=== PATIENT | male | born 1965 | race Caucasian/White ===

== ENCOUNTER 2016-07-28 10:05 | Emergency (ER) | payer SELFPAY ==
[~2016-07-28] VITALS: Ht 175.3 cm; Wt 118.0 kg
[~2016-07-28 10:05] MED LIST: ASPI325T PO; CEPH500C3 PO
[2016-07-28 10:08] VITALS: BP 185/89; PULSE 124; RESP 18; TEMP 98.4; O2SAT 95
[2016-07-28] MEDS ORDERED: chlordiazePOXIDE 25 MG CAP PO ONE (10:45)
--- NOTE | 2016-07-28 10:46 | PD ---
HPI Chief Complaint: Edema Time Seen by Provider: 10:23 Travel History International Travel<30 days: No Contact w/Intl Traveler<30days: No Traveled to known affect area: No History of Present Illness HPI This patient complains of swelling in his legs and abdomen. Complains of some shortness of breath. Duration is one month. He reports a gradual worsening. Patient drinks at least 12 beers daily for 2 decades. Denies drug use. He has not had any alcoholic in the last 2-3 days. His girlfriend at bedside reports that he does get shaky when he does not get alcohol for a while. He has not had any chest pain. Symptoms severity is moderate. No alleviating factors. PFSH Past Medical History Arthritis: No Asthma: No Autoimmune Disease: No Blood Disorders: No Anxiety: No Depression: No Heart Rhythm Problems: No Cancer: No Cardiovascular Problems: No High Cholesterol: No Chest Pain: Yes Congestive Heart Failure: No Cerebrovascular Accident: No Diabetes: No GERD: No Genitourinary: No Headaches: No Hepatitis: No Hiatal Hernia: No Hypertension: Yes Kidney Stones: No Musculoskeletal: No Neurologic: No Respiratory: No Migraines: No Myocardial Infarction: No Renal Failure: No Seizures: No Sleep Apnea: No Thyroid Disease: No Ulcer: No Past Surgical History Abdominal Surgery: No Appendectomy: No Cardiac Surgery: No Cholecystectomy: No Ear Surgery: No Endocrine Surgery: No Eye Surgery: No Genitourinary Surgery: No 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) Thoracic Surgery: No Social History Alcohol Use: Yes Tobacco Use: No Substance Use: No Allergies-Medications (Allergen,Severity, Reaction): Coded Allergies: No Known Allergies (Verified , 07/28/16) Reported Meds & Prescriptions Reported Meds & Active Scripts Active Keflex (Cephalexin Monohydrate) 500 Mg Cap 500 Mg PO Q6 Reported Aspirin 325 Mg Tab (Aspirin) 325 Mg Tab 2 Tabs PO DAILY Review of Systems General / Constitutional: No: Fever Eyes: No: Visual changes HENT: No: Headaches Cardiovascular: Positive: Edema, No: Chest Pain or Discomfort Respiratory: Positive: Shortness of Breath Gastrointestinal: No: Abdominal Pain Genitourinary: No: Dysuria Musculoskeletal: Positive: Edema, No: Pain Skin: No Rash Neurologic: No: Weakness Psychiatric: Positive: Substance Abuse, No: Depression Endocrine: No: Polydipsia Hematologic/Lymphatic: No: Easy Bruising Physical Exam Narrative GENERAL: Well-nourished, well-developed patient in no apparent distress. SKIN: Focused skin assessment reveals no rash and nodules. Skin is Warm and dry. HEAD: Atraumatic. Normocephalic. EYES: Pupils equal and round. No scleral icterus. No injection or drainage. ENT: No nasal bleeding or discharge. Mucous membranes pink and moist. NECK: Trachea midline. No JVD. CARDIOVASCULAR: Regular rate and rhythm. No murmur appreciated. Tachycardic at 115 RESPIRATORY: No accessory muscle use. Clear to auscultation. Breath sounds equal bilaterally. GASTROINTESTINAL: Abdomen soft, non-tender, nondistended. Hepatic and splenic margins not palpable. MUSCULOSKELETAL: Has had a left BKA. No clubbing. No cyanosis. Right leg shows mild edema with some hyperpigmentation stasis confirming this is chronic NEUROLOGICAL: Awake and alert. No obvious cranial nerve deficits. Motor grossly within normal limits. Normal speech. PSYCHIATRIC: Appropriate mood and affect; insight and judgment poor. Data Data Last Documented VS Vital Signs Date Time Temp Pulse Resp B/P Pulse Ox O2 Delivery O2 Flow Rate FiO2 07/28/16 10:16 Room Air 07/28/16 10:08 98.4 124 18 185/89 95 Orders Electrocardiogram (07/28/16 ) Iv Access Insert/Monitor (07/28/16 10:36) Complete Blood Count With Diff (07/28/16 10:36) Comprehensive Metabolic Panel (07/28/16 10:36) Chest, Single Ap (07/28/16 ) Primary Care Physician / Telemetry [email or web address].[email or web address] (07/28/16 10:36) Alcohol (Ethanol) (07/28/16 10:36) Chlordiazepoxide (Librium) (07/28/16 10:45) Furosemide (Lasix) (07/28/16 13:00) Potassium Chloride Eff (K-Lyte Cl Eff) (07/28/16 13:00) Labs Laboratory Tests Test 07/28/16 10:30 White Blood Count 6.6 TH/MM3 Red Blood Count 3.60 MIL/MM3 Hemoglobin 13.2 GM/DL Hematocrit 37.1 % Mean Corpuscular Volume 103.1 FL Mean Corpuscular Hemoglobin 36.5 PG Mean Corpuscular Hemoglobin 35.4 % Concent Red Cell Distribution Width 15.4 % Platelet Count 53 TH/MM3 Mean Platelet Volume 8.5 FL Neutrophils (%) (Auto) 76.2 % Lymphocytes (%) (Auto) 15.2 % Monocytes (%) (Auto) 7.3 % Eosinophils (%) (Auto) 0.8 % Basophils (%) (Auto) 0.5 % Neutrophils # (Auto) 5.0 TH/MM3 Lymphocytes # (Auto) 1.0 TH/MM3 Monocytes # (Auto) 0.5 TH/MM3 Eosinophils # (Auto) 0.1 TH/MM3 Basophils # (Auto) 0.0 TH/MM3 CBC Comment AUTO DIFF Differential Comment AUTO DIFF CONFIRMED Platelet Estimate LOW Platelet Morphology Comment NORMAL Sodium Level 136 MEQ/L Potassium Level 3.3 MEQ/L Chloride Level 97 MEQ/L Carbon Dioxide Level 25.8 MEQ/L Anion Gap 13 MEQ/L Blood Urea Nitrogen 4 MG/DL Creatinine 0.71 MG/DL Estimat Glomerular Filtration 118 ML/MIN Rate Random Glucose 78 MG/DL Calcium Level 8.0 MG/DL Total Bilirubin 7.9 MG/DL Aspartate Amino Transf 165 U/L (AST/SGOT) Alanine Aminotransferase 44 U/L (ALT/SGPT) Alkaline Phosphatase 138 U/L Total Protein 7.8 GM/DL Albumin 2.6 GM/DL Ethyl Alcohol Level 75 MG/DL MDM Medical Decision Making Medical Screen Exam Complete: Yes Emergency Medical Condition: Yes Medical Record Reviewed: Yes Differential Diagnosis Liver failure, renal failure, congestive heart failure, alcohol withdrawal Narrative Course I have reviewed the patient's electronic medical record. Patient was here for chest pain evaluation in 2006 IV placed CBC reveals thrombocytopenia 53,000 Metabolic profile is normal LFTs reasonably normal Alcohol level is 75 I reviewed his EKG which shows sinus tachycardia with a rate of 113 Extended cardiac monitoring reveals sinus tachycardia without ectopy I reviewed his chest x-ray which shows atelectasis but nothing else On recheck patient is doing well. Stable for outpatient follow-up. Giving him 1 dose of 80 mg by mouth Lasix now Most importantly he needs to quit his alcohol abuse Discussed the danger of the low platelets His leg swelling likely from his liver disease He is not in CHF Diagnosis Primary Impression: Leg edema, right Additional Impressions: Alcoholism with alcohol dependence Qualified Code: F10.229 - Alcohol dependence with intoxication with complication Thrombocytopenia Additional Instructions: The patient was advised to follow up with their physician and return if they worsen. Stop alcohol consumption Consider [facility] alcohol rehabilitation services Elevate right leg Use low-sodium diet Wear compression stocking on right leg Med/Other Pt SpecificInfo: Other Disposition: 01 DISCHARGE HOME Condition: Stable Ricardo Stephenson MD Jul 28, 2016 10:46
[2016-07-28 11:15] LABS: BASOPHIL % 0.5 % (0.0-2.0); EOSINOPHIL # 0.1 TH/MM3 (0-0.4); EOSINOPHIL % 0.8 % (0.0-4.0); HEMATOCRIT 37.1 % (39.0-51.0); LYMPH % 15.2 % (9.0-44.0); MEAN CELL VOLUME 103.1 FL (80.0-100.0); MEAN CORPUSCULAR HEMOGLOBIN 36.5 PG (27.0-34.0); MEAN CORPUSCULAR HGB CONC 35.4 % (32.0-36.0); MONO % 7.3 % (0.0-8.0); NEUT % 76.2 % (16.0-70.0); PLATELET COUNT 53 TH/MM3 (150-450); RED CELL DISTRIBUTION WIDTH 15.4 % (11.6-17.2); WHITE BLOOD COUNT 6.6 TH/MM3 (4.0-11.0)
[2016-07-28 11:25] LABS: ANION GAP 13 MEQ/L (5-15)
[2016-07-28 11:28] LABS: ALKALINE PHOSPHATASE 138 U/L (45-117); ALT (GPT) 44 U/L (12-78); AST (GOT) 165 U/L (15-37); BICARBONATE 25.8 MEQ/L (21.0-32.0); BLOOD UREA NITROGEN 4 MG/DL (7-18); CHLORIDE 97 MEQ/L (98-107); GLOMERULAR FILTRATION RATE 118 ML/MIN (>89); POTASSIUM 3.3 MEQ/L (3.5-5.1); SODIUM (NA) 136 MEQ/L (136-145); TOTAL BILIRUBIN ADULT 7.9 MG/DL (0.2-1.0)
[2016-07-28 11:49] LABS: HEMO FLAGS AUTO DIFF
[2016-07-28 11:50] LABS: PLATELET ESTIMATE SMEAR LOW (NORMAL); PLATELET MORPHOLOGY NORMAL (NORMAL); SCAN/DIFF AUTO DIFF CONFIRMED
[2016-07-28 12:00] VITALS: BP 169/87; PULSE 110; RESP 18; O2SAT 96
--- NOTE | 2016-07-28 12:07 | RADRPT ---
EXAM DATE/TIME: 07/28/2016 11:12 [facility] COMPARISON: No previous studies available for comparison. INDICATIONS : Shortness of breath and lower extremity swelling. MEDICAL HISTORY : None. SURGICAL HISTORY : None. ENCOUNTER: Initial ACUITY: 3 days PAIN SCORE: 0/10 LOCATION: Bilateral chest FINDINGS: Single AP view of the chest. Mild patchy opacity at the left lung base likely representing atelectasi s. Cardiomediastinal silhouette within normal limits. No evidence of pleural effusion or pneumothorax . CONCLUSION: Mild opacity at the left lung base likely representing atelectasis. No other acute findin gs. Aniket Christensen MD on July 28, 2016 at 12:04 Board Certified Radiologist. This report was verified electronically.
[2016-07-28] MEDS ORDERED: FUROSEMIDE 80 MG TAB PO ONE (13:00)
[2016-07-28] MEDS ORDERED: POTASSIUM CHLORIDE 25 MEQ EFFERVESCENT TAB PO ONE (13:00)
--- NOTE | 2016-07-28 18:34 | EKG ---
Date Performed: 07/28/2016 Time Performed: 10:22:09 PTAGE: 50 years EKG: SINUS TACHYCARDIA ABNORMAL RHYTHM ECG PREVIOUS TRACING : 09/12/2006 10.54 Compared to the previous tracing rate faster DOCTOR: Anna Peters Interpretating Date/Time 07/28/2016 18:32:45
== END 2016-07-28 14:09 | disposition home or self-care (01) ==
LOC: NEPC 10:05
DX: R60.0 Localized edema (principal); F10.20 Alcohol dependence, uncomplicated; D69.6 Thrombocytopenia, unspecified; R06.02 Shortness of breath
CPT/HCPCS: 71010; 80053; 80307; 85025; 93005

== ENCOUNTER 2016-09-09 10:04 | Inpatient (IN) | payer SELFPAY ==
[~2016-09-09] VITALS: Ht 172.7 cm; Wt 135.7 kg
[2016-09-09] VITALS (7 sets, daily range): BP systolic 134–188; BP diastolic 49–91; PULSE 90–116; RESP 20–28; TEMP 95.9–98.6; O2SAT 93–97
[2016-09-09] MEDS ORDERED: SODIUM CHLORIDE 0.9% FLUSH 10 ML FLUSH IV FLUSH PRN ×2 (10:45→13:15)
[2016-09-09] MEDS ORDERED: FUROSEMIDE 40 MG/4 ML VIAL IV PUSH ONE (10:45)
--- NOTE | 2016-09-09 11:11 | RADRPT ---
EXAM DATE/TIME: 09/09/2016 10:37 [facility] COMPARISON: CHEST SINGLE AP, July 28, 2016, 11:12. INDICATIONS : Shortness of breath. MEDICAL HISTORY : None. SURGICAL HISTORY : None. ENCOUNTER: Initial ACUITY: 1 day PAIN SCORE: 0/10 LOCATION: Bilateral chest FINDINGS: A single view of the chest demonstrates the lungs to be symmetrically aerated without evidence of mas s, infiltrate or effusion. The cardiomediastinal contours are unremarkable. Osseous structures are intact. CONCLUSION: 1. No acute cardiopulmonary findings. Ananth Blanchard MD on September 09, 2016 at 11:09 Board Certified Radiologist. This report was verified electronically.
[2016-09-09] MEDS ORDERED: ASPI81CH CHEW (11:17)
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
[2016-09-09 11:34] LABS: BASOPHIL % 0.7 % (0.0-2.0); EOSINOPHIL # 0.1 TH/MM3 (0-0.4); EOSINOPHIL % 1.6 % (0.0-4.0); HEMATOCRIT 34.9 % (39.0-51.0); LYMPH % 18.7 % (9.0-44.0); LYMPHOCYTE # 1.1 TH/MM3 (1.0-4.8); MEAN CELL VOLUME 110.8 FL (80.0-100.0); MEAN CORPUSCULAR HEMOGLOBIN 37.4 PG (27.0-34.0); MEAN CORPUSCULAR HGB CONC 33.8 % (32.0-36.0); MONO % 8.3 % (0.0-8.0); NEUT % 70.7 % (16.0-70.0); PLATELET COUNT 48 TH/MM3 (150-450); RED BLOOD COUNT 3.15 MIL/MM3 (4.50-5.90); RED CELL DISTRIBUTION WIDTH 17.7 % (11.6-17.2); WHITE BLOOD COUNT 5.7 TH/MM3 (4.0-11.0)
[2016-09-09 11:41] LABS: INTERNATIONAL NORMALIZED RATIO 1.4 RATIO; PROTHROMBIN TIME - PATIENT 16.1 SEC (9.8-11.6)
[2016-09-09 11:43] LABS: HEMO FLAGS AUTO DIFF
[2016-09-09 11:55] LABS: ANION GAP 11 MEQ/L (5-15); AST (GOT) 99 U/L (15-37); BICARBONATE 26.2 MEQ/L (21.0-32.0); BLOOD UREA NITROGEN 5 MG/DL (7-18); CHLORIDE 102 MEQ/L (98-107); GLOMERULAR FILTRATION RATE 153 ML/MIN (>89); POTASSIUM 3.4 MEQ/L (3.5-5.1); SODIUM (NA) 139 MEQ/L (136-145)
[2016-09-09 11:56] LABS: ALT (GPT) 30 U/L (12-78)
[2016-09-09 11:58] LABS: ALKALINE PHOSPHATASE 109 U/L (45-117)
[2016-09-09 12:13] LABS: PLATELET ESTIMATE SMEAR LOW (NORMAL); PLATELET MORPHOLOGY NORMAL (NORMAL); SCAN/DIFF AUTO DIFF CONFIRMED
[2016-09-09] MEDS ORDERED: LACTULOSE SYRUP 20 GM/30 ML CUP PO PRN (13:15)
[2016-09-09] MEDS ORDERED: NALOXONE HCL 0.4 MG/ML AMP IV PRN (13:15)
[2016-09-09] MEDS ORDERED: ONDANSETRON HCL 4 MG/2 ML VIAL IVP PRN (13:15)
[2016-09-09] MEDS ORDERED: ACETAMINOPHEN 325 MG TAB PO PRN (13:15)
[2016-09-09] MEDS ORDERED: BISACODYL 10 MG SUPP RECTAL PRN (13:15)
[2016-09-09] MEDS ORDERED: SENNOSIDES 8.6 MG TAB PO PRN (13:15)
[2016-09-09] MEDS ORDERED: MAGNESIUM HYDROXIDE SUSP 30 ML CUP PO PRN (13:15)
[2016-09-09] MEDS: FUROSEMIDE 40 MG/4 ML VIAL IV PUSH SCH ×2 (14:00→21:09)
[2016-09-09 14:04] LABS: BLOOD, URINE NEG (NEG); GLUCOSE,URINE NEG (NEG); HYALINE CAST, URINE 1 /lpf (RARE); KETONE, URINE NEG (NEG); MUCUS URINE FEW /lpf (OCC); NITRITE,URINE NEG (NEG); SQUAMOUS EPITHELIAL CELL URINE <1 /hpf (0-5); URINE COLOR YELLOW (YELLW/STRAW)
[2016-09-09 14:05] LABS: COMMENT (UR) CULT NOT INDICATED; CULTURE IF INDICATED CULT NOT INDICATED
[2016-09-09] MEDS ORDERED: POTASSIUM CHLORIDE 20 MEQ CONTROLLED RELEASE TAB PO ONE ×2 (14:30→16:30)
[2016-09-09] MEDS ORDERED: ALBUMIN HUMAN 25% 25 GM/100 ML BAGP IV ONE (15:00)
--- NOTE | 2016-09-09 15:16 | EKG ---
Date Performed: 09/09/2016 Time Performed: 11:24:11 PTAGE: 50 years EKG: Sinus rhythm NORMAL ECG NO SIGNIFICANT CHANGE FROM PRIOR ELECTROCARDIOGRAM. PREVIOUS TRACING : 07/28/2016 10.22 DOCTOR: Brennon Holt Interpretating Date/Time 09/09/2016 15:15:42
--- NOTE | 2016-09-09 16:06 | RADRPT ---
EXAM DATE/TIME: 09/09/2016 13:19 [facility] COMPARISON: No previous studies available for comparison. INDICATIONS : Ascites. MEDICAL HISTORY : Hypertension. Cirrhosis. Chest pain. SURGICAL HISTORY : Adenoidectomy. Left BKA. ENCOUNTER: Initial ACUITY: 3 weeks PAIN SCORE: 8/10 LOCATION: Left lower quadrant FLUID: Total volume of 1000 cc of clear, yellow fluid was removed. Fluid was sent to lab for ordered studies. Post procedure scanning reveals no hematoma or other complication. TECHNIQUE: 1. Ultrasound guidance for abdominal paracentesis. 2. Paracentesis. The risks, benefits, and alternatives to ultrasound guided paracentesis were explained to the patient in detail including the risk of bleeding and infection. Written and verbal informed consent was obt ained. Under ultrasound guidance 6-[place]ij[place] catheter was placed in the peritoneal space. 1000 cc of f luid could be removed. I could not drain any more. The patient tolerated the procedure well and left the ultrasound suite in stable condition. CONCLUSION: Uncomplicated ultrasound guided paracentesis. CT scan is suggested for further evaluation. The asci nisha may be complex or malignant. Carter Blanchard MD FACR on September 09, 2016 at 16:03 Board Certified Radiologist. This report was verified electronically.
--- NOTE | 2016-09-09 16:22 | RADRPT ---
EXAM DATE/TIME: 09/09/2016 14:36 [facility] COMPARISON: US GUIDED ABD PARACENTESIS, September 09, 2016, 13:19. INDICATIONS : Cirrhosis. MEDICAL HISTORY : Hypertension. Cirrhosis. Chest pain. SURGICAL HISTORY : Adenoidectomy. Left BKA. ENCOUNTER: Initial ACUITY: 3 weeks PAIN SCORE: 8/10 LOCATION: Bilateral upper quadrant MEASUREMENTS: LIVER: 17.7 cm length COMMON DUCT: Non-visualized RIGHT KIDNEY: 11.1 x 5.8 x 5.6 cm SPLEEN: 14.3 cm length FINDINGS: LIVER: There is heterogeneous echotexture of the liver. The liver appears small and cirrhotic. There is asci nisha diffusely throughout the upper abdomen. The main portal vein is patent with a patent pedal flow. COMMON DUCT: The common duct was not visualized. GALLBLADDER: There is some sludge in the dependent portion the gallbladder. The gallbladder wall appears mildly th ickened which would be expected in the setting of ascites. PANCREAS: The pancreas was not visualized RIGHT KIDNEY: No hydronephrosis, stone or mass. SPLEEN: The spleen appears mildly enlarged CONCLUSION: 1. Cirrhotic appearing liver with ascites diffusely throughout the upper abdomen. 2. No findings to indicate biliary obstruction. Ananth Blanchard MD on September 09, 2016 at 16:18 Board Certified Radiologist. This report was verified electronically.
[2016-09-09] MEDS ORDERED: FLUMAZENIL 0.5 MG/5 ML VIAL IV PUSH PRN (16:45)
[2016-09-09] MEDS ORDERED: LORazepam 1 MG TAB PO PRN (16:45)
[2016-09-09] MEDS ORDERED: LORazepam 2 MG/ML VIAL IV PUSH PRN ×2 (16:45)
[2016-09-09] MEDS ORDERED: LORazepam 2 MG TAB PO PRN (16:45)
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
[2016-09-09] MEDS: ALBUMIN HUMAN 25% 25 GM/100 ML BAGP IV SCH (17:46)
[2016-09-09] MEDS: METOPROLOL TARTRATE 25 MG TAB PO SCH ×2 (17:46→21:08)
[2016-09-09 18:57] LABS: PERITONEAL LYMPHS 14 %; PERITONEAL POLYS(SEGS) 32 %; PERITONEAL WBC 313 /MM3 (0-10)
[2016-09-09 18:58] LABS: PERITONEAL HISTIOCYTES 37 %; PERITONEAL MESOTHELIAL 12 %; PERITONEAL MONOS 5 %
[2016-09-09] MEDS: DOCUSATE SODIUM 50 MG/SENNA 8.6 MG TAB PO SCH (21:00)
[2016-09-09] MEDS: SODIUM CHLORIDE 0.9% FLUSH 10 ML FLUSH IV FLUSH SCH (21:04)
[2016-09-09] MEDS: FAMOTIDINE 20 MG TAB PO SCH (21:05)
[2016-09-10] VITALS (9 sets, daily range): BP systolic 110–142; BP diastolic 54–83; PULSE 89–96; RESP 20; TEMP 97.3–98.6; O2SAT 94–97
[2016-09-10] MEDS: ALBUMIN HUMAN 25% 25 GM/100 ML BAGP IV SCH ×2 (02:40→14:04)
[2016-09-10 05:13] LABS: AUTOMATED NEUTROPHIL # 2.2 TH/MM3 (1.8-7.7); BASOPHIL % 0.8 % (0.0-2.0); EOSINOPHIL # 0.2 TH/MM3 (0-0.4); EOSINOPHIL % 3.9 % (0.0-4.0); HEMATOCRIT 29.5 % (39.0-51.0); LYMPH % 29.7 % (9.0-44.0); LYMPHOCYTE # 1.2 TH/MM3 (1.0-4.8); MEAN CELL VOLUME 113.8 FL (80.0-100.0); MEAN CORPUSCULAR HEMOGLOBIN 39.8 PG (27.0-34.0); MONO % 10.8 % (0.0-8.0); NEUT % 54.8 % (16.0-70.0); PLATELET COUNT 43 TH/MM3 (150-450); RED BLOOD COUNT 2.59 MIL/MM3 (4.50-5.90); RED CELL DISTRIBUTION WIDTH 18.1 % (11.6-17.2); WHITE BLOOD COUNT 3.9 TH/MM3 (4.0-11.0)
[2016-09-10] MEDS ORDERED: DIATRIZOATE MEGLUM/DIATRIZOATE SOD 9 ML CUP PO SCH (05:15)
[2016-09-10 05:17] LABS: HEMO FLAGS DIFF FINAL
[2016-09-10] MEDS: FUROSEMIDE 40 MG/4 ML VIAL IV PUSH SCH ×3 (05:21→21:45)
[2016-09-10 05:34] LABS: ANION GAP 10 MEQ/L (5-15); AST (GOT) 68 U/L (15-37); BICARBONATE 30.4 MEQ/L (21.0-32.0); BLOOD UREA NITROGEN 7 MG/DL (7-18); CHLORIDE 101 MEQ/L (98-107); GLOMERULAR FILTRATION RATE 144 ML/MIN (>89); POTASSIUM 3.5 MEQ/L (3.5-5.1); SODIUM (NA) 141 MEQ/L (136-145)
[2016-09-10 05:40] LABS: ALKALINE PHOSPHATASE 79 U/L (45-117); ALT (GPT) 23 U/L (12-78); TOTAL BILIRUBIN ADULT 7.1 MG/DL (0.2-1.0)
[2016-09-10] MEDS: DOCUSATE SODIUM 50 MG/SENNA 8.6 MG TAB PO SCH ×2 (09:00→21:00)
[2016-09-10] MEDS: METOPROLOL TARTRATE 25 MG TAB PO SCH ×2 (09:29→21:45)
[2016-09-10] MEDS: THIAMINE HCL 100 MG TAB PO SCH (09:29)
[2016-09-10] MEDS: FAMOTIDINE 20 MG TAB PO SCH ×2 (09:29→21:45)
[2016-09-10] MEDS: MULTIVITAMINS/MINERALS THERAPEUTIC TAB PO SCH (09:29)
[2016-09-10] MEDS: FOLIC ACID 1 MG TAB PO SCH (09:29)
[2016-09-10] MEDS: SODIUM CHLORIDE 0.9% FLUSH 10 ML FLUSH IV FLUSH SCH ×2 (09:30→21:46)
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
[2016-09-10] MEDS ORDERED: IOHEXOL 350 MG/ML 10 ML VIAL (for RAD DIAG) IV ONE (11:46)
--- NOTE | 2016-09-10 12:21 | RADRPT ---
EXAM DATE/TIME: 09/10/2016 11:34 [place] COMPARISON: No previous studies available for comparison. INDICATIONS : Abdominal pain, history of cirrhosis. IV CONTRAST: 88 cc Omnipaque 350 (iohexol) IV ORAL CONTRAST: Prescribed oral contrast ingested. RADIATION DOSE: 21.99 CTDIvol (mGy) MEDICAL HISTORY : Hypertension. Cirrhosis. SURGICAL HISTORY : None. ENCOUNTER: Initial ACUITY: 1 day PAIN SCALE: 5/10 LOCATION: Bilateral upper quadrant TECHNIQUE: Volumetric scanning of the abdomen and pelvis was performed. Using automated exposure control and ad justment of the mA and/or kV according to patient size, radiation dose was kept as low as reasonably achievable to obtain optimal diagnostic quality images. FINDINGS: The liver is nodular in contour consistent with cirrhosis. No biliary ductal dilatation is noted. T he gallbladder is non-distended. The spleen is enlarged. There is re-canalization of the umbilical vein as well as esophageal and perisplenic varices indicating portal hypertension. The pancreas is n ormal. The adrenal glands are normal bilaterally. The kidneys enhance briskly and demonstrate no ev idence of hydronephrosis or calcified stone. The abdominal aorta is calcified but is not aneurysmall y dilated. The inferior vena cava is normal. There is no paraaortic, retroperitoneal or mesenteric lymphadenopathy. The bowel loops are unremarkable. The urinary bladder is unremarkable. The prosta te gland is unremarkable. No pelvic lymphadenopathy is noted. The visualized lung bases are clear. Degenerative changes are noted throughout the lumbar and lower thoracic spine. Degenerative changes are also noted involving the hip joints. CONCLUSION: 1.. Moderate amount of ascites within the abdomen. 2. Cirrhosis of the liver. 3. Re-canalization of the umbilical vein, esophageal varices and perisplenic varices indicating port al hypertension. 4. Splenomegaly. 5. Degenerative changes involving lumbar spine, lower thoracic spine and bilateral hips. Miki Metz MD on September 10, 2016 at 11:59 Board Certified Radiologist. This report was verified electronically.
[2016-09-10] MEDS: cefTRIAXone INJ 1,000 MG in SODIUM CHLORIDE 0.9% INJ 100 ML IV SCH (12:26)
[2016-09-10] MEDS: SPIRONOLACTONE 25 MG TAB PO SCH (15:54)
[2016-09-11] VITALS: BP 129/69; PULSE 87; RESP 20; TEMP 98.8; O2SAT 94
[2016-09-11] MEDS: ALBUMIN HUMAN 25% 25 GM/100 ML BAGP IV SCH (03:47)
[2016-09-11 04:00] VITALS: BP 119/58; PULSE 92; RESP 20; TEMP 97.8; O2SAT 97
[2016-09-11 04:42] LABS: BODY FLUID LDH 66 U/L (()); BODY FLUID LDH SOURCE PERITONEAL FLUID (())
[2016-09-11] MEDS: FUROSEMIDE 40 MG/4 ML VIAL IV PUSH SCH ×3 (05:28→20:31)
[2016-09-11 08:00] VITALS: BP 151/75; PULSE 92; RESP 18; TEMP 97.4; O2SAT 94
[2016-09-11] MEDS: SPIRONOLACTONE 25 MG TAB PO SCH (08:54)
[2016-09-11] MEDS: FAMOTIDINE 20 MG TAB PO SCH ×2 (08:54→20:31)
[2016-09-11] MEDS: FOLIC ACID 1 MG TAB PO SCH (08:54)
[2016-09-11] MEDS: DOCUSATE SODIUM 50 MG/SENNA 8.6 MG TAB PO SCH ×2 (08:54→20:31)
[2016-09-11] MEDS: MULTIVITAMINS/MINERALS THERAPEUTIC TAB PO SCH (08:54)
[2016-09-11] MEDS: METOPROLOL TARTRATE 25 MG TAB PO SCH ×2 (08:54→20:31)
[2016-09-11] MEDS: THIAMINE HCL 100 MG TAB PO SCH (08:54)
[2016-09-11] MEDS: SODIUM CHLORIDE 0.9% FLUSH 10 ML FLUSH IV FLUSH SCH ×2 (08:55→20:31)
[2016-09-11] MEDS: PILL SPLITTER OTHER PRN (08:55)
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
[2016-09-11 12:00] VITALS: BP 123/87; PULSE 92; RESP 17; TEMP 97.9; O2SAT 93
[2016-09-11] MEDS: cefTRIAXone INJ 1,000 MG in SODIUM CHLORIDE 0.9% INJ 100 ML IV SCH (12:24)
[2016-09-11 16:00] VITALS: BP 135/88; PULSE 94; RESP 17; TEMP 98.5; O2SAT 96
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
[2016-09-11 21:13] VITALS: BP 144/72; PULSE 93; RESP 18; TEMP 98.3; O2SAT 96
[2016-09-12 01:26] VITALS: BP 136/68; PULSE 95; RESP 18; TEMP 97.4; O2SAT 94
[2016-09-12] MEDS: FUROSEMIDE 40 MG/4 ML VIAL IV PUSH SCH ×3 (05:31→20:24)
[2016-09-12 06:37] LABS: TRANSFERRIN IRON PROFILE 92 MG/DL (200-360)
[2016-09-12 06:39] LABS: FERRITIN 270 NG/ML (26-388)
[2016-09-12] MEDS: THIAMINE HCL 100 MG TAB PO SCH (08:13)
[2016-09-12] MEDS: SODIUM CHLORIDE 0.9% FLUSH 10 ML FLUSH IV FLUSH SCH ×2 (08:14→20:25)
[2016-09-12] MEDS: SPIRONOLACTONE 25 MG TAB PO SCH (08:14)
[2016-09-12] MEDS: METOPROLOL TARTRATE 25 MG TAB PO SCH ×2 (08:14→20:24)
[2016-09-12] MEDS: FOLIC ACID 1 MG TAB PO SCH (08:14)
[2016-09-12] MEDS: MULTIVITAMINS/MINERALS THERAPEUTIC TAB PO SCH (08:14)
[2016-09-12] MEDS: FAMOTIDINE 20 MG TAB PO SCH ×2 (08:14→20:24)
[2016-09-12] MEDS: PILL SPLITTER OTHER PRN (08:15)
[2016-09-12] MEDS: DOCUSATE SODIUM 50 MG/SENNA 8.6 MG TAB PO SCH ×2 (08:15→20:24)
[2016-09-12 08:33] VITALS: BP 117/69; PULSE 98; RESP 18; TEMP 98.3; O2SAT 93
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
[2016-09-12 12:00] VITALS: BP 140/74; PULSE 88; RESP 19; TEMP 96.4; O2SAT 96
[2016-09-12] MEDS: cefTRIAXone INJ 1,000 MG in SODIUM CHLORIDE 0.9% INJ 100 ML IV SCH (12:19)
[2016-09-12 12:51] LABS: BICARBONATE 36.6 MEQ/L (21.0-32.0); MAGNESIUM 1.5 MG/DL (1.5-2.5)
[2016-09-12 13:01] LABS: POTASSIUM 2.9 MEQ/L (3.5-5.1)
[2016-09-12] MEDS ORDERED: POTASSIUM CHLORIDE 20 MEQ CONTROLLED RELEASE TAB PO ONE ×2 (13:15→15:00)
[2016-09-12] MEDS: MAGNESIUM SULFATE 1 GM PREMIX 100 ML IV SCH ×2 (13:41→14:37)
[2016-09-12 16:00] VITALS: BP 129/65; PULSE 91; RESP 17; TEMP 96.6; O2SAT 95
--- NOTE | 2016-09-12 16:27 | HHI.GIFU ---
Subjective Remarks Pt laying in bed, says he feels better. No n/v, abd pain, SOB Objective Vitals I&O Vital Signs Date Time Temp Pulse Resp B/P Pulse Ox O2 Delivery O2 Flow Rate FiO2 09/12/16 12:00 96.4 88 19 140/74 96 09/12/16 08:33 98.3 98 18 117/69 93 09/12/16 01:26 97.4 95 18 136/68 94 09/11/16 21:13 98.3 93 18 144/72 96 I/O 09/11/16 09/11/16 09/11/16 09/12/16 09/12/16 09/12/16 07:00 15:00 23:00 07:00 15:00 23:00 Intake Total 220 ml 575 ml 290 ml Output Total 800 ml 650 ml 1000 ml 500 ml Balance -580 ml -75 ml -1000 ml -210 ml Intake Oral 120 ml 475 ml IV Total 100 ml 100 ml 290 ml Output Urine Total 800 ml 650 ml 1000 ml 500 ml # Voids 1 # Bowel Movements 0 1 Laboratory Laboratory Tests Test 09/12/16 09/12/16 05:46 12:13 Iron Level 58 Total Iron Binding Capacity 129 Percent Iron Saturation 45.0 Ferritin 270 Sodium Level 139 Potassium Level 2.9 Chloride Level 97 Carbon Dioxide Level 36.6 Anion Gap 5 Blood Urea Nitrogen 7 Creatinine 0.79 Estimat Glomerular Filtration 105 Rate Random Glucose 135 Calcium Level 8.0 Phosphorus Level 3.5 Magnesium Level 1.5 Date/Time Procedure Status Source Growth 09/09/16 14:57 Gram Stain - Final Complete Fluid Peritoneal Fluid 09/09/16 14:57 Body Fluid Culture - Final Complete Fluid Peritoneal Fluid NO GROWTH IN 72 HRS.--AEROBICALLY OR ... Imaging Last Impressions Abdomen/Pelvis CT 09/10/16 1136 Signed Impressions: Service Date/Time: Saturday, September 10, 2016 11:34 - CONCLUSION: 1.. Moderate amount of ascites within the abdomen. 2. Cirrhosis of the liver. 3. Re-canalization of the umbilical vein, esophageal varices and perisplenic varices indicating portal hypertension. 4. Splenomegaly. 5. Degenerative changes involving lumbar spine, lower thoracic spine and bilateral hips. Miki Metz MD Chest X-Ray 09/09/16 1036 Signed Impressions: Service Date/Time: Friday, September 09, 2016 10:37 - CONCLUSION: 1. No acute cardiopulmonary findings. Ananth Blanchard MD Liver Ultrasound 09/09/16 0000 Signed Impressions: Service Date/Time: Friday, September 09, 2016 14:36 - CONCLUSION: 1. Cirrhotic appearing liver with ascites diffusely throughout the upper abdomen. 2. No findings to indicate biliary obstruction. Ananth Blanchard MD Cyst Biopsy Asp-Paracentesis US 09/09/16 0000 Signed Impressions: Service Date/Time: Friday, September 09, 2016 13:19 - CONCLUSION: Uncomplicated ultrasound guided paracentesis. CT scan is suggested for further evaluation. The ascites may be complex or malignant. Carter Blanchard MD FACR Physical Exam HEENT: EOMI; normocephalic; atraumatic; +icterus. CHEST: CTA CARDIAC: RRR ABDOMEN: soft, protuberant, nontender; bowel sounds are present in all four quadrants. EXTREMITIES: No clubbing, cyanosis, +2 pitting edema left leg. right BKA SKIN: no rash; + jaundice. [employer]: No focal deficits; alert and oriented times three. Assessment and Plan Plan ASSESSMENT - cirrhosis - likely 2/2 ETOH. pt w/ hx drinking 6-7 beers daily. hep neg. DF 25.96. iron 58, TIBC 129, ferritin 70. liver w/u pending CT --> 1.. Moderate amount of ascites within the abdomen. 2. Cirrhosis of the liver. 3. Re-canalization of the umbilical vein, esophageal varices and perisplenic varices indicating portal hypertension. 4. Splenomegaly. - elevated LFTs - 2/2 above, mild elevation - ascites - s/p paracentesis - anasarca - onset 1m ago. PLAN - await rest of liver w/u - continue diuretics - low sodium diet - ETOH cessation - monitor labs - okay to D/C from GI standpoint, f/u w/ GI as outpt This pt seen by myself and Dr Pascal and this note is written on his behalf Claudia Hopson Sep 12, 2016 16:27
[2016-09-12 20:00] VITALS: BP 126/62; PULSE 91; RESP 18; TEMP 97.6; O2SAT 95
[2016-09-12] MEDS ORDERED: SPIR25 PO (23:05)
[2016-09-12] MEDS ORDERED: METO25TA3 PO (23:05)
[2016-09-12] MEDS ORDERED: FURO1TAB60 PO (23:05)
[2016-09-12] MEDS ORDERED: FAMO20TA2 PO (23:05)
--- NOTE | 2016-09-12 23:06 | HHI.DCPOC ---
Discharge Care Plan Diagnosis: (1) Anasarca Your Health Problems Are: Difficulty with ADL Exercise Tolerance Goals to Promote Your Health * To prevent worsening of your condition and complications * To maintain your health at the optimal level Directions to Meet Your Goals Take your medications as prescribed Follow your dietary instruction Follow activity as directed Keep your appointments as scheduled Take your immunizations and boosters as scheduled If your symptoms worsen call your PCP, if no PCP go to Urgent Care Center or Emergency Room Smoking is Dangerous to Your Health. Avoid second hand smoke Call the 24-hour hour crisis hotline for domestic abuse at Slick Metzger MD Sep 12, 2016 23:06
[2016-09-12] MEDS ORDERED: CIPR-9 PO (23:07)
[2016-09-13] VITALS: BP 129/60; PULSE 92; RESP 18; TEMP 98.4; O2SAT 94
[2016-09-13 04:57] LABS: MAGNESIUM 1.7 MG/DL (1.5-2.5)
[2016-09-13 05:00] LABS: POTASSIUM 2.9 MEQ/L (3.5-5.1)
[2016-09-13] MEDS ORDERED: POTASSIUM CHLORIDE 20 MEQ CONTROLLED RELEASE TAB PO ONE ×2 (05:30→14:30)
[2016-09-13] MEDS: POTASSIUM CHLOR 20 MEQ PREMIX 100 ML IV SCH ×2 (05:55→07:12)
[2016-09-13] MEDS: FUROSEMIDE 40 MG/4 ML VIAL IV PUSH SCH ×2 (05:56→12:27)
[2016-09-13 08:00] VITALS: BP 128/68; PULSE 96; RESP 16; TEMP 96.3; O2SAT 94
[2016-09-13] MEDS ORDERED: POTA-163 PO (08:50)
[2016-09-13] MEDS: DOCUSATE SODIUM 50 MG/SENNA 8.6 MG TAB PO SCH (09:00)
[2016-09-13] MEDS: THIAMINE HCL 100 MG TAB PO SCH (09:06)
[2016-09-13] MEDS: METOPROLOL TARTRATE 25 MG TAB PO SCH (09:06)
[2016-09-13] MEDS: MULTIVITAMINS/MINERALS THERAPEUTIC TAB PO SCH (09:06)
[2016-09-13] MEDS: SPIRONOLACTONE 25 MG TAB PO SCH (09:06)
[2016-09-13] MEDS: FAMOTIDINE 20 MG TAB PO SCH (09:06)
[2016-09-13] MEDS: SODIUM CHLORIDE 0.9% FLUSH 10 ML FLUSH IV FLUSH SCH (09:07)
[2016-09-13] MEDS: FOLIC ACID 1 MG TAB PO SCH (09:07)
--- NOTE | 2016-09-13 09:26 | HHI.PR ---
Subjective Remarks Follow-up cirrhosis. Patient doing okay states his abdominal distention and lower extremity swelling better. Hypokalemia of 2.9 completely asymptomatic currently being replaced. Discussed with RN, repeat BMP after replacement and possible discharge Objective Vitals Vital Signs Date Time Temp Pulse Resp B/P Pulse Ox O2 Delivery O2 Flow Rate FiO2 09/13/16 08:00 96.3 96 16 128/68 94 09/13/16 00:00 98.4 92 18 129/60 94 09/12/16 20:00 97.6 91 18 126/62 95 09/12/16 16:00 96.6 91 17 129/65 95 09/12/16 12:00 96.4 88 19 140/74 96 I/O 09/12/16 09/12/16 09/12/16 09/13/16 09/13/16 09/13/16 07:00 15:00 23:00 07:00 15:00 23:00 Intake Total 865 ml 720 ml 240 ml Output Total 1000 ml 1375 ml 450 ml Balance -1000 ml -510 ml 720 ml 240 ml -450 ml Intake Oral 575 ml 720 ml 240 ml IV Total 290 ml 0 ml Output Urine Total 1000 ml 1375 ml 450 ml # Voids 4 2 # Bowel Movements 1 0 0 Result Diagram: 09/10/16 0431 09/13/16 0316 Imaging Last Impressions Abdomen/Pelvis CT 09/10/16 1136 Signed Impressions: Service Date/Time: Saturday, September 10, 2016 11:34 - CONCLUSION: 1.. Moderate amount of ascites within the abdomen. 2. Cirrhosis of the liver. 3. Re-canalization of the umbilical vein, esophageal varices and perisplenic varices indicating portal hypertension. 4. Splenomegaly. 5. Degenerative changes involving lumbar spine, lower thoracic spine and bilateral hips. Miki Metz MD Chest X-Ray 09/09/16 1036 Signed Impressions: Service Date/Time: Friday, September 09, 2016 10:37 - CONCLUSION: 1. No acute cardiopulmonary findings. Ananth Blanchard MD Liver Ultrasound 09/09/16 0000 Signed Impressions: Service Date/Time: Friday, September 09, 2016 14:36 - CONCLUSION: 1. Cirrhotic appearing liver with ascites diffusely throughout the upper abdomen. 2. No findings to indicate biliary obstruction. Ananth Blanchard MD Cyst Biopsy Asp-Paracentesis US 09/09/16 0000 Signed Impressions: Service Date/Time: Friday, September 09, 2016 13:19 - CONCLUSION: Uncomplicated ultrasound guided paracentesis. CT scan is suggested for further evaluation. The ascites may be complex or malignant. Carter Blanchard MD FACR Objective Remarks GENERAL: Well-developed, well-nourished in no distress SKIN: Warm and dry. HEAD: Atraumatic. Normocephalic. EYES: Pupils equal and round. No scleral icterus. No injection or drainage. ENT: No nasal bleeding or discharge. Mucous membranes pink and moist. NECK: Trachea midline. No JVD. CARDIOVASCULAR: Regular rate and rhythm. RESPIRATORY: No accessory muscle use. Clear to auscultation. Breath sounds equal bilaterally. GASTROINTESTINAL: Abdomen soft, non-tender, distended. MUSCULOSKELETAL: Extremities without clubbing, cyanosis but with right lower extremity pitting edema. Left BKA stump clear of infection. No obvious deformities. NEUROLOGICAL: Awake and alert. No obvious cranial nerve deficits. Motor grossly within normal limits. Five out of 5 muscle strength in the arms and legs. Normal speech. PSYCHIATRIC: Appropriate mood and affect; insight and judgment normal. Procedures Paracentesis A/P Problem List: (1) Anasarca ICD Code: R60.1 Status: Acute Assessment and Plan Ascites Hypoalbuminemia Liver failure Cirrhosis - Paracentesis completed, 1L of fluid removed, cytology and fluid reports negative to date except for increased cell count -Albumin replacement ordered -Liver US indicated liver cirrhosis without signs of obstruction. -CT of abdomen confirmed Cirrhosis, no other pathology found, Hepatitis profile negative -Paracentesis found more than 250 cells started on Ceftriaxone Spontaneous Bacterial Peritonitis questioned. Denies abdominal pain. Switch to by mouth Cipro on discharge Cleared for discharge by GI specialist Alcohol dependence -CIWA protocol -Strongly recommended to stop alcohol abuse. Dyspnea, secondary to abdominal distention -Improved. Hypokalemia at 2.9. Aggressive potassium replacement with 40 in Meq by mouth and 40 mEq IV. Repeat BMP and magnesium after placement Diet: Low sodium diet DVT prophylaxis: SCD and MARILYN hose. Pharmacological prophylaxis contraindicated secondary to thrombocytopenia Discharge Planning Possible discharge later today Slick Metzger MD Sep 13, 2016 09:26
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
[2016-09-13] MEDS: cefTRIAXone INJ 1,000 MG in SODIUM CHLORIDE 0.9% INJ 100 ML IV SCH (11:51)
[2016-09-13 12:00] VITALS: BP 133/63; PULSE 89; RESP 17; TEMP 96.6; O2SAT 94
[2016-09-13 14:22] LABS: BICARBONATE 33.1 MEQ/L (21.0-32.0); MAGNESIUM 1.8 MG/DL (1.5-2.5); POTASSIUM 3.3 MEQ/L (3.5-5.1)
[2016-09-17 07:53] LABS: MITOCHONDRIAL ABS LESS THAN 20.0 U (())
== END 2016-09-13 16:24 | disposition home or self-care (01) | DRG 433 ==
LOC: NEPE 10:04 → NEDA 13:08 → N07B 16:14
PROVIDERS: ADMIT Internal Medicine; ATTEND Internal Medicine
PROC: 0W9G3ZX Drainage of Peritoneal Cavity, Percutaneous Approach, Diagnostic (ICD-10-PCS; principal; 2016-09-09)
PROC: 0W9G3ZZ Drainage of Peritoneal Cavity, Percutaneous Approach (ICD-10-PCS; 2016-09-09)
DX: K70.31 Alcoholic cirrhosis of liver with ascites (principal); Z68.42 Body mass index [BMI] 45.0-49.9, adult; D69.6 Thrombocytopenia, unspecified; I10 Essential (primary) hypertension; K70.40 Alcoholic hepatic failure without coma; E87.6 Hypokalemia; R60.1 Generalized edema; E66.9 Obesity, unspecified; E88.09 Other disorders of plasma-protein metabolism, not elsewhere classified; F10.20 Alcohol dependence, uncomplicated; Z89.512 Acquired absence of left leg below knee; Z79.82 Long term (current) use of aspirin
CPT/HCPCS: 49083; 71010; 74177; 76705; 80048; 80053; 80074; 81001; 82103; 82150; 82390; 82550; 82728; 83520; 83540; 83550; 83615; 83690; 83735; 84100; 84132; 84157; 84484; 85025; 85610; 85730; 86038; 86256; 87070; 87205; 89051; 93005; 96374; C1729; E0113; J0696; J1940; J3475; J3480; P9047; Q9967

== ENCOUNTER 2016-10-19 22:38 | Emergency (ER) | payer OTHER ==
[~2016-10-19] VITALS: Ht 175.3 cm; Wt 131.0 kg
[~2016-10-19 22:38] MED LIST changes: -ASPI325T PO; +ASPI81CH CHEW; -CEPH500C3 PO; +CIPR-9 PO; +FAMO20TA2 PO; +FURO1TAB60 PO; +METO25TA3 PO; +POTA-163 PO; +SPIR25 PO
[2016-10-19 22:51] VITALS: BP 135/59; PULSE 98; RESP 20; TEMP 98.2; O2SAT 100
--- NOTE | 2016-10-19 22:58 | PD ---
HPI Chief Complaint: Back/ Neck Pain or Injury Time Seen by Provider: 22:56 Travel History International Travel<30 days: No Contact w/Intl Traveler<30days: No Traveled to known affect area: No History of Present Illness HPI Patient comes in complaining of right low back/ hip pain ongoing for 2 days. Patient's pain is sharp stabbing pain radiates down his right leg. Patient denies any known injury. Patient states that he was working on his car leaning over and felt fine however the next day is 1 he woke with the pain. Patient tried taking aspirin with no improvement of his symptoms. Pain is worse with certain movement. Patient denies any numbness or tingling, or loss or change in bowel or bladder, abdominal pain, IV drug use, or fevers. PFSH Past Medical History Arthritis: No Asthma: No Autoimmune Disease: No Blood Disorders: No Anxiety: No Depression: No Heart Rhythm Problems: No Cancer: No Cardiovascular Problems: No High Cholesterol: No Chest Pain: Yes Congestive Heart Failure: No Cerebrovascular Accident: No Diabetes: No Endocrine: No GERD: No Genitourinary: No Headaches: No Hepatitis: No Hiatal Hernia: No Hypertension: Yes Immune Disorder: No Kidney Stones: No Musculoskeletal: No Neurologic: No Psychiatric: No Reproductive: No Respiratory: No Migraines: No Myocardial Infarction: No Renal Failure: No Seizures: No Sleep Apnea: No Thyroid Disease: No Ulcer: No Past Surgical History Abdominal Surgery: No Appendectomy: No Cardiac Surgery: No Cholecystectomy: No Ear Surgery: No Endocrine Surgery: No Eye Surgery: No Genitourinary Surgery: No 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) Thoracic Surgery: No Social History Alcohol Use: Yes (hx of beers daily ) Tobacco Use: No Substance Use: No Allergies-Medications (Allergen,Severity, Reaction): Coded Allergies: No Known Allergies (Verified , 09/09/16) Reported Meds & Prescriptions Reported Meds & Active Scripts Active Medrol Dosepak (Methylprednisolone) 4 Mg Dspk 4 Mg PO DIRECTED Per Pharmacist direction Flexeril (Cyclobenzaprine HCl) 10 Mg Tab 10 Mg PO Q8HR Famotidine 20 Mg Tab 20 Mg PO BID Reported [OTC diruectic] 1 Tab PO DAILY [OTC potassium ] 1 Tab PO DAILY Aspirin 81 Mg Chew 81 Mg CHEW DAILY Review of Systems Except as stated in HPI: all other systems reviewed are Neg Physical Exam Narrative GENERAL: Well-developed, overly nourished, in no acute distress, and non-ill appearing. SKIN: Focused skin assessment warm and dry. HEAD: Atraumatic. Normocephalic. EYES: Pupils equal and round. EOMI. No scleral icterus. No injection or drainage. ENT: No nasal bleeding or discharge. Mucous membranes pink and moist. NECK: Trachea midline. Supple. No nuclear rigidity. CARDIOVASCULAR: Dorsal pulses 2+ and intact. Capillary refill less than 2 seconds. RESPIRATORY: No accessory muscle use. No respiratory distress. MUSCULOSKELETAL: No obvious deformities. No clubbing. No cyanosis. Trace edema bilateral lower extremities. Full range of motion. Left AKA noted. NEUROLOGICAL: Awake and alert. No obvious cranial nerve deficits. Motor grossly within normal limits. Normal speech. PSYCHIATRIC: Appropriate mood and affect; insight and judgment normal. Data Data Last Documented VS Vital Signs Date Time Temp Pulse Resp B/P Pulse Ox O2 Delivery O2 Flow Rate FiO2 10/20/16 02:19 98 18 124/74 96 10/20/16 00:07 Room Air 10/19/16 22:51 98.2 Orders Dexamethasone Inj (Decadron Inj) (10/19/16 23:00) Acetamin-Hydrocod 325-5 Mg ([place] 5-325 (10/19/16 23:00) Cyclobenzaprine (Flexeril) (10/19/16 23:00) Morphine Inj (Morphine Inj) (10/20/16 00:00) MDM Medical Decision Making Medical Screen Exam Complete: Yes Emergency Medical Condition: Yes Differential Diagnosis Fracture, strain, sciatic, other Narrative Course The patient presented complaining of back pain with radiation down leg. There was no history of recent fall or trauma. There was no evidence to support genitourinary etiology. There is also no evidence to suggest vascular pathology such as AAA dissection. No fevers or other evidence to suspect infectious processes, abscess, osteomyelitis etc. The patients neurological exam is normal with normal motor and sensory. There is no saddle paresthesias reported and no bowel or bladder incontinence or retention. I suspect the pain is mechanical in nature with sciatica. Clinical suspicion, plan of care and management was discussed with the patient. The patient was instructed to follow up with their health care provider. The patient was also instructed to return if the pain worsened, changed, or developed weakness or bowel or bladder trouble. The patient agreed with plan. Patient in no obvious distress upon re-evaluation. Discussed patient with Dr. Jaramillo prior discharge, who is in agreement with plan of care and disposition. Patient was asked if they wanted to speak to my attending, which the patient did not wish to do at this time. Any questions/concerns in reference to patient diagnosis/condition discussed and clarified prior to patient's discharge. Reinforced sheer importance of close follow up with patient's primary physician or primary care clinic. Instructed patient to return to ED immediately, if symptoms return/worsen. Pt showed understanding of above instructions. Further instructions and recommendations were detailed in discharge paperwork. Pt left without difficulty out of ED at discharge. Diagnosis Primary Impression: Sciatica of right side Patient Instructions: General Instructions, Sciatica (ED) Additional Instructions: Follow-up with your primary care physician and/or orthopedics in 2-3 days for evaluation. Take all medication as prescribed. Return to the emergency department if symptoms get worse. Med/Other Pt SpecificInfo: Prescription(s) given Scripts Methylprednisolone Dosepak (Medrol Dosepak)4 Mg Dspk4 Mg PO DIRECTED #1 DSPK Ref 0 Per Pharmacist direction Prov:See Jaramillo MD 10/20/16 Cyclobenzaprine (Flexeril)10 Mg Tab10 Mg PO Q8HR #15 TAB Ref 0 Prov:See Jaramillo MD 10/20/16 Disposition: 01 DISCHARGE HOME Condition: Stable Nicholas Bose Oct 19, 2016 22:58
[2016-10-19] MEDS ORDERED: CYCLOBENZAPRINE HCL 10 MG TAB PO ONE (23:00)
[2016-10-19] MEDS ORDERED: DEXAMETHASONE SOD PHOS 4 MG/ML VIAL IM ONE (23:00)
[2016-10-19] MEDS ORDERED: ACETAMINOPHEN/HYDROcodone 325 MG/5 MG TAB PO ONE (23:00)
[2016-10-19] MEDS ORDERED: [UNRECOGNIZED DRUG - REMARK] PO (23:02)
[2016-10-19] MEDS ORDERED: OTC potassium PO (23:02)
[2016-10-20] MEDS ORDERED: MORPHINE SULFATE 4 MG/ML INJ IM ONE
[2016-10-20] MEDS ORDERED: CYCL1TAB29 PO (00:03)
[2016-10-20] MEDS ORDERED: MEDR4PAK PO (00:03)
[2016-10-20 00:07] VITALS: BP 122/57; PULSE 100; RESP 18; O2SAT 97
[2016-10-20 01:27] VITALS: RESP 16
[2016-10-20 02:19] VITALS: BP 124/74
== END 2016-10-20 02:29 | disposition home or self-care (01) ==
LOC: NEPD 22:38
DX: M54.31 Sciatica, right side (principal)
CPT/HCPCS: 96372; 99284; J1100; J2270

== ENCOUNTER 2016-10-23 09:55 | Inpatient (IN) | payer OTHER ==
[2016-10-23] VITALS (21 sets, daily range): BP systolic 122–156; BP diastolic 56–83; PULSE 95–105; RESP 20–26; TEMP 97.6–98.4; O2SAT 96–100
[~2016-10-23] VITALS: Ht 172.7 cm; Wt 132.0 kg
[~2016-10-23 09:55] MED LIST changes: -CIPR-9 PO; +CYCL1TAB29 PO; -FURO1TAB60 PO; +MEDR4PAK PO; -METO25TA3 PO; +OTC potassium PO; -POTA-163 PO; -SPIR25 PO; +[UNRECOGNIZED DRUG - REMARK] PO
--- NOTE | 2016-10-23 11:00 | PD ---
HPI Chief Complaint: Respiratory Symptoms Time Seen by Provider: 10:44 Travel History International Travel<30 days: No Contact w/Intl Traveler<30days: No Traveled to known affect area: No History of Present Illness HPI SOB ONSET LAST 2 DAYS, WORSENING, NEWLY DIAGNOSED WITH LIVER CIRRHOSIS ABOUT 2- 3MONTHS AGO...TODAY EMS ARRIVED AT PT HOME AND FOUND HIS PULSE OX 70'S, ON NC 80 'S AND NRB IMPROVED PULSE OX TO 95-99. GIVEN LASIX 100MG PRIOR TO ARRIVAL BY EMS [facility] Past Medical History Hx Anticoagulant Therapy: Yes (ASA 81 MG) Arthritis: No Asthma: No Autoimmune Disease: No Blood Disorders: No Anxiety: No Depression: No Heart Rhythm Problems: No Cancer: No Cardiovascular Problems: Yes High Cholesterol: No Chest Pain: Yes Congestive Heart Failure: No Cerebrovascular Accident: No Diabetes: No Diminished Hearing: No Endocrine: No GERD: No Genitourinary: No Headaches: No Hepatitis: No Hiatal Hernia: No Hypertension: Yes Immune Disorder: No Kidney Stones: No Musculoskeletal: No Neurologic: No Psychiatric: No Reproductive: No Respiratory: No Migraines: No Myocardial Infarction: No Renal Failure: No Seizures: No Sleep Apnea: No Thyroid Disease: No Ulcer: No Tetanus Vaccination: > 5 Years Influenza Vaccination: No Past Surgical History Abdominal Surgery: No Appendectomy: No Cardiac Surgery: No Cholecystectomy: No Ear Surgery: No Endocrine Surgery: No Eye Surgery: No Genitourinary Surgery: No 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 HEAD: Atraumatic. Normocephalic. EYES: Pupils equal and round. No scleral icterus. No injection or drainage. ENT: No nasal bleeding or discharge. Mucous membranes pink and moist. NECK: Trachea midline. No JVD. CARDIOVASCULAR: Regular rate and rhythm. RIGHT PITTING EDEMA 3+ RESPIRATORY: No accessory muscle use. CRACKLES BIBASILARLY GASTROINTESTINAL: Abdomen soft, non-tender, DISTENDED ABD WITH POSITIVE FLUID WAVE MUSCULOSKELETAL: Extremities without clubbing, cyanosis, or edema. No obvious deformities. LEFT BKA NEUROLOGICAL: Awake and alert. No obvious cranial nerve deficits. Motor grossly within normal limits. Five out of 5 muscle strength in the arms and legs. Normal speech. PSYCHIATRIC: Appropriate mood and affect; insight and judgment normal. Data Data Last Documented VS Vital Signs Date Time Temp Pulse Resp B/P Pulse Ox O2 Delivery O2 Flow Rate FiO2 10/23/16 11:50 97.8 100 22 142/67 100 BiPAP 60 10/23/16 10:50 12 Orders Complete Blood Count With Diff (10/23/16 10:44) Comprehensive Metabolic Panel (10/23/16 10:44) B-Type Natriuretic Peptide (10/23/16 10:44) Act Partial Throm Time (Ptt) (10/23/16 10:44) Prothrombin Time / Inr (Pt) (10/23/16 10:44) Ckmb (Isoenzyme) Profile (10/23/16 10:44) Troponin I (10/23/16 10:44) Urinalysis - C+S If Indicated (10/23/16 10:44) Iv Access Insert/Monitor (10/23/16 10:44) Electrocardiogram (10/23/16 10:44) Ecg Monitoring (10/23/16 10:44) Oximetry (10/23/16 10:44) Oxygen Administration (10/23/16 10:44) Chest, Single Ap (10/23/16 10:44) Urinary Catheter Insert/Apply (10/23/16 10:44) Sodium Chloride 0.9% Flush (Ns Flush) (10/23/16 10:45) Resp Bipap / Cpap Non Invas Vt (10/23/16 ) Ondansetron Inj (Zofran Inj) (10/23/16 11:45) Nitroglycerin 2% Oint (Nitroglycerin 2% (10/23/16 12:00) CKMB (10/23/16 10:55) CKMB% (10/23/16 10:55) Admit Order (Ed Use Only) (10/23/16 12:41) Labs Laboratory Tests Test 10/23/16 10:55 Prothrombin Time 24.6 SEC Prothromb Time International 2.2 RATIO Ratio Activated Partial 35.9 SEC Thromboplast Time Sodium Level 136 MEQ/L Potassium Level 3.7 MEQ/L Chloride Level 99 MEQ/L Carbon Dioxide Level 24.7 MEQ/L Anion Gap 12 MEQ/L Blood Urea Nitrogen 62 MG/DL Creatinine 2.50 MG/DL Estimat Glomerular Filtration 28 ML/MIN Rate Random Glucose 107 MG/DL Calcium Level 8.1 MG/DL Total Bilirubin 8.8 MG/DL Aspartate Amino Transf 50 U/L (AST/SGOT) Alanine Aminotransferase 20 U/L (ALT/SGPT) Alkaline Phosphatase 83 U/L Total Creatine Kinase 151 U/L Creatine Kinase MB 5.6 NG/ML Troponin I 0.06 NG/ML B-Type Natriuretic Peptide 98 PG/ML Total Protein 7.0 GM/DL Albumin 2.0 GM/DL White Blood Count 8.4 TH/MM3 Red Blood Count 2.32 MIL/MM3 Hemoglobin 9.0 GM/DL Hematocrit 26.3 % Mean Corpuscular Volume 113.0 FL Mean Corpuscular Hemoglobin 38.6 PG Mean Corpuscular Hemoglobin 34.1 % Concent Red Cell Distribution Width 16.4 % Platelet Count 48 TH/MM3 Mean Platelet Volume 8.6 FL Neutrophils (%) (Auto) 87.9 % Lymphocytes (%) (Auto) 5.6 % Monocytes (%) (Auto) 3.8 % Eosinophils (%) (Auto) 2.4 % Basophils (%) (Auto) 0.3 % Neutrophils # (Auto) 7.4 TH/MM3 Lymphocytes # (Auto) 0.5 TH/MM3 Monocytes # (Auto) 0.3 TH/MM3 Eosinophils # (Auto) 0.2 TH/MM3 Basophils # (Auto) 0.0 TH/MM3 CBC Comment AUTO DIFF Differential Total Cells 100 Counted Neutrophils % (Manual) 83 % Band Neutrophils % 12 % Lymphocytes % 2 % Monocytes % 2 % Neutrophils # (Manual) 8.1 TH/MM3 Promyelocytes 1 % Nucleated Red Blood Cells 1 /100 WBC Differential Comment FINAL DIFF MANUAL Toxic Granulation 1+ Platelet Estimate LOW Platelet Morphology Comment NORMAL Spherocytes 1+ MDM Medical Decision Making Medical Screen Exam Complete: Yes Emergency Medical Condition: Yes Medical Record Reviewed: Yes Interpretation(s) MOTION ARTIFACT, NSR AT 102, NO STEMI PATTERN, NONSPEC STT CHANGES, Differential Diagnosis PULM EDEMA V PNA V PLEURAL EFFUSION V HI V SYMPTOMATIC ASCITES Narrative Course DUE TO PRESENTATION OF HYPOXEMIC RESP FAILURE, PATIENT WAS IMMEDIATELY PLACED ON BIPAP, LASIX WAS GIVEN BY EMS, SO FURTHER ASSISTANCE PROVIDED IMMEDIATELY., CARDIAC STRAIN V NONSTEMI MAY BE CAUSE OF ELEV TROP LEVELS Critical Care Narrative CRITICAL CARE NOTE: With evaluation of the patient, labs, EKG, receipt of radiologic studies, administration of medications, reevaluation the patient and discussion of the patient with the admitting physicians, the total critical care time was [60] minutes. Time to perform other separately billable procedures was not included in the critical care time. Diagnosis Primary Impression: NONSTEMI Additional Impression: ACUTE PULMONARY EDEMA S/P BIPAP Admitting Information Admitting Physician Requests: Admit Emory Velez MD Oct 23, 2016 11:00
--- NOTE | 2016-10-23 11:34 | RADRPT ---
EXAM DATE/TIME: 10/23/2016 10:56 [facility] COMPARISON: CHEST SINGLE AP, September 09, 2016, 10:37. INDICATIONS : Short of breath, retaining fluid. MEDICAL HISTORY : Hypertension. Cirrhosis. SURGICAL HISTORY : None. ENCOUNTER: Initial ACUITY: 1 day PAIN SCORE: 0/10 LOCATION: Bilateral chest FINDINGS: Patchy airspace disease is present in both lungs with substantial progression from 09/09/16. Consider ations would include significant congestive failure versus an inflammatory process. There is no pleu ral effusion. There is pneumothorax. CONCLUSION: Significant deterioration in appearance the chest. Infiltrate versus significant failure. Carter Blanchard MD FACR on October 23, 2016 at 11:27 Board Certified Radiologist. This report was verified electronically.
[2016-10-23] MEDS ORDERED: ONDANSETRON HCL 4 MG/2 ML VIAL IV PUSH ONE (11:45)
[2016-10-23] MEDS: SODIUM CHLORIDE 0.9% FLUSH 10 ML FLUSH IVF PRN (11:49)
[2016-10-23 11:52] LABS: AUTOMATED NEUTROPHIL # 7.4 TH/MM3 (1.8-7.7); BASOPHIL % 0.3 % (0.0-2.0); EOSINOPHIL # 0.2 TH/MM3 (0-0.4); EOSINOPHIL % 2.4 % (0.0-4.0); HEMATOCRIT 26.3 % (39.0-51.0); LYMPH % 5.6 % (9.0-44.0); LYMPHOCYTE # 0.5 TH/MM3 (1.0-4.8); MEAN CORPUSCULAR HEMOGLOBIN 38.6 PG (27.0-34.0); MEAN CORPUSCULAR HGB CONC 34.1 % (32.0-36.0); MONO % 3.8 % (0.0-8.0); NEUT % 87.9 % (16.0-70.0); PLATELET COUNT 48 TH/MM3 (150-450); RED BLOOD COUNT 2.32 MIL/MM3 (4.50-5.90); RED CELL DISTRIBUTION WIDTH 16.4 % (11.6-17.2); WHITE BLOOD COUNT 8.4 TH/MM3 (4.0-11.0)
[2016-10-23 12:00] LABS: HEMO FLAGS AUTO DIFF
[2016-10-23] MEDS ORDERED: NITROGLYCERIN 2% OINT 1 GM PACKET TOP ONE (12:00)
[2016-10-23 12:01] LABS: APTT (PATIENT) 35.9 SEC (24.3-30.1); INTERNATIONAL NORMALIZED RATIO 2.2 RATIO; PROTHROMBIN TIME - PATIENT 24.6 SEC (9.8-11.6)
[2016-10-23 12:03] LABS: ALT (GPT) 20 U/L (12-78); ANION GAP 12 MEQ/L (5-15); AST (GOT) 50 U/L (15-37); BICARBONATE 24.7 MEQ/L (21.0-32.0); BLOOD UREA NITROGEN 62 MG/DL (7-18); CHLORIDE 99 MEQ/L (98-107); GLOMERULAR FILTRATION RATE 28 ML/MIN (>89); POTASSIUM 3.7 MEQ/L (3.5-5.1); SODIUM (NA) 136 MEQ/L (136-145)
[2016-10-23 12:06] LABS: ALKALINE PHOSPHATASE 83 U/L (45-117); CREATINE KINASE 151 U/L (39-308); TOTAL BILIRUBIN ADULT 8.8 MG/DL (0.2-1.0)
[2016-10-23 12:19] LABS: CKMB 5.6 NG/ML (0.5-3.6)
[2016-10-23 12:30] LABS: BANDS 12 % (0-6); CORRECTED NUCLEATED RBC 1 /100 WBC (0-0); NEUTROPHIL # MANUAL DIFF 8.1 TH/MM3 (1.8-7.7); POLYS (SEG NEUTROPHILS) 83 % (16-70); PROMYELOCYTES 1 % (0-0); WBC DIFF SAMPLE 100
[2016-10-23 12:33] LABS: PLATELET ESTIMATE SMEAR LOW (NORMAL); PLATELET MORPHOLOGY NORMAL (NORMAL); SCAN/DIFF FINAL DIFF MANUAL; SPHEROCYTES 1+ (NORMAL); TOXIC GRANULATION 1+ (NORMAL)
[2016-10-23] MEDS ORDERED: FUROSEMIDE 20 MG/2 ML VIAL IV PUSH ONE (13:00)
--- NOTE | 2016-10-23 13:04 | HHI.HP ---
[facility] Service [facility] Primary Care Physician No Primary Care Physician Admission Diagnosis ACUTE PULMONARY EDEMA ON BIPAP, NONSTEMI Diagnoses: (1) Pulmonary edema Diagnosis: Principal Chief Complaint: shortenss of breath Travel History International Travel<30 Days: No Contact w/Intl Traveler <30 Da: No Traveled to Known Affected Are: No History of Present Illness patient is a 50 y/o male with history of cirrhosis who presented to ER with worsening sob. he says that he started to have difficult breathing yesterday. this has been getting worse since then. he denies any chest pain, productive cough, fever or chills. he was found to have a pulse-ox of 70's by ambulance and received IV lasix prior to his presentation to ER. at the time of my evaluation he was on Bipap, stating that his sob has improved to some extent. he says that he's noticed that his legs are more swollen. Review of Systems Constitutional: DENIES: Fever, Weight loss, Chills, Night Sweats Eyes: DENIES: Blurred vision, Diplopia, Vision loss, Double Vision Ears, nose, mouth, throat: DENIES: Tinnitus, Vertigo, Throat pain, Epistaxis Respiratory: COMPLAINS OF: Shortness of breath, DENIES: Apneas, Cough, Snoring , Wheezing, Hemoptysis, Sputum production Cardiovascular: COMPLAINS OF: Lower Extremity Edema, DENIES: Chest pain, Palpitations, Syncope, Dyspnea on Exertion, PND, Orthopnea, Claudication Gastrointestinal: DENIES: Abdominal pain, Black stools, Bloody stools, Constipation, Diarrhea, Nausea, Vomiting, Difficulty Swallowing, Anorexia Genitourinary: DENIES: Urinary frequency, Urgency, Hematuria, Dysuria Musculoskeletal: DENIES: Joint pain, Muscle aches, Stiffness, Joint Swelling Integumentary: DENIES: Rash Neurologic: DENIES: Abnormal gait, Headache, Localized weakness, Paresthesias, Seizures, Speech Problems, Tremor, Poor Balance Psychiatric: DENIES: Anxiety, Confusion, Mood changes, Depression, Hallucinations, Agitation, Suicidal Ideation, Homicidal Ideation, Delusions Past Family Social History Past Medical History cirrhosis Past Surgical History left leg prosthesis Reported Medications aspirin Allergies: Coded Allergies: No Known Allergies (Verified , 10/23/16) Active Ordered Medications Current Medications Sodium Chloride (NS Flush) 2 ml UNSCH PRN IVF FLUSH AFTER USING IV ACCESS Last administered on 10/23/16 11:49; Start 10/23/16 at 10:45 Ondansetron HCl (Zofran Inj) 4 mg ONCE ONCE IV PUSH Last administered on 11:49; Start 10/23/16 at 11:45; Stop 10/23/16 at 11:46; Status DC Nitroglycerin (Nitroglycerin 2% Oint) 1 inch ONCE ONCE TOP Last administered on 10/23/16 12:13; Start 10/23/16 at 12:00; Stop 10/23/16 at 12:04; Status DC Family History not significant. Social History doesn't smoke. quit drinking three months ago. Physical Exam Vital Signs Vital Signs Date Time Temp Pulse Resp B/P Pulse Ox O2 Delivery O2 Flow Rate FiO2 10/23/16 11:50 97.8 100 22 142/67 100 BiPAP 60 10/23/16 11:10 100 BiPAP 60 10/23/16 10:50 100 Non-Rebreather 12 100 10/23/16 10:50 26 100 Non-Rebreather 12 100 10/23/16 10:30 102 26 100 Non-Rebreather 12 10/23/16 10:27 97.8 100 26 122/56 100 Physical Exam GENERAL: on Bipap SKIN: No rashes, ecchymoses or lesions. Cool and dry. HEAD: Atraumatic. Normocephalic. No temporal or scalp tenderness. EYES: Pupils equal round and reactive. Extraocular motions intact. No scleral icterus. No injection or drainage. ENT: Nose without bleeding, purulent drainage or septal hematoma. Throat without erythema, tonsillar hypertrophy or exudate. Uvula midline. Airway patent. NECK: Trachea midline. No JVD or lymphadenopathy. Supple, nontender, no meningeal signs. CARDIOVASCULAR: Regular rate and rhythm without murmurs, gallops, or rubs. RESPIRATORY: diminished air entry in bases. GASTROINTESTINAL: Abdomen soft, non-tender, nondistended. No hepato-splenomegaly , or palpable masses. No guarding. MUSCULOSKELETAL: Extremities without clubbing, cyanosis, or edema. No joint tenderness, effusion, or edema noted. No calf tenderness. Negative Homans sign bilaterally. NEUROLOGICAL: Awake and alert. Cranial nerves II through XII intact. Motor and sensory grossly within normal limits. Five out of 5 muscle strength in all muscle groups. Normal speech. Laboratory Laboratory Tests Test 10/23/16 10:55 White Blood Count 8.4 Red Blood Count 2.32 Hemoglobin 9.0 Hematocrit 26.3 Mean Corpuscular Volume 113.0 Mean Corpuscular Hemoglobin 38.6 Mean Corpuscular Hemoglobin 34.1 Concent Red Cell Distribution Width 16.4 Platelet Count 48 Mean Platelet Volume 8.6 Neutrophils (%) (Auto) 87.9 Lymphocytes (%) (Auto) 5.6 Monocytes (%) (Auto) 3.8 Eosinophils (%) (Auto) 2.4 Basophils (%) (Auto) 0.3 Neutrophils # (Auto) 7.4 Lymphocytes # (Auto) 0.5 Monocytes # (Auto) 0.3 Eosinophils # (Auto) 0.2 Basophils # (Auto) 0.0 CBC Comment AUTO DIFF Differential Total Cells 100 Counted Neutrophils % (Manual) 83 Band Neutrophils % 12 Lymphocytes % 2 Monocytes % 2 Neutrophils # (Manual) 8.1 Promyelocytes 1 Nucleated Red Blood Cells 1 Differential Comment FINAL DIFF MANUAL Toxic Granulation 1+ Platelet Estimate LOW Platelet Morphology Comment NORMAL Spherocytes 1+ Prothrombin Time 24.6 Prothromb Time International 2.2 Ratio Activated Partial 35.9 Thromboplast Time Sodium Level 136 Potassium Level 3.7 Chloride Level 99 Carbon Dioxide Level 24.7 Anion Gap 12 Blood Urea Nitrogen 62 Creatinine 2.50 Estimat Glomerular Filtration 28 Rate Random Glucose 107 Calcium Level 8.1 Total Bilirubin 8.8 Aspartate Amino Transf 50 (AST/SGOT) Alanine Aminotransferase 20 (ALT/SGPT) Alkaline Phosphatase 83 Total Creatine Kinase 151 Creatine Kinase MB 5.6 Troponin I 0.06 B-Type Natriuretic Peptide 98 Total Protein 7.0 Albumin 2.0 Result Diagram: 10/23/16 1055 10/23/16 1055 Imaging Last Impressions Chest X-Ray 10/23/16 1044 Signed Impressions: Service Date/Time: Sunday, October 23, 2016 10:56 - CONCLUSION: Significant deterioration in appearance the chest. Infiltrate versus significant failure. Carter Blanchard MD FACR Assessment and Plan Assessment and Plan A/P -pulmonary edema with history of cirrhosis continue IV lasix- monitor I/O- reza cath - will check echo currently on Bipap; will try to switch to oxygen via N/C as he tolerates. start neb treatment. -acute kidney injury- will monitor the renal function closely while on diuretics - consult nephrology -anemia/ thrombocytopenia- chronic- due to alcohol- will monitor -coagulopathy due to cirrhosis- no active bleeding- will monitor. -DVT prophylaxis; SCD's- no chemical anticoagulation due to liver disease Discussed Condition With ER physician and the patient. Physician Certification 2 Midnight Certification Type: Admission for Inpatient Services Order for Inpatient Services The services are ordered in accordance with Medicare regulations or non- Medicare payer requirements, as applicable. In the case of services not specified as inpatient-only, they are appropriately provided as inpatient services in accordance with the 2-midnight benchmark. Estimated LOS (days): 2 days is the estimated time the patient will need to remain in the hospital, assuming treatment plan goals are met and no additional complications. Post-Hospital Plan: Home Problem Qualifiers (1) Pulmonary edema: Qualified Code: J81.0 - Acute pulmonary edema Adam Santana MD Oct 23, 2016 13:03
[2016-10-23] MEDS ORDERED: RESP: ALBUTEROL 1.25 MG/3 ML NEB (PRN) NEB (13:15)
[2016-10-23] MEDS: POTASSIUM CHLORIDE 20 MEQ CONTROLLED RELEASE TAB PO SCH (13:23)
[2016-10-23] MEDS: RESP: ALBUTEROL 2.5 MG/IPRATROPIUM 0.5 MG NEB (SCH) NEB ×2 (15:06→19:25)
[2016-10-23 17:37] LABS: BACTERIA, URINE MOD /hpf; BLOOD, URINE SMALL (NEG); COMMENT (UR) CULTURE INDICATED; CULTURE IF INDICATED CULTURE INDICATED; GLUCOSE,URINE NEG (NEG); KETONE, URINE NEG (NEG); NITRITE,URINE NEG (NEG); SQUAMOUS EPITHELIAL CELL URINE 1 /hpf (0-5); URINE COLOR DARK-YELLOW (YELLW/STRAW)
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
[2016-10-24] VITALS (38 sets, daily range): BP systolic 98–136; BP diastolic 44–71; PULSE 73–109; RESP 14–35; TEMP 97.6–98.4; O2SAT 90–100
[2016-10-24 00:44] LABS: POTASSIUM 3.9 MEQ/L (3.5-5.1)
[2016-10-24] MEDS: RESP: ALBUTEROL 2.5 MG/IPRATROPIUM 0.5 MG NEB (SCH) NEB ×3 (02:17→07:33)
[2016-10-24 06:28] LABS: MEAN CORPUSCULAR HEMOGLOBIN 38.8 PG (27.0-34.0); MEAN CORPUSCULAR HGB CONC 34.6 % (32.0-36.0); PLATELET COUNT 28 TH/MM3 (150-450); RED BLOOD COUNT 1.82 MIL/MM3 (4.50-5.90); RED CELL DISTRIBUTION WIDTH 15.8 % (11.6-17.2)
[2016-10-24 07:26] LABS: HEMO FLAGS AUTO DIFF
[2016-10-24 07:29] LABS: HEMATOCRIT 20.3 % (39.0-51.0)
--- NOTE | 2016-10-24 07:49 | HHI.PR ---
Subjective Remarks f/u; pulmonary edema still on Bipap- tried N/C last night and pulse-ox dropped to 70's. but he says that his sob has improved a little. noted a drop in H/H. d/w the RN . Objective Vitals Vital Signs Date Time Temp Pulse Resp B/P Pulse Ox O2 Delivery O2 Flow Rate FiO2 10/24/16 07:33 100 BiPAP 50 10/24/16 06:20 108 10/24/16 05:04 95 10/24/16 04:56 95 50 10/24/16 04:00 97 10/24/16 03:17 98.0 104 20 116/44 95 10/24/16 03:00 101 10/24/16 02:17 97 50 10/24/16 02:17 97 BiPAP 50 10/24/16 02:05 89 10/24/16 01:00 90 10/24/16 00:00 100 10/23/16 23:22 98.4 100 24 135/66 100 10/23/16 23:00 105 10/23/16 22:00 95 10/23/16 21:00 99 10/23/16 20:00 102 10/23/16 19:30 97.6 102 22 124/65 100 10/23/16 19:00 103 10/23/16 18:33 101 10/23/16 17:56 104 10/23/16 16:58 97 10/23/16 16:39 97.8 102 20 156/83 99 10/23/16 15:25 98 50 10/23/16 15:05 100 10/23/16 14:42 96 15.00 10/23/16 14:23 97.8 102 24 130/67 100 BiPAP 60 10/23/16 13:26 97.9 101 24 136/72 100 BiPAP 12 60 10/23/16 13:20 100 50 10/23/16 11:50 97.8 100 22 142/67 100 BiPAP 60 10/23/16 11:10 100 BiPAP 60 10/23/16 11:05 100 70 10/23/16 10:50 100 Non-Rebreather 12 100 10/23/16 10:50 100 Non-Rebreather 12.00 10/23/16 10:50 26 100 Non-Rebreather 12 100 10/23/16 10:30 102 26 100 Non-Rebreather 12 10/23/16 10:27 97.8 100 26 122/56 100 I/O 10/23/16 10/23/16 10/23/16 10/24/16 10/24/16 10/24/16 06:59 14:59 22:59 06:59 14:59 22:59 Intake Total 100 ml 960 ml Output Total 375 ml 550 ml Balance -275 ml 410 ml Intake Oral 100 ml 960 ml Output Urine Total 375 ml 550 ml Result Diagram: 10/24/16 0540 10/24/16 0001 Imaging Last Impressions Chest X-Ray 10/23/16 1044 Signed Impressions: Service Date/Time: Sunday, October 23, 2016 10:56 - CONCLUSION: Significant deterioration in appearance the chest. Infiltrate versus significant failure. Carter Blanchard MD FACR Objective Remarks GENERAL: on Bipap CARDIOVASCULAR: Regular rate and regular rhythm without murmurs, gallops, or rubs. RESPIRATORY: diminished air entry bilaterally GASTROINTESTINAL: Abdomen soft, non-tender, nondistended. Normal, active bowel sounds MUSCULOSKELETAL: edema of the right leg NEURO: Alert & Oriented x4 to person, place, time, situation. Moves all ext x4 Medications and IVs Current Medications Sodium Chloride (NS Flush) 2 ml UNSCH PRN IVF FLUSH AFTER USING IV ACCESS Last administered on 10/23/16 11:49; Start 10/23/16 at 10:45 Ondansetron HCl (Zofran Inj) 4 mg ONCE ONCE IV PUSH Last administered on 11:49; Start 10/23/16 at 11:45; Stop 10/23/16 at 11:46; Status DC Nitroglycerin (Nitroglycerin 2% Oint) 1 inch ONCE ONCE TOP Last administered on 10/23/16 12:13; Start 10/23/16 at 12:00; Stop 10/23/16 at 12:04; Status DC Furosemide (Lasix Inj) 20 mg ONCE ONCE IV PUSH Last administered on 10/23/16 13:23; Start 10/23/16 at 13:00; Stop 10/23/16 at 13:03; Status DC Furosemide (Lasix Inj) 40 mg DAILY IV PUSH ; Start 10/24/16 at 09:00 Potassium Chloride (KCl) 20 meq DAILY PO Last administered on 10/23/16 13:23; Start 10/23/16 at 13:00 Aspirin (Aspirin Chew) 81 mg DAILY CHEW ; Start 10/24/16 at 09:00; Stop at 09:00; Status DC Albuterol/ Ipratropium (Duoneb Neb) 1 ampule Q4HR NEB NEB Last administered on 10/24/16 07:33; Start 10/23/16 at 16:00; Stop 10/24/16 at 08:00 Albuterol Sulfate (Albuterol Neb) 1.25 mg Q2HR NEB PRN NEB SHORTNESS OF BREATH ; Start 10/23/16 at 13:15 A/P Assessment and Plan A/P -pulmonary edema with history of cirrhosis continue IV lasix- monitor I/O- reza cath - echo pending currently on Bipap; consult pulmonary. recently evaluated by GI for cirrhosis. -acute kidney injury- will monitor the renal function closely while on diuretics - nephrology consult appreciated. --anemia/ thrombocytopenia- chronic but now with a drop in H/H; will transfuse with PRBC and continue to monitor. check B12/folic acid and stool for blood. -coagulopathy due to cirrhosis- no active bleeding- will monitor. -wound on the left stump- consult wound care. -DVT prophylaxis; SCD's- no chemical anticoagulation due to liver disease Adam Santana MD Oct 24, 2016 07:49
[2016-10-24] MEDS ORDERED: FUROSEMIDE 20 MG/2 ML VIAL IV PUSH ONE (08:00)
[2016-10-24] MEDS ORDERED: cefTRIAXone INJ 1,000 MG in SODIUM CHLORIDE 0.9% INJ 100 ML IV SCH (08:00)
[2016-10-24] MEDS: POTASSIUM CHLORIDE 20 MEQ CONTROLLED RELEASE TAB PO SCH (08:15)
[2016-10-24] MEDS: FUROSEMIDE 40 MG/4 ML VIAL IV PUSH SCH (08:15)
[2016-10-24 08:42] LABS: BLOOD GAS BASE EXCESS -1.1 mmol/L (-2-2); BLOOD GAS CARBOXYHEMOGLOBIN 2.7 % (0-4); BLOOD GAS HCO3 23 mmol/L (22-26); BLOOD GAS O2 HGB SATURATION 88 % (90-100); BLOOD GAS OXYGEN CONTENT 12.2 Vol % (12.0-20.0); BLOOD GAS PCO2 41 mmHg (38-42); BLOOD GAS PO2 68 mmHg (61-120); BLOOD GAS TOTAL HGB 9.7 G/DL (12.0-16.0); CRITICAL VALUE YES; FIO2 50 %; OXYGEN DEVICE BiPAP; TEMP CORR TO 98.6; VENT SETTINGS IPAP15/EPAP8
[2016-10-24 08:43] LABS: DRAW SITE RT RADIAL; NUMBER OF ARTERIAL PUNCTURES 1; STAT NO; ULNAR PULSE PRESENT
[2016-10-24] MEDS ORDERED: ASPIRIN 81 MG CHEW TAB CHEW SCH (09:00)
--- NOTE | 2016-10-24 09:49 | RADRPT ---
EXAM DATE/TIME: 10/24/2016 08:49 [facility] COMPARISON: CHEST SINGLE AP, October 23, 2016, 10:56. INDICATIONS : Short of breath. MEDICAL HISTORY : Hypertension. Cirrhosis. SURGICAL HISTORY : Amputate left lower leg. ENCOUNTER: Subsequent ACUITY: 4 - 6 days PAIN SCORE: 0/10 LOCATION: Bilateral chest FINDINGS: A single view of the chest demonstrates extensive bilateral airspace disease. No associated effusions . Heart size remains normal. Osseous structures are intact. CONCLUSION: Persistent, extensive bilateral airspace disease. No associated effusions. Júnior Spaulding MD on October 24, 2016 at 9:45 Board Certified Radiologist. This report was verified electronically.
[2016-10-24 10:12] LABS: BANDS 4 % (0-6); EOSINOPHILS 2 % (0-4); METAMYELOCYTES 1 % (0-1); MYELOCYTES 1 % (0-0); NEUTROPHIL # MANUAL DIFF 6.5 TH/MM3 (1.8-7.7); POLYS (SEG NEUTROPHILS) 87 % (16-70); WBC DIFF SAMPLE 100
[2016-10-24 10:13] LABS: PLATELET ESTIMATE SMEAR LOW (NORMAL); PLATELET MORPHOLOGY NORMAL (NORMAL); SCAN/DIFF FINAL DIFF MANUAL
--- NOTE | 2016-10-24 10:55 | ECHRPT ---
Indication: Heart failure, unspecified CONCLUSIONS Normal left ventricular size. Mild concentric left ventricular hypertrophy. The left ventricular systolic function is hyperdynamic with an estimated ejection fraction in the ra nge of 65- 70%. No mitral valve regurgitation. The aortic valve is not well visualized. No aortic valve regurgitation. No aortic valve stenosis. There is mild tricuspid valve regurgitation. There is estimated tdgglsxo-on-krjlzk pulmonary hyperte nsion present (range 60-70 mmHg). The pulmonary valve is not well visualized. BP: 136 / 72 HR: 101 Rhythm: MEASUREMENTS (Male / Female) Normal Values Technical Quality:Good 2D ECHO LV Diastolic Diameter PLAX 4.9 cm 4.2 - 5.9 / 3.9 - 5.3 cm LV Systolic Diameter PLAX 3.3 cm IVS Diastolic Thickness 1.4 cm 0.6 - 1.0 / 0.6 - 0.9 cm LVPW Diastolic Thickness 1.2 cm 0.6 - 1.0 / 0.6 - 0.9 cm LV Relative Wall Thickness 0.5 RV Internal Dim ED PLAX 2.5 cm LVOT Diameter 2.3 cm M-MODE Aortic Root Diameter MM 3.2 cm LA Systolic Diameter MM 3.9 cm LA Ao Ratio MM 1.2 AV Cusp Separation MM 2.0 cm DOPPLER AV Peak Velocity 207.0 cm/s AV Peak Gradient 17.1 mmHg AV Mean Gradient 9.0 mmHg AV Velocity Time Integral 32.4 cm LVOT Peak Velocity 147.0 cm/s LVOT Peak Gradient 8.6 mmHg LVOT Velocity Time Integral 27.6 cm LVOT Cardiac Index 4602.6 cm/minm AV Area Cont Eq vti 3.5 cm AV Area Cont Eq pk 3.0 cm Mitral E Point Velocity 111.0 cm/s Mitral A Point Velocity 121.0 cm/s Mitral E to A Ratio 0.9 LV E' Lateral Velocity 13.5 cm/s Mitral E to LV E' Lateral Ratio 8.2 LV E' Septal Velocity 9.4 cm/s Mitral E to LV E' Septal Ratio 11.9 TR Peak Velocity 363.0 cm/s TR Peak Gradient 52.7 mmHg FINDINGS LEFT VENTRICLE Normal left ventricular size. Mild concentric left ventricular hypertrophy. The left ventricular systolic function is hyperdynamic with an estimated ejection fraction in the ra nge of 65- 70%. RIGHT VENTRICLE Normal right ventricular size and systolic function. LEFT ATRIUM The left atrial size is normal. RIGHT ATRIUM The right atrial size is normal. ATRIAL SEPTUM Normal atrial septal thickness without atrial level shunting by limited color doppler interrogation. AORTA The aortic root and proximal ascending aorta are normal in size on limited imaging. MITRAL VALVE Structurally normal mitral valve. No mitral valve regurgitation. AORTIC VALVE The aortic valve is not well visualized. No aortic valve regurgitation. No aortic valve stenosis. TRICUSPID VALVE Structurally normal tricuspid valve. There is mild tricuspid valve regurgitation. There is estimated sqvaorji-bz-jnhnrf pulmonary hyperte nsion present (range 60-70 mmHg). PULMONARY VALVE The pulmonary valve is not well visualized. VESSELS The inferior vena cava is normal in size. PERICARDIUM No pericardial effusion. Cedric Brand MD (Electronically Signed) Final Date:24 October 2016 10:55
--- NOTE | 2016-10-24 13:04 | EKG ---
Date Performed: 10/23/2016 Time Performed: 11:09:18 PTAGE: 50 years EKG: SINUS TACHYCARDIA LOW QRS VOLTAGE IN EXTREMITY LEADS ABNORMAL RHYTHM ECG PREVIOUS TRACING : 09/09/2016 11.24 DOCTOR: Ernesto Nicholas Interpretating Date/Time 10/24/2016 12:56:48
[2016-10-24 17:00] LABS: BLOOD GAS BASE EXCESS -1.2 mmol/L (-2-2); BLOOD GAS CARBOXYHEMOGLOBIN 2.9 % (0-4); BLOOD GAS HCO3 24 mmol/L (22-26); BLOOD GAS METHEMOGLOBIN 0.9 % (0-2); BLOOD GAS O2 HGB SATURATION 88 % (90-100); BLOOD GAS OXYGEN CONTENT 11.4 Vol % (12.0-20.0); BLOOD GAS PCO2 45 mmHg (38-42); BLOOD GAS PO2 68 mmHg (61-120); BLOOD GAS TOTAL HGB 9.2 G/DL (12.0-16.0); TEMP CORR TO 98.6
[2016-10-24 17:01] LABS: CRITICAL VALUE YES; DRAW SITE RT RADIAL; FIO2 45 %; NUMBER OF ARTERIAL PUNCTURES 1; OXYGEN DEVICE BiPAP; STAT YES; ULNAR PULSE PRESENT; VENT SETTINGS IPAP15/EPAP8
--- NOTE | 2016-10-24 17:01 | PD.WCN.NOT ---
Wound Consult Description: L anterior stump wound. Communicated with: TASHI Whitlock and call placed to Doctor Esther for orders Recommendation: Please clanes Wound to L anterior stump with normal saline and pat dry apply Xeroform single layer gauze dressing just over wound bed. Please apply skin prep to periwound before applying bordered gauze dressing. Please change dressing every other day or PRN if saturated or dislodged. Additional Information: Patient seen on [facility] for evaluation of wound to L anterior stump. Patient wears a prothesis at home and device is now ill fitting due to patient's weight gain per patient. Wound appears to be caused by friction associated with prothesis. Wound is open to air with scant sanguinous drainage when cleansed with normal saline and gauze pad. Drainage is without odor. Periwound is thickened and slightly callused between 4 and 7 o'clock. Wound measures 0.7cm x 1.1 cm x ~ 0.1cm. No induration, erythema or increased heat is assessed to periwound. Applied Xeroform in single layer just over wound bed and covered with bordered gauze. Destiny Crook [facility] Oct 24, 2016 17:01
[2016-10-24] MEDS ORDERED: MIDAZOLAM HCL 5 MG/ML VIAL (1 ML) ONE ×2 (17:11→17:20)
[2016-10-24] MEDS ORDERED: ROCURONIUM INJ 50 MG/5 ML VIAL ONE (17:11)
--- NOTE | 2016-10-24 17:14 | PD.CONS ---
[facility] Service Critical Care Medicine Consult Requested By [facility] Reason for Consult Respiratory Failure Primary Care Physician No Primary Care Physician History of Present Illness Worsening hypoxemic respiratory failure Past Family Social History Allergies: Coded Allergies: No Known Allergies (Verified , 10/23/16) Past Medical History Past Medical History Hx Anticoagulant Therapy: Yes (ASA 81 MG) Arthritis: No Asthma: No Autoimmune Disease: No Blood Disorders: No Anxiety: No Depression: No Heart Rhythm Problems: No Cancer: No Cardiovascular Problems: Yes High Cholesterol: No Chest Pain: Yes Congestive Heart Failure: No Cerebrovascular Accident: No Diabetes: No Diminished Hearing: No Endocrine: No GERD: No Genitourinary: No Headaches: No Hepatitis: No Hiatal Hernia: No Hypertension: Yes Immune Disorder: No Kidney Stones: No Musculoskeletal: No Neurologic: No Psychiatric: No Reproductive: No Respiratory: No Migraines: No Myocardial Infarction: No Renal Failure: No Seizures: No Sleep Apnea: No Thyroid Disease: No Ulcer: No Tetanus Vaccination: > 5 Years Influenza Vaccination: No Past Surgical History Abdominal Surgery: No Appendectomy: No Cardiac Surgery: No Cholecystectomy: No Ear Surgery: No Endocrine Surgery: No Eye Surgery: No Genitourinary Surgery: No 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) Thoracic Surgery: No Other Surgery: Yes Social History Alcohol Use: No (QUIT 3 MONTHS AGO) Tobacco Use: No Substance Use: No (PT DENIES ) Allergies-Medications Allergies-Medications (Allergen,Severity, Reaction): Coded Allergies: No Known Allergies (Verified , 10/23/16) Reported Meds & Prescriptions Reported Meds & Active Scripts Active Reported Aspirin 81 Mg Chew 81 Mg CHEW DAILY Physical Exam Vital Signs Vital Signs Date Time Temp Pulse Resp B/P Pulse Ox O2 Delivery O2 Flow Rate FiO2 10/24/16 16:05 97 10/24/16 15:29 98.4 97 30 115/54 90 10/24/16 15:20 90 45 10/24/16 15:00 96 10/24/16 14:00 96 10/24/16 13:44 93 40 10/24/16 13:10 100 10/24/16 12:15 97.9 99 32 125/56 91 10/24/16 12:06 99 10/24/16 12:05 97.9 97 35 107/53 95 10/24/16 12:00 97.9 97 35 123/55 95 10/24/16 12:00 98.0 98 30 123/55 93 10/24/16 11:00 106 10/24/16 10:18 100 10/24/16 10:10 94 50 10/24/16 09:00 103 10/24/16 08:00 98.3 109 30 107/56 90 10/24/16 08:00 109 10/24/16 07:33 100 BiPAP 50 10/24/16 07:00 100 10/24/16 06:20 108 10/24/16 05:04 95 10/24/16 04:56 95 50 10/24/16 04:00 97 10/24/16 03:17 98.0 104 20 116/44 95 10/24/16 03:00 101 10/24/16 02:17 97 50 10/24/16 02:17 97 BiPAP 50 10/24/16 02:05 89 10/24/16 01:00 90 10/24/16 00:00 100 10/23/16 23:22 98.4 100 24 135/66 100 10/23/16 23:00 105 10/23/16 22:00 95 10/23/16 21:00 99 10/23/16 20:00 102 10/23/16 19:30 97.6 102 22 124/65 100 10/23/16 19:00 103 10/23/16 18:33 101 10/23/16 17:56 104 Physical Exam Gen: Severe distress, anxious. Head: Normal. Neck: Supple, no obstruction to airway. Lungs: Diffuse crackles and scattered rhonchi, labored, tachypneic at 44/laurie Heart: Tachycardia, NL S1S2. ++ JVD. Abdomen: Tensely distended but soft, no guarding. BS few. No peritoneal irritation or pain. Extremities: Well perfused, generalized edema. Neuro: O X 3, exhausted but alert, move 4 limbs to command. Laboratory Laboratory Tests Test 10/24/16 10/24/16 10/24/16 10/24/16 00:01 05:40 08:25 09:10 Sodium Level 136 Potassium Level 3.9 Chloride Level 102 Carbon Dioxide Level 24.0 Anion Gap 10 Blood Urea Nitrogen 71 Creatinine 2.65 Estimat Glomerular Filtration 26 Rate Random Glucose 156 Calcium Level 7.8 Troponin I 0.03 White Blood Count 7.0 Red Blood Count 1.82 Hemoglobin 7.0 Hematocrit 20.3 Mean Corpuscular Volume 112.0 Mean Corpuscular Hemoglobin 38.8 Mean Corpuscular Hemoglobin 34.6 Concent Red Cell Distribution Width 15.8 Platelet Count 28 Mean Platelet Volume 8.2 Neutrophils (%) (Auto) Lymphocytes (%) (Auto) Monocytes (%) (Auto) Eosinophils (%) (Auto) Basophils (%) (Auto) Neutrophils # (Auto) Lymphocytes # (Auto) Monocytes # (Auto) Eosinophils # (Auto) Basophils # (Auto) CBC Comment AUTO DIFF Differential Total Cells 100 Counted Neutrophils % (Manual) 87 Band Neutrophils % 4 Lymphocytes % 4 Monocytes % 1 Eosinophils % 2 Neutrophils # (Manual) 6.5 Metamyelocytes 1 Myelocytes 1 Differential Comment FINAL DIFF MANUAL Platelet Estimate LOW Platelet Morphology Comment NORMAL Complement C3 35 Complement C4 9 Blood Gas Puncture Site RT RADIAL Blood Gas Patient Temperature 98.6 Blood Gas HCO3 23 Blood Gas Base Excess -1.1 Blood Gas Oxygen Saturation 88 Arterial Blood pH 7.38 Arterial Blood Partial 41 Pressure CO2 Arterial Blood Partial 68 Pressure O2 Arterial Blood Oxygen Content 12.2 Arterial Blood 2.7 Carboxyhemoglobin Arterial Blood Methemoglobin 1.0 Blood Gas Hemoglobin 9.7 Oxygen Delivery Device BiPAP Blood Gas Ventilator Setting IPAP15/EPAP8 Blood Gas Inspired Oxygen 50 Blood Type A POSITIVE Antibody Screen NEGATIVE Crossmatch Leukocyte-Reduced Red Blood Cells Blood Bank Comment Test 10/24/16 10/24/16 10:32 16:26 Blood Type A POSITIVE Blood Gas Puncture Site RT RADIAL Blood Gas Patient Temperature 98.6 Blood Gas HCO3 24 Blood Gas Base Excess -1.2 Blood Gas Oxygen Saturation 88 Arterial Blood pH 7.34 Arterial Blood Partial 45 Pressure CO2 Arterial Blood Partial 68 Pressure O2 Arterial Blood Oxygen Content 11.4 Arterial Blood 2.9 Carboxyhemoglobin Arterial Blood Methemoglobin 0.9 Blood Gas Hemoglobin 9.2 Oxygen Delivery Device BiPAP Blood Gas Ventilator Setting IPAP15/EPAP8 Blood Gas Inspired Oxygen 45 Date/Time Procedure Status Source Growth 10/23/16 14:34 Urine Culture - Preliminary Resulted Urine Random Urine Gram Negative Mike Result Diagram: 10/24/16 0540 10/24/16 0001 Assessment and Plan Assessment and Plan Assessment: 1. Hypoxemic Respiratory Failure. 2. Cirrhosis. 3. Thrombocytopenia. 4. Ascites. 5. UTI, gram negative mike. 6. Pulmonary hypertension. 7. Pneumonia, bilateral, diffuse. Plan: 1. APRV vent mode. 2. Place a-line. 3. Place CVL. 4. Sputum culture. 5. ABX coverage for UTI. 6. Broaden coverage for pneumonia. 7. Hold chemical DVT px. 8. SCDs. 9. Protonix. Overall impression: Critically ill with life-threatening hypoxemia refractory to conventional mechanical ventilation. Liver, kidneys, marrow failing as well. Prognosis guarded. Critical Care 60 mins aside from procedures. Osman Lorenzo MD Oct 24, 2016 17:14
[2016-10-24] MEDS ORDERED: MORPHINE SULFATE 4 MG/ML INJ ONE (17:30)
[2016-10-24] MEDS ORDERED: PROPOFOL 500 MG/50 ML INJ 50 ML ONE ×2 (17:43→18:48)
[2016-10-24] MEDS ORDERED: CLEVIDIPINE INJ 50 ML ONE (18:01)
[2016-10-24] MEDS ORDERED: METOPROLOL TARTRATE 5 MG/5 ML VIAL ONE (18:02)
[2016-10-24] MEDS ORDERED: FUROSEMIDE 100 MG/10 ML VIAL IV PUSH ONE (18:15)
--- NOTE | 2016-10-24 18:34 | RADRPT ---
EXAM DATE/TIME: 10/24/2016 18:03 [facility] COMPARISON: CHEST SINGLE AP, October 24, 2016, 8:49. INDICATIONS : ET tube and line placement. MEDICAL HISTORY : Hypertension. Cirrhosis. SURGICAL HISTORY : ENCOUNTER: Initial ACUITY: 1 day PAIN SCORE: Non-responsive. LOCATION: chest FINDINGS: Endotracheal tube tip satisfactory position. NG enters stomach. Right central line in superior vena c dandy. Bilateral dense airspace consolidation in the lungs has increased since exam from earlier today. No pneumothorax. No significant effusion. CONCLUSION: 1. Intubation with endotracheal tube in satisfactory position. Worsening bilateral airspace disease s krysta earlier examination. Jesse Carreno MD on October 24, 2016 at 18:31 Board Certified Radiologist. This report was verified electronically.
[2016-10-24 19:00] LABS: BLOOD GAS BASE EXCESS -2.5 mmol/L (-2-2); BLOOD GAS HCO3 24 mmol/L (22-26); BLOOD GAS METHEMOGLOBIN 0.9 % (0-2); BLOOD GAS O2 HGB SATURATION 91 % (90-100); BLOOD GAS OXYGEN CONTENT 10.7 Vol % (12.0-20.0); BLOOD GAS PCO2 59 mmHg (38-42); BLOOD GAS PO2 87 mmHg (61-120); BLOOD GAS TOTAL HGB 8.3 G/DL (12.0-16.0); TEMP CORR TO 98.6
[2016-10-24 19:07] LABS: CRITICAL VALUE YES; OXYGEN DEVICE VENTILATOR
[2016-10-24 19:08] LABS: DRAW SITE ART LINE; FIO2 100 %; VENT SETTINGS APRV
[2016-10-24 19:09] LABS: STAT NO
--- NOTE | 2016-10-24 19:09 | HHI.NPPN ---
Subjective History of Present Illness 50-year-old male with a past medical history of hypertension, history of cirrhosis of the liver, history of ascites in the past, hyperlipidemia, ischemic heart disease, cerebrovascular accident who came to the hospital with a complaint of shortness of breath and increased swelling of the legs. I was called to see the patient because of elevated BUN and creatinine. His BUN was 62 and creatinine was 2.5, about a month ago his creatinine was 0.7. Additional Remarks Patient is now intubated and sedated. Objective Data Data 10/23/16 10/24/16 19:00 07:00 Intake Total 100 ml 960 ml Output Total 375 ml 550 ml Balance -275 ml 410 ml Intake Oral 100 ml 960 ml Output Urine Total 375 ml 550 ml Vital Signs Date Time Temp Pulse Resp B/P Pulse Ox O2 Delivery O2 Flow Rate FiO2 10/24/16 17:36 98 100 10/24/16 16:05 97 10/24/16 15:29 98.4 97 30 115/54 90 10/24/16 15:20 90 45 10/24/16 15:00 96 10/24/16 14:00 96 10/24/16 13:44 93 40 10/24/16 13:10 100 10/24/16 12:15 97.9 99 32 125/56 91 10/24/16 12:06 99 10/24/16 12:05 97.9 97 35 107/53 95 10/24/16 12:00 97.9 97 35 123/55 95 10/24/16 12:00 98.0 98 30 123/55 93 10/24/16 11:00 106 10/24/16 10:18 100 10/24/16 10:10 94 50 10/24/16 09:00 103 10/24/16 08:00 98.3 109 30 107/56 90 10/24/16 08:00 109 10/24/16 07:33 100 BiPAP 50 10/24/16 07:00 100 10/24/16 06:20 108 10/24/16 05:04 95 10/24/16 04:56 95 50 10/24/16 04:00 97 10/24/16 03:17 98.0 104 20 116/44 95 10/24/16 03:00 101 10/24/16 02:17 97 50 10/24/16 02:17 97 BiPAP 50 10/24/16 02:05 89 10/24/16 01:00 90 10/24/16 00:00 100 10/23/16 23:22 98.4 100 24 135/66 100 10/23/16 23:00 105 10/23/16 22:00 95 10/23/16 21:00 99 10/23/16 20:00 102 10/23/16 19:30 97.6 102 22 124/65 100 -: 10/24/16 0540 10/24/16 0001 Physical Exam General Appearance Remarks Intubated and sedated. Eyes Eye Exam: Pupils Equal Throat Throat Exam: Oral Mucosa [place] & Moist Pulmonary Resp Exam: Breath Sounds Equal, Rhonchi, Decreased Bases, Diminished Breath Sounds Cardiology CV Exam: Regular, Normal Sinus Rhythm Gastrointestinal/Abdomen GI Exam: Soft, Distended Extremeties Extremities Exam: Moderate Edema, Pitting Edema, Dependent Edema Neurologic Neuro Exam: Sedated Assessment/Plan Assessment Summary: DAREK/Acute Renal Failure, Fluid/Volume Overload Problem List: (1) HTN (hypertension) (2) Alcoholic liver disease (3) Anasarca (4) Pulmonary edema (5) Acute kidney injury Plan Patient has marginal urine out put. Creatinine remain same. Hgb. dropped, develop resp. failure. Got Lasix IV, BP is stable. Start Bumex infusion. Try to keep in negative fluid balance. Follow the urine out put and BMP. Problem Qualifiers (1) Pulmonary edema: Qualified Code: J81.0 - Acute pulmonary edema John Gibbons MD Oct 24, 2016 19:09
[2016-10-24] MEDS ORDERED: BISACODYL 10 MG SUPP RECTAL PRN (19:45)
[2016-10-24] MEDS ORDERED: SENNOSIDES 8.6 MG TAB PO PRN (19:45)
[2016-10-24] MEDS ORDERED: LORazepam 2 MG/ML VIAL IV PRN (19:45)
[2016-10-24] MEDS ORDERED: LACTULOSE SYRUP 20 GM/30 ML CUP PO PRN (19:45)
[2016-10-24] MEDS ORDERED: MISCELLANEOUS NURSING INFORMATION XX SCH (19:45)
[2016-10-24] MEDS ORDERED: MAGNESIUM HYDROXIDE SUSP 30 ML CUP PO PRN (19:45)
[2016-10-24] MEDS ORDERED: CHLORHEXIDINE GLUCONATE 2 % 1 PACK (2 CLOTHS) TOP PRN (19:45)
--- NOTE | 2016-10-24 20:06 | PD.PROCEDR ---
Procedure Note Procedure DX: Hypoxemic Respiratory Failure (J96.01) OP: 1. Orotracheal Intubation (34487) 2. Insertion Arterial Line (65438) 3. Insertion Central Venous Line (32948) Procedure: Time out performed. Emergent intubation required. Bag mask ventilation. Versed 5 mg iv X 2 followed by rocuronium 100 mg iv. Intubated orally with 8.0 tube. Position confirmed with CO2 detection, breath sounds, improved sats. Right chest prepped and draped. Right sunbclavian vein cannulated and wire easily advanced. Catheter passed over wire to 18 cm. Lumens aspirated and flushed. Dressing applied. Kevin test normal right hand. Right wrist supinated, prepped and draped. Right radial artery cannulate and wire advanced. Cannula passed over wire to 3 cm. Good waveform observed. Circulation to hand intact after procedure. CXR shows tubes and lines in good position suitable for use. Osman Lorenzo MD Oct 24, 2016 20:06
[2016-10-24] MEDS: PROPOFOL 1000 MG/100 ML IV SCH ×2 (20:10→22:07)
[2016-10-24] MEDS ORDERED: ROCURONIUM INJ 100 MG/10 ML VIAL IV ONE (20:15)
[2016-10-24] MEDS ORDERED: MORPHINE SULFATE 4 MG/ML INJ IV ONE (20:15)
[2016-10-24] MEDS ORDERED: METOPROLOL TARTRATE 5 MG/5 ML VIAL IV PUSH ONE (20:15)
[2016-10-24] MEDS ORDERED: MIDAZOLAM HCL 5 MG/ML VIAL (1 ML) IV ONE (20:15)
[2016-10-24 20:34] LABS: BLOOD GAS BASE EXCESS -1.9 mmol/L (-2-2); BLOOD GAS CARBOXYHEMOGLOBIN 2.4 % (0-4); BLOOD GAS HCO3 26 mmol/L (22-26); BLOOD GAS METHEMOGLOBIN 0.5 % (0-2); BLOOD GAS O2 HGB SATURATION 87 % (90-100); BLOOD GAS OXYGEN CONTENT 10.7 Vol % (12.0-20.0); BLOOD GAS PCO2 72 mmHg (38-42); BLOOD GAS PO2 71 mmHG (61-120); BLOOD GAS TOTAL HGB 8.7 G/DL (12.0-16.0); CRITICAL VALUE YES; OXYGEN DEVICE VENTILATOR; TEMP CORR TO 98.6
[2016-10-24 20:36] LABS: DRAW SITE ART LINE; FIO2 100 %; STAT NO; VENT SETTINGS APRV/BI
[2016-10-24] MEDS: RESP: ALBUTEROL 2.5 MG/IPRATROPIUM 0.5 MG NEB (PRN) INH (21:25)
[2016-10-24] MEDS: DOCUSATE SODIUM 50 MG/SENNA 8.6 MG TAB PO SCH (22:08)
[2016-10-24] MEDS: CEFEPIME INJ 2,000 MG in SODIUM CHLORIDE 0.9% INJ 100 ML IV SCH (22:08)
[2016-10-24] MEDS: AZITHROMYCIN INJ 500 MG in SODIUM CHLOR 0.9% 250 ML INJ 250 ML IV SCH (22:09)
[2016-10-24] MEDS: metroNIDAZOLE 500 MG INJ 100 ML IV SCH (22:09)
[2016-10-24 23:30] LABS: BLOOD GAS BASE EXCESS -2.4 mmol/L (-2-2); BLOOD GAS CARBOXYHEMOGLOBIN 2.8 % (0-4); BLOOD GAS HCO3 21 mmol/L (22-26); BLOOD GAS METHEMOGLOBIN 1.1 % (0-2); BLOOD GAS O2 HGB SATURATION 97 % (90-100); BLOOD GAS OXYGEN CONTENT 14.4 Vol % (12.0-20.0); BLOOD GAS PCO2 30 mmHg (38-42); BLOOD GAS PO2 221 mmHg (61-120); BLOOD GAS TOTAL HGB 10.3 G/DL (12.0-16.0); CRITICAL VALUE NO; OXYGEN DEVICE VENTILATOR; TEMP CORR TO 98.6
[2016-10-24 23:31] LABS: FIO2 75 %; VENT SETTINGS APRV
[2016-10-24 23:32] LABS: DRAW SITE ART LINE; STAT NO
[2016-10-25] VITALS (17 sets, daily range): BP systolic 93–137; BP diastolic 43–63; PULSE 66–102; RESP 13–17; TEMP 97.8–99.2; O2SAT 95–99
[2016-10-25] MEDS: PROPOFOL 1000 MG/100 ML IV SCH ×8 (01:10→22:03)
[2016-10-25] MEDS: CHLORHEXIDINE GLUCONATE 2 % 1 PACK (2 CLOTHS) TOP SCH (04:00)
[2016-10-25] MEDS: RESP: ALBUTEROL 2.5 MG/IPRATROPIUM 0.5 MG NEB (PRN) INH ×2 (04:06→20:35)
[2016-10-25 04:47] LABS: BLOOD GAS BASE EXCESS -1.6 mmol/L (-2-2); BLOOD GAS CARBOXYHEMOGLOBIN 2.5 % (0-4); BLOOD GAS HCO3 22 mmol/L (22-26); BLOOD GAS METHEMOGLOBIN 1.2 % (0-2); BLOOD GAS O2 HGB SATURATION 97 % (90-100); BLOOD GAS OXYGEN CONTENT 11.2 Vol % (12.0-20.0); BLOOD GAS PCO2 31 mmHg (38-42); BLOOD GAS PO2 187 mmHg (61-120); TEMP CORR TO 98.6
[2016-10-25 04:48] LABS: CRITICAL VALUE NO; OXYGEN DEVICE VENTILATOR
[2016-10-25 04:49] LABS: FIO2 65 %; VENT SETTINGS APRV
[2016-10-25 04:52] LABS: DRAW SITE ART LINE; STAT NO
[2016-10-25 05:04] LABS: INTERNATIONAL NORMALIZED RATIO 1.9 RATIO; PROTHROMBIN TIME - PATIENT 22.1 SEC (9.8-11.6)
[2016-10-25 05:08] LABS: AUTOMATED NEUTROPHIL # 10.9 TH/MM3 (1.8-7.7); BASOPHIL % 0.3 % (0.0-2.0); EOSINOPHIL # 0.2 TH/MM3 (0-0.4); EOSINOPHIL % 1.1 % (0.0-4.0); HEMATOCRIT 23.2 % (39.0-51.0); LYMPH % 8.5 % (9.0-44.0); LYMPHOCYTE # 1.1 TH/MM3 (1.0-4.8); MEAN CORPUSCULAR HEMOGLOBIN 37.4 PG (27.0-34.0); MEAN CORPUSCULAR HGB CONC 34.6 % (32.0-36.0); MONO % 7.4 % (0.0-8.0); NEUT % 82.7 % (16.0-70.0); PLATELET COUNT 37 TH/MM3 (150-450); RED BLOOD COUNT 2.15 MIL/MM3 (4.50-5.90); RED CELL DISTRIBUTION WIDTH 18.8 % (11.6-17.2); WHITE BLOOD COUNT 13.2 TH/MM3 (4.0-11.0)
[2016-10-25 05:11] LABS: HEMO FLAGS AUTO DIFF
[2016-10-25] MEDS: metroNIDAZOLE 500 MG INJ 100 ML IV SCH ×3 (05:55→22:46)
[2016-10-25 06:04] LABS: ALKALINE PHOSPHATASE 66 U/L (45-117); ALT (GPT) 19 U/L (12-78)
[2016-10-25 06:27] LABS: ANION GAP 12 MEQ/L (5-15); AST (GOT) 70 U/L (15-37); BICARBONATE 22.8 MEQ/L (21.0-32.0); CHLORIDE 98 MEQ/L (98-107); GLOMERULAR FILTRATION RATE 25 ML/MIN (>89); MAGNESIUM 2.3 MG/DL (1.5-2.5); POTASSIUM 3.7 MEQ/L (3.5-5.1); SODIUM (NA) 133 MEQ/L (136-145)
[2016-10-25 06:32] LABS: BLOOD UREA NITROGEN 80 MG/DL (7-18)
[2016-10-25 07:15] LABS: BANDS 15 % (0-6); EOSINOPHILS 1 % (0-4); METAMYELOCYTES 4 % (0-1); MYELOCYTES 3 % (0-0); NEUTROPHIL # MANUAL DIFF 12.3 TH/MM3 (1.8-7.7); POLYS (SEG NEUTROPHILS) 71 % (16-70); WBC DIFF SAMPLE 100
[2016-10-25 07:16] LABS: PLATELET ESTIMATE SMEAR LOW (NORMAL); PLATELET MORPHOLOGY NORMAL (NORMAL); SCAN/DIFF FINAL DIFF MANUAL; TEARDROP RBCS 1+ (NORMAL)
[2016-10-25] MEDS: FUROSEMIDE 40 MG/4 ML VIAL IV PUSH SCH (09:00)
[2016-10-25] MEDS ORDERED: AZITHROMYCIN 250 MG TAB PO SCH (09:00)
--- NOTE | 2016-10-25 09:15 | MB ---
cc: ISABELLA SANTANA MD, JOHN DATE OF CONSULTATION: 10/24/2016 REASON FOR CONSULTATION Pulmonary edema and respiratory failure. HISTORY OF PRESENT ILLNESS This is a 50-year-old man who is overweight and has a past history of cirrhosis. He had been experiencing progressive dyspnea over the past two days. He was getting increasingly dyspneic over the past 24 hours and [facility] was called. He was apparently brought in via ambulance and had to be given IV Lasix. Upon his arrival in the emergency room he was hypoxic and placed on a BiPAP mask. He is now admitted to the telemetry floor. The patient is unable to give many details of his history as he is on the BiPAP mask. He does have leg swelling and denied chest pain, denied fevers or chills, but has had a cough with mild wheezing. PAST MEDICAL HISTORY 1. Cirrhosis of the liver. 2. Amputation of the left lower extremity; he wears a prosthesis. 3. No significant history of chronic lung disease that he knows of. ALLERGIES None listed. HABITS The patient does not smoke but drank alcohol regularly. FAMILY HISTORY Essentially noncontributory, unavailable. REVIEW OF SYSTEMS The patient is unable to give many details. He has dyspnea, orthopnea, wheezing and a cough. No chills or fever. He does have some anxiety with depression. He has abdominal discomfort. No urinary symptoms. He has joint pains. PHYSICAL EXAMINATION GENERAL: This is an obese middle-aged white male on BiPAP. VITAL SIGNS: Blood pressure 138/80, pulse 105, respirations 24, temperature 97.5. HEENT: Head is normocephalic. Pupils are reactive. Throat is clear. He has no inflammation. Nasal mucosa injected. NECK: Supple. No lymphadenopathy. No bruits. CHEST: Equal movements with wheezes throughout both lung giang with prolonged expirations and crackles at the lung bases. HEART: The heart sounds are irregular, S1 and S2 with no murmur. No S3. ABDOMEN: Obese, protuberant without masses or organomegaly. No tenderness. Bowel sounds are active. EXTREMITIES: Amputated left leg below the knee. The right leg has 2+ edema with diminished pulses. Reflexes 1+. The patient does move all his extremities well. NEUROLOGIC: There are no gross motor deficits. Cranial nerves are grossly intact. RECTAL: Exam is deferred. SKIN: No lesions. IMAGING Chest x-ray demonstrated basilar infiltrates and evidence of pulmonary edema. IMPRESSION 1. Acute respiratory failure. 2. Pulmonary edema with pleural effusions. 3. Probable basilar pneumonia. 4. Anemia and coagulopathy. 5. History of cirrhosis of the liver with ascites. PLAN The patient had been placed on BiPAP 13/11 with an FIO2 of 50%. The FIO2 will be reduced to maintain sats greater than 92. Nebulized DuoNeb solution added q.i.d. Diuretic therapy including Lasix 40 mg IV daily and per nephrology. The patient will also have a CT scan without contrast. If his condition should deteriorate he may need to be transferred to ICU and intubated for ventilator support. Antibiotic therapy will be added to cover pneumonia and blood gas study has been ordered as well. If his oxygenation improves we will place him on a Venti mask at 50%. Thank you, Dr. Santana, for this consultation. MD FABRICE Reyes/ZANE /11:46 PM /8:47 AM
[2016-10-25] MEDS: PANTOPRAZOLE SODIUM 40 MG VIAL IV SCH (09:22)
[2016-10-25] MEDS: POTASSIUM CHLORIDE 20 MEQ CONTROLLED RELEASE TAB PO SCH (09:23)
[2016-10-25] MEDS: DOCUSATE SODIUM 50 MG/SENNA 8.6 MG TAB PO SCH ×2 (09:23→22:47)
--- NOTE | 2016-10-25 09:57 | HHI.CCPN ---
Subjective Remarks/Hospital Course Oxygen diffusion improved overnight - could not get sats over 85% last evening until converted to APRV mode. Abdominal distention will hamper efforts to eventually extubate; hopefully diuretics will manage ascites. Sputum culture obtained last night - pending. Will review therapy with Dr. Sosa. Objective Vital Signs Date Time Temp Pulse Resp B/P Pulse Ox O2 Delivery O2 Flow Rate FiO2 10/25/16 07:48 99 55 10/25/16 07:15 Mechanical Ventilator 10/25/16 07:15 98.2 66 16 105/53 124/45 10/24/16 17:00 15.00 Intake and Output 10/24/16 10/24/16 10/25/16 08:00 16:00 00:00 Intake Total 960 ml Output Total 550 ml 400 ml 400 ml Balance 410 ml -400 ml -400 ml Result Diagram: 10/25/16 0430 10/25/16 0430 Other Results Microbiology Date/Time Procedure Status Source Growth 10/23/16 14:34 Urine Culture - Final Complete Urine Random Urine Klebsiella Pneumoniae Laboratory Tests Test 10/24/16 10/24/16 10/24/16 10/24/16 16:26 18:33 20:14 23:08 Blood Gas Puncture Site RT RADIAL ART LINE ART LINE ART LINE Blood Gas Patient Temperature 98.6 98.6 98.6 98.6 Blood Gas HCO3 24 mmol/L 24 mmol/L 26 mmol/L 21 mmol/L (22-26) (22-26) (22-26) (22-26) Blood Gas Base Excess -1.2 mmol/L -2.5 mmol/L -1.9 mmol/L -2.4 mmol/L (-2-2) (-2-2) (-2-2) (-2-2) Blood Gas Oxygen Saturation 88 % (90-100) 91 % (90-100) 87 % (90-100) 97 % (90- 100) Arterial Blood pH 7.34 7.23 7.17 7.46 (7.380-7.420) (7.380-7.420) (7.380-7.420) (7.380-7.420) Arterial Blood Partial 45 mmHg (38-42) 59 mmHg (38-42) 72 mmHg (38-42) 30 mmHg ( 38-42) Pressure CO2 Arterial Blood Partial 68 mmHg 87 mmHg 71 mmHG 221 mmHg Pressure O2 (61-120) (61-120) (61-120) (61-120) Arterial Blood Oxygen Content 11.4 Vol % 10.7 Vol % 10.7 Vol % 14.4 Vol % (12.0-20.0) (12.0-20.0) (12.0-20.0) (12.0-20.0) Arterial Blood 2.9 % (0-4) 3.0 % (0-4) 2.4 % (0-4) 2.8 % (0-4) Carboxyhemoglobin Arterial Blood Methemoglobin 0.9 % (0-2) 0.9 % (0-2) 0.5 % (0-2) 1.1 % (0-2) Blood Gas Hemoglobin 9.2 G/DL 8.3 G/DL 8.7 G/DL 10.3 G/DL (12.0-16.0) (12.0-16.0) (12.0-16.0) (12.0-16.0) Oxygen Delivery Device BiPAP VENTILATOR VENTILATOR VENTILATOR Blood Gas Ventilator Setting IPAP15/EPAP8 APRV APRV/BI APRV Blood Gas Inspired Oxygen 45 % 100 % 100 % 75 % Test 10/25/16 04:33 Blood Gas Puncture Site ART LINE Blood Gas Patient Temperature 98.6 Blood Gas HCO3 22 mmol/L (22-26) Blood Gas Base Excess -1.6 mmol/L (-2-2) Blood Gas Oxygen Saturation 97 % (90-100) Arterial Blood pH 7.46 (7.380-7.420) Arterial Blood Partial 31 mmHg (38-42) Pressure CO2 Arterial Blood Partial 187 mmHg Pressure O2 (61-120) Arterial Blood Oxygen Content 11.2 Vol % (12.0-20.0) Arterial Blood 2.5 % (0-4) Carboxyhemoglobin Arterial Blood Methemoglobin 1.2 % (0-2) Blood Gas Hemoglobin 8.0 G/DL (12.0-16.0) Oxygen Delivery Device VENTILATOR Blood Gas Ventilator Setting APRV Blood Gas Inspired Oxygen 65 % Objective Remarks Gen: Sedated Head: Normal. Neck: Supple, orally intubated Lungs: Diffuse crackles and scattered rhonchi. Heart: Tachycardia, NL S1S2. ++ JVD. Abdomen: Tensely distended but soft, no guarding. BS few. No peritoneal irritation or pain. Extremities: Well perfused, generalized edema. Neuro: SERG, sedated. A/P Assessment and Plan Assessment: 1. Hypoxemic Respiratory Failure. 2. Cirrhosis. 3. Thrombocytopenia. 4. Ascites. 5. UTI, gram negative lisha. 6. Pulmonary hypertension. 7. Pneumonia, bilateral, diffuse. Plan: 1. APRV vent mode. 2. Place a-line. 3. Place CVL. 4. Sputum culture. 5. ABX coverage for UTI. 6. Broaden coverage for pneumonia. 7. Hold chemical DVT px. 8. SCDs. 9. Protonix. Overall impression: Critically ill with life-threatening hypoxemia refractory to conventional mechanical ventilation. Liver, kidneys, marrow failing as well. Prognosis guarded. Critical Care 42 mins Osman Lorenzo MD Oct 25, 2016 09:57
[2016-10-25] MEDS: CEFEPIME INJ 2,000 MG in SODIUM CHLORIDE 0.9% INJ 100 ML IV SCH ×2 (10:01→21:35)
[2016-10-25 11:00] LABS: BLOOD GAS BASE EXCESS -0.8 mmol/L (-2-2); BLOOD GAS CARBOXYHEMOGLOBIN 2.2 % (0-4); BLOOD GAS HCO3 22 mmol/L (22-26); BLOOD GAS METHEMOGLOBIN 1.1 % (0-2); BLOOD GAS O2 HGB SATURATION 97 % (90-100); BLOOD GAS OXYGEN CONTENT 16.9 Vol % (12.0-20.0); BLOOD GAS PCO2 30 mmHg (38-42); BLOOD GAS PO2 214 mmHg (61-120); BLOOD GAS TOTAL HGB 12.1 G/DL (12.0-16.0); TEMP CORR TO 98.6
[2016-10-25 11:01] LABS: CRITICAL VALUE NO; OXYGEN DEVICE VENTILATOR
[2016-10-25 11:03] LABS: DRAW SITE ART LINE; FIO2 55 %; STAT NO; VENT SETTINGS APRV
--- NOTE | 2016-10-25 11:06 | RADRPT ---
EXAM DATE/TIME: 10/25/2016 09:59 [facility] COMPARISON: CHEST SINGLE AP, October 24, 2016, 18:03. INDICATIONS : Evaluate for pneumonia. MEDICAL HISTORY : Hypertension. Cirrhosis. SURGICAL HISTORY : None. ENCOUNTER: Subsequent ACUITY: 2 days PAIN SCORE: Non-responsive. LOCATION: Bilateral chest FINDINGS: Support apparatus in good position. Improvement with less interstitial and alveolar opacity. Cardia c size is appropriate. CONCLUSION: Significant interval improvement. Support apparatus remains in good position. Carter Blanchard MD FACR on October 25, 2016 at 11:03 Board Certified Radiologist. This report was verified electronically.
[2016-10-25] MEDS: NOREPINEPHRINE 4 MG/D5W 250 ML IV SCH ×2 (11:49→21:35)
[2016-10-25 17:00] LABS: BLOOD GAS BASE EXCESS -0.8 mmol/L (-2-2); BLOOD GAS CARBOXYHEMOGLOBIN 2.1 % (0-4); BLOOD GAS HCO3 23 mmol/L (22-26); BLOOD GAS METHEMOGLOBIN 1.2 % (0-2); BLOOD GAS O2 HGB SATURATION 95 % (90-100); BLOOD GAS OXYGEN CONTENT 18.6 Vol % (12.0-20.0); BLOOD GAS PCO2 36 mmHg (38-42); BLOOD GAS PO2 106 mmHg (61-120); BLOOD GAS TOTAL HGB 13.8 G/DL (12.0-16.0); TEMP CORR TO 98.6
[2016-10-25 17:03] LABS: CRITICAL VALUE NO; OXYGEN DEVICE VENTILATOR
[2016-10-25 17:04] LABS: DRAW SITE ART LINE; FIO2 45 %; STAT NO; VENT SETTINGS APRV
[2016-10-25 21:04] LABS: MEAN CORPUSCULAR HGB CONC 36.5 % (32.0-36.0)
--- NOTE | 2016-10-25 21:46 | HHI.NPPN ---
Subjective History of Present Illness 50-year-old male with a past medical history of hypertension, history of cirrhosis of the liver, history of ascites in the past, hyperlipidemia, ischemic heart disease, cerebrovascular accident who came to the hospital with a complaint of shortness of breath and increased swelling of the legs. I was called to see the patient because of elevated BUN and creatinine. His BUN was 62 and creatinine was 2.5, about a month ago his creatinine was 0.7. Additional Remarks Patient remain intubated and sedated, on low dose pressors. Objective Data Data 10/24/16 10/25/16 19:00 07:00 Intake Total 1406 ml Output Total 800 ml 621 ml Balance -800 ml 785 ml IV Total 1346 ml Tube Irrigant 60 ml Output Urine Total 800 ml 321 ml Gastric Drainage Total 300 ml # Bowel Movements 0 0 Vital Signs Date Time Temp Pulse Resp B/P Pulse Ox O2 Delivery O2 Flow Rate FiO2 10/25/16 20:36 98 45 10/25/16 16:35 99 45 10/25/16 15:30 45 10/25/16 15:30 99.0 79 13 117/57 97 117/47 10/25/16 15:30 95 Mechanical Ventilator 45 10/25/16 15:00 83 10/25/16 13:12 97 45 10/25/16 12:30 97 Mechanical Ventilator 45 10/25/16 12:30 45 10/25/16 11:30 55 10/25/16 11:30 99 Mechanical Ventilator 55 10/25/16 11:30 98.3 80 17 102/50 99 96/43 10/25/16 11:00 80 10/25/16 09:40 99 55 10/25/16 07:48 99 55 10/25/16 07:15 99 Mechanical Ventilator 55 10/25/16 07:15 55 10/25/16 07:15 98.2 66 16 105/53 99 124/45 10/25/16 07:00 70 10/25/16 04:06 99 65 10/25/16 04:00 65 10/25/16 04:00 99 Mechanical Ventilator 10/25/16 03:00 97.8 67 17 93/47 99 117/50 10/25/16 03:00 73 10/25/16 00:39 95 70 10/25/16 00:00 100 Mechanical Ventilator 65 10/25/16 00:00 65 10/24/16 23:00 74 10/24/16 23:00 97.8 73 14 98/55 99 111/53 10/24/16 22:10 100 70 -: 10/25/16 0430 10/25/16 0430 Microbiology 10/25/16 Gram Stain - Final, Resulted 10/25/16 Sputum Culture, Resulted Pending Physical Exam General Appearance Remarks Intubated and sedated. Eyes Eye Exam: Pupils Equal Throat Throat Exam: Oral Mucosa [place] & Moist Pulmonary Resp Exam: Breath Sounds Equal, Rhonchi, Decreased Bases, Diminished Breath Sounds Cardiology CV Exam: Regular, Normal Sinus Rhythm Gastrointestinal/Abdomen GI Exam: Soft, Distended Extremeties Extremities Exam: Moderate Edema, Pitting Edema, Dependent Edema Neurologic Neuro Exam: Sedated Assessment/Plan Assessment Summary: DAREK/Acute Renal Failure, Fluid/Volume Overload Problem List: (1) HTN (hypertension) (2) Alcoholic liver disease (3) Anasarca (4) Pulmonary edema (5) Acute kidney injury Plan Patient has some improvement in the urine out put, with Bumex infusion. Creatinine remain same. BP dropped, on low dose pressors. Continue Bumex. Weaning as tolerated. CXR is better. Problem Qualifiers (1) Pulmonary edema: Qualified Code: J81.0 - Acute pulmonary edema John Gibbons MD Oct 25, 2016 21:46
[2016-10-25] MEDS: AZITHROMYCIN INJ 500 MG in SODIUM CHLOR 0.9% 250 ML INJ 250 ML IV SCH (22:43)
[2016-10-25 23:44] LABS: BLOOD GAS BASE EXCESS -1.1 mmol/L (-2-2); BLOOD GAS CARBOXYHEMOGLOBIN 2.5 % (0-4); BLOOD GAS HCO3 23 mmol/L (22-26); BLOOD GAS METHEMOGLOBIN 1.7 % (0-2); BLOOD GAS O2 HGB SATURATION 94 % (90-100); BLOOD GAS OXYGEN CONTENT 10.2 Vol % (12.0-20.0); BLOOD GAS PCO2 35 mmHg (38-42); BLOOD GAS PO2 91 mmHg (61-120); BLOOD GAS TOTAL HGB 7.6 G/DL (12.0-16.0); CRITICAL VALUE NO; OXYGEN DEVICE VENTILATOR; TEMP CORR TO 98.6
[2016-10-25 23:45] LABS: DRAW SITE ART LINE; FIO2 40 %; STAT NO; VENT SETTINGS APRV
[2016-10-26] VITALS (13 sets, daily range): BP systolic 108–139; BP diastolic 43–73; PULSE 70–98; RESP 13–20; TEMP 97.7–98.3; O2SAT 93–98
[2016-10-26] MEDS: PROPOFOL 1000 MG/100 ML IV SCH ×10 (00:19→21:53)
[2016-10-26] MEDS: MORPHINE SULFATE 8 MG/ML INJ IV PUSH PRN (03:49)
[2016-10-26] MEDS: CHLORHEXIDINE GLUCONATE 2 % 1 PACK (2 CLOTHS) TOP SCH (04:00)
[2016-10-26] MEDS: RESP: ALBUTEROL 2.5 MG/IPRATROPIUM 0.5 MG NEB (PRN) INH (04:28)
[2016-10-26 04:31] LABS: AUTOMATED NEUTROPHIL # 13.6 TH/MM3 (1.8-7.7); BASOPHIL % 0.2 % (0.0-2.0); EOSINOPHIL # 0.5 TH/MM3 (0-0.4); EOSINOPHIL % 2.7 % (0.0-4.0); HEMATOCRIT 22.8 % (39.0-51.0); LYMPH % 11.9 % (9.0-44.0); LYMPHOCYTE # 2.1 TH/MM3 (1.0-4.8); MEAN CELL VOLUME 105.8 FL (80.0-100.0); MEAN CORPUSCULAR HEMOGLOBIN 38.6 PG (27.0-34.0); MONO % 7.5 % (0.0-8.0); NEUT % 77.7 % (16.0-70.0); PLATELET COUNT 38 TH/MM3 (150-450); RED BLOOD COUNT 2.16 MIL/MM3 (4.50-5.90); RED CELL DISTRIBUTION WIDTH 18.2 % (11.6-17.2); WHITE BLOOD COUNT 17.5 TH/MM3 (4.0-11.0)
[2016-10-26 04:52] LABS: HEMO FLAGS AUTO DIFF
[2016-10-26 05:11] LABS: BICARBONATE 24.5 MEQ/L (21.0-32.0)
[2016-10-26 05:20] LABS: POTASSIUM 3.6 MEQ/L (3.5-5.1)
--- NOTE | 2016-10-26 05:28 | RADRPT ---
EXAM DATE/TIME: 10/26/2016 03:25 [facility] COMPARISON: CHEST SINGLE AP, October 25, 2016, 9:59. INDICATIONS : Evaluate Pulmonary edema and hypoxemia. MEDICAL HISTORY : Hypertension. Cirrhosis SURGICAL HISTORY : ENCOUNTER: Subsequent ACUITY: 3 days PAIN SCORE: Non-responsive. LOCATION: Bilateral chest FINDINGS: A single view of the chest demonstrates the endotracheal tube, nasogastric tube are both in good posi tion. Right subclavian central line in good position. Bilateral perihilar vascular congestion persist s. The cardiomediastinal contours are unremarkable. Osseous structures are intact. CONCLUSION: Perihilar vascular congestion. Tubes and catheters in good position See Christie MD on October 26, 2016 at 5:25 Board Certified Radiologist. This report was verified electronically.
[2016-10-26 05:29] LABS: BLOOD GAS HCO3 23 mmol/L (22-26); BLOOD GAS PCO2 40 mmHg (38-42); BLOOD GAS PO2 80 mmHg (61-120)
[2016-10-26 05:30] LABS: BLOOD GAS BASE EXCESS -1.7 mmol/L (-2-2); BLOOD GAS CARBOXYHEMOGLOBIN 2.5 % (0-4); BLOOD GAS METHEMOGLOBIN 1.6 % (0-2); BLOOD GAS O2 HGB SATURATION 91 % (90-100); BLOOD GAS OXYGEN CONTENT 10.3 Vol % (12.0-20.0); BLOOD GAS TOTAL HGB 7.9 G/DL (12.0-16.0); CRITICAL VALUE NO; OXYGEN DEVICE VENTILATOR; TEMP CORR TO 98.6; VENT SETTINGS APRV
[2016-10-26 05:31] LABS: DRAW SITE ART LINE; FIO2 40 %; STAT NO
[2016-10-26 05:39] LABS: CALCIUM-PROTEIN CORRECTED 7.5 MG/DL (8.5-10.1)
[2016-10-26] MEDS: metroNIDAZOLE 500 MG INJ 100 ML IV SCH ×3 (06:18→23:49)
[2016-10-26 08:37] LABS: BANDS 6 % (0-6); CORRECTED NUCLEATED RBC 2 /100 WBC (0-0); EOSINOPHILS 1 % (0-4); METAMYELOCYTES 2 % (0-1); MYELOCYTES 6 % (0-0); NEUTROPHIL # MANUAL DIFF 13.7 TH/MM3 (1.8-7.7); PLATELET ESTIMATE SMEAR LOW (NORMAL); PLATELET MORPHOLOGY NORMAL (NORMAL); POLYS (SEG NEUTROPHILS) 64 % (16-70); SCAN/DIFF FINAL DIFF MANUAL; TOXIC GRANULATION 1+ (NORMAL); WBC DIFF SAMPLE 100
[2016-10-26 08:38] LABS: POLYCHROMASIA 2.2 % (0.0-1.9)
[2016-10-26 08:39] LABS: TEARDROP RBCS 1+ (NORMAL)
[2016-10-26] MEDS: POTASSIUM CHLORIDE 20 MEQ CONTROLLED RELEASE TAB PO SCH (09:00)
[2016-10-26] MEDS: DOCUSATE SODIUM 50 MG/SENNA 8.6 MG TAB PO SCH ×2 (09:27→21:08)
[2016-10-26] MEDS: FUROSEMIDE 40 MG/4 ML VIAL IV PUSH SCH (09:28)
[2016-10-26] MEDS: CEFEPIME INJ 2,000 MG in SODIUM CHLORIDE 0.9% INJ 100 ML IV SCH ×2 (09:28→21:22)
[2016-10-26] MEDS: PANTOPRAZOLE SODIUM 40 MG VIAL IV SCH (09:29)
[2016-10-26 10:48] LABS: BLOOD GAS BASE EXCESS -1.8 mmol/L (-2-2); BLOOD GAS CARBOXYHEMOGLOBIN 2.6 % (0-4); BLOOD GAS HCO3 22 mmol/L (22-26); BLOOD GAS METHEMOGLOBIN 1.5 % (0-2); BLOOD GAS O2 HGB SATURATION 95 % (90-100); BLOOD GAS PCO2 35 mmHg (38-42); BLOOD GAS PO2 113 mmHg (61-120); BLOOD GAS TOTAL HGB 9.6 G/DL (12.0-16.0); CRITICAL VALUE NO; OXYGEN DEVICE VENTILATOR; TEMP CORR TO 98.6
[2016-10-26 10:49] LABS: FIO2 40 %; VENT SETTINGS APRV
[2016-10-26 10:50] LABS: DRAW SITE ART LINE; STAT NO
[2016-10-26] MEDS: POTASSIUM CHLORIDE 25 MEQ EFFERVESCENT TAB PO SCH (11:18)
[2016-10-26] MEDS: BUMETANIDE INJ 100 ML IV SCH (12:56)
[2016-10-26] MEDS: BENEPROTEIN POWDER 1 PACK G-TUBE SCH ×2 (13:00→18:00)
[2016-10-26] MEDS: NOREPINEPHRINE 4 MG/D5W 250 ML IV SCH (13:42)
--- NOTE | 2016-10-26 14:04 | HHI.NPPN ---
Subjective History of Present Illness 50-year-old male with a past medical history of hypertension, history of cirrhosis of the liver, history of ascites in the past, hyperlipidemia, ischemic heart disease, cerebrovascular accident who came to the hospital with a complaint of shortness of breath and increased swelling of the legs. I was called to see the patient because of elevated BUN and creatinine. His BUN was 62 and creatinine was 2.5, about a month ago his creatinine was 0.7. Additional Remarks Patient remain intubated and sedated, on low dose pressors. Objective Data Data 10/25/16 10/26/16 19:00 07:00 Intake Total 1210 ml 1330 ml Output Total 780 ml 1150 ml Balance 430 ml 180 ml Intake Oral 0 ml IV Total 1090 ml 1270 ml Tube Irrigant 120 ml 60 ml Output Urine Total 580 ml 1100 ml Gastric Drainage Total 200 ml 50 ml # Bowel Movements 0 Vital Signs Date Time Temp Pulse Resp B/P Pulse Ox O2 Delivery O2 Flow Rate FiO2 10/26/16 13:05 97 40 10/26/16 11:00 80 10/26/16 11:00 45 10/26/16 11:00 94 Mechanical Ventilator 45 10/26/16 11:00 98.1 88 16 116/56 93 113/45 10/26/16 09:28 98 40 10/26/16 07:40 93 40 10/26/16 07:00 93 Mechanical Ventilator 45 10/26/16 07:00 45 10/26/16 07:00 98.2 88 16 116/56 93 108/43 10/26/16 07:00 80 10/26/16 04:29 97 40 10/26/16 04:00 18 10/26/16 03:00 98.3 98 20 131/62 95 139/57 10/26/16 03:00 40 10/26/16 03:00 95 Mechanical Ventilator 40 10/26/16 03:00 98 10/26/16 02:50 97 40 10/25/16 23:00 40 10/25/16 23:00 98.7 102 13 121/63 95 137/52 10/25/16 23:00 102 10/25/16 23:00 95 Mechanical Ventilator 40 10/25/16 22:41 97 40 10/25/16 20:36 98 45 10/25/16 19:00 45 10/25/16 19:00 95 Mechanical Ventilator 45 10/25/16 19:00 81 10/25/16 19:00 99.2 81 14 115/53 95 129/51 10/25/16 16:35 99 45 10/25/16 15:30 45 10/25/16 15:30 99.0 79 13 117/57 97 117/47 10/25/16 15:30 95 Mechanical Ventilator 45 10/25/16 15:00 83 -: 10/26/16 0335 10/26/16 0335 Physical Exam Eyes Eye Exam: Pupils Equal Throat Throat Exam: Oral Mucosa [place] & Moist Pulmonary Resp Exam: Breath Sounds Equal, Rhonchi, Decreased Bases, Diminished Breath Sounds Cardiology CV Exam: Regular, Normal Sinus Rhythm Gastrointestinal/Abdomen GI Exam: Soft, Distended Extremeties Extremities Exam: Moderate Edema, Pitting Edema, Dependent Edema Neurologic Neuro Exam: Sedated Assessment/Plan Assessment Summary: DAREK/Acute Renal Failure, Fluid/Volume Overload Problem List: (1) HTN (hypertension) (2) Alcoholic liver disease (3) Anasarca (4) Pulmonary edema (5) Acute kidney injury Plan hx of cirrhosis /HRS Patient has LOW urine out put, with Bumex infusion.1MG/HR getting Lasix as well stop this add Albumin 25 gm IV Q 12 add Midodrine/Octreotide T bilirubin 10 Creatinine HIGHER BP STABLE Weaning as tolerated. Problem Qualifiers (1) Pulmonary edema: Qualified Code: J81.0 - Acute pulmonary edema Terry Early MD Oct 26, 2016 14:04 Terry Early MD Oct 26, 2016 14:04
--- NOTE | 2016-10-26 15:10 | HHI.CCPN ---
Subjective Remarks/Hospital Course Oxygen diffusion improved overnight - could not get sats over 85% last evening until converted to APRV mode. Abdominal distention will hamper efforts to eventually extubate; hopefully diuretics will manage ascites. Sputum culture obtained last night - pending. Will review therapy with Dr. Sosa. 10/26: Oxygen diffusion improving but CXR remains wet - ? underlying pneumonia. Objective Vital Signs Date Time Temp Pulse Resp B/P Pulse Ox O2 Delivery O2 Flow Rate FiO2 10/26/16 13:05 97 40 10/26/16 11:00 80 10/26/16 11:00 Mechanical Ventilator 10/26/16 11:00 98.1 16 116/56 113/45 10/24/16 17:00 15.00 Intake and Output 10/25/16 10/25/16 10/26/16 08:00 16:00 00:00 Intake Total 1406 ml 1210 ml Output Total 621 ml 780 ml Balance 785 ml 430 ml Result Diagram: 10/26/16 0335 10/26/16 0335 Other Results Laboratory Tests Test 10/25/16 10/25/16 10/26/16 10/26/16 16:42 23:28 05:13 10:33 Blood Gas Puncture Site ART LINE ART LINE ART LINE ART LINE Blood Gas Patient Temperature 98.6 98.6 98.6 98.6 Blood Gas HCO3 23 mmol/L 23 mmol/L 23 mmol/L 22 mmol/L (22-26) (22-26) (22-26) (22-26) Blood Gas Base Excess -0.8 mmol/L -1.1 mmol/L -1.7 mmol/L -1.8 mmol/L (-2-2) (-2-2) (-2-2) (-2-2) Blood Gas Oxygen Saturation 95 % (90-100) 94 % (90-100) 91 % (90-100) 95 % (90- 100) Arterial Blood pH 7.42 7.43 7.37 7.42 (7.380-7.420) (7.380-7.420) (7.380-7.420) (7.380-7.420) Arterial Blood Partial 36 mmHg (38-42) 35 mmHg (38-42) 40 mmHg (38-42) 35 mmHg ( 38-42) Pressure CO2 Arterial Blood Partial 106 mmHg 91 mmHg 80 mmHg 113 mmHg Pressure O2 (61-120) (61-120) (61-120) (61-120) Arterial Blood Oxygen Content 18.6 Vol % 10.2 Vol % 10.3 Vol % 13.0 Vol % (12.0-20.0) (12.0-20.0) (12.0-20.0) (12.0-20.0) Arterial Blood 2.1 % (0-4) 2.5 % (0-4) 2.5 % (0-4) 2.6 % (0-4) Carboxyhemoglobin Arterial Blood Methemoglobin 1.2 % (0-2) 1.7 % (0-2) 1.6 % (0-2) 1.5 % (0-2) Blood Gas Hemoglobin 13.8 G/DL 7.6 G/DL 7.9 G/DL 9.6 G/DL (12.0-16.0) (12.0-16.0) (12.0-16.0) (12.0-16.0) Oxygen Delivery Device VENTILATOR VENTILATOR VENTILATOR VENTILATOR Blood Gas Ventilator Setting APRV APRV APRV APRV Blood Gas Inspired Oxygen 45 % 40 % 40 % 40 % Objective Remarks Gen: Sedated Head: Normal. Neck: Supple, orally intubated Lungs: Generally clear. Heart: Tachycardia, NL S1S2. + JVD. Abdomen: Tensely distended but soft, no guarding. BS few. No peritoneal irritation or pain. Extremities: Well perfused, generalized edema. Neuro: SERG, sedated. A/P Assessment and Plan Assessment: 1. Hypoxemic Respiratory Failure. 2. Cirrhosis. 3. Thrombocytopenia. 4. Ascites. 5. UTI, gram negative lisha. 6. Pulmonary hypertension. 7. Pneumonia, bilateral, diffuse. Plan: 1. APRV vent mode. 2. Keep a-line. 3. CVL for CVP. 4. Sputum culture. 5. ABX coverage for UTI. 6. Broaden coverage for pneumonia. 7. Hold chemical DVT px. 8. SCDs. 9. Protonix. 10. Start TFs. Overall impression: Critically ill with life-threatening hypoxemia refractory to conventional mechanical ventilation. Liver, kidneys, marrow failing as well. Prognosis remains guarded. Critical Care 38 mins Osman Lorenzo MD Oct 26, 2016 15:10
[2016-10-26] MEDS: ALBUMIN HUMAN 25% 25 GM/100 ML BAGP IV SCH (15:16)
[2016-10-26] MEDS: MIDODRINE 5 MG TAB PO SCH (16:23)
[2016-10-26] MEDS: OCTREOTIDE INJ 100 MCG/ML VIAL IV PUSH SCH ×2 (16:25→21:22)
[2016-10-26 17:09] LABS: BLOOD GAS BASE EXCESS -1.7 mmol/L (-2-2); BLOOD GAS CARBOXYHEMOGLOBIN 2.4 % (0-4); BLOOD GAS HCO3 22 mmol/L (22-26); BLOOD GAS METHEMOGLOBIN 1.5 % (0-2); BLOOD GAS O2 HGB SATURATION 95 % (90-100); BLOOD GAS OXYGEN CONTENT 13.8 Vol % (12.0-20.0); BLOOD GAS PCO2 36 mmHg (38-42); BLOOD GAS PO2 120 mmHg (61-120); BLOOD GAS TOTAL HGB 10.1 G/DL (12.0-16.0); CRITICAL VALUE NO; OXYGEN DEVICE VENTILATOR; TEMP CORR TO 98.6
[2016-10-26 17:11] LABS: DRAW SITE ART LINE; FIO2 40 %; STAT NO; VENT SETTINGS APRV/TIME HIGH
[2016-10-26 21:04] LABS: MEAN CORPUSCULAR HGB CONC 37.3 % (32.0-36.0)
[2016-10-26] MEDS: AZITHROMYCIN INJ 500 MG in SODIUM CHLOR 0.9% 250 ML INJ 250 ML IV SCH (21:07)
[2016-10-26 23:44] LABS: BLOOD GAS BASE EXCESS -2.5 mmol/L (-2-2); BLOOD GAS CARBOXYHEMOGLOBIN 2.6 % (0-4); BLOOD GAS HCO3 22 mmol/L (22-26); BLOOD GAS O2 HGB SATURATION 94 % (90-100); BLOOD GAS OXYGEN CONTENT 8.8 Vol % (12.0-20.0); BLOOD GAS PCO2 37 mmHg (38-42); BLOOD GAS PO2 112 mmHg (61-120); BLOOD GAS TOTAL HGB 6.5 G/DL (12.0-16.0); TEMP CORR TO 98.6
[2016-10-26 23:45] LABS: CRITICAL VALUE YES; OXYGEN DEVICE VENTILATOR
[2016-10-26 23:46] LABS: FIO2 40 %; VENT SETTINGS APRV/TIME HIGH
[2016-10-26 23:47] LABS: DRAW SITE ART LINE; STAT NO
[2016-10-27] VITALS (15 sets, daily range): BP systolic 108–150; BP diastolic 51–67; PULSE 69–95; RESP 16–22; TEMP 97.5–97.8; O2SAT 89–100
[2016-10-27] MEDS: PROPOFOL 1000 MG/100 ML IV SCH ×9 (00:10→23:49)
[2016-10-27] MEDS: ALBUMIN HUMAN 25% 25 GM/100 ML BAGP IV SCH ×2 (02:25→13:09)
[2016-10-27] MEDS: CHLORHEXIDINE GLUCONATE 2 % 1 PACK (2 CLOTHS) TOP SCH (03:51)
--- NOTE | 2016-10-27 04:56 | RADRPT ---
EXAM DATE/TIME: 10/27/2016 03:53 [facility] COMPARISON: CHEST SINGLE AP, October 26, 2016, 3:25. INDICATIONS : Pulmonary edema and hypoxemia MEDICAL HISTORY : Hypertension. Cirrhosis SURGICAL HISTORY : CABG. ENCOUNTER: Subsequent ACUITY: 4 - 6 days PAIN SCORE: Non-responsive. LOCATION: Bilateral chest FINDINGS: A single view of the chest demonstrates the endotracheal tube and nasogastric are both in good positi on. There is a right subclavian central line in good position. Mild perihilar vascular congestion wit h minimal air space disease right lung base. The cardiomediastinal contours are unremarkable. [place] structures are intact. CONCLUSION: Stable appearance of the chest. Mild perihilar vascular congestion with some consolidation in the rig ht lung base. See Christie MD on October 27, 2016 at 4:53 Board Certified Radiologist. This report was verified electronically.
[2016-10-27] MEDS: OCTREOTIDE INJ 100 MCG/ML VIAL IV PUSH SCH ×2 (05:01→12:55)
[2016-10-27 05:19] LABS: AUTOMATED NEUTROPHIL # 8.7 TH/MM3 (1.8-7.7); BASOPHIL # 0.1 TH/MM3 (0-0.2); BASOPHIL % 0.8 % (0.0-2.0); EOSINOPHIL # 0.4 TH/MM3 (0-0.4); EOSINOPHIL % 3.3 % (0.0-4.0); HEMATOCRIT 24.2 % (39.0-51.0); LYMPH % 12.3 % (9.0-44.0); LYMPHOCYTE # 1.4 TH/MM3 (1.0-4.8); MEAN CELL VOLUME 100.3 FL (80.0-100.0); MEAN CORPUSCULAR HEMOGLOBIN 37.4 PG (27.0-34.0); NEUT % 77.6 % (16.0-70.0); PLATELET COUNT 29 TH/MM3 (150-450); RED BLOOD COUNT 2.41 MIL/MM3 (4.50-5.90); RED CELL DISTRIBUTION WIDTH 21.2 % (11.6-17.2); WHITE BLOOD COUNT 11.2 TH/MM3 (4.0-11.0)
[2016-10-27 05:26] LABS: HEMO FLAGS AUTO DIFF
[2016-10-27 05:47] LABS: ANION GAP 10 MEQ/L (5-15)
[2016-10-27 05:55] LABS: BANDS 11 % (0-6); METAMYELOCYTES 1 % (0-1); MYELOCYTES 2 % (0-0); NEUTROPHIL # MANUAL DIFF 9.2 TH/MM3 (1.8-7.7); POLYS (SEG NEUTROPHILS) 68 % (16-70); WBC DIFF SAMPLE 100
[2016-10-27 05:56] LABS: OVALOCYTES 1+ (NORMAL); PLATELET ESTIMATE SMEAR LOW (NORMAL); PLATELET MORPHOLOGY NORMAL (NORMAL); SCAN/DIFF FINAL DIFF MANUAL; TEARDROP RBCS 1+ (NORMAL)
[2016-10-27 06:02] LABS: ALKALINE PHOSPHATASE 60 U/L (45-117); ALT (GPT) LESS THAN 60 U/L (12-78); AST (GOT) 144 U/L (15-37); BICARBONATE 23.6 MEQ/L (21.0-32.0); BLOOD UREA NITROGEN 94 MG/DL (7-18); CHLORIDE 101 MEQ/L (98-107); CREATINE KINASE 1202 U/L (39-308); GLOMERULAR FILTRATION RATE 22 ML/MIN (>89); SODIUM (NA) 135 MEQ/L (136-145)
[2016-10-27 06:03] LABS: CALCIUM-PROTEIN CORRECTED 7.4 MG/DL (8.5-10.1); POTASSIUM 3.6 MEQ/L (3.5-5.1); TOTAL BILIRUBIN ADULT 8.2 MG/DL (0.2-1.0)
[2016-10-27] MEDS: metroNIDAZOLE 500 MG INJ 100 ML IV SCH ×3 (06:05→22:56)
[2016-10-27] MEDS: MIDODRINE 5 MG TAB PO SCH ×3 (06:07→16:26)
[2016-10-27 06:28] LABS: CKMB 6.4 NG/ML (0.5-3.6)
[2016-10-27] MEDS: PANTOPRAZOLE SODIUM 40 MG VIAL IV SCH (08:16)
[2016-10-27] MEDS: POTASSIUM CHLORIDE 25 MEQ EFFERVESCENT TAB PO SCH (08:17)
[2016-10-27] MEDS: BENEPROTEIN POWDER 1 PACK G-TUBE SCH ×2 (08:17→11:58)
[2016-10-27] MEDS: DOCUSATE SODIUM 50 MG/SENNA 8.6 MG TAB PO SCH ×2 (08:17→20:15)
[2016-10-27] MEDS: CEFEPIME INJ 2,000 MG in SODIUM CHLORIDE 0.9% INJ 100 ML IV SCH ×2 (09:26→21:12)
--- NOTE | 2016-10-27 12:13 | HHI.CCPN ---
Subjective Remarks/Hospital Course Oxygen diffusion improved overnight - could not get sats over 85% last evening until converted to APRV mode. Abdominal distention will hamper efforts to eventually extubate; hopefully diuretics will manage ascites. Sputum culture obtained last night - pending. Will review therapy with Dr. Sosa. 10/26: Oxygen diffusion improving but CXR remains wet - ? underlying pneumonia. 10/27: CXR today looks like fluid overload with persistent pulmonary venous congestion. I'm not sure we are getting enough fluid off of him. Converted back to conventional ventilation today and maintaining sats > 95%. Platelets decreasing, check HIPA - no heparin/lovenox for 4 days. Hold supplemental whey protein pending ammonia level (no encephalopathy prior to extubation). Objective Vital Signs Date Time Temp Pulse Resp B/P Pulse Ox O2 Delivery O2 Flow Rate FiO2 10/27/16 11:10 97.7 77 16 125/64 97 150/58 10/27/16 11:08 35 10/27/16 11:08 Mechanical Ventilator 10/24/16 17:00 15.00 Intake and Output 10/26/16 10/26/16 10/26/16 07:59 15:59 23:59 Intake Total 1330 ml 1150 ml Output Total 1150 ml 1030 ml Balance 180 ml 120 ml Result Diagram: 10/27/16 0500 10/27/16 0500 Other Results Microbiology Date/Time Procedure Status Source Growth 10/25/16 00:37 Gram Stain - Final Complete Sputum Endotracheal 10/25/16 00:37 Sputum Culture - Final Complete Sputum Endotracheal RARE GROWTH NORMAL RESPIRATORY ELICIA Laboratory Tests Test 10/26/16 10/26/16 17:00 22:55 Blood Gas Puncture Site ART LINE ART LINE Blood Gas Patient Temperature 98.6 98.6 Blood Gas HCO3 22 mmol/L 22 mmol/L (22-26) (22-26) Blood Gas Base Excess -1.7 mmol/L -2.5 mmol/L (-2-2) (-2-2) Blood Gas Oxygen Saturation 95 % (90-100) 94 % (90-100) Arterial Blood pH 7.41 7.38 (7.380-7.420) (7.380-7.420) Arterial Blood Partial 36 mmHg (38-42) 37 mmHg (38-42) Pressure CO2 Arterial Blood Partial 120 mmHg 112 mmHg Pressure O2 (61-120) (61-120) Arterial Blood Oxygen Content 13.8 Vol % 8.8 Vol % (12.0-20.0) (12.0-20.0) Arterial Blood 2.4 % (0-4) 2.6 % (0-4) Carboxyhemoglobin Arterial Blood Methemoglobin 1.5 % (0-2) 2.0 % (0-2) Blood Gas Hemoglobin 10.1 G/DL 6.5 G/DL (12.0-16.0) (12.0-16.0) Oxygen Delivery Device VENTILATOR VENTILATOR Blood Gas Ventilator Setting APRV/TIME HIGH APRV/TIME HIGH Blood Gas Inspired Oxygen 40 % 40 % Objective Remarks Gen: Sedated Head: Normal. Neck: Supple, orally intubated Lungs: Generally clear. Crackles throughout, no wheezes. Heart: NL S1S2, regular rate. + JVD. Abdomen: Tensely distended but soft, no guarding. BS few. No peritoneal irritation or pain. Extremities: Well perfused, generalized edema. Neuro: SERG, sedated. Moves 3 limbs and stump when light. A/P Assessment and Plan Assessment: 1. Hypoxemic Respiratory Failure. 2. Cirrhosis. 3. Thrombocytopenia. 4. Ascites. 5. UTI, gram negative lisha. 6. Pulmonary hypertension. 7. Pneumonia, bilateral, diffuse. Plan: 1. PRVC vent mode. 2. Keep a-line. 3. CVL for CVP. 4. Sputum culture -> benign.. 5. ABX coverage for UTI. 6. Broaden coverage for pneumonia, de-escalate if sputum NG. 7. Hold chemical DVT px. (Low platelets) 8. SCDs X 1 leg. 9. Protonix. 10. Nepro TFs. Overall impression: Critically ill with life-threatening hypoxemia initially refractory to conventional mechanical ventilation. Liver, kidneys, marrow failing as well. Ascites and fluid overload persists. Recent diagnosis of cirrhosis after many years of alcohol abuse. Neurologically intact prior to intubation. We may need to tap abdomen to get off ventilator. Prognosis remains guarded. Critical Care 39 mins Osman Lorenzo MD Oct 27, 2016 12:13
[2016-10-27] MEDS: BUMETANIDE INJ 100 ML IV SCH (12:14)
--- NOTE | 2016-10-27 13:46 | HHI.NPPN ---
Subjective History of Present Illness 50-year-old male with a past medical history of hypertension, history of cirrhosis of the liver, history of ascites in the past, hyperlipidemia, ischemic heart disease, cerebrovascular accident who came to the hospital with a complaint of shortness of breath and increased swelling of the legs. I was called to see the patient because of elevated BUN and creatinine. His BUN was 62 and creatinine was 2.5, about a month ago his creatinine was 0.7. Additional Remarks Patient remain intubated and sedated, on low dose pressors. Objective Data Data 10/26/16 10/27/16 18:59 06:59 Intake Total 1150 ml 1834 ml Output Total 1030 ml 1325 ml Balance 120 ml 509 ml Intake Oral 0 ml IV Total 1000 ml 1174 ml Albumin 100 ml 100 ml Packed Cells 500 ml Tube Irrigant 50 ml 60 ml Output Urine Total 930 ml 1125 ml Gastric Drainage Total 100 ml 200 ml # Bowel Movements 0 0 Vital Signs Date Time Temp Pulse Resp B/P Pulse Ox O2 Delivery O2 Flow Rate FiO2 10/27/16 12:08 93 35 10/27/16 11:10 97.7 77 16 125/64 97 150/58 10/27/16 11:08 35 10/27/16 11:08 97 Mechanical Ventilator 35 10/27/16 07:30 100 35 10/27/16 07:25 97.5 83 22 119/63 97 147/58 10/27/16 07:24 35 10/27/16 07:23 97 Mechanical Ventilator 35 10/27/16 03:33 95 35 10/27/16 03:00 97.6 69 18 108/53 95 135/51 10/27/16 03:00 94 Mechanical Ventilator 35 10/27/16 03:00 69 10/27/16 03:00 35 10/27/16 02:30 97.6 71 18 109/57 93 134/51 10/27/16 01:28 94 35 10/27/16 00:50 97.6 79 18 124/57 94 146/58 10/26/16 23:00 96 Mechanical Ventilator 40 10/26/16 23:00 40 10/26/16 23:00 97.9 72 14 111/54 96 138/51 10/26/16 23:00 72 10/26/16 20:50 97 40 10/26/16 19:00 97.8 72 13 117/57 95 122/73 10/26/16 19:00 95 Mechanical Ventilator 40 10/26/16 19:00 40 10/26/16 19:00 72 10/26/16 16:20 97 40 10/26/16 15:00 97.7 70 13 112/56 98 122/46 10/26/16 15:00 98 Mechanical Ventilator 45 10/26/16 15:00 70 10/26/16 15:00 45 -: 10/27/16 0500 10/27/16 0500 Physical Exam Eyes Eye Exam: Pupils Equal Throat Throat Exam: Oral Mucosa [place] & Moist Pulmonary Resp Exam: Breath Sounds Equal, Rhonchi, Decreased Bases, Diminished Breath Sounds Cardiology CV Exam: Regular, Normal Sinus Rhythm Gastrointestinal/Abdomen GI Exam: Soft, Distended Extremeties Extremities Exam: Moderate Edema, Pitting Edema, Dependent Edema Neurologic Neuro Exam: Sedated Assessment/Plan Assessment Summary: DAREK/Acute Renal Failure, Fluid/Volume Overload Problem List: (1) HTN (hypertension) (2) Alcoholic liver disease (3) Anasarca (4) Pulmonary edema (5) Acute kidney injury Plan hx of cirrhosis /HRS Patient responded to treatment and UOP improved with Bumex infusion.1MG/HR on Albumin 25 gm IV Q 12 on Midodrine/Octreotide T bilirubin 8.2 Creatinine Weaning as tolerated. Dr. Gibbons top follow Problem Qualifiers (1) Pulmonary edema: Qualified Code: J81.0 - Acute pulmonary edema Terry Early MD Oct 27, 2016 13:46
[2016-10-27 14:44] LABS: BLOOD GAS CARBOXYHEMOGLOBIN 2.6 % (0-4); BLOOD GAS HCO3 22 mmol/L (22-26); BLOOD GAS METHEMOGLOBIN 1.6 % (0-2); BLOOD GAS O2 HGB SATURATION 89 % (90-100); BLOOD GAS OXYGEN CONTENT 13.5 Vol % (12.0-20.0); BLOOD GAS PCO2 39 mmHg (38-42); BLOOD GAS PO2 69 mmHg (61-120); BLOOD GAS TOTAL HGB 10.8 G/DL (12.0-16.0); TEMP CORR TO 98.6
[2016-10-27 14:49] LABS: CRITICAL VALUE YES; OXYGEN DEVICE VENTILATOR
[2016-10-27 14:50] LABS: FIO2 35 %; VENT SETTINGS PRVCAC
[2016-10-27 14:51] LABS: DRAW SITE ART LINE; STAT NO
--- NOTE | 2016-10-27 14:58 | HHI.PR ---
Subjective Remarks Sedated and on the vent at FIo2 35 %. Off PRVC but on PEEP +15. Output was better. Objective Vital Signs Date Time Temp Pulse Resp B/P Pulse Ox O2 Delivery O2 Flow Rate FiO2 10/27/16 12:08 93 35 10/27/16 11:10 97.7 77 16 125/64 97 150/58 10/27/16 11:08 35 10/27/16 11:08 97 Mechanical Ventilator 35 10/27/16 07:30 100 35 10/27/16 07:25 97.5 83 22 119/63 97 147/58 10/27/16 07:24 35 10/27/16 07:23 97 Mechanical Ventilator 35 10/27/16 03:33 95 35 10/27/16 03:00 97.6 69 18 108/53 95 135/51 10/27/16 03:00 94 Mechanical Ventilator 35 10/27/16 03:00 69 10/27/16 03:00 35 10/27/16 02:30 97.6 71 18 109/57 93 134/51 10/27/16 01:28 94 35 10/27/16 00:50 97.6 79 18 124/57 94 146/58 10/26/16 23:00 96 Mechanical Ventilator 40 10/26/16 23:00 40 10/26/16 23:00 97.9 72 14 111/54 96 138/51 10/26/16 23:00 72 10/26/16 20:50 97 40 10/26/16 19:00 97.8 72 13 117/57 95 122/73 10/26/16 19:00 95 Mechanical Ventilator 40 10/26/16 19:00 40 10/26/16 19:00 72 10/26/16 16:20 97 40 10/26/16 15:00 97.7 70 13 112/56 98 122/46 10/26/16 15:00 98 Mechanical Ventilator 45 10/26/16 15:00 70 10/26/16 15:00 45 I/O 10/26/16 10/26/16 10/26/16 10/27/16 10/27/16 10/27/16 06:59 14:59 22:59 06:59 14:59 22:59 Intake Total 1330 ml 1150 ml 1834 ml Output Total 1150 ml 1030 ml 1325 ml Balance 180 ml 120 ml 509 ml Intake Oral 0 ml 0 ml IV Total 1270 ml 1000 ml 1174 ml Albumin 100 ml 100 ml Packed Cells 500 ml Tube Irrigant 60 ml 50 ml 60 ml Output Urine Total 1100 ml 930 ml 1125 ml Gastric Drainage Total 50 ml 100 ml 200 ml # Bowel Movements 0 0 0 Result Diagram: 10/27/16 0500 10/27/16 0500 Objective Remarks HEENT: Head is normocephalic. Pupils are reactive. Icterus +. Nasal mucosa clear. NECK: Supple. No lymphadenopathy. No bruits. CHEST: Equal movements with wheezes throughout both lung giang with prolonged expirations and crackles at the lung bases. HEART: The heart sounds are irregular, S1 and S2 with no murmur. No S3. ABDOMEN: Obese, protuberant without masses or organomegaly. No tenderness. Bowel sounds are active. EXTREMITIES: Amputated left leg below the knee. The right leg has 2+ edema with diminished pulses. Reflexes 1+. The patient does move all his extremities well. NEUROLOGIC: sedated. RECTAL: Exam is deferred. SKIN: No lesions. Assessment and Plan Assessment and Plan IMPRESSION 1. Acute respiratory failure. 2. Pulmonary edema with pleural effusions. 3. Probable basilar pneumonia. 4. Anemia and coagulopathy. 5. History of cirrhosis of the liver with ascites. Plan ; 1. Wean FIo2 to keep sat >92. 2. Reduce PEEP to12 cm 3. Continue diuresis per renal. 4. Continue antibiotics 5. Nebs q6h ,PRN duoneb 6. CXR,Labs in am 7. Wean Sedation in am. Kat Muhammad MD Oct 27, 2016 14:58
[2016-10-27] MEDS: RESP: ALBUTEROL 2.5 MG/IPRATROPIUM 0.5 MG NEB (PRN) INH (19:22)
[2016-10-27] MEDS: AZITHROMYCIN INJ 500 MG in SODIUM CHLOR 0.9% 250 ML INJ 250 ML IV SCH (20:15)
[2016-10-27 21:04] LABS: MEAN CORPUSCULAR HGB CONC 36.7 % (32.0-36.0)
[2016-10-28] VITALS (14 sets, daily range): BP systolic 97–158; BP diastolic 41–79; PULSE 72–91; RESP 16–18; TEMP 97.6–98.6; O2SAT 90–100
[2016-10-28] MEDS: ALBUMIN HUMAN 25% 25 GM/100 ML BAGP IV SCH ×2 (02:24→14:54)
[2016-10-28] MEDS: PROPOFOL 1000 MG/100 ML IV SCH ×7 (02:24→23:01)
[2016-10-28] MEDS: CHLORHEXIDINE GLUCONATE 2 % 1 PACK (2 CLOTHS) TOP SCH (04:00)
[2016-10-28 04:11] LABS: BLOOD GAS BASE EXCESS -1.3 mmol/L (-2-2); BLOOD GAS CARBOXYHEMOGLOBIN 2.8 % (0-4); BLOOD GAS HCO3 24 mmol/L (22-26); BLOOD GAS METHEMOGLOBIN 1.8 % (0-2); BLOOD GAS O2 HGB SATURATION 90 % (90-100); BLOOD GAS PCO2 45 mmHg (38-42); BLOOD GAS PO2 74 mmHg (61-120); BLOOD GAS TOTAL HGB 8.6 G/DL (12.0-16.0); CRITICAL VALUE NO; OXYGEN DEVICE VENTILATOR; TEMP CORR TO 98.6
[2016-10-28 04:12] LABS: DRAW SITE ART LINE; FIO2 45 %; STAT NO; VENT SETTINGS PRVC/AC
[2016-10-28 04:26] LABS: MEAN CELL VOLUME 100.8 FL (80.0-100.0); PLATELET COUNT 22 TH/MM3 (150-450); RED BLOOD COUNT 2.38 MIL/MM3 (4.50-5.90); RED CELL DISTRIBUTION WIDTH 20.9 % (11.6-17.2)
[2016-10-28 04:31] LABS: REVIEW FLAG FINAL
[2016-10-28 04:43] LABS: BICARBONATE 25.2 MEQ/L (21.0-32.0); POTASSIUM 3.5 MEQ/L (3.5-5.1); TOTAL BILIRUBIN ADULT 7.9 MG/DL (0.2-1.0)
[2016-10-28 04:44] LABS: CALCIUM-PROTEIN CORRECTED 7.3 MG/DL (8.5-10.1)
[2016-10-28 05:04] LABS: CKMB 4.1 NG/ML (0.5-3.6)
--- NOTE | 2016-10-28 05:32 | RADRPT ---
EXAM DATE/TIME: 10/28/2016 04:52 [facility] COMPARISON: CHEST SINGLE AP, October 27, 2016, 3:53. INDICATIONS : Post CABG MEDICAL HISTORY : Hypertension. Cirrhosis SURGICAL HISTORY : CABG. ENCOUNTER: Subsequent ACUITY: 1 week PAIN SCORE: Non-responsive. LOCATION: Bilateral chest FINDINGS: A single AP semierect view of the chest was obtained and again demonstrates the endotracheal tube in place with the tip approximately 4 cm above the danielito. The nasogastric tube remains in place. The he art size is mildly enlarged. The right subclavian central venous catheter remains in place. Hazy opac ity is present in both lungs which is not significant changed. There is no distinct effusion. CONCLUSION: 1. No significant change in the hazy opacity in both lungs. 2. Mild cardiomegaly remains. Reginald Ng MD on October 28, 2016 at 5:29 Board Certified Radiologist. This report was verified electronically.
[2016-10-28] MEDS ORDERED: CALCIUM GLUCONATE INJ 2 GM in SODIUM CHLORIDE 0.9% INJ 100 ML IV ONE (06:00)
[2016-10-28] MEDS: MIDODRINE 5 MG TAB PO SCH ×3 (06:09→16:39)
[2016-10-28] MEDS: metroNIDAZOLE 500 MG INJ 100 ML IV SCH ×3 (06:09→23:01)
[2016-10-28] MEDS: BUMETANIDE INJ 100 ML IV SCH (08:56)
[2016-10-28] MEDS: LACTULOSE SYRUP 20 GM/30 ML CUP PO SCH (09:00)
[2016-10-28] MEDS: DOCUSATE SODIUM 50 MG/SENNA 8.6 MG TAB PO SCH ×2 (09:00→20:25)
[2016-10-28] MEDS: PANTOPRAZOLE SODIUM 40 MG VIAL IV SCH (09:34)
[2016-10-28] MEDS: POTASSIUM CHLORIDE 25 MEQ EFFERVESCENT TAB PO SCH (09:34)
[2016-10-28] MEDS: CEFEPIME INJ 2,000 MG in SODIUM CHLORIDE 0.9% INJ 100 ML IV SCH ×2 (09:34→21:21)
[2016-10-28 10:29] LABS: APTT (PATIENT) 47.4 SEC (24.3-30.1); INTERNATIONAL NORMALIZED RATIO 2.2 RATIO; PROTHROMBIN TIME - PATIENT 24.9 SEC (9.8-11.6)
[2016-10-28] MEDS: prednisoLONE ALCOHOL/DYE FREE 15 MG/5 ML ORAL SYR PO SCH (11:17)
[2016-10-28] MEDS ORDERED: SODIUM CHLOR 0.9% 250 ML INJ 250 ML IV ONE ×3 (12:30→15:30)
--- NOTE | 2016-10-28 12:40 | HHI.CCPN ---
Subjective Remarks/Hospital Course Oxygen diffusion improved overnight - could not get sats over 85% last evening until converted to APRV mode. Abdominal distention will hamper efforts to eventually extubate; hopefully diuretics will manage ascites. Sputum culture obtained last night - pending. Will review therapy with Dr. Sosa. 10/26: Oxygen diffusion improving but CXR remains wet - ? underlying pneumonia. 10/27: CXR today looks like fluid overload with persistent pulmonary venous congestion. I'm not sure we are getting enough fluid off of him. Converted back to conventional ventilation today and maintaining sats > 95%. Platelets decreasing, check HIPA - no heparin/lovenox for 4 days. Hold supplemental whey protein pending ammonia level (no encephalopathy prior to extubation). 10/28: Remains sedated, orally intubated on mechanical ventilation. Coffee- ground NG aspirate noted by RN. Remains on [facility] mechanical ventilation Objective Vital Signs Date Time Temp Pulse Resp B/P Pulse Ox O2 Delivery O2 Flow Rate FiO2 10/28/16 11:20 100 50 10/28/16 11:00 Mechanical Ventilator 10/28/16 11:00 75 10/28/16 11:00 98.4 16 118/56 124/49 10/24/16 17:00 15.00 Intake and Output 10/27/16 10/27/16 10/28/16 08:00 16:00 00:00 Intake Total 1834 ml 2191 ml Output Total 1325 ml 1445 ml Balance 509 ml 746 ml Result Diagram: 10/28/16 0405 10/28/16 0405 Other Results Laboratory Tests Test 10/27/16 10/28/16 14:30 04:00 Blood Gas Puncture Site ART LINE ART LINE Blood Gas Patient Temperature 98.6 98.6 Blood Gas HCO3 22 mmol/L 24 mmol/L (22-26) (22-26) Blood Gas Base Excess -2.0 mmol/L -1.3 mmol/L (-2-2) (-2-2) Blood Gas Oxygen Saturation 89 % (90-100) 90 % (90-100) Arterial Blood pH 7.38 7.34 (7.380-7.420) (7.380-7.420) Arterial Blood Partial 39 mmHg (38-42) 45 mmHg (38-42) Pressure CO2 Arterial Blood Partial 69 mmHg 74 mmHg Pressure O2 (61-120) (61-120) Arterial Blood Oxygen Content 13.5 Vol % 11.0 Vol % (12.0-20.0) (12.0-20.0) Arterial Blood 2.6 % (0-4) 2.8 % (0-4) Carboxyhemoglobin Arterial Blood Methemoglobin 1.6 % (0-2) 1.8 % (0-2) Blood Gas Hemoglobin 10.8 G/DL 8.6 G/DL (12.0-16.0) (12.0-16.0) Oxygen Delivery Device VENTILATOR VENTILATOR Blood Gas Ventilator Setting PRVCAC PRVC/AC Blood Gas Inspired Oxygen 35 % 45 % Imaging Last Impressions Chest X-Ray 10/28/16 0400 Signed Impressions: Service Date/Time: Friday, October 28, 2016 04:52 - CONCLUSION: 1. No significant change in the hazy opacity in both lungs. 2. Mild cardiomegaly remains. Reginald Ng MD Objective Remarks Gen: Sedated Head: Pallor present. Icterus noted. Neck: Supple, orally intubated Lungs: Generally clear. Crackles throughout, no wheezes. Heart: NL S1S2, regular rate. + JVD. Abdomen: Tensely distended but soft, no guarding. BS few. No peritoneal irritation or pain. Extremities: Well perfused, generalized edema. Neuro: SERG, sedated. Moves 3 limbs and stump when light. Urinary Catheter: Yes Assessment to: Continue A/P Assessment and Plan Assessment: 1. Hypoxemic Respiratory Failure. 2. Cirrhosis. 3. Thrombocytopenia. 4. Ascites. 5. UTI, gram negative lisha. 6. Pulmonary hypertension. 7. Pneumonia, bilateral, diffuse. 8. Coagulopathy secondary to liver disease 9. Upper GI bleed Plan: 1. PRVC vent mode. 2. Keep a-line. 3. CVL for CVP. 4. Sputum culture -> benign.. 5. ABX coverage for UTI. 6. Broaden coverage for pneumonia, de-escalate if sputum NG. 7. Hold chemical DVT px. (Low platelets) 8. SCDs X 1 leg. 9. Protonix. 10. Hold Nepro TFs in view of upper GI bleed. GI consult requested for further evaluation and possible EGD. Starting Protonix and octreotide drips. Follow CBC and coags 11. Transfuse 1 unit pheresed platelets, cryoprecipitate, 2 units FFP as well as give vitamin K 10 mg IV piggyback now attempted correction of coagulopathy and thrombocytopenia. Overall impression: Critically ill with life-threatening hypoxemia initially refractory to conventional mechanical ventilation. Liver, kidneys, marrow failing as well. Ascites and fluid overload persists. Recent diagnosis of cirrhosis after many years of alcohol abuse. Neurologically intact prior to intubation. We may need to tap abdomen to get off ventilator. Now with upper GI bleeding. Prognosis appears poor. Palliative care consulted to assist with deciding goals of therapy. Critical Care 40 mins Efraín Perez MD Oct 28, 2016 12:39
[2016-10-28] MEDS ORDERED: OCTREOTIDE INJ 50 MCG/ML AMP IV ONE (13:00)
[2016-10-28] MEDS ORDERED: CALCIUM GLUCONATE INJ 2 GM in DEXTROSE 5% IN WATER 100ML INJ 100 ML IV ONE ×2 (13:00)
[2016-10-28] MEDS ORDERED: PHYTONADIONE INJ 10 MG in SODIUM CHLORIDE 0.9% INJ 50 ML IV ONE (13:00)
--- NOTE | 2016-10-28 13:03 | HHI.PR ---
Subjective Remarks Sedated and on the vent at FIo2 50 %. ON PC /AC rate 16 but on PEEP +12. Has a GI bleed now. Objective Vital Signs Date Time Temp Pulse Resp B/P Pulse Ox O2 Delivery O2 Flow Rate FiO2 10/28/16 11:20 100 50 10/28/16 11:00 100 Mechanical Ventilator 50 10/28/16 11:00 75 10/28/16 11:00 98.4 77 16 118/56 100 124/49 10/28/16 11:00 50 10/28/16 07:27 90 50 10/28/16 07:00 82 10/28/16 07:00 50 10/28/16 07:00 91 Mechanical Ventilator 50 10/28/16 07:00 98.5 83 18 118/60 91 129/46 10/28/16 04:03 94 45 10/28/16 03:00 45 10/28/16 03:00 92 Mechanical Ventilator 45 10/28/16 03:00 98.4 73 16 139/72 92 158/59 10/28/16 00:49 95 45 10/27/16 23:30 94 40 10/27/16 23:00 97.8 95 16 127/60 95 139/51 10/27/16 23:00 95 Mechanical Ventilator 45 10/27/16 23:00 45 10/27/16 20:30 94 40 10/27/16 19:00 97.6 89 18 139/67 89 136/56 10/27/16 19:00 40 10/27/16 19:00 89 Mechanical Ventilator 40 10/27/16 16:30 92 40 10/27/16 15:05 97.5 88 18 108/56 91 143/59 10/27/16 15:04 40 10/27/16 15:03 91 Mechanical Ventilator 35 I/O 10/27/16 10/27/16 10/27/16 10/28/16 10/28/16 10/28/16 07:00 15:00 23:00 07:00 15:00 23:00 Intake Total 1834 ml 2191 ml 1593 ml Output Total 1325 ml 1445 ml 1700 ml Balance 509 ml 746 ml -107 ml Intake Oral 0 ml 0 ml IV Total 1174 ml 1620 ml 1091 ml Tube Feeding 391 ml 402 ml Albumin 100 ml 100 ml 100 ml Packed Cells 500 ml Tube Irrigant 60 ml 80 ml Output Urine Total 1125 ml 1315 ml 1700 ml Stool Total 0 ml 0 ml Gastric Drainage Total 200 ml 130 ml # Bowel Movements 0 Result Diagram: 10/28/1640410/28/16404 Objective Remarks HEENT: Head is normocephalic. Pupils are reactive. Icterus +. Nasal mucosa clear. NECK: Supple. No lymphadenopathy. No bruits. CHEST: Equal movements with wheezes over both lung giang and crackles at the lung bases. HEART: The heart sounds are irregular, S1 and S2 with no murmur. No S3. ABDOMEN: Obese, protuberant without masses or organomegaly. No tenderness. Bowel sounds are active. EXTREMITIES: Amputated left leg below the knee. The right leg has 2+ edema with diminished pulses. Reflexes 1+. The patient does move all his extremities well. NEUROLOGIC: sedated. RECTAL: Exam is deferred. SKIN: No lesions. Assessment and Plan Assessment and Plan IMPRESSION 1. Acute respiratory failure. 2. Pulmonary edema with pleural effusions. 3. Probable basilar pneumonia. 4. Anemia and coagulopathy. 5. History of cirrhosis of the liver with ascites. Plan ; 1. Wean FIo2 to keep sat >92. 2. PEEP to12 cm 3. Continue diuresis per renal. 4. GI Evaluation. 5. Nebs q6h ,PRN duoneb 6. CXR,Labs in am 7. Continue Sedation Kat Muhammad MD Oct 28, 2016 13:03
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
[2016-10-28] MEDS ORDERED: PANTOPRAZOLE INJ 80 MG in SODIUM CHLORIDE 0.9% INJ 35 ML IV ONE (13:30)
[2016-10-28] MEDS: OCTREOTIDE INJ 500 MCG in SODIUM CHLORID 0.9% 500 ML INJ 499.5 ML IV SCH (13:52)
[2016-10-28] MEDS: PANTOPRAZOLE INJ 80 MG in SODIUM CHLORIDE 0.9% INJ 100 ML IV SCH ×2 (13:54→21:16)
[2016-10-28 14:47] LABS: HEPARIN AB OD 0.134 O.D. (0.000-0.300); HEPARIN INDUCED PLATELET AB NEGATIVE (NEGATIVE)
--- NOTE | 2016-10-28 15:15 | PD.CONS ---
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 60 Thank you for the opportunity to participate in the care of Mr. Feng. Attestation To help prompt me to consider important information that might be impacting today's encounter and assessment, information from prior notes written by myself or my colleagues may have been "brought forward" into today's note. My signature on this note, however, is an attestation that I personally performed the exam, history, and/or decision-making noted today, and, unless otherwise indicated, the interactions with patient, family, and staff as well as the review of records all occurred today. I also attest that the listed assessment and stated plan reflect my best clinical judgment today based on the combination of historical information, prior notes, and today's exam/ interactions. When time spent is documented, it refers only to time spent today by the signer, or if indicated, combined time spent today by collaborating physician/nurse practitioner. Suly Sorenson Oct 28, 2016 15:15
[2016-10-28] MEDS ORDERED: METOPROLOL TARTRATE 5 MG/5 ML VIAL ONE (16:23)
--- NOTE | 2016-10-28 18:13 | HHI.NPPN ---
Subjective History of Present Illness 50-year-old male with a past medical history of hypertension, history of cirrhosis of the liver, history of ascites in the past, hyperlipidemia, ischemic heart disease, cerebrovascular accident who came to the hospital with a complaint of shortness of breath and increased swelling of the legs. I was called to see the patient because of elevated BUN and creatinine. His BUN was 62 and creatinine was 2.5, about a month ago his creatinine was 0.7. Additional Remarks Patient remain intubated and sedated, clinically same. Objective Data Data 10/27/16 10/28/16 18:59 06:59 Intake Total 2191 ml 1593 ml Output Total 1445 ml 1700 ml Balance 746 ml -107 ml Intake Oral 0 ml IV Total 1620 ml 1091 ml Tube Feeding 391 ml 402 ml Albumin 100 ml 100 ml Tube Irrigant 80 ml Output Urine Total 1315 ml 1700 ml Stool Total 0 ml 0 ml Gastric Drainage Total 130 ml Vital Signs Date Time Temp Pulse Resp B/P Pulse Ox O2 Delivery O2 Flow Rate FiO2 10/28/16 15:39 92 50 10/28/16 15:00 93 Mechanical Ventilator 50 10/28/16 15:00 91 10/28/16 15:00 98.6 72 16 97/47 93 104/41 10/28/16 15:00 50 10/28/16 11:20 100 50 10/28/16 11:00 100 Mechanical Ventilator 50 10/28/16 11:00 75 10/28/16 11:00 98.4 77 16 118/56 100 124/49 10/28/16 11:00 50 10/28/16 07:27 90 50 10/28/16 07:00 82 10/28/16 07:00 50 10/28/16 07:00 91 Mechanical Ventilator 50 10/28/16 07:00 98.5 83 18 118/60 91 129/46 10/28/16 04:03 94 45 10/28/16 03:00 45 10/28/16 03:00 92 Mechanical Ventilator 45 10/28/16 03:00 98.4 73 16 139/72 92 158/59 10/28/16 00:49 95 45 10/27/16 23:30 94 40 10/27/16 23:00 97.8 95 16 127/60 95 139/51 10/27/16 23:00 95 Mechanical Ventilator 45 10/27/16 23:00 45 10/27/16 20:30 94 40 10/27/16 19:00 97.6 89 18 139/67 89 136/56 10/27/16 19:00 40 10/27/16 19:00 89 Mechanical Ventilator 40 -: 10/28/16 0405 10/28/16 0405 Microbiology 10/28/16 Stool Occult Blood (LUISA), Received Pending Physical Exam General Appearance Remarks Intubated and sedated. Eyes Eye Exam: Pupils Equal Throat Throat Exam: Oral Mucosa [place] & Moist Pulmonary Resp Exam: Breath Sounds Equal, Rhonchi, Decreased Bases, Diminished Breath Sounds Cardiology CV Exam: Regular, Normal Sinus Rhythm Gastrointestinal/Abdomen GI Exam: Soft, Distended Extremeties Extremities Exam: Moderate Edema, Pitting Edema, Dependent Edema Neurologic Neuro Exam: Sedated Assessment/Plan Assessment Summary: DAREK/Acute Renal Failure, Fluid/Volume Overload Problem List: (1) HTN (hypertension) (2) Alcoholic liver disease (3) Anasarca (4) Pulmonary edema (5) Acute kidney injury Plan hx of cirrhosis /HRS Patient responded to treatment and UOP improved with Bumex infusion.1MG/HR on Albumin 25 gm IV Q 12 on Midodrine/Octreotide On Bumex, Creatinine is slightly better. K is low, on replacement. GI following, for EGD. Continue Bumex, follow the urine out put and BMP. Problem Qualifiers (1) Pulmonary edema: Qualified Code: J81.0 - Acute pulmonary edema John Gibbons MD Oct 28, 2016 18:13
[2016-10-28] MEDS: AZITHROMYCIN INJ 500 MG in SODIUM CHLOR 0.9% 250 ML INJ 250 ML IV SCH (20:24)
[2016-10-28] MEDS ORDERED: PROPOFOL 200 MG/20 ML AMP IV ONE (20:55)
--- NOTE | 2016-10-28 21:05 | GIPROC ---
[facility] [address] [facility]. [facility], [address] EGD PROCEDURE REPORT EXAM DATE: 10/28/2016 PATIENT NAME: Gene Feng MR #: [id number] BIRTHDATE: 1965 ATTENDING: Darshana Royal MD ORDER #: [id number] MULTIFOCAL BUTTON GENERATOR: Nupur Merrill and Lisa Rizo STATUS: inpatient INDICATIONS: The patient is a 50 yr old male here for an EGD due to gi bleeding PROCEDURE PERFORMED: EGD, diagnostic MEDICATIONS: None and Per Anesthesia. TOPICAL ANESTHETIC: none CONSENT: The patient understands the risks and benefits of the procedure and understands that these risks include, but are not limited to: sedation, allergic reaction, infection, perforation and/or bleeding. Alternative means of evaluation and treatment include, among others: physical exam, x-rays, and/or surgical intervention. The patient elects to proceed with this endoscopic procedure. medical equipment was checked for proper function. Hand hygiene and appropriate measures for infection prevention was taken. After the risks, benefits and alternatives of the procedure were thoroughly explained, Informed consent was verified, confirmed and timeout was successfully executed by the treatment team. The patient was anesthetized with topical anesthesia and the Pentax EG-[id number] endoscope was introduced through the mouth and advanced to the second portion of the duodenum. Retroflexed views revealed a hiatal hernia The gastroscope was then slowly withdrawn and removed. Gi bleeding. Portal gastropathy duodenitis retained food. ADVERSE EVENTS: There were no complications. IMPRESSIONS: 1. Gi bleeding 2. Retroflexed views revealed a hiatal hernia RECOMMENDATIONS: 1. Anti-reflux regimen 2. Correct coagulopathy npo except medications monitor hb/ht closely PATIENT CONDITION: stable DISPOSITION: Inpatient REPEAT EXAM: Return as needed for EGD Darshana Royal MD eSigned: Darshana Royal MD 10/28/2016 9:05 PM cc:
--- NOTE | 2016-10-28 21:07 | HHI.PR ---
Subjective Remarks Sedated and on the vent at FIo2 45 %. ON PC /AC rate 16 but on PEEP +12. Has a GI bleed now. Objective Vital Signs Date Time Temp Pulse Resp B/P Pulse Ox O2 Delivery O2 Flow Rate FiO2 10/28/16 15:39 92 50 10/28/16 15:00 93 Mechanical Ventilator 50 10/28/16 15:00 91 10/28/16 15:00 98.6 72 16 97/47 93 104/41 10/28/16 15:00 50 10/28/16 11:20 100 50 10/28/16 11:00 100 Mechanical Ventilator 50 10/28/16 11:00 75 10/28/16 11:00 98.4 77 16 118/56 100 124/49 10/28/16 11:00 50 10/28/16 07:27 90 50 10/28/16 07:00 82 10/28/16 07:00 50 10/28/16 07:00 91 Mechanical Ventilator 50 10/28/16 07:00 98.5 83 18 118/60 91 129/46 10/28/16 04:03 94 45 10/28/16 03:00 45 10/28/16 03:00 92 Mechanical Ventilator 45 10/28/16 03:00 98.4 73 16 139/72 92 158/59 10/28/16 00:49 95 45 10/27/16 23:30 94 40 10/27/16 23:00 97.8 95 16 127/60 95 139/51 10/27/16 23:00 95 Mechanical Ventilator 45 10/27/16 23:00 45 I/O 10/27/16 10/27/16 10/27/16 10/28/16 10/28/16 10/28/16 07:00 15:00 23:00 07:00 15:00 23:00 Intake Total 1834 ml 2191 ml 1593 ml 3710 ml Output Total 1325 ml 1445 ml 1700 ml 1500 ml Balance 509 ml 746 ml -107 ml 2210 ml Intake Oral 0 ml 0 ml 0 ml IV Total 1174 ml 1620 ml 1091 ml 2765 ml Tube Feeding 391 ml 402 ml 225 ml Albumin 100 ml 100 ml 100 ml 100 ml Packed Cells 500 ml 500 ml Tube Irrigant 60 ml 80 ml 120 ml Output Urine Total 1125 ml 1315 ml 1700 ml 1250 ml Stool Total 0 ml 0 ml Gastric Drainage Total 200 ml 130 ml 250 ml # Bowel Movements 0 3 Result Diagram: 10/28/1640410/28/16404 Objective Remarks HEENT: Head is normocephalic. Pupils are reactive. Icterus +. Nasal mucosa clear. NECK: Supple. No lymphadenopathy. No bruits. CHEST: Equal movements with wheezes over both lung giang and crackles at the lung bases. HEART: The heart sounds are irregular, S1 and S2 with no murmur. No S3. ABDOMEN: Obese, protuberant without masses or organomegaly. No tenderness. Bowel sounds are active. EXTREMITIES: Amputated left leg below the knee. The right leg has 2+ edema with diminished pulses. Reflexes 1+. The patient is sedated. NEUROLOGIC: sedated. RECTAL: Exam is deferred. SKIN: No lesions. Assessment and Plan Assessment and Plan IMPRESSION 1. Acute respiratory failure. 2. Pulmonary edema with pleural effusions. 3. Probable basilar pneumonia. 4. Anemia and coagulopathy. 5. History of cirrhosis of the liver with ascites. Plan ; 1. Wean FIo2 to keep sat >92. 2. PEEP to 10 cm 3. Continue diuresis per renal. 4. GI Evaluation. 5. Nebs q6h ,PRN duoneb 6. Transfuse Red Cells and Platelets 7. Continue Sedation Kat Muhammad MD Oct 28, 2016 21:07
[2016-10-28 22:56] LABS: HEMATOCRIT 27.3 % (39.0-51.0); MEAN CELL VOLUME 98.6 FL (80.0-100.0); MEAN CORPUSCULAR HEMOGLOBIN 35.3 PG (27.0-34.0); MEAN CORPUSCULAR HGB CONC 35.8 % (32.0-36.0); PLATELET COUNT 38 TH/MM3 (150-450); RED BLOOD COUNT 2.77 MIL/MM3 (4.50-5.90); RED CELL DISTRIBUTION WIDTH 22.2 % (11.6-17.2); WHITE BLOOD COUNT 15.6 TH/MM3 (4.0-11.0)
[2016-10-28 23:06] LABS: APTT (PATIENT) 36.2 SEC (24.3-30.1); INTERNATIONAL NORMALIZED RATIO 1.6 RATIO; PROTHROMBIN TIME - PATIENT 17.5 SEC (9.8-11.6)
[2016-10-28 23:18] LABS: REVIEW FLAG FINAL
[2016-10-28] MEDS: RESP: ALBUTEROL 2.5 MG/IPRATROPIUM 0.5 MG NEB (PRN) INH (23:20)
[2016-10-29] VITALS (16 sets, daily range): BP systolic 105–152; BP diastolic 49–69; PULSE 76–91; RESP 16–18; TEMP 97.5–98.1; O2SAT 90–96
[2016-10-29] MEDS: ALBUMIN HUMAN 25% 25 GM/100 ML BAGP IV SCH ×2 (02:10→14:33)
[2016-10-29] MEDS: PROPOFOL 1000 MG/100 ML IV SCH ×6 (03:55→20:54)
[2016-10-29] MEDS: CHLORHEXIDINE GLUCONATE 2 % 1 PACK (2 CLOTHS) TOP SCH (03:55)
[2016-10-29] MEDS: RESP: ALBUTEROL 2.5 MG/IPRATROPIUM 0.5 MG NEB (PRN) INH ×3 (04:34→20:40)
[2016-10-29 04:59] LABS: INTERNATIONAL NORMALIZED RATIO 1.7 RATIO
[2016-10-29 05:00] LABS: AUTOMATED NEUTROPHIL # 12.7 TH/MM3 (1.8-7.7); BASOPHIL % 0.2 % (0.0-2.0); EOSINOPHIL # 0.2 TH/MM3 (0-0.4); EOSINOPHIL % 1.4 % (0.0-4.0); HEMATOCRIT 26.1 % (39.0-51.0); LYMPH % 5.1 % (9.0-44.0); LYMPHOCYTE # 0.7 TH/MM3 (1.0-4.8); MEAN CELL VOLUME 98.8 FL (80.0-100.0); MEAN CORPUSCULAR HEMOGLOBIN 34.8 PG (27.0-34.0); MEAN CORPUSCULAR HGB CONC 35.2 % (32.0-36.0); MONO % 3.5 % (0.0-8.0); NEUT % 89.8 % (16.0-70.0); PLATELET COUNT 35 TH/MM3 (150-450); RED BLOOD COUNT 2.64 MIL/MM3 (4.50-5.90); WHITE BLOOD COUNT 14.1 TH/MM3 (4.0-11.0)
[2016-10-29 05:01] LABS: ALKALINE PHOSPHATASE 60 U/L (45-117); TOTAL BILIRUBIN ADULT 8.5 MG/DL (0.2-1.0)
[2016-10-29 05:36] LABS: ALT (GPT) 32 U/L (12-78); ANION GAP 11 MEQ/L (5-15); AST (GOT) 91 U/L (15-37); BICARBONATE 26.6 MEQ/L (21.0-32.0); BLOOD UREA NITROGEN 103 MG/DL (7-18); CHLORIDE 104 MEQ/L (98-107); GLOMERULAR FILTRATION RATE 27 ML/MIN (>89); POTASSIUM 3.6 MEQ/L (3.5-5.1); SODIUM (NA) 142 MEQ/L (136-145)
[2016-10-29 05:48] LABS: HEMO FLAGS AUTO DIFF
[2016-10-29] MEDS: MIDODRINE 5 MG TAB PO SCH ×3 (06:00→17:00)
[2016-10-29] MEDS: metroNIDAZOLE 500 MG INJ 100 ML IV SCH ×3 (06:00→23:00)
[2016-10-29 06:47] LABS: BANDS 10 % (0-6); EOSINOPHILS 4 % (0-4); METAMYELOCYTES 1 % (0-1); MYELOCYTES 2 % (0-0); NEUTROPHIL # MANUAL DIFF 12.7 TH/MM3 (1.8-7.7); POLYS (SEG NEUTROPHILS) 77 % (16-70); WBC DIFF SAMPLE 100
[2016-10-29 06:48] LABS: OVALOCYTES 1+ (NORMAL); PLATELET ESTIMATE SMEAR LOW (NORMAL); PLATELET MORPHOLOGY NORMAL (NORMAL); SCAN/DIFF FINAL DIFF MANUAL; TEARDROP RBCS 1+ (NORMAL)
[2016-10-29] MEDS: PANTOPRAZOLE INJ 80 MG in SODIUM CHLORIDE 0.9% INJ 100 ML IV SCH ×2 (07:54→17:19)
[2016-10-29] MEDS: BUMETANIDE INJ 100 ML IV SCH (08:57)
[2016-10-29] MEDS: DOCUSATE SODIUM 50 MG/SENNA 8.6 MG TAB PO SCH ×2 (09:00→20:06)
--- NOTE | 2016-10-29 09:06 | HHI.CCPN ---
Subjective Remarks/Hospital Course Oxygen diffusion improved overnight - could not get sats over 85% last evening until converted to APRV mode. Abdominal distention will hamper efforts to eventually extubate; hopefully diuretics will manage ascites. Sputum culture obtained last night - pending. Will review therapy with Dr. Sosa. 10/26: Oxygen diffusion improving but CXR remains wet - ? underlying pneumonia. 10/27: CXR today looks like fluid overload with persistent pulmonary venous congestion. I'm not sure we are getting enough fluid off of him. Converted back to conventional ventilation today and maintaining sats > 95%. Platelets decreasing, check HIPA - no heparin/lovenox for 4 days. Hold supplemental whey protein pending ammonia level (no encephalopathy prior to extubation). 10/28: Remains sedated, orally intubated on mechanical ventilation. Coffee- ground NG aspirate noted by RN. Remains on [facility] mechanical ventilation. 10/29: Remains sedated, orally intubated on mechanical ventilation. Underwent EGD on 10/28 by GI, awaiting official report however was informed by FUR FEEDER that she was told patient had gastritis on EGD and no active bleeding. Received 2 units PRBCs, 2 units FFP, 1 unit cryoprecipitate and 1 unit pheresed platelets on 10/28. Remains on Bumex drip to mobilize fluid. Objective Vital Signs Date Time Temp Pulse Resp B/P Pulse Ox O2 Delivery O2 Flow Rate FiO2 10/29/16 08:44 90 50 10/29/16 07:00 84 10/29/16 03:00 97.5 16 125/66 132/56 10/29/16 03:00 Mechanical Ventilator Intake and Output 10/28/16 10/28/16 10/29/16 08:00 16:00 00:00 Intake Total 1593 ml 3710 ml Output Total 1700 ml 1500 ml Balance -107 ml 2210 ml Result Diagram: 10/29/16 0415 10/29/16 0415 Other Results Microbiology Date/Time Procedure Status Source Growth 10/28/16 15:30 Stool Occult Blood (LUISA) - Final Complete Stool Stool HEMOCCULT POSITIVE Imaging Last Impressions Chest X-Ray 10/28/16 0400 Signed Impressions: Service Date/Time: Friday, October 28, 2016 04:52 - CONCLUSION: 1. No significant change in the hazy opacity in both lungs. 2. Mild cardiomegaly remains. Reginald Ng MD Objective Remarks Gen: Sedated Head: Pallor present. Icterus noted. Neck: Supple, orally intubated Lungs: On mechanical ventilation, air entry decreased bilaterally at bases, scattered rhonchi, bibasilar crackles, no wheezes. Heart: NL S1S2, regular rate. + JVD. Abdomen: distended , firm, no guarding. BS present. No tenderness noted. Extremities: Well perfused, generalized edema. Neuro: SERG, sedated. Moves 3 limbs and stump when light. Urinary Catheter: Yes Assessment to: Continue A/P Assessment and Plan Assessment: 1. Hypoxemic Respiratory Failure. 2. Cirrhosis. 3. Thrombocytopenia. 4. Ascites. 5. UTI, gram negative lisha. 6. Pulmonary hypertension. 7. Pneumonia, bilateral, diffuse. 8. Coagulopathy secondary to liver disease 9. Upper GI bleed 10. Fluid overload Plan: 1. PRVC vent mode. 2. Keep a-line. 3. CVL for CVP. 4. Sputum culture -> benign.. 5. ABX coverage for UTI. 6. Broaden coverage for pneumonia, de-escalate if sputum NG. 7. Hold chemical DVT px. (Low platelets and GI bleed) 8. SCDs X 1 leg. 9. Protonix. 10. Hold Nepro TFs in view of upper GI bleed. GI following for liver cirrhosis , upper GI bleed. Continue Protonix and octreotide drips. Follow CBC and coags 11. Transfused 1 unit pheresed platelets, cryoprecipitate, 2 units FFP as well as give vitamin K 10 mg IV, 2 units PRBCs on 10/28. Follow CBC and coags, transfuse to keep hemoglobin above 7 g percent. Overall impression: Critically ill with life-threatening hypoxemia initially refractory to conventional mechanical ventilation. Liver, kidneys, marrow failing as well. Ascites and fluid overload persists. Recent diagnosis of cirrhosis after many years of alcohol abuse. Neurologically intact prior to intubation. We may need to tap abdomen to get off ventilator. Now with upper GI bleeding. Prognosis appears poor. Palliative care consulted to assist with deciding goals of therapy. Critical Care 40 mins Efraín Perez MD Oct 29, 2016 09:06
[2016-10-29] MEDS: OCTREOTIDE INJ 500 MCG in SODIUM CHLORID 0.9% 500 ML INJ 499.5 ML IV SCH (09:46)
[2016-10-29] MEDS: POTASSIUM CHLORIDE 25 MEQ EFFERVESCENT TAB PO SCH (09:52)
[2016-10-29] MEDS: LACTULOSE SYRUP 20 GM/30 ML CUP PO SCH (09:52)
[2016-10-29] MEDS: prednisoLONE ALCOHOL/DYE FREE 15 MG/5 ML ORAL SYR PO SCH (09:53)
[2016-10-29] MEDS: CEFEPIME INJ 2,000 MG in SODIUM CHLORIDE 0.9% INJ 100 ML IV SCH ×2 (09:53→21:04)
[2016-10-29 12:30] LABS: HEMATOCRIT 26.7 % (39.0-51.0)
[2016-10-29 12:32] LABS: REVIEW FLAG FINAL
--- NOTE | 2016-10-29 15:09 | HHI.GIFU ---
Subjective Remarks Pt intubated, on vent. Per RN 3 x BM yesterday, none today. Dark bloody drainage from NGT 200cc today so far and 250cc last night. (Claudia Hopson) Objective Vitals I&O Vital Signs Date Time Temp Pulse Resp B/P Pulse Ox O2 Delivery O2 Flow Rate FiO2 10/29/16 13:54 94 50 10/29/16 11:49 50 10/29/16 11:49 97.7 85 17 105/58 91 128/62 10/29/16 11:43 92 Mechanical Ventilator 50 10/29/16 11:00 76 10/29/16 08:44 90 50 10/29/16 08:00 97.7 79 16 126/69 92 123/49 10/29/16 07:15 50 10/29/16 07:15 94 Mechanical Ventilator 50 10/29/16 07:00 84 10/29/16 04:34 93 50 10/29/16 03:00 97.5 81 16 125/66 96 132/56 10/29/16 03:00 81 10/29/16 03:00 60 10/29/16 03:00 96 Mechanical Ventilator 60 10/29/16 02:00 96 Mechanical Ventilator 60 10/29/16 01:59 94 60 10/28/16 23:20 95 70 10/28/16 23:00 76 10/28/16 23:00 93 Mechanical Ventilator 50 10/28/16 23:00 97.6 76 16 127/70 93 138/57 10/28/16 23:00 50 10/28/16 22:05 94 80 10/28/16 21:15 97 50 10/28/16 19:00 97.9 74 16 128/64 93 144/79 10/28/16 19:00 93 Mechanical Ventilator 50 10/28/16 19:00 50 10/28/16 19:00 78 10/28/16 15:39 92 50 10/28/16 15:00 93 Mechanical Ventilator 50 10/28/16 15:00 91 10/28/16 15:00 98.6 72 16 97/47 93 104/41 10/28/16 15:00 50 I/O 10/28/16 10/28/16 10/28/16 10/29/16 10/29/16 10/29/16 07:00 15:00 23:00 07:00 15:00 23:00 Intake Total 1593 ml 3710 ml 1547 ml 220 ml Output Total 1700 ml 1500 ml 1675 ml Balance -107 ml 2210 ml -128 ml 220 ml Intake Oral 0 ml 0 ml 0 ml IV Total 1091 ml 2765 ml 1447 ml 100 ml Tube Feeding 402 ml 225 ml 0 ml Albumin 100 ml 100 ml 100 ml Packed Cells 500 ml Tube Irrigant 120 ml 0 ml Other 120 ml Output Urine Total 1700 ml 1250 ml 1615 ml Stool Total 0 ml Gastric Drainage Total 250 ml 60 ml # Bowel Movements 3 0 Laboratory Laboratory Tests Test 10/28/16 10/28/16 10/29/16 10/29/16 15:22 22:20 04:15 12:00 Crossmatch Leukocyte-Reduced Red Blood Cells Blood Bank Comment White Blood Count 15.6 14.1 Red Blood Count 2.77 2.64 Hemoglobin 9.8 9.2 9.4 Hematocrit 27.3 26.1 26.7 Mean Corpuscular Volume 98.6 98.8 Mean Corpuscular Hemoglobin 35.3 34.8 Mean Corpuscular Hemoglobin 35.8 35.2 Concent Red Cell Distribution Width 22.2 22.0 Platelet Count 38 35 Mean Platelet Volume 9.1 8.6 Prothrombin Time 17.5 19.0 Prothromb Time International 1.6 1.7 Ratio Activated Partial 36.2 39.0 Thromboplast Time Fibrinogen 214 211 Neutrophils (%) (Auto) 89.8 Lymphocytes (%) (Auto) 5.1 Monocytes (%) (Auto) 3.5 Eosinophils (%) (Auto) 1.4 Basophils (%) (Auto) 0.2 Neutrophils # (Auto) 12.7 Lymphocytes # (Auto) 0.7 Monocytes # (Auto) 0.5 Eosinophils # (Auto) 0.2 Basophils # (Auto) 0.0 CBC Comment AUTO DIFF Differential Total Cells 100 Counted Neutrophils % (Manual) 77 Band Neutrophils % 10 Lymphocytes % 4 Monocytes % 2 Eosinophils % 4 Neutrophils # (Manual) 12.7 Metamyelocytes 1 Myelocytes 2 Differential Comment FINAL DIFF MANUAL Platelet Estimate LOW Platelet Morphology Comment NORMAL Tear Drop Cells 1+ Ovalocytes 1+ Sodium Level 142 Potassium Level 3.6 Chloride Level 104 Carbon Dioxide Level 26.6 Anion Gap 11 Blood Urea Nitrogen 103 Creatinine 2.59 Estimat Glomerular Filtration 27 Rate Random Glucose 136 Calcium Level 8.0 Total Bilirubin 8.5 Aspartate Amino Transf 91 (AST/SGOT) Alanine Aminotransferase 32 (ALT/SGPT) Alkaline Phosphatase 60 Ammonia 112 Total Protein 7.0 Albumin 2.5 Date/Time Procedure Status Source Growth 10/28/16 15:30 Stool Occult Blood (LUISA) - Final Complete Stool Stool HEMOCCULT POSITIVE 10/25/16 00:37 Gram Stain - Final Complete Sputum Endotracheal 10/25/16 00:37 Sputum Culture - Final Complete Sputum Endotracheal RARE GROWTH NORMAL RESPIRATORY ELICIA Imaging Last Impressions Chest X-Ray 10/28/16 0400 Signed Impressions: Service Date/Time: Friday, October 28, 2016 04:52 - CONCLUSION: 1. No significant change in the hazy opacity in both lungs. 2. Mild cardiomegaly remains. Reginald Ng MD Physical Exam HEENT: normocephalic; atraumatic; + icterus. intubated CHEST: CTA CARDIAC: RRR ABDOMEN: firm, distended, nontender; bowel sounds are present in all four quadrants. EXTREMITIES: No clubbing, cyanosis, + generalized edema SKIN: jaundiced TURBOGENERATOR OPERATOR: sedated on vent (Claudia Hopson) Assessment and Plan Plan ASSESSMENT: - Upper GI Bleeding, red blood from OGT. initially red blood now Dark bloody drainage from NGT 200cc today so far and 250cc last night. s/p 1 units FFP, 1 unit Platelets, 1 unit cryoprecipitate ordered, 3x PRBC, vit k s/p EGD 10-28-16--> GIB, portal gastropathy, duodenitis, hiatal hernia . - Anemia secondary to acute blood loss. S/P 3 units PRBC. HH stable - Severe thrombocytopenia/coagulopathy, worsening. - Liver cirrhosis. According to EMR, quit drinking several months ago. elevated LFTs, jaundice. coagulopathy - Hepatic encephalopathy. Ammonia 112. Lactulose started, will add rifaximin - Acute kidney injury with electrolyte abnormalities. Creatinine 2.59 - Acute respiratory failure secondary to probable basilar pneumonia, pulmonary edema, pulmonary hypertension. OETT to vent per CCM/Pulm. Bumex, Cefepime, Flagyl, Azithromycin, nebs. PLAN: - consider paracentesis - continue lactulose - add rifaximin - OGT to LIWS - cont Octreotide gtt - cont Protonix gtt - Transfuse as necessary - Monitor labs - Supportive care - Further recommendations to follow based on results of above - Pt seen and examined by Dr. Royal and myself and this note is written on her behalf (Claudia Hopson) Claudia Hopson Oct 29, 2016 15:09 Darshana Royal MD Oct 29, 2016 17:32
--- NOTE | 2016-10-29 16:27 | HHI.HCPN ---
Reason for visit a. To assist with evaluation and management of symptoms including: Encephalopathy, dyspnea, pain b. To assist medical decision maker(s) with: better understanding of current medical conditions; weighing benefits/burdens of medical treatment options; making medical treatment decisions. Subjective/Interval History Pt remains critically ill in ICU. S/p EGD yesterday, no active bleeding identified. + moderate amt output OGT ~ 200. S/p mult transfusions yesterday = 2 U RBC, 2 FFP, 1 Plt, 1 Cryo. On Bumex drip. Still fluid positive, +2L. BUN / creatinine cont to increase 103/2.59. H&H stable 9.4/26.7. Platelets trending down, 35. Nursing reports still oozing blood from various sites. Diprivan has been weaned to 20 mcgs/kg/min, pt minimally responsive. Hemodynamically stable. D/w primary RN. Pt examined in room, RN at bedside, no visitors present. RN informs pt mother, father traveling by car from , expected to arrive in 1.5 days. Pt minimally responsive to my exam. Slight withdrawal to pain stimuli. No eye opening. Abdomen distended, firm. +significant edema. Spoke w mother on phone. Review of todays assessment, conditions, prognosis, tx in place. Review pt remains in critical condition, high risk for further complications/setbacks. All questions answered. No change to treatment goals at this time, open to ongoing conversations as course evolves,and once they are in town. They expect to arrive late afternoon/evening Friday10/30/16. Family/friend interactions Call to pt mother, father, on drive [place] to [place] from . Updated on current critical condition, recent diagnostics, current tx in place. All questions answered. No change to treatment goals at this time, open to ongoing conversations as course evolves,and once they are in town. Advance Directives Health Care Surrogate: Completed, but not made available Objective Vital Signs Date Time Temp Pulse Resp B/P Pulse Ox O2 Delivery O2 Flow Rate FiO2 10/29/16 15:59 87 10/29/16 15:49 98.0 88 18 115/65 92 143/66 10/29/16 15:49 92 Mechanical Ventilator 50 10/29/16 15:49 50 10/29/16 13:54 94 50 10/29/16 11:49 50 10/29/16 11:49 97.7 85 17 105/58 91 128/62 10/29/16 11:43 92 Mechanical Ventilator 50 10/29/16 11:00 76 10/29/16 08:44 90 50 10/29/16 08:00 97.7 79 16 126/69 92 123/49 10/29/16 07:15 50 10/29/16 07:15 94 Mechanical Ventilator 50 10/29/16 07:00 84 10/29/16 04:34 93 50 10/29/16 03:00 97.5 81 16 125/66 96 132/56 10/29/16 03:00 81 10/29/16 03:00 60 10/29/16 03:00 96 Mechanical Ventilator 60 10/29/16 02:00 96 Mechanical Ventilator 60 10/29/16 01:59 94 60 10/28/16 23:20 95 70 10/28/16 23:00 76 10/28/16 23:00 93 Mechanical Ventilator 50 10/28/16 23:00 97.6 76 16 127/70 93 138/57 10/28/16 23:00 50 10/28/16 22:05 94 80 10/28/16 21:15 97 50 10/28/16 19:00 97.9 74 16 128/64 93 144/79 10/28/16 19:00 93 Mechanical Ventilator 50 10/28/16 19:00 50 10/28/16 19:00 78 Intake & Output 10/29/16 10/29/16 07:00 19:00 Intake Total 1547 ml 220 ml Output Total 1675 ml Balance -128 ml 220 ml Intake Oral 0 ml IV Total 1447 ml 100 ml Tube Feeding 0 ml Albumin 100 ml Tube Irrigant 0 ml Other 120 ml Output Urine Total 1615 ml Gastric Drainage Total 60 ml # Bowel Movements 0 Physical Exam CONSTITUTIONAL/GENERAL: This is a obese, chronically ill-appearing patient. TUBES/LINES/DRAINS: Central line, arterial line, ET tube, OG tube, Yap catheter SKIN: Slightly jaundiced. No wounds seen anteriorly. Skin temperature appropriate. Not diaphoretic. CARDIOVASCULAR: Regular rate and rhythm without murmurs.significant generalized pitting edema. Pedal pulses faint. RESPIRATORY/CHEST: Symmetric, unlabored respirations via mechanical vent. Respiratory rate + over vent rate. Coarse air movement throughout. Breath sounds equal bilaterally. GASTROINTESTINAL: Abdomen distended, firm. OG tube to suction, maroon drainage output. No bowel sounds to my exam. limited palp due to distention. GENITOURINARY: Without palpable bladder distension. Yap catheter in place dark tea urine NEUROLOGICAL: Sedated on mechanical vent. no eye opening. Very slight withdrawal to pain stimuli PSYCHIATRIC: No obvious anxiety/depression-limited assessment due to clinical condition. Diagnostic Tests Laboratory Laboratory Tests Test 10/26/16 10/26/16 10/27/16 10/27/16 17:00 22:55 00:15 05:00 Blood Gas Puncture Site ART LINE ART LINE Blood Gas Patient Temperature 98.6 98.6 Blood Gas HCO3 22 mmol/L 22 mmol/L (22-26) (22-26) Blood Gas Base Excess -1.7 mmol/L -2.5 mmol/L (-2-2) (-2-2) Blood Gas Oxygen Saturation 95 % (90-100) 94 % (90-100) Arterial Blood pH 7.41 7.38 (7.380-7.420) (7.380-7.420) Arterial Blood Partial 36 mmHg (38-42) 37 mmHg (38-42) Pressure CO2 Arterial Blood Partial 120 mmHg 112 mmHg Pressure O2 (61-120) (61-120) Arterial Blood Oxygen Content 13.8 Vol % 8.8 Vol % (12.0-20.0) (12.0-20.0) Arterial Blood 2.4 % (0-4) 2.6 % (0-4) Carboxyhemoglobin Arterial Blood Methemoglobin 1.5 % (0-2) 2.0 % (0-2) Blood Gas Hemoglobin 10.1 G/DL 6.5 G/DL (12.0-16.0) (12.0-16.0) Oxygen Delivery Device VENTILATOR VENTILATOR Blood Gas Ventilator Setting APRV/TIME HIGH APRV/TIME HIGH Blood Gas Inspired Oxygen 40 % 40 % Blood Type A POSITIVE Crossmatch Leukocyte-Reduced Red Blood Cells Blood Bank Comment White Blood Count 11.2 TH/MM3 (4.0-11.0) Red Blood Count 2.41 MIL/MM3 (4.50-5.90) Hemoglobin 9.0 GM/DL (13.0-17.0) Hematocrit 24.2 % (39.0-51.0) Mean Corpuscular Volume 100.3 FL (80.0-100.0) Mean Corpuscular Hemoglobin 37.4 PG (27.0-34.0) Mean Corpuscular Hemoglobin 37.3 % Concent (32.0-36.0) Red Cell Distribution Width 21.2 % (11.6-17.2) Platelet Count 29 TH/MM3 (150-450) Mean Platelet Volume 9.3 FL (7.0-11.0) Neutrophils (%) (Auto) 77.6 % (16.0-70.0) Lymphocytes (%) (Auto) 12.3 % (9.0-44.0) Monocytes (%) (Auto) 6.0 % (0.0-8.0) Eosinophils (%) (Auto) 3.3 % (0.0-4.0) Basophils (%) (Auto) 0.8 % (0.0-2.0) Neutrophils # (Auto) 8.7 TH/MM3 (1.8-7.7) Lymphocytes # (Auto) 1.4 TH/MM3 (1.0-4.8) Monocytes # (Auto) 0.7 TH/MM3 (0-0.9) Eosinophils # (Auto) 0.4 TH/MM3 (0-0.4) Basophils # (Auto) 0.1 TH/MM3 (0-0.2) CBC Comment AUTO DIFF Differential Total Cells 100 Counted Neutrophils % (Manual) 68 % (16-70) Band Neutrophils % 11 % (0-6) Lymphocytes % 11 % (9-44) Monocytes % 7 % (0-8) Neutrophils # (Manual) 9.2 TH/MM3 (1.8-7.7) Metamyelocytes 1 % (0-1) Myelocytes 2 % (0-0) Differential Comment FINAL DIFF MANUAL Platelet Estimate LOW (NORMAL) Platelet Morphology Comment NORMAL (NORMAL) Tear Drop Cells 1+ (NORMAL) Ovalocytes 1+ (NORMAL) Sodium Level 135 MEQ/L (136-145) Potassium Level 3.6 MEQ/L (3.5-5.1) Chloride Level 101 MEQ/L (98-107) Carbon Dioxide Level 23.6 MEQ/L (21.0-32.0) Anion Gap 10 MEQ/L (5-15) Blood Urea Nitrogen 94 MG/DL (7-18) Creatinine 3.00 MG/DL (0.60-1.30) Estimat Glomerular Filtration 22 ML/MIN (>89) Rate Random Glucose 146 MG/DL (74-106) Calcium Level 7.3 MG/DL (8.5-10.1) Protein Corrected Calcium 7.4 MG/DL (8.5-10.1) Total Bilirubin 8.2 MG/DL (0.2-1.0) Aspartate Amino Transf 144 U/L (15-37) (AST/SGOT) Alanine Aminotransferase LESS THAN 60 (ALT/SGPT) U/L (12-78) Alkaline Phosphatase 60 U/L (45-117) Total Creatine Kinase 1202 U/L (39-308) Creatine Kinase MB 6.4 NG/ML (0.5-3.6) Creatine Kinase MB % 0.5 % (0.0-4.0) Total Protein 7.0 GM/DL (6.4-8.2) Albumin 2.3 GM/DL (3.4-5.0) Test 10/27/16 10/27/16 10/28/16 10/28/16 12:51 14:30 04:00 04:05 Heparin-Induced Platelet Ab NEGATIVE (Roz) (NEGATIVE) HIPA Patient Optical Density 0.134 O.D. (0.000-0.300) Blood Gas Puncture Site ART LINE ART LINE Blood Gas Patient Temperature 98.6 98.6 Blood Gas HCO3 22 mmol/L 24 mmol/L (22-26) (22-26) Blood Gas Base Excess -2.0 mmol/L -1.3 mmol/L (-2-2) (-2-2) Blood Gas Oxygen Saturation 89 % (90-100) 90 % (90-100) Arterial Blood pH 7.38 7.34 (7.380-7.420) (7.380-7.420) Arterial Blood Partial 39 mmHg (38-42) 45 mmHg (38-42) Pressure CO2 Arterial Blood Partial 69 mmHg 74 mmHg Pressure O2 (61-120) (61-120) Arterial Blood Oxygen Content 13.5 Vol % 11.0 Vol % (12.0-20.0) (12.0-20.0) Arterial Blood 2.6 % (0-4) 2.8 % (0-4) Carboxyhemoglobin Arterial Blood Methemoglobin 1.6 % (0-2) 1.8 % (0-2) Blood Gas Hemoglobin 10.8 G/DL 8.6 G/DL (12.0-16.0) (12.0-16.0) Oxygen Delivery Device VENTILATOR VENTILATOR Blood Gas Ventilator Setting PRVCAC PRVC/AC Blood Gas Inspired Oxygen 35 % 45 % White Blood Count 12.0 TH/MM3 (4.0-11.0) Red Blood Count 2.38 MIL/MM3 (4.50-5.90) Hemoglobin 8.8 GM/DL (13.0-17.0) Hematocrit 24.0 % (39.0-51.0) Mean Corpuscular Volume 100.8 FL (80.0-100.0) Mean Corpuscular Hemoglobin 37.0 PG (27.0-34.0) Mean Corpuscular Hemoglobin 36.7 % Concent (32.0-36.0) Red Cell Distribution Width 20.9 % (11.6-17.2) Platelet Count 22 TH/MM3 (150-450) Mean Platelet Volume 9.4 FL (7.0-11.0) Sodium Level 139 MEQ/L (136-145) Potassium Level 3.5 MEQ/L (3.5-5.1) Chloride Level 103 MEQ/L (98-107) Carbon Dioxide Level 25.2 MEQ/L (21.0-32.0) Anion Gap 11 MEQ/L (5-15) Blood Urea Nitrogen 95 MG/DL (7-18) Creatinine 2.73 MG/DL (0.60-1.30) Estimat Glomerular Filtration 25 ML/MIN (>89) Rate Random Glucose 145 MG/DL (74-106) Lactic Acid Level 1.6 mmol/L (0.4-2.0) Calcium Level 7.3 MG/DL (8.5-10.1) Protein Corrected Calcium 7.3 MG/DL (8.5-10.1) Total Bilirubin 7.9 MG/DL (0.2-1.0) Aspartate Amino Transf 113 U/L (15-37) (AST/SGOT) Alanine Aminotransferase 30 U/L (12-78) (ALT/SGPT) Alkaline Phosphatase 62 U/L (45-117) Ammonia 101 MCMOL/L (11-32) Total Creatine Kinase 790 U/L (39-308) Creatine Kinase MB 4.1 NG/ML (0.5-3.6) Creatine Kinase MB % 0.5 % (0.0-4.0) Total Protein 7.2 GM/DL (6.4-8.2) Albumin 2.5 GM/DL (3.4-5.0) Test 10/28/16 10/28/16 10/28/16 10/28/16 09:20 12:29 13:26 15:22 Prothrombin Time 24.9 SEC (9.8-11.6) Prothromb Time International 2.2 RATIO Ratio Activated Partial 47.4 SEC Thromboplast Time (24.3-30.1) Fibrinogen 124 mg/dL (227-377) Blood Bank Comment Blood Type A POSITIVE Antibody Screen NEGATIVE Crossmatch Leukocyte-Reduced Red Blood Cells Test 10/28/16 10/29/16 10/29/16 22:20 04:15 12:00 White Blood Count 15.6 TH/MM3 14.1 TH/MM3 (4.0-11.0) (4.0-11.0) Red Blood Count 2.77 MIL/MM3 2.64 MIL/MM3 (4.50-5.90) (4.50-5.90) Hemoglobin 9.8 GM/DL 9.2 GM/DL 9.4 GM/DL (13.0-17.0) (13.0-17.0) (13.0-17.0) Hematocrit 27.3 % 26.1 % 26.7 % (39.0-51.0) (39.0-51.0) (39.0-51.0) Mean Corpuscular Volume 98.6 FL 98.8 FL (80.0-100.0) (80.0-100.0) Mean Corpuscular Hemoglobin 35.3 PG 34.8 PG (27.0-34.0) (27.0-34.0) Mean Corpuscular Hemoglobin 35.8 % 35.2 % Concent (32.0-36.0) (32.0-36.0) Red Cell Distribution Width 22.2 % 22.0 % (11.6-17.2) (11.6-17.2) Platelet Count 38 TH/MM3 35 TH/MM3 (150-450) (150-450) Mean Platelet Volume 9.1 FL 8.6 FL (7.0-11.0) (7.0-11.0) Prothrombin Time 17.5 SEC 19.0 SEC (9.8-11.6) (9.8-11.6) Prothromb Time International 1.6 RATIO 1.7 RATIO Ratio Activated Partial 36.2 SEC 39.0 SEC Thromboplast Time (24.3-30.1) (24.3-30.1) Fibrinogen 214 mg/dL 211 mg/dL (227-377) (227-377) Neutrophils (%) (Auto) 89.8 % (16.0-70.0) Lymphocytes (%) (Auto) 5.1 % (9.0-44.0) Monocytes (%) (Auto) 3.5 % (0.0-8.0) Eosinophils (%) (Auto) 1.4 % (0.0-4.0) Basophils (%) (Auto) 0.2 % (0.0-2.0) Neutrophils # (Auto) 12.7 TH/MM3 (1.8-7.7) Lymphocytes # (Auto) 0.7 TH/MM3 (1.0-4.8) Monocytes # (Auto) 0.5 TH/MM3 (0-0.9) Eosinophils # (Auto) 0.2 TH/MM3 (0-0.4) Basophils # (Auto) 0.0 TH/MM3 (0-0.2) CBC Comment AUTO DIFF Differential Total Cells 100 Counted Neutrophils % (Manual) 77 % (16-70) Band Neutrophils % 10 % (0-6) Lymphocytes % 4 % (9-44) Monocytes % 2 % (0-8) Eosinophils % 4 % (0-4) Neutrophils # (Manual) 12.7 TH/MM3 (1.8-7.7) Metamyelocytes 1 % (0-1) Myelocytes 2 % (0-0) Differential Comment FINAL DIFF MANUAL Platelet Estimate LOW (NORMAL) Platelet Morphology Comment NORMAL (NORMAL) Tear Drop Cells 1+ (NORMAL) Ovalocytes 1+ (NORMAL) Sodium Level 142 MEQ/L (136-145) Potassium Level 3.6 MEQ/L (3.5-5.1) Chloride Level 104 MEQ/L (98-107) Carbon Dioxide Level 26.6 MEQ/L (21.0-32.0) Anion Gap 11 MEQ/L (5-15) Blood Urea Nitrogen 103 MG/DL (7-18) Creatinine 2.59 MG/DL (0.60-1.30) Estimat Glomerular Filtration 27 ML/MIN (>89) Rate Random Glucose 136 MG/DL (74-106) Calcium Level 8.0 MG/DL (8.5-10.1) Total Bilirubin 8.5 MG/DL (0.2-1.0) Aspartate Amino Transf 91 U/L (15-37) (AST/SGOT) Alanine Aminotransferase 32 U/L (12-78) (ALT/SGPT) Alkaline Phosphatase 60 U/L (45-117) Ammonia 112 MCMOL/L (11-32) Total Protein 7.0 GM/DL (6.4-8.2) Albumin 2.5 GM/DL (3.4-5.0) Result Diagram: 10/29/16 1200 10/29/16 0415 Microbiology Microbiology Date/Time Procedure Status Source Growth 10/28/16 15:30 Stool Occult Blood (LUISA) - Final Complete Stool Stool HEMOCCULT POSITIVE Imaging Last Impressions Chest X-Ray 10/28/16 0400 Signed Impressions: Service Date/Time: Friday, October 28, 2016 04:52 - CONCLUSION: 1. No significant change in the hazy opacity in both lungs. 2. Mild cardiomegaly remains. Reginald Ng MD Procedures 10/24orotracheal intubation, arterial line, central venous line (right subclavian) Assessment and Plan Disease Oriented Problem List: (1) Thrombocytopenia (2) Pulmonary edema (3) Anasarca (4) Acute kidney injury (5) S/P BKA (below knee amputation) unilateral (6) GI bleed (7) Pneumonia (8) UTI (urinary tract infection) (9) Cirrhosis (10) Coagulopathy (11) Acute hypoxemic respiratory failure Symptom Scale: (1) Dyspnea (2) Encephalopathy (3) Pain Pertinent Non-Medical Issues Psychosocial: Spiritual: Legal: Ethical issues impacting care: Important Contacts mother, Sindhu Feng at , ([facility]) Father Albert Melchor [phone] ([facility]) Prognosis This pt was admitted for SOB. +Findings of pulmonary edema, acute kidney injury , cirrhosis, apparently recently newly diagnosed with liver cirrhosis. Now with multiorgan failurerespiratory, hepatic, renal, new GI bleeding. Plan for EGD. Coagulopathy. High risk for further complications/setbacks. . Code Status: Full Code Plan * Legal decision maker:Patient due to condition is not able to participate in decision-making. Apparently he did report previously completing healthcare surrogate documentation here, no document is present in the chart. In absence of this document, Per [place] statutes legal decision maker would be mother and father who are in [place]. Mother is not aware of healthcare surrogate document, nor is ex-. * Goals: Goals right now aggressive, mother and father are en route [place] from [place]. No change to treatment goals at this time, open to ongoing conversations as course evolves,and once they are in town. they expect to arrive late afternoon/evening on 10/30/1610/28- initial consultation: Spoke with mother regarding current conditions, prognosis. She appears to have a reasonable understanding, She has spoken other providers prior to me. Review of current treatments in place, pending diagnostics. She understands patient critically ill, high risk for further complications/setbacks, hemorrhagic events. Goals currently aggressive. She and patient father are considering coming down from [place] however she has some medical procedures for herself planned this week. She will continue to follow clinical course, is open to ongoing discussions. * CODE STATUS: FULL CODE, though would not prolonged resuscitation or repeat attempts * SYMPTOMS: --Encephalopathyhepatic, renal failure. Lactic acid 103. Started on lactulose. rifaximin added. Also on Diprivan for sedation/vent asynchrony. --Dyspnea-intubated urgently for hypoxemic respiratory failure. Had been requiring BiPAP prior to that.+ Fluid overload, pneumonia. Ongoing diuresis though +DAREK. Currently breathing comfortably on mechanical vent, Diprivan for sedation. 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 Currently with no signs or symptoms of pain. Cautious use of opiates due to renal, hepatic failure. Monitor for signs and symptoms of pain.has prn oxycodone 5mg , morphine 6mg--last doses 09/25. Sedated on mech vent, on diprivan. * Palliative care will continue to follow during hospital course as condition evolves, to assist patient/decision-maker with understanding of medical conditions, weighing benefits/burdens of treatment options, for clarification of goals of treatment. Additionally will assist with any symptoms of palliative concern . Attestation To help prompt me to consider important information that might be impacting today's encounter and assessment, information from prior notes written by myself or my colleagues may have been "brought forward" into today's note. My signature on this note, however, is an attestation that I personally performed the exam, history, and/or decision-making noted today, and, unless otherwise indicated, the interactions with patient, family, and staff as well as the review of records all occurred today. I also attest that the listed assessment and stated plan reflect my best clinical judgment today based on the combination of historical information, prior notes, and today's exam/ interactions. When time spent is documented, it refers only to time spent today by the signer, or if indicated, combined time spent today by collaborating physician/nurse practitioner. YasSuly man LORA Oct 29, 2016 16:27 a reasonable understanding, She has spoken other providers prior to me. Review of current treatments in place, pending diagnostics. She understands patient critically ill, high risk for further complications/setbacks, hemorrhagic events. Goals currently aggressive. She and patient father are considering coming down from [place] however she has some medical procedures for herself planned this week. She will continue to follow clinical course, is open to ongoing discussions. * CODE STATUS: FULL CODE, though would not prolonged resuscitation or repeat attempts * SYMPTOMS: --Encephalopathyhepatic, renal failure. Lactic acid 103. Started on lactulose. Also on Diprivan for sedation/vent asynchrony. --Dyspnea-intubated urgently for hypoxemic respiratory failure. Had been requiring BiPAP prior to that.+ Fluid overload, pneumonia. Ongoing diuresis though +DAREK. Currently breathing comfortably on mechanical vent, Diprivan for sedation. 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 Currently with no signs or symptoms of pain. Cautious use of opiates due to renal, hepatic failure. Monitor for signs and symptoms of pain.has prn oxycodone 5mg , morphine 6mg--last doses 09/25. Sedated on mech vent, on diprivan. * Palliative care will continue to follow during hospital course as condition evolves, to assist patient/decision-maker with understanding of medical conditions, weighing benefits/burdens of treatment options, for clarification of goals of treatment. Additionally will assist with any symptoms of palliative concern . Attestation To help prompt me to consider important information that might be impacting today's encounter and assessment, information from prior notes written by myself or my colleagues may have been "brought forward" into today's note. My signature on this note, however, is an attestation that I personally performed the exam, history, and/or decision-making noted today, and, unless otherwise indicated, the interactions with patient, family, and staff as well as the review of records all occurred today. I also attest that the listed assessment and stated plan reflect my best clinical judgment today based on the combination of historical information, prior notes, and today's exam/ interactions. When time spent is documented, it refers only to time spent today by the signer, or if indicated, combined time spent today by collaborating physician/nurse practitioner. Suly Sorenson Oct 29, 2016 16:27
--- NOTE | 2016-10-29 18:21 | HHI.NPPN ---
Subjective History of Present Illness 50-year-old male with a past medical history of hypertension, history of cirrhosis of the liver, history of ascites in the past, hyperlipidemia, ischemic heart disease, cerebrovascular accident who came to the hospital with a complaint of shortness of breath and increased swelling of the legs. I was called to see the patient because of elevated BUN and creatinine. His BUN was 62 and creatinine was 2.5, about a month ago his creatinine was 0.7. Additional Remarks Patient remain intubated and sedated, on Bumex, off pressors. Objective Data Data 10/28/16 10/29/16 19:00 07:00 Intake Total 3710 ml 1547 ml Output Total 1500 ml 1675 ml Balance 2210 ml -128 ml Intake Oral 0 ml 0 ml IV Total 2765 ml 1447 ml Tube Feeding 225 ml 0 ml Albumin 100 ml 100 ml Packed Cells 500 ml Tube Irrigant 120 ml 0 ml Output Urine Total 1250 ml 1615 ml Gastric Drainage Total 250 ml 60 ml # Bowel Movements 3 0 Vital Signs Date Time Temp Pulse Resp B/P Pulse Ox O2 Delivery O2 Flow Rate FiO2 10/29/16 16:34 95 50 10/29/16 15:59 87 10/29/16 15:49 98.0 88 18 115/65 92 143/66 10/29/16 15:49 92 Mechanical Ventilator 50 10/29/16 15:49 50 10/29/16 13:54 94 50 10/29/16 11:49 50 10/29/16 11:49 97.7 85 17 105/58 91 128/62 10/29/16 11:43 92 Mechanical Ventilator 50 10/29/16 11:00 76 10/29/16 08:44 90 50 10/29/16 08:00 97.7 79 16 126/69 92 123/49 10/29/16 07:15 50 10/29/16 07:15 94 Mechanical Ventilator 50 10/29/16 07:00 84 10/29/16 04:34 93 50 10/29/16 03:00 97.5 81 16 125/66 96 132/56 10/29/16 03:00 81 10/29/16 03:00 60 10/29/16 03:00 96 Mechanical Ventilator 60 10/29/16 02:00 96 Mechanical Ventilator 60 10/29/16 01:59 94 60 10/28/16 23:20 95 70 10/28/16 23:00 76 10/28/16 23:00 93 Mechanical Ventilator 50 10/28/16 23:00 97.6 76 16 127/70 93 138/57 10/28/16 23:00 50 10/28/16 22:05 94 80 10/28/16 21:15 97 50 10/28/16 19:00 97.9 74 16 128/64 93 144/79 10/28/16 19:00 93 Mechanical Ventilator 50 10/28/16 19:00 50 10/28/16 19:00 78 -: 10/29/16 1200 10/29/16 0415 Physical Exam General Appearance Remarks Intubated and sedated. Eyes Eye Exam: Pupils Equal Throat Throat Exam: Oral Mucosa [place] & Moist Pulmonary Resp Exam: Breath Sounds Equal, Rhonchi, Decreased Bases, Diminished Breath Sounds Cardiology CV Exam: Regular, Normal Sinus Rhythm Gastrointestinal/Abdomen GI Exam: Soft, Distended Extremeties Extremities Exam: Moderate Edema, Pitting Edema, Dependent Edema Neurologic Neuro Exam: Sedated Assessment/Plan Assessment Summary: DAREK/Acute Renal Failure, Fluid/Volume Overload Problem List: (1) HTN (hypertension) (2) Alcoholic liver disease (3) Anasarca (4) Pulmonary edema (5) Acute kidney injury Plan hx of cirrhosis /HRS Patient responded to treatment and UOP improved with Bumex infusion.1MG/HR on Albumin 25 gm IV Q 12 on Midodrine/Octreotide On Bumex, Creatinine is slightly better. K is better. GI following, for EGD. Continue Bumex, follow the urine out put and BMP. Creatinine is slightly better. Problem Qualifiers (1) Pulmonary edema: Qualified Code: J81.0 - Acute pulmonary edema John Gibbons MD Oct 29, 2016 18:21
[2016-10-29 19:51] LABS: MYELOPEROXIDASE LESS THAN 1.0 AI (<1.0); PROTEINASE-3 LESS THAN 1.0 AI (<1.0)
[2016-10-29] MEDS: RIFAXIMIN 550 MG TAB PO SCH (20:06)
[2016-10-29] MEDS: AZITHROMYCIN INJ 500 MG in SODIUM CHLOR 0.9% 250 ML INJ 250 ML IV SCH (20:06)
--- NOTE | 2016-10-29 20:18 | HHI.PR ---
Subjective Remarks Sedated and on the vent at FIo2 45 %. Critical .ON PC /AC rate 16 but on PEEP +14. Has a GI bleed.Was transfused. Objective Vital Signs Date Time Temp Pulse Resp B/P Pulse Ox O2 Delivery O2 Flow Rate FiO2 10/29/16 19:00 91 10/29/16 19:00 50 10/29/16 19:00 94 Mechanical Ventilator 50 10/29/16 19:00 98.1 91 16 122/59 94 152/65 10/29/16 16:34 95 50 10/29/16 15:59 87 10/29/16 15:49 98.0 88 18 115/65 92 143/66 10/29/16 15:49 92 Mechanical Ventilator 50 10/29/16 15:49 50 10/29/16 13:54 94 50 10/29/16 11:49 50 10/29/16 11:49 97.7 85 17 105/58 91 128/62 10/29/16 11:43 92 Mechanical Ventilator 50 10/29/16 11:00 76 10/29/16 08:44 90 50 10/29/16 08:00 97.7 79 16 126/69 92 123/49 10/29/16 07:15 50 10/29/16 07:15 94 Mechanical Ventilator 50 10/29/16 07:00 84 10/29/16 04:34 93 50 10/29/16 03:00 97.5 81 16 125/66 96 132/56 10/29/16 03:00 81 10/29/16 03:00 60 10/29/16 03:00 96 Mechanical Ventilator 60 10/29/16 02:00 96 Mechanical Ventilator 60 10/29/16 01:59 94 60 10/28/16 23:20 95 70 10/28/16 23:00 76 10/28/16 23:00 93 Mechanical Ventilator 50 10/28/16 23:00 97.6 76 16 127/70 93 138/57 10/28/16 23:00 50 10/28/16 22:05 94 80 10/28/16 21:15 97 50 I/O 10/28/16 10/28/16 10/28/16 10/29/16 10/29/16 10/29/16 07:00 15:00 23:00 07:00 15:00 23:00 Intake Total 1593 ml 3710 ml 1547 ml 220 ml 1184 ml Output Total 1700 ml 1500 ml 1675 ml 1585 ml Balance -107 ml 2210 ml -128 ml 220 ml -401 ml Intake Oral 0 ml 0 ml 0 ml IV Total 1091 ml 2765 ml 1447 ml 100 ml 1184 ml Tube Feeding 402 ml 225 ml 0 ml Albumin 100 ml 100 ml 100 ml Packed Cells 500 ml Tube Irrigant 120 ml 0 ml Other 120 ml Output Urine Total 1700 ml 1250 ml 1615 ml 1285 ml Stool Total 0 ml Gastric Drainage Total 250 ml 60 ml 300 ml # Bowel Movements 3 0 Result Diagram: 10/29/16 1200 10/29/16 0415 Objective Remarks HEENT: Head is normocephalic. Pupils are reactive. Icterus +. NECK: Supple. No lymphadenopathy. No bruits. CHEST: Equal movements with wheezes over both lung giang and crackles at the lung bases. HEART: The heart sounds are irregular, S1 and S2 with no murmur. No S3. ABDOMEN: Obese, protuberant without masses or organomegaly. No tenderness. Bowel sounds are active. EXTREMITIES: Amputated left leg below the knee. The right leg has 1 + edema with diminished pulses. The patient is sedated. NEUROLOGIC: sedated. RECTAL: Exam is deferred. SKIN: No lesions. Assessment and Plan Assessment and Plan IMPRESSION 1. Acute respiratory failure. 2. Pulmonary edema with pleural effusions. 3. Probable basilar pneumonia. 4. Anemia and coagulopathy. 5. History of cirrhosis of the liver with ascites. Plan ; 1. Wean FIo2 to keep sat >92. 2. PEEP to 14 cm 3. Continue diuresis per renal. 4. GI Evaluation. 5. Nebs q6h ,PRN duoneb 6. Will need Trach when stable. 7. Keep Sedated Kat Muhammad MD Oct 29, 2016 20:18
[2016-10-30] VITALS (15 sets, daily range): BP systolic 111–147; BP diastolic 47–69; PULSE 85–100; RESP 16–22; TEMP 97.7–98.2; O2SAT 92–97
[2016-10-30] MEDS: PROPOFOL 1000 MG/100 ML IV SCH ×2 (02:05→08:30)
[2016-10-30] MEDS: ALBUMIN HUMAN 25% 25 GM/100 ML BAGP IV SCH ×2 (02:06→15:24)
[2016-10-30] MEDS: BUMETANIDE INJ 100 ML IV SCH (03:21)
[2016-10-30] MEDS: PANTOPRAZOLE INJ 80 MG in SODIUM CHLORIDE 0.9% INJ 100 ML IV SCH ×4 (03:21→23:48)
[2016-10-30] MEDS: CHLORHEXIDINE GLUCONATE 2 % 1 PACK (2 CLOTHS) TOP SCH (03:23)
[2016-10-30] MEDS: RESP: ALBUTEROL 2.5 MG/IPRATROPIUM 0.5 MG NEB (PRN) INH ×4 (03:40→20:57)
[2016-10-30] MEDS: OCTREOTIDE INJ 500 MCG in SODIUM CHLORID 0.9% 500 ML INJ 499.5 ML IV SCH ×2 (04:45→06:30)
[2016-10-30 05:33] LABS: AUTOMATED NEUTROPHIL # 13.1 TH/MM3 (1.8-7.7); BASOPHIL # 0.1 TH/MM3 (0-0.2); BASOPHIL % 0.4 % (0.0-2.0); EOSINOPHIL # 0.2 TH/MM3 (0-0.4); EOSINOPHIL % 1.3 % (0.0-4.0); HEMATOCRIT 25.9 % (39.0-51.0); LYMPHOCYTE # 0.7 TH/MM3 (1.0-4.8); MEAN CELL VOLUME 99.3 FL (80.0-100.0); MEAN CORPUSCULAR HEMOGLOBIN 34.5 PG (27.0-34.0); MEAN CORPUSCULAR HGB CONC 34.7 % (32.0-36.0); MONO % 4.1 % (0.0-8.0); NEUT % 89.2 % (16.0-70.0); PLATELET COUNT 36 TH/MM3 (150-450); RED BLOOD COUNT 2.61 MIL/MM3 (4.50-5.90); RED CELL DISTRIBUTION WIDTH 22.4 % (11.6-17.2); WHITE BLOOD COUNT 14.7 TH/MM3 (4.0-11.0)
[2016-10-30 05:39] LABS: HEMO FLAGS AUTO DIFF
[2016-10-30 05:52] LABS: ALT (GPT) 29 U/L (12-78)
[2016-10-30 05:53] LABS: ANION GAP 10 MEQ/L (5-15); AST (GOT) 68 U/L (15-37); BLOOD UREA NITROGEN 100 MG/DL (7-18); CHLORIDE 105 MEQ/L (98-107); GLOMERULAR FILTRATION RATE 29 ML/MIN (>89); POTASSIUM 3.5 MEQ/L (3.5-5.1); SODIUM (NA) 142 MEQ/L (136-145)
[2016-10-30 05:54] LABS: ALKALINE PHOSPHATASE 55 U/L (45-117); TOTAL BILIRUBIN ADULT 8.9 MG/DL (0.2-1.0)
[2016-10-30] MEDS: MIDODRINE 5 MG TAB PO SCH ×3 (06:41→17:00)
[2016-10-30] MEDS: metroNIDAZOLE 500 MG INJ 100 ML IV SCH ×3 (06:41→23:45)
[2016-10-30] MEDS: LACTULOSE SYRUP 20 GM/30 ML CUP PO SCH (09:12)
[2016-10-30] MEDS: DOCUSATE SODIUM 50 MG/SENNA 8.6 MG TAB PO SCH ×2 (09:12→21:32)
[2016-10-30] MEDS: POTASSIUM CHLORIDE 25 MEQ EFFERVESCENT TAB PO SCH (09:12)
[2016-10-30] MEDS: prednisoLONE ALCOHOL/DYE FREE 15 MG/5 ML ORAL SYR PO SCH (09:13)
[2016-10-30] MEDS: RIFAXIMIN 550 MG TAB PO SCH ×2 (09:15→21:32)
[2016-10-30] MEDS: CEFEPIME INJ 2,000 MG in SODIUM CHLORIDE 0.9% INJ 100 ML IV SCH ×2 (09:15→21:36)
[2016-10-30 09:31] LABS: BANDS 5 % (0-6); EOSINOPHILS 3 % (0-4); METAMYELOCYTES 3 % (0-1); NEUTROPHIL # MANUAL DIFF 12.6 TH/MM3 (1.8-7.7); POLYS (SEG NEUTROPHILS) 78 % (16-70); WBC DIFF SAMPLE 100
[2016-10-30 09:36] LABS: PLATELET ESTIMATE SMEAR LOW (NORMAL); PLATELET MORPHOLOGY NORMAL (NORMAL); SCAN/DIFF FINAL DIFF MANUAL; TOXIC GRANULATION 1+ (NORMAL)
--- NOTE | 2016-10-30 15:47 | HHI.GIFU ---
Subjective Remarks Pt lying in bed, friend at bedside. Per RN C (Claudia Hopson) Objective Vitals I&O Vital Signs Date Time Temp Pulse Resp B/P Pulse Ox O2 Delivery O2 Flow Rate FiO2 10/30/16 13:59 92 55 10/30/16 11:00 93 Mechanical Ventilator 55 10/30/16 11:00 100 10/30/16 11:00 55 10/30/16 11:00 97.9 100 16 125/66 93 147/69 10/30/16 09:24 97 50 10/30/16 08:05 97 50 10/30/16 07:00 97 Mechanical Ventilator 50 10/30/16 07:00 97.7 85 16 115/58 97 113/47 10/30/16 07:00 50 10/30/16 07:00 92 10/30/16 03:41 94 50 10/30/16 03:00 96 10/30/16 03:00 98.2 96 16 111/62 94 147/62 10/30/16 03:00 94 Mechanical Ventilator 50 10/30/16 03:00 50 10/30/16 02:05 95 50 10/29/16 23:22 94 50 10/29/16 23:00 87 10/29/16 23:00 50 10/29/16 23:00 96 Mechanical Ventilator 50 10/29/16 23:00 97.8 87 16 110/53 96 139/57 10/29/16 20:43 95 50 10/29/16 19:00 91 10/29/16 19:00 50 10/29/16 19:00 94 Mechanical Ventilator 50 10/29/16 19:00 98.1 91 16 122/59 94 152/65 10/29/16 16:34 95 50 10/29/16 15:59 87 10/29/16 15:49 98.0 88 18 115/65 92 143/66 10/29/16 15:49 92 Mechanical Ventilator 50 10/29/16 15:49 50 I/O 10/29/16 10/29/16 10/29/16 10/30/16 10/30/16 10/30/16 07:00 15:00 23:00 07:00 15:00 23:00 Intake Total 1547 ml 220 ml 1184 ml 1894 ml Output Total 1675 ml 1585 ml 1965 ml Balance -128 ml 220 ml -401 ml -71 ml Intake Oral 0 ml IV Total 1447 ml 100 ml 1184 ml 1794 ml Tube Feeding 0 ml Albumin 100 ml 100 ml Tube Irrigant 0 ml Other 120 ml Output Urine Total 1615 ml 1285 ml 1865 ml Gastric Drainage Total 60 ml 300 ml 100 ml # Bowel Movements 0 0 Laboratory Laboratory Tests Test 10/30/16 04:55 White Blood Count 14.7 Red Blood Count 2.61 Hemoglobin 9.0 Hematocrit 25.9 Mean Corpuscular Volume 99.3 Mean Corpuscular Hemoglobin 34.5 Mean Corpuscular Hemoglobin 34.7 Concent Red Cell Distribution Width 22.4 Platelet Count 36 Mean Platelet Volume 8.6 Neutrophils (%) (Auto) 89.2 Lymphocytes (%) (Auto) 5.0 Monocytes (%) (Auto) 4.1 Eosinophils (%) (Auto) 1.3 Basophils (%) (Auto) 0.4 Neutrophils # (Auto) 13.1 Lymphocytes # (Auto) 0.7 Monocytes # (Auto) 0.6 Eosinophils # (Auto) 0.2 Basophils # (Auto) 0.1 CBC Comment AUTO DIFF Differential Total Cells 100 Counted Neutrophils % (Manual) 78 Band Neutrophils % 5 Lymphocytes % 7 Monocytes % 4 Eosinophils % 3 Neutrophils # (Manual) 12.6 Metamyelocytes 3 Differential Comment FINAL DIFF MANUAL Toxic Granulation 1+ Platelet Estimate LOW Platelet Morphology Comment NORMAL Sodium Level 142 Potassium Level 3.5 Chloride Level 105 Carbon Dioxide Level 27.0 Anion Gap 10 Blood Urea Nitrogen 100 Creatinine 2.41 Estimat Glomerular Filtration 29 Rate Random Glucose 139 Calcium Level 8.2 Total Bilirubin 8.9 Aspartate Amino Transf 68 (AST/SGOT) Alanine Aminotransferase 29 (ALT/SGPT) Alkaline Phosphatase 55 Total Protein 6.9 Albumin 2.6 Date/Time Procedure Status Source Growth 10/28/16 15:30 Stool Occult Blood (LUISA) - Final Complete Stool Stool HEMOCCULT POSITIVE Imaging Last Impressions Chest X-Ray 10/28/16 0400 Signed Impressions: Service Date/Time: Friday, October 28, 2016 04:52 - CONCLUSION: 1. No significant change in the hazy opacity in both lungs. 2. Mild cardiomegaly remains. Reginald Ng MD Physical Exam HEENT: normocephalic; atraumatic; + icterus. intubated CHEST: CTA CARDIAC: RRR ABDOMEN: firm, distended, nontender; bowel sounds are present in all four quadrants. 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 initially red blood now Dark bloody drainage from NGT decreasing, only 50cc today s/p 1 units FFP, 1 unit Platelets, 1 unit cryoprecipitate ordered, 3x PRBC, vit k HH stable s/p EGD 10-28-16--> GIB, portal gastropathy, duodenitis, hiatal hernia . - Anemia secondary to acute blood loss. S/P 3 units PRBC. HH stable - Severe thrombocytopenia/coagulopathy, worsening. - Liver cirrhosis. According to EMR, quit drinking several months ago. elevated LFTs, jaundice. coagulopathy - Hepatic encephalopathy. Ammonia 112. Lactulose, rifaximin - Acute kidney injury with electrolyte abnormalities. Creatinine 2.41 - Acute respiratory failure secondary to probable basilar pneumonia, pulmonary edema, pulmonary hypertension. OETT to vent per CCM/Pulm. Bumex, Cefepime, Flagyl, Azithromycin, nebs. PLAN: - consider paracentesis - continue lactulose - continue rifaximin - OGT to LIWS - cont Octreotide gtt - cont Protonix gtt - Transfuse as necessary - Monitor labs - Supportive care - Further recommendations to follow based on results of above - Pt seen and examined by Dr. Royal and myself and this note is written on her behalf (Claudia Hopson) Physician Comments seen, examined agree with above off sedation not arousable ngt still increased output-possible ileus we will give him a trial of Reglan abdominal x ray abdominal us if ascites paracentesis (Darshana Royal MD) Claudia Hopson Oct 30, 2016 15:47 Darshana Royal MD Oct 30, 2016 17:27
--- NOTE | 2016-10-30 16:59 | HHI.HCPN ---
Reason for visit a. To assist with evaluation and management of symptoms including: Encephalopathy, dyspnea, pain b. To assist medical decision maker(s) with: better understanding of current medical conditions; weighing benefits/burdens of medical treatment options; making medical treatment decisions. Subjective/Interval History Pt remains critically ill in ICU. Hemodynamically stable. No new bleeding per nursing. H&H stable 9.0/25.9. Platelets remain low 36. No transfusions today. No coag profile today. BUN 100/creatinine 2.41. Urine output remains adequate a Bumex drip. Total bilirubin 8.9. Ammonia 112 yesterday. Diprivan has been off for several hours today per nursing. She reports remains nonresponsive with no sedation. Patient mother amelie from [place] expected to arrive later this afternoon/evening. D/w primary RN Nataly. Pt examined in room,2 close friends at bedside. He has nonresponsive to my exam. Significant edema. Significant jaundice.+ Few respirations over vent rate. As I was leaving unit mother, father, ex- Iveth arrived. Spoke with them at bedside, again review conditions, treatments in place, recent diagnostics, current clinical assessment. Mother appears to have a good understanding she is familiar with condition based on updates she has been getting over the past several days. Mother and father understands patient is so high risk for potential complications and . All questions answered. She remains cautiously hopeful, continue current treatments, she is open to ongoing discussions regarding treatment options/goals as clinical course evolves. Palliative care contact information provided. Advance Directives Health Care Surrogate: Completed, but not made available Objective Vital Signs Date Time Temp Pulse Resp B/P Pulse Ox O2 Delivery O2 Flow Rate FiO2 10/30/16 13:59 92 55 10/30/16 11:00 93 Mechanical Ventilator 55 10/30/16 11:00 100 10/30/16 11:00 55 10/30/16 11:00 97.9 100 16 125/66 93 147/69 10/30/16 09:24 97 50 10/30/16 08:05 97 50 10/30/16 07:00 97 Mechanical Ventilator 50 10/30/16 07:00 97.7 85 16 115/58 97 113/47 10/30/16 07:00 50 10/30/16 07:00 92 10/30/16 03:41 94 50 10/30/16 03:00 96 10/30/16 03:00 98.2 96 16 111/62 94 147/62 10/30/16 03:00 94 Mechanical Ventilator 50 10/30/16 03:00 50 10/30/16 02:05 95 50 10/29/16 23:22 94 50 10/29/16 23:00 87 10/29/16 23:00 50 10/29/16 23:00 96 Mechanical Ventilator 50 10/29/16 23:00 97.8 87 16 110/53 96 139/57 10/29/16 20:43 95 50 10/29/16 19:00 91 10/29/16 19:00 50 10/29/16 19:00 94 Mechanical Ventilator 50 10/29/16 19:00 98.1 91 16 122/59 94 152/65 Intake & Output 10/30/16 10/30/16 07:00 19:00 Intake Total 1894 ml Output Total 1965 ml Balance -71 ml IV Total 1794 ml Albumin 100 ml Output Urine Total 1865 ml Gastric Drainage Total 100 ml # Bowel Movements 0 Physical Exam CONSTITUTIONAL/GENERAL: This is a obese, chronically ill-appearing patient. TUBES/LINES/DRAINS: Central line, arterial line, ET tube, OG tube, Yap catheter SKIN: jaundiced. No wounds seen anteriorly. Skin temperature appropriate. Not diaphoretic. CARDIOVASCULAR: Regular rate and rhythm without murmurs.significant generalized pitting edema. Pedal pulses faint. RESPIRATORY/CHEST: Symmetric, unlabored respirations via mechanical vent. Respiratory rate + over vent rate. Coarse air movement throughout. Breath sounds equal bilaterally. GASTROINTESTINAL: Abdomen distended, firm. OG tube to suction, maroon drainage output. No bowel sounds to my exam. limited palp due to distention/firmness GENITOURINARY: Without palpable bladder distension. Yap catheter in place dark tea urine NEUROLOGICAL: No sedation, Diprivan off for several hours. no eye opening. Pupils 4 mm, reactive to light. No response to pain stimuli. PSYCHIATRIC: No obvious anxiety/depression-limited assessment due to clinical condition. Diagnostic Tests Laboratory Laboratory Tests Test 10/28/16 10/28/16 10/28/16 10/28/16 04:00 04:05 09:20 12:29 Blood Gas Puncture Site ART LINE Blood Gas Patient Temperature 98.6 Blood Gas HCO3 24 mmol/L (22-26) Blood Gas Base Excess -1.3 mmol/L (-2-2) Blood Gas Oxygen Saturation 90 % (90-100) Arterial Blood pH 7.34 (7.380-7.420) Arterial Blood Partial 45 mmHg (38-42) Pressure CO2 Arterial Blood Partial 74 mmHg Pressure O2 (61-120) Arterial Blood Oxygen Content 11.0 Vol % (12.0-20.0) Arterial Blood 2.8 % (0-4) Carboxyhemoglobin Arterial Blood Methemoglobin 1.8 % (0-2) Blood Gas Hemoglobin 8.6 G/DL (12.0-16.0) Oxygen Delivery Device VENTILATOR Blood Gas Ventilator Setting PRVC/AC Blood Gas Inspired Oxygen 45 % White Blood Count 12.0 TH/MM3 (4.0-11.0) Red Blood Count 2.38 MIL/MM3 (4.50-5.90) Hemoglobin 8.8 GM/DL (13.0-17.0) Hematocrit 24.0 % (39.0-51.0) Mean Corpuscular Volume 100.8 FL (80.0-100.0) Mean Corpuscular Hemoglobin 37.0 PG (27.0-34.0) Mean Corpuscular Hemoglobin 36.7 % Concent (32.0-36.0) Red Cell Distribution Width 20.9 % (11.6-17.2) Platelet Count 22 TH/MM3 (150-450) Mean Platelet Volume 9.4 FL (7.0-11.0) Sodium Level 139 MEQ/L (136-145) Potassium Level 3.5 MEQ/L (3.5-5.1) Chloride Level 103 MEQ/L (98-107) Carbon Dioxide Level 25.2 MEQ/L (21.0-32.0) Anion Gap 11 MEQ/L (5-15) Blood Urea Nitrogen 95 MG/DL (7-18) Creatinine 2.73 MG/DL (0.60-1.30) Estimat Glomerular Filtration 25 ML/MIN (>89) Rate Random Glucose 145 MG/DL (74-106) Lactic Acid Level 1.6 mmol/L (0.4-2.0) Calcium Level 7.3 MG/DL (8.5-10.1) Protein Corrected Calcium 7.3 MG/DL (8.5-10.1) Total Bilirubin 7.9 MG/DL (0.2-1.0) Aspartate Amino Transf 113 U/L (15-37) (AST/SGOT) Alanine Aminotransferase 30 U/L (12-78) (ALT/SGPT) Alkaline Phosphatase 62 U/L (45-117) Ammonia 101 MCMOL/L (11-32) Total Creatine Kinase 790 U/L (39-308) Creatine Kinase MB 4.1 NG/ML (0.5-3.6) Creatine Kinase MB % 0.5 % (0.0-4.0) Total Protein 7.2 GM/DL (6.4-8.2) Albumin 2.5 GM/DL (3.4-5.0) Prothrombin Time 24.9 SEC (9.8-11.6) Prothromb Time International 2.2 RATIO Ratio Activated Partial 47.4 SEC Thromboplast Time (24.3-30.1) Fibrinogen 124 mg/dL (227-377) Blood Bank Comment Test 10/28/16 10/28/16 10/28/16 10/29/16 13:26 15:22 22:20 04:15 Blood Type A POSITIVE Antibody Screen NEGATIVE Crossmatch Leukocyte-Reduced Red Blood Cells Blood Bank Comment White Blood Count 15.6 TH/MM3 14.1 TH/MM3 (4.0-11.0) (4.0-11.0) Red Blood Count 2.77 MIL/MM3 2.64 MIL/MM3 (4.50-5.90) (4.50-5.90) Hemoglobin 9.8 GM/DL 9.2 GM/DL (13.0-17.0) (13.0-17.0) Hematocrit 27.3 % 26.1 % (39.0-51.0) (39.0-51.0) Mean Corpuscular Volume 98.6 FL 98.8 FL (80.0-100.0) (80.0-100.0) Mean Corpuscular Hemoglobin 35.3 PG 34.8 PG (27.0-34.0) (27.0-34.0) Mean Corpuscular Hemoglobin 35.8 % 35.2 % Concent (32.0-36.0) (32.0-36.0) Red Cell Distribution Width 22.2 % 22.0 % (11.6-17.2) (11.6-17.2) Platelet Count 38 TH/MM3 35 TH/MM3 (150-450) (150-450) Mean Platelet Volume 9.1 FL 8.6 FL (7.0-11.0) (7.0-11.0) Prothrombin Time 17.5 SEC 19.0 SEC (9.8-11.6) (9.8-11.6) Prothromb Time International 1.6 RATIO 1.7 RATIO Ratio Activated Partial 36.2 SEC 39.0 SEC Thromboplast Time (24.3-30.1) (24.3-30.1) Fibrinogen 214 mg/dL 211 mg/dL (227-377) (227-377) Neutrophils (%) (Auto) 89.8 % (16.0-70.0) Lymphocytes (%) (Auto) 5.1 % (9.0-44.0) Monocytes (%) (Auto) 3.5 % (0.0-8.0) Eosinophils (%) (Auto) 1.4 % (0.0-4.0) Basophils (%) (Auto) 0.2 % (0.0-2.0) Neutrophils # (Auto) 12.7 TH/MM3 (1.8-7.7) Lymphocytes # (Auto) 0.7 TH/MM3 (1.0-4.8) Monocytes # (Auto) 0.5 TH/MM3 (0-0.9) Eosinophils # (Auto) 0.2 TH/MM3 (0-0.4) Basophils # (Auto) 0.0 TH/MM3 (0-0.2) CBC Comment AUTO DIFF Differential Total Cells 100 Counted Neutrophils % (Manual) 77 % (16-70) Band Neutrophils % 10 % (0-6) Lymphocytes % 4 % (9-44) Monocytes % 2 % (0-8) Eosinophils % 4 % (0-4) Neutrophils # (Manual) 12.7 TH/MM3 (1.8-7.7) Metamyelocytes 1 % (0-1) Myelocytes 2 % (0-0) Differential Comment FINAL DIFF MANUAL Platelet Estimate LOW (NORMAL) Platelet Morphology Comment NORMAL (NORMAL) Tear Drop Cells 1+ (NORMAL) Ovalocytes 1+ (NORMAL) Sodium Level 142 MEQ/L (136-145) Potassium Level 3.6 MEQ/L (3.5-5.1) Chloride Level 104 MEQ/L (98-107) Carbon Dioxide Level 26.6 MEQ/L (21.0-32.0) Anion Gap 11 MEQ/L (5-15) Blood Urea Nitrogen 103 MG/DL (7-18) Creatinine 2.59 MG/DL (0.60-1.30) Estimat Glomerular Filtration 27 ML/MIN (>89) Rate Random Glucose 136 MG/DL (74-106) Calcium Level 8.0 MG/DL (8.5-10.1) Total Bilirubin 8.5 MG/DL (0.2-1.0) Aspartate Amino Transf 91 U/L (15-37) (AST/SGOT) Alanine Aminotransferase 32 U/L (12-78) (ALT/SGPT) Alkaline Phosphatase 60 U/L (45-117) Ammonia 112 MCMOL/L (11-32) Total Protein 7.0 GM/DL (6.4-8.2) Albumin 2.5 GM/DL (3.4-5.0) Test 10/29/16 10/30/16 12:00 04:55 Hemoglobin 9.4 GM/DL 9.0 GM/DL (13.0-17.0) (13.0-17.0) Hematocrit 26.7 % 25.9 % (39.0-51.0) (39.0-51.0) White Blood Count 14.7 TH/MM3 (4.0-11.0) Red Blood Count 2.61 MIL/MM3 (4.50-5.90) Mean Corpuscular Volume 99.3 FL (80.0-100.0) Mean Corpuscular Hemoglobin 34.5 PG (27.0-34.0) Mean Corpuscular Hemoglobin 34.7 % Concent (32.0-36.0) Red Cell Distribution Width 22.4 % (11.6-17.2) Platelet Count 36 TH/MM3 (150-450) Mean Platelet Volume 8.6 FL (7.0-11.0) Neutrophils (%) (Auto) 89.2 % (16.0-70.0) Lymphocytes (%) (Auto) 5.0 % (9.0-44.0) Monocytes (%) (Auto) 4.1 % (0.0-8.0) Eosinophils (%) (Auto) 1.3 % (0.0-4.0) Basophils (%) (Auto) 0.4 % (0.0-2.0) Neutrophils # (Auto) 13.1 TH/MM3 (1.8-7.7) Lymphocytes # (Auto) 0.7 TH/MM3 (1.0-4.8) Monocytes # (Auto) 0.6 TH/MM3 (0-0.9) Eosinophils # (Auto) 0.2 TH/MM3 (0-0.4) Basophils # (Auto) 0.1 TH/MM3 (0-0.2) CBC Comment AUTO DIFF Differential Total Cells 100 Counted Neutrophils % (Manual) 78 % (16-70) Band Neutrophils % 5 % (0-6) Lymphocytes % 7 % (9-44) Monocytes % 4 % (0-8) Eosinophils % 3 % (0-4) Neutrophils # (Manual) 12.6 TH/MM3 (1.8-7.7) Metamyelocytes 3 % (0-1) Differential Comment FINAL DIFF MANUAL Toxic Granulation 1+ (NORMAL) Platelet Estimate LOW (NORMAL) Platelet Morphology Comment NORMAL (NORMAL) Sodium Level 142 MEQ/L (136-145) Potassium Level 3.5 MEQ/L (3.5-5.1) Chloride Level 105 MEQ/L (98-107) Carbon Dioxide Level 27.0 MEQ/L (21.0-32.0) Anion Gap 10 MEQ/L (5-15) Blood Urea Nitrogen 100 MG/DL (7-18) Creatinine 2.41 MG/DL (0.60-1.30) Estimat Glomerular Filtration 29 ML/MIN (>89) Rate Random Glucose 139 MG/DL (74-106) Calcium Level 8.2 MG/DL (8.5-10.1) Total Bilirubin 8.9 MG/DL (0.2-1.0) Aspartate Amino Transf 68 U/L (15-37) (AST/SGOT) Alanine Aminotransferase 29 U/L (12-78) (ALT/SGPT) Alkaline Phosphatase 55 U/L (45-117) Total Protein 6.9 GM/DL (6.4-8.2) Albumin 2.6 GM/DL (3.4-5.0) Result Diagram: 10/30/16 0455 10/30/16 0455 Microbiology Microbiology Date/Time Procedure Status Source Growth 10/28/16 15:30 Stool Occult Blood (LUISA) - Final Complete Stool Stool HEMOCCULT POSITIVE Imaging Last Impressions Chest X-Ray 10/28/16 0400 Signed Impressions: Service Date/Time: Friday, October 28, 2016 04:52 - CONCLUSION: 1. No significant change in the hazy opacity in both lungs. 2. Mild cardiomegaly remains. 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 Lives with a roommate locally per mother. , though remains in communication with his ex-. No children. Originally from [place] though has lived in [place] for many years. Of note patient friend of 30 years shared that patient lost a brother about 20 years ago, and that the mother is still very sensitive regarding this [employer] as a child, however not known if he had any particular affiliation or preferences recently. Legal Patient due to condition is not able to participate in decision-making. Apparently he did report previously completing healthcare surrogate documentation here, no document is present in the chart. In absence of this document, Per [place] statutes legal decision maker would be mother and father who are in [place]. Mother is not aware of healthcare surrogate document, nor is ex-. Important Contacts mother, Sindhu Feng at , ([facility]) Father Albert Melchor [phone] ([facility]) Prognosis This pt was admitted for SOB. +Findings of pulmonary edema, acute kidney injury , cirrhosis, apparently recently newly diagnosed with liver cirrhosis. Now with multiorgan failurerespiratory, hepatic, renal, new GI bleeding. Plan for EGD. Coagulopathy. High risk for further complications/setbacks. . Code Status: Full Code Plan * Legal decision maker:Patient due to condition is not able to participate in decision-making. Apparently he did report previously completing healthcare surrogate documentation here, no document is present in the chart. In absence of this document, Per [place] statutes legal decision maker would be mother and father who are in [place]. Mother is not aware of healthcare surrogate document, nor is ex-. * Goals: Updated parents 10/30/16 Goals right now aggressive, mother and father have arrived from [place]. They remain cautiously hopeful wish to continue current treatments; however are open to ongoing discussions as clinical course evolves. 10/28- initial consultation: Spoke with mother regarding current conditions, prognosis. She appears to have a reasonable understanding, She has spoken other providers prior to me. Review of current treatments in place, pending diagnostics. She understands patient critically ill, high risk for further complications/setbacks, hemorrhagic events. Goals currently aggressive. She and patient father are considering coming down from [place] however she has some medical procedures for herself planned this week. She will continue to follow clinical course, is open to ongoing discussions. * CODE STATUS: FULL CODE, though would not prolonged resuscitation or repeat attempts * SYMPTOMS: --Encephalopathyhepatic, renal failure. Lactic acid 103. Started on lactulose. rifaximin added. Also on Diprivan for sedation/vent asynchrony-- this has been discontinued today patient is nonresponsive --Dyspnea-intubated urgently for hypoxemic respiratory failure. Had been requiring BiPAP prior to that.+ Fluid overload, pneumonia. Ongoing diuresis though +DAREK. 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 Currently with no signs or symptoms of pain. Cautious use of opiates due to renal, hepatic failure. Monitor for signs and symptoms of pain.has prn oxycodone 5mg , morphine 6mg--last doses 09/25. Previously sedated on Diprivan, no sedatives today. * Palliative care will continue to follow during hospital course as condition evolves, to assist patient/decision-maker with understanding of medical conditions, weighing benefits/burdens of treatment options, for clarification of goals of treatment. Additionally will assist with any symptoms of palliative concern . Time Spent Total Floor Time (mins): 30 Suly Sorenson Oct 30, 2016 16:59
--- NOTE | 2016-10-30 17:21 | HHI.PR ---
Subjective Remarks Sedated and on the vent at FIo2 50 %. Critical .ON PRVC /AC rate 16 but on PEEP +8. Critical and poor output. Objective Vital Signs Date Time Temp Pulse Resp B/P Pulse Ox O2 Delivery O2 Flow Rate FiO2 10/30/16 16:45 97 55 10/30/16 15:00 100 10/30/16 15:00 55 10/30/16 15:00 97.8 100 18 137/68 93 146/69 10/30/16 15:00 93 Mechanical Ventilator 55 10/30/16 13:59 92 55 10/30/16 11:00 93 Mechanical Ventilator 55 10/30/16 11:00 100 10/30/16 11:00 55 10/30/16 11:00 97.9 100 16 125/66 93 147/69 10/30/16 09:24 97 50 10/30/16 08:05 97 50 10/30/16 07:00 97 Mechanical Ventilator 50 10/30/16 07:00 97.7 85 16 115/58 97 113/47 10/30/16 07:00 50 10/30/16 07:00 92 10/30/16 03:41 94 50 10/30/16 03:00 96 10/30/16 03:00 98.2 96 16 111/62 94 147/62 10/30/16 03:00 94 Mechanical Ventilator 50 10/30/16 03:00 50 10/30/16 02:05 95 50 10/29/16 23:22 94 50 10/29/16 23:00 87 10/29/16 23:00 50 10/29/16 23:00 96 Mechanical Ventilator 50 10/29/16 23:00 97.8 87 16 110/53 96 139/57 10/29/16 20:43 95 50 10/29/16 19:00 91 10/29/16 19:00 50 10/29/16 19:00 94 Mechanical Ventilator 50 10/29/16 19:00 98.1 91 16 122/59 94 152/65 I/O 10/29/16 10/29/16 10/29/16 10/30/16 10/30/16 10/30/16 07:00 15:00 23:00 07:00 15:00 23:00 Intake Total 1547 ml 220 ml 1184 ml 1894 ml Output Total 1675 ml 1585 ml 1965 ml Balance -128 ml 220 ml -401 ml -71 ml Intake Oral 0 ml IV Total 1447 ml 100 ml 1184 ml 1794 ml Tube Feeding 0 ml Albumin 100 ml 100 ml Tube Irrigant 0 ml Other 120 ml Output Urine Total 1615 ml 1285 ml 1865 ml Gastric Drainage Total 60 ml 300 ml 100 ml # Bowel Movements 0 0 Result Diagram: 10/30/16 0455 10/30/16 0455 Objective Remarks HEENT: Head is normocephalic. Pupils are reactive. Icterus +. NECK: Supple. No lymphadenopathy. No bruits. CHEST: Equal movements with wheezes over both lung giang . HEART: The heart sounds are irregular, S1 and S2 with no murmur. No S3. ABDOMEN: Obese, protuberant without masses or organomegaly. No tenderness. Bowel sounds are active. EXTREMITIES: Amputated left leg below the knee. The right leg has 2 + edema with diminished pulses. The patient is sedated. NEUROLOGIC: sedated. RECTAL: Exam is deferred. SKIN: No lesions. Assessment and Plan Assessment and Plan IMPRESSION 1. Acute respiratory failure. 2. Pulmonary edema with pleural effusions. 3. Probable basilar pneumonia. 4. Anemia and coagulopathy. 5. History of cirrhosis of the liver with ascites. Plan ; 1. Wean FIo2 to keep sat >92. 2. PEEP to 10 cm 3. Continue diuresis per renal. 4. CBC,CXR ,BMP in am 5. Nebs q6h ,PRN duoneb 6. Will need Trach when stable. 7. Keep Sedated Kat Muhammad MD Oct 30, 2016 17:21
--- NOTE | 2016-10-30 17:50 | HHI.CCPN ---
Subjective Remarks/Hospital Course Oxygen diffusion improved overnight - could not get sats over 85% last evening until converted to APRV mode. Abdominal distention will hamper efforts to eventually extubate; hopefully diuretics will manage ascites. Sputum culture obtained last night - pending. Will review therapy with Dr. Sosa. 10/26: Oxygen diffusion improving but CXR remains wet - ? underlying pneumonia. 10/27: CXR today looks like fluid overload with persistent pulmonary venous congestion. I'm not sure we are getting enough fluid off of him. Converted back to conventional ventilation today and maintaining sats > 95%. Platelets decreasing, check HIPA - no heparin/lovenox for 4 days. Hold supplemental whey protein pending ammonia level (no encephalopathy prior to extubation). 10/28: Remains sedated, orally intubated on mechanical ventilation. Coffee- ground NG aspirate noted by RN. [facility] 10/29: Remains sedated, orally intubated on mechanical ventilation. Underwent EGD on 10/28 by GI, awaiting official report however was informed by MECHANICAL FACILITIES TECHNICIAN that she was told patient had gastritis on EGD and no active bleeding. Received 2 units PRBCs, 2 units FFP, 1 unit cryoprecipitate and 1 unit pheresed platelets on 10/28. Remains on Bumex drip to mobilize fluid. 10/30: Remains encephalopathic, unresponsive off sedation, orally intubated on mechanical ventilation. Objective Vital Signs Date Time Temp Pulse Resp B/P Pulse Ox O2 Delivery O2 Flow Rate FiO2 10/30/16 16:45 97 55 10/30/16 15:00 100 10/30/16 15:00 97.8 18 137/68 146/69 10/30/16 15:00 Mechanical Ventilator Intake and Output 10/29/16 10/29/16 10/30/16 08:00 16:00 00:00 Intake Total 1547 ml 220 ml 1184 ml Output Total 1675 ml 1585 ml Balance -128 ml 220 ml -401 ml Result Diagram: 10/30/16 0455 10/30/16 0455 Other Results Microbiology Date/Time Procedure Status Source Growth 10/28/16 15:30 Stool Occult Blood (LUISA) - Final Complete Stool Stool HEMOCCULT POSITIVE Imaging Last Impressions Chest X-Ray 10/28/16 0400 Signed Impressions: Service Date/Time: Friday, October 28, 2016 04:52 - CONCLUSION: 1. No significant change in the hazy opacity in both lungs. 2. Mild cardiomegaly remains. Reginald Ng MD Objective Remarks Gen: Sedated Head: Pallor present. Icterus noted. Neck: Supple, orally intubated Lungs: On mechanical ventilation, air entry decreased bilaterally at bases, scattered rhonchi, bibasilar crackles, no wheezes. Heart: NL S1S2, regular rate. + JVD. Abdomen: distended , firm, no guarding. BS present. No tenderness noted. Extremities: Well perfused, generalized edema. Neuro: Remains unresponsive/encephalopathic since turning off sedation this morning, orally intubated on mechanical ventilation A/P Assessment and Plan Assessment: 1. Hypoxemic Respiratory Failure. 2. Cirrhosis. 3. Thrombocytopenia. 4. Ascites. 5. UTI, gram negative lisha. 6. Pulmonary hypertension. 7. Pneumonia, bilateral, diffuse. 8. Coagulopathy secondary to liver disease 9. Upper GI bleed 10. Fluid overload Plan: 1. PRVC vent mode. 2. Keep a-line. 3. CVL for CVP. 4. Sputum culture -> benign.. 5. ABX coverage for UTI. 6. Broaden coverage for pneumonia, de-escalate if sputum NG. 7. Hold chemical DVT px. (Low platelets and GI bleed) 8. SCDs X 1 leg. 9. Protonix. 10. Hold Nepro TFs in view of upper GI bleed. GI following for liver cirrhosis , upper GI bleed. Continue Protonix and octreotide drips. Follow CBC and coags. s/p EGD 10-28-16--> GIB, portal gastropathy, duodenitis, hiatal hernia 11. Transfused 1 unit pheresed platelets, cryoprecipitate, 2 units FFP as well as give vitamin K 10 mg IV, 2 units PRBCs on 10/28. Follow CBC and coags, transfuse to keep hemoglobin above 7 g percent. Overall impression: Critically ill with life-threatening hypoxemia initially refractory to conventional mechanical ventilation. Liver, kidneys, marrow failing as well. Ascites and fluid overload persists. Recent diagnosis of cirrhosis after many years of alcohol abuse. Neurologically intact prior to intubation. We may need to tap abdomen to get off ventilator. Now with upper GI bleeding. Prognosis appears poor. Palliative care consulted to assist with deciding goals of therapy. Critical Care 40 mins Efraín Perez MD Oct 30, 2016 17:50
--- NOTE | 2016-10-30 18:37 | HHI.NPPN ---
Subjective History of Present Illness 50-year-old male with a past medical history of hypertension, history of cirrhosis of the liver, history of ascites in the past, hyperlipidemia, ischemic heart disease, cerebrovascular accident who came to the hospital with a complaint of shortness of breath and increased swelling of the legs. I was called to see the patient because of elevated BUN and creatinine. His BUN was 62 and creatinine was 2.5, about a month ago his creatinine was 0.7. Additional Remarks Patient remain intubated and sedated, clinically same. Objective Data Data 10/29/16 10/30/16 19:00 07:00 Intake Total 1404 ml 1894 ml Output Total 1585 ml 1965 ml Balance -181 ml -71 ml IV Total 1284 ml 1794 ml Albumin 100 ml Other 120 ml Output Urine Total 1285 ml 1865 ml Gastric Drainage Total 300 ml 100 ml # Bowel Movements 0 Vital Signs Date Time Temp Pulse Resp B/P Pulse Ox O2 Delivery O2 Flow Rate FiO2 10/30/16 16:45 97 55 10/30/16 15:00 100 10/30/16 15:00 55 10/30/16 15:00 97.8 100 18 137/68 93 146/69 10/30/16 15:00 93 Mechanical Ventilator 55 10/30/16 13:59 92 55 10/30/16 11:00 93 Mechanical Ventilator 55 10/30/16 11:00 100 10/30/16 11:00 55 10/30/16 11:00 97.9 100 16 125/66 93 147/69 10/30/16 09:24 97 50 10/30/16 08:05 97 50 10/30/16 07:00 97 Mechanical Ventilator 50 10/30/16 07:00 97.7 85 16 115/58 97 113/47 10/30/16 07:00 50 10/30/16 07:00 92 10/30/16 03:41 94 50 10/30/16 03:00 96 10/30/16 03:00 98.2 96 16 111/62 94 147/62 10/30/16 03:00 94 Mechanical Ventilator 50 10/30/16 03:00 50 10/30/16 02:05 95 50 10/29/16 23:22 94 50 10/29/16 23:00 87 10/29/16 23:00 50 10/29/16 23:00 96 Mechanical Ventilator 50 10/29/16 23:00 97.8 87 16 110/53 96 139/57 10/29/16 20:43 95 50 10/29/16 19:00 91 10/29/16 19:00 50 10/29/16 19:00 94 Mechanical Ventilator 50 10/29/16 19:00 98.1 91 16 122/59 94 152/65 -: 10/30/16 0455 10/30/16 0455 Physical Exam General Appearance Remarks Intubated and sedated. Eyes Eye Exam: Pupils Equal Throat Throat Exam: Oral Mucosa [place] & Moist Pulmonary Resp Exam: Breath Sounds Equal, Rhonchi, Decreased Bases, Diminished Breath Sounds Cardiology CV Exam: Regular, Normal Sinus Rhythm Gastrointestinal/Abdomen GI Exam: Soft, Distended Extremeties Extremities Exam: Moderate Edema, Pitting Edema, Dependent Edema Neurologic Neuro Exam: Sedated Assessment/Plan Assessment Summary: DAREK/Acute Renal Failure, Fluid/Volume Overload Problem List: (1) HTN (hypertension) (2) Alcoholic liver disease (3) Anasarca (4) Pulmonary edema (5) Acute kidney injury Plan hx of cirrhosis /HRS Patient responded to treatment and UOP improved with Bumex infusion.1MG/HR on Albumin 25 gm IV Q 12 on Midodrine/Octreotide On Bumex, Creatinine is slightly better. K is better. GI following, for EGD. Continue Bumex, follow the urine out put and BMP. Creatinine is slowly improving. Have increase Bilirubin. Problem Qualifiers (1) Pulmonary edema: Qualified Code: J81.0 - Acute pulmonary edema John Gibbons MD Oct 30, 2016 18:37
--- NOTE | 2016-10-30 19:13 | RADRPT ---
EXAM DATE/TIME: 10/30/2016 17:30 [facility] COMPARISON: No previous studies available for comparison. INDICATIONS : Abdominal distension MEDICAL HISTORY : Cirrhosis. SURGICAL HISTORY : None. ENCOUNTER: Initial ACUITY: 1 day PAIN SCORE: Non-responsive. LOCATION: Bilateral abdomen FINDINGS: Limited quality examination due to scatter from body habitus. There is some gas in the stomach and t ransverse colon. No other distended loops seen. Osseous structures are grossly intact, but the pelv ic structures are limited in visualization CONCLUSION: No gross abnormality seen. See Woodruff MD on October 30, 2016 at 19:10 Board Certified Radiologist. This report was verified electronically.
[2016-10-30] MEDS: METOCLOPRAMIDE HCL 10 MG/2 ML VIAL IV PUSH SCH (21:32)
[2016-10-30] MEDS: AZITHROMYCIN INJ 500 MG in SODIUM CHLOR 0.9% 250 ML INJ 250 ML IV SCH (21:36)
--- NOTE | 2016-10-30 23:22 | RADRPT ---
EXAM DATE/TIME: 10/30/2016 22:22 [facility] COMPARISON: No previous studies available for comparison. INDICATIONS : Cirrhosis. MEDICAL HISTORY : Hypertension. Cirrhosis. Adenoids. Anticoagulant therapy. Dyspnea. Depression. SURGICAL HISTORY : Left BKA surgery. ENCOUNTER: Initial ACUITY: 1 day PAIN SCORE: Nonresponsive. LOCATION: Bilateral upper quadrant MEASUREMENTS: LIVER: 17.5 cm length COMMON DUCT: 3 mm RIGHT KIDNEY: 9.9 x 6.3 x 5.8 cm LEFT KIDNEY: 10.6 x 4.9 x 5.1 cm SPLEEN: 18.1 cm length AORTA: 1.8cm maximal FINDINGS: LIVER: The liver is mildly enlarged panlobular in outer contour. There is a small to moderate amount of surr ounding ascitic fluid. The echotexture the liver is coarse with no distinct focal mass or ductal dila tation. There is abnormal hepatofugal blood flow in the portal vein. COMMON DUCT: No intraluminal mass or stone visualized. GALLBLADDER: Contains no stones, demonstrates no wall thickening or pericholecystic fluid. PANCREAS: Could not be visualized or evaluated due to overlying bowel gas. RIGHT KIDNEY: No hydronephrosis, stone or mass. LEFT KIDNEY: No hydronephrosis, stone or mass. SPLEEN: Mild to moderate splenomegaly but no focal lesion. There is adjacent ascites. AORTA: Non aneurysmal. IVC: Within normal limits. CONCLUSION: 1. Cirrhotic prominent liver with abnormal hepatopedal fugal blood flow in the portal vein. 2. Mild to moderate splenomegaly. 3. A moderate ascitic fluid. Reginald Ng MD on October 30, 2016 at 23:18 Board Certified Radiologist. This report was verified electronically.
[2016-10-31] VITALS (19 sets, daily range): BP systolic 117–169; BP diastolic 53–77; PULSE 91–111; RESP 16–18; TEMP 97.6–99.6; O2SAT 94–100
[2016-10-31] MEDS: RESP: ALBUTEROL 2.5 MG/IPRATROPIUM 0.5 MG NEB (PRN) INH (00:07)
[2016-10-31] MEDS ORDERED: DOPamine INJ PREMIX 500 ML ONE (00:25)
[2016-10-31] MEDS: BUMETANIDE INJ 100 ML IV SCH (02:35)
[2016-10-31] MEDS: OCTREOTIDE INJ 500 MCG in SODIUM CHLORID 0.9% 500 ML INJ 499.5 ML IV SCH ×2 (02:35→21:28)
[2016-10-31] MEDS: ALBUMIN HUMAN 25% 25 GM/100 ML BAGP IV SCH ×2 (02:37→19:02)
[2016-10-31] MEDS: CHLORHEXIDINE GLUCONATE 2 % 1 PACK (2 CLOTHS) TOP SCH (04:00)
[2016-10-31 04:52] LABS: AUTOMATED NEUTROPHIL # 12.7 TH/MM3 (1.8-7.7); BASOPHIL # 0.1 TH/MM3 (0-0.2); BASOPHIL % 0.4 % (0.0-2.0); EOSINOPHIL # 0.1 TH/MM3 (0-0.4); EOSINOPHIL % 0.5 % (0.0-4.0); HEMATOCRIT 26.6 % (39.0-51.0); LYMPH % 6.5 % (9.0-44.0); MEAN CELL VOLUME 99.6 FL (80.0-100.0); MEAN CORPUSCULAR HEMOGLOBIN 35.2 PG (27.0-34.0); MEAN CORPUSCULAR HGB CONC 35.4 % (32.0-36.0); NEUT % 86.6 % (16.0-70.0); PLATELET COUNT 45 TH/MM3 (150-450); RED BLOOD COUNT 2.67 MIL/MM3 (4.50-5.90); RED CELL DISTRIBUTION WIDTH 22.1 % (11.6-17.2); WHITE BLOOD COUNT 14.7 TH/MM3 (4.0-11.0)
[2016-10-31 04:53] LABS: HEMO FLAGS AUTO DIFF
--- NOTE | 2016-10-31 04:54 | RADRPT ---
EXAM DATE/TIME: 10/31/2016 04:04 [facility] COMPARISON: CHEST SINGLE AP, October 28, 2016, 4:52. INDICATIONS : Short of breath. MEDICAL HISTORY : Hypertension. Cirrhosis. Adenoids. Anticoagulant therapy. Dyspnea. Depression. SURGICAL HISTORY : None. ENCOUNTER: Initial ACUITY: 1 week PAIN SCORE: Non-responsive. LOCATION: Bilateral chest FINDINGS: A single AP semierect view of the chest was obtained and again demonstrates an endotracheal tube in p lace with the tip approximately 5 cm above the danielito. A nasogastric tube is seen coursing through th e esophagus and into the stomach. The right subclavian central venous line remains in place. Mild to moderate cardiomegaly is again noted. There is mild hazy opacity in both lungs with no focal consolid ation. CONCLUSION: No significant change. Reginald Ng MD on October 31, 2016 at 4:52 Board Certified Radiologist. This report was verified electronically.
[2016-10-31 05:14] LABS: ALKALINE PHOSPHATASE 58 U/L (45-117); ALT (GPT) 30 U/L (12-78); TOTAL BILIRUBIN ADULT 10.5 MG/DL (0.2-1.0)
[2016-10-31 05:21] LABS: ANION GAP 8 MEQ/L (5-15); AST (GOT) 58 U/L (15-37); BICARBONATE 29.8 MEQ/L (21.0-32.0); CHLORIDE 110 MEQ/L (98-107); GLOMERULAR FILTRATION RATE 30 ML/MIN (>89); POTASSIUM 3.3 MEQ/L (3.5-5.1); SODIUM (NA) 148 MEQ/L (136-145)
[2016-10-31 05:22] LABS: BLOOD UREA NITROGEN 105 MG/DL (7-18)
[2016-10-31] MEDS: METOCLOPRAMIDE HCL 10 MG/2 ML VIAL IV PUSH SCH ×3 (06:00→21:28)
[2016-10-31] MEDS: metroNIDAZOLE 500 MG INJ 100 ML IV SCH ×3 (06:05→23:30)
[2016-10-31] MEDS: MIDODRINE 5 MG TAB PO SCH ×3 (07:00→19:02)
[2016-10-31 07:42] LABS: PLATELET ESTIMATE SMEAR LOW (NORMAL); PLATELET MORPHOLOGY NORMAL (NORMAL); SCAN/DIFF AUTO DIFF CONFIRMED
[2016-10-31] MEDS: LACTULOSE SYRUP 20 GM/30 ML CUP PO SCH ×2 (08:49→21:27)
[2016-10-31] MEDS: RIFAXIMIN 550 MG TAB PO SCH ×2 (08:49→21:27)
[2016-10-31] MEDS: POTASSIUM CHLORIDE 25 MEQ EFFERVESCENT TAB PO SCH (08:49)
[2016-10-31] MEDS: prednisoLONE ALCOHOL/DYE FREE 15 MG/5 ML ORAL SYR PO SCH (08:49)
[2016-10-31] MEDS: DOCUSATE SODIUM 50 MG/SENNA 8.6 MG TAB PO SCH ×2 (08:49→21:27)
[2016-10-31] MEDS: CEFEPIME INJ 2,000 MG in SODIUM CHLORIDE 0.9% INJ 100 ML IV SCH ×2 (08:50→21:28)
[2016-10-31] MEDS: PANTOPRAZOLE INJ 80 MG in SODIUM CHLORIDE 0.9% INJ 100 ML IV SCH ×2 (09:09→21:28)
--- NOTE | 2016-10-31 10:16 | HHI.CCPN ---
Subjective Remarks/Hospital Course Oxygen diffusion improved overnight - could not get sats over 85% last evening until converted to APRV mode. Abdominal distention will hamper efforts to eventually extubate; hopefully diuretics will manage ascites. Sputum culture obtained last night - pending. Will review therapy with Dr. Sosa. 10/26: Oxygen diffusion improving but CXR remains wet - ? underlying pneumonia. 10/27: CXR today looks like fluid overload with persistent pulmonary venous congestion. I'm not sure we are getting enough fluid off of him. Converted back to conventional ventilation today and maintaining sats > 95%. Platelets decreasing, check HIPA - no heparin/lovenox for 4 days. Hold supplemental whey protein pending ammonia level (no encephalopathy prior to extubation). 10/28: Remains sedated, orally intubated on mechanical ventilation. Coffee- ground NG aspirate noted by RN. [facility] 10/29: Remains sedated, orally intubated on mechanical ventilation. Underwent EGD on 10/28 by GI, awaiting official report however was informed by DAIRY BAR MANAGER that she was told patient had gastritis on EGD and no active bleeding. Received 2 units PRBCs, 2 units FFP, 1 unit cryoprecipitate and 1 unit pheresed platelets on 10/28. Remains on Bumex drip to mobilize fluid. 10/30: Remains encephalopathic, unresponsive off sedation, orally intubated on mechanical ventilation. 10/31: Abdominal ultrasound noted moderate ascites, tentative plan for paracentesis however platelet count 45, scheduled transfusion of 1 unit of platelets this a.m. Patient continues to be encephalopathic, ammonia level CXII on 10/29, lactulose increased consider rifaximin. NG tube output decreased overnight with institution of Reglan. Urine output noted to be increased with slight decrease in creatinine in the last 24 hours, as the patient continues on Bumex 1 mg/hour. Objective Vital Signs Date Time Temp Pulse Resp B/P Pulse Ox O2 Delivery O2 Flow Rate FiO2 10/31/16 08:50 94 55 10/31/16 07:00 Mechanical Ventilator 10/31/16 07:00 92 10/31/16 07:00 98.2 16 124/64 142/71 Intake and Output 10/30/16 10/30/16 10/31/16 08:00 16:00 00:00 Intake Total 1894 ml 1061 ml Output Total 1965 ml 2075 ml Balance -71 ml -1014 ml Result Diagram: 10/31/16 0435 10/31/16 0435 Other Results Microbiology Date/Time Procedure Status Source Growth 10/28/16 15:30 Stool Occult Blood (LUISA) - Final Complete Stool Stool HEMOCCULT POSITIVE Imaging Last Impressions Chest X-Ray 10/31/16 0600 Signed Impressions: Service Date/Time: October 04:04 - CONCLUSION: No significant change. Reginald Ng MD Abdomen X-Ray 10/30/16 0000 Signed Impressions: Service Date/Time: Sunday, October 30, 2016 17:30 - CONCLUSION: No gross abnormality seen. See Woodruff MD Abdomen Ultrasound 10/30/16 0000 Signed Impressions: Service Date/Time: Sunday, October 30, 2016 22:22 - CONCLUSION: 1. Cirrhotic prominent liver with abnormal hepatopedal fugal blood flow in the portal vein. 2. Mild to moderate splenomegaly. 3. A moderate ascitic fluid. Reginald Ng MD Last Impressions Chest X-Ray 10/28/16 0400 Signed Impressions: Service Date/Time: Friday, October 28, 2016 04:52 - CONCLUSION: 1. No significant change in the hazy opacity in both lungs. 2. Mild cardiomegaly remains. Reginald Ng MD Objective Remarks Gen: Critically ill-appearing male generalized anasarca, intubated, sedation off 24 hours Head: Pallor present. Icterus noted. Neck: Supple, orally intubated Lungs: On mechanical ventilation, air entry decreased bilaterally at bases, scattered rhonchi, bibasilar crackles, no wheezes. Heart: NL S1S2, regular rate. + JVD. Abdomen: distended , firm, no guarding. BS present. No tenderness noted. Extremities: Well perfused, generalized anasarca Neuro: GCS 3T. Remains unresponsive/encephalopathic since turning off sedation this morning, orally intubated on mechanical ventilation Urinary Catheter: Yes Yap insert reason: ICU Pt Getting Diuretics A/P Assessment and Plan Assessment: 1. Hypoxemic Respiratory Failure. 2. Cirrhosis. 3. Thrombocytopenia. 4. Moderate Ascites 5. UTI, Klebsiella 6. Pulmonary hypertension. 7. Pneumonia, bilateral, diffuse. 8. Coagulopathy secondary to liver disease 9. Upper GI bleed 10. Fluid overload 11. Cardiomegaly Plan: Plan by systems: Neurologic: -GCS 3T, sedation off since 10/30 -Monitor ammonia level -Increase lactulose to twice a day Respiratory: -Ventilator bundle -Maintain O2 sat greater than 92%, PRBC -Pneumonia follow-up sputum cultures -Bronchodilators, scheduled and when necessary -Pulmonology following-Dr. Roque Cardiovascular: -Maintain arterial line -Maintain central venous line -Maintain MAP greater than 65 mmHg, Midrin currently on hold Renal: -Nephrology following-Dr. Gibbons, currently Bumex 1 mg/an hour and albumin twice a day -Urine output last 24 hours increased 4100cc, creatinine slightly lower 2.41-> 2.35 today -- Strict I/Os FEN/GI: -Tube feeds currently on hold -Creatinine improving -Protonix and octreotide infusions per GI - Hold Nepro TFs in view of upper GI bleed. GI following for liver cirrhosis, upper GI bleed. Continue Protonix and octreotide drips. Follow CBC and coags. s/p EGD 10-28-16--> GIB, portal gastropathy, duodenitis, hiatal hernia Heme/ID: -Thrombocytopenia in the setting of moderate splenomegaly will transfuse 1 unit of platelets -Sputum culture- NGTD Broaden coverage for pneumonia, de-escalate if sputum NG. 11. Transfused 1 unit pheresed platelets, cryoprecipitate, 2 units FFP as well as give vitamin K 10 mg IV, 2 units PRBCs on 10/28. Follow CBC and coags, transfuse to keep hemoglobin above 7gm/dl Endocrine: Glucose monitoring per ICU protocol -- SSI Prophylaxis: GI Prophylaxis Protonix infusion MSK: -Reddened area left below-knee amputation in stump area from prosthetic, obtain wound care consult DVT Prophylaxis -- SCDs No pharmacological prophylaxis in the setting of GI bleed Lines: Art line, central line, peripheral IVs Dispo: my billing statement This patient remains critically ill with one or more organ systems which are or may become a threat to life. I have spent in excess of 31 minutes discontinuously in the care and management of this patient. This time is exclusive of procedures, and includes, but is not limited to, evaluation of the patient, review of the medical record, discussions with family, consultants, nursing staff, or respiratory therapy, and documentation in the medical record. Overall impression: Critically ill with life-threatening hypoxemia initially refractory to conventional mechanical ventilation. Liver, kidneys, marrow failing as well. Ascites and fluid overload persists. Recent diagnosis of cirrhosis after many years of alcohol abuse. Neurologically intact prior to intubation. We may need to tap abdomen to get off ventilator. Now with upper GI bleeding. Prognosis appears poor. Palliative care consulted to assist with deciding goals of therapy. Physician Katelyn Hess MD Oct 31, 2016 10:16
--- NOTE | 2016-10-31 12:43 | HHI.HCPN ---
Reason for visit a. To assist with evaluation and management of symptoms including: Encephalopathy, dyspnea, pain b. To assist medical decision maker(s) with: better understanding of current medical conditions; weighing benefits/burdens of medical treatment options; making medical treatment decisions. Subjective/Interval History Pt remains critically ill in ICU. Total bilirubin now up to 10.5. Ammonia 112 on 10/29/16. Diprivan has been off and patient remains nearly unresponsive. Both parents are present, see below . Family/friend interactions Discussion at the bedside with both parents. They have a clear understanding that the patient has end-stage liver disease, and that he is going to . I have requested that we change his status so that he is not resuscitated if his heart stops, and they know they are facing the "big decision" as they determine "how long to prolong this process." We discussed the process of withdrawal of life support and how the focus would remain on comfort at that time until natural occurs. . Advance Directives Health Care Surrogate: Completed, but not made available Advance Directive Specifics Significant change in goals: Parents request DNR. They are considering withdrawal of life support . Objective Vital Signs Date Time Temp Pulse Resp B/P Pulse Ox O2 Delivery O2 Flow Rate FiO2 10/31/16 08:50 94 55 10/31/16 07:00 55 10/31/16 07:00 97 Mechanical Ventilator 55 10/31/16 07:00 92 10/31/16 07:00 98.2 107 16 124/64 97 142/71 10/31/16 04:40 95 55 10/31/16 04:00 98.6 98 18 117/57 97 141/62 10/31/16 03:49 97 Mechanical Ventilator 55 10/31/16 03:49 55 10/31/16 03:30 98 10/31/16 01:10 97 55 10/31/16 00:00 97.6 92 18 128/65 97 144/62 10/30/16 23:40 94 10/30/16 23:26 55 10/30/16 23:26 97 Mechanical Ventilator 55 10/30/16 22:35 96 55 10/30/16 20:35 96 55 10/30/16 20:00 97.9 92 22 120/62 96 146/62 10/30/16 20:00 55 10/30/16 20:00 96 Mechanical Ventilator 55 10/30/16 18:55 91 10/30/16 16:45 97 55 10/30/16 15:00 100 10/30/16 15:00 55 10/30/16 15:00 97.8 100 18 137/68 93 146/69 10/30/16 15:00 93 Mechanical Ventilator 55 10/30/16 13:59 92 55 Intake & Output 10/31/16 10/31/16 06:59 18:59 Intake Total 1338 ml Output Total 2025 ml Balance -687 ml Intake Oral 0 ml IV Total 1198 ml Other 140 ml Output Urine Total 1900 ml Gastric Drainage Total 125 ml # Bowel Movements 0 Physical Exam CONSTITUTIONAL/GENERAL: This is an ill-appearing patient. TUBES/LINES/DRAINS: Central line, arterial line, ET tube, OG tube, Yap catheter SKIN: jaundiced. No wounds seen anteriorly. Skin temperature appropriate. Not diaphoretic. CARDIOVASCULAR: Regular rate and rhythm without murmurs.significant generalized pitting edema. Pedal pulses faint. RESPIRATORY/CHEST: Symmetric, unlabored respirations via mechanical vent. Respiratory rate + over vent rate. Coarse air movement throughout. Breath sounds equal bilaterally. GASTROINTESTINAL: Abdomen distended, firm, large amount of ascites. OG tube to suction, maroon drainage output. No bowel sounds to my exam. limited palp due to distention/firmness GENITOURINARY: Without palpable bladder distension. Yap catheter in place dark tea urine NEUROLOGICAL: No sedation, Diprivan off for days. no eye opening. No response to pain stimuli. PSYCHIATRIC: Unable to evaluate due to clinical condition . Diagnostic Tests Laboratory Laboratory Tests Test 10/28/16 10/28/16 10/28/16 10/29/16 13:26 15:22 22:20 04:15 Blood Type A POSITIVE Antibody Screen NEGATIVE Crossmatch Leukocyte-Reduced Red Blood Cells Blood Bank Comment White Blood Count 15.6 TH/MM3 14.1 TH/MM3 (4.0-11.0) (4.0-11.0) Red Blood Count 2.77 MIL/MM3 2.64 MIL/MM3 (4.50-5.90) (4.50-5.90) Hemoglobin 9.8 GM/DL 9.2 GM/DL (13.0-17.0) (13.0-17.0) Hematocrit 27.3 % 26.1 % (39.0-51.0) (39.0-51.0) Mean Corpuscular Volume 98.6 FL 98.8 FL (80.0-100.0) (80.0-100.0) Mean Corpuscular Hemoglobin 35.3 PG 34.8 PG (27.0-34.0) (27.0-34.0) Mean Corpuscular Hemoglobin 35.8 % 35.2 % Concent (32.0-36.0) (32.0-36.0) Red Cell Distribution Width 22.2 % 22.0 % (11.6-17.2) (11.6-17.2) Platelet Count 38 TH/MM3 35 TH/MM3 (150-450) (150-450) Mean Platelet Volume 9.1 FL 8.6 FL (7.0-11.0) (7.0-11.0) Prothrombin Time 17.5 SEC 19.0 SEC (9.8-11.6) (9.8-11.6) Prothromb Time International 1.6 RATIO 1.7 RATIO Ratio Activated Partial 36.2 SEC 39.0 SEC Thromboplast Time (24.3-30.1) (24.3-30.1) Fibrinogen 214 mg/dL 211 mg/dL (227-377) (227-377) Neutrophils (%) (Auto) 89.8 % (16.0-70.0) Lymphocytes (%) (Auto) 5.1 % (9.0-44.0) Monocytes (%) (Auto) 3.5 % (0.0-8.0) Eosinophils (%) (Auto) 1.4 % (0.0-4.0) Basophils (%) (Auto) 0.2 % (0.0-2.0) Neutrophils # (Auto) 12.7 TH/MM3 (1.8-7.7) Lymphocytes # (Auto) 0.7 TH/MM3 (1.0-4.8) Monocytes # (Auto) 0.5 TH/MM3 (0-0.9) Eosinophils # (Auto) 0.2 TH/MM3 (0-0.4) Basophils # (Auto) 0.0 TH/MM3 (0-0.2) CBC Comment AUTO DIFF Differential Total Cells 100 Counted Neutrophils % (Manual) 77 % (16-70) Band Neutrophils % 10 % (0-6) Lymphocytes % 4 % (9-44) Monocytes % 2 % (0-8) Eosinophils % 4 % (0-4) Neutrophils # (Manual) 12.7 TH/MM3 (1.8-7.7) Metamyelocytes 1 % (0-1) Myelocytes 2 % (0-0) Differential Comment FINAL DIFF MANUAL Platelet Estimate LOW (NORMAL) Platelet Morphology Comment NORMAL (NORMAL) Tear Drop Cells 1+ (NORMAL) Ovalocytes 1+ (NORMAL) Sodium Level 142 MEQ/L (136-145) Potassium Level 3.6 MEQ/L (3.5-5.1) Chloride Level 104 MEQ/L (98-107) Carbon Dioxide Level 26.6 MEQ/L (21.0-32.0) Anion Gap 11 MEQ/L (5-15) Blood Urea Nitrogen 103 MG/DL (7-18) Creatinine 2.59 MG/DL (0.60-1.30) Estimat Glomerular Filtration 27 ML/MIN (>89) Rate Random Glucose 136 MG/DL (74-106) Calcium Level 8.0 MG/DL (8.5-10.1) Total Bilirubin 8.5 MG/DL (0.2-1.0) Aspartate Amino Transf 91 U/L (15-37) (AST/SGOT) Alanine Aminotransferase 32 U/L (12-78) (ALT/SGPT) Alkaline Phosphatase 60 U/L (45-117) Ammonia 112 MCMOL/L (11-32) Total Protein 7.0 GM/DL (6.4-8.2) Albumin 2.5 GM/DL (3.4-5.0) Test 10/29/16 10/30/16 10/31/16 10/31/16 12:00 04:55 04:35 09:43 Hemoglobin 9.4 GM/DL 9.0 GM/DL 9.4 GM/DL (13.0-17.0) (13.0-17.0) (13.0-17.0) Hematocrit 26.7 % 25.9 % 26.6 % (39.0-51.0) (39.0-51.0) (39.0-51.0) White Blood Count 14.7 TH/MM3 14.7 TH/MM3 (4.0-11.0) (4.0-11.0) Red Blood Count 2.61 MIL/MM3 2.67 MIL/MM3 (4.50-5.90) (4.50-5.90) Mean Corpuscular Volume 99.3 FL 99.6 FL (80.0-100.0) (80.0-100.0) Mean Corpuscular Hemoglobin 34.5 PG 35.2 PG (27.0-34.0) (27.0-34.0) Mean Corpuscular Hemoglobin 34.7 % 35.4 % Concent (32.0-36.0) (32.0-36.0) Red Cell Distribution Width 22.4 % 22.1 % (11.6-17.2) (11.6-17.2) Platelet Count 36 TH/MM3 45 TH/MM3 (150-450) (150-450) Mean Platelet Volume 8.6 FL 8.6 FL (7.0-11.0) (7.0-11.0) Neutrophils (%) (Auto) 89.2 % 86.6 % (16.0-70.0) (16.0-70.0) Lymphocytes (%) (Auto) 5.0 % 6.5 % (9.0-44.0) (9.0-44.0) Monocytes (%) (Auto) 4.1 % (0.0-8.0) 6.0 % (0.0-8.0) Eosinophils (%) (Auto) 1.3 % (0.0-4.0) 0.5 % (0.0-4.0) Basophils (%) (Auto) 0.4 % (0.0-2.0) 0.4 % (0.0-2.0) Neutrophils # (Auto) 13.1 TH/MM3 12.7 TH/MM3 (1.8-7.7) (1.8-7.7) Lymphocytes # (Auto) 0.7 TH/MM3 1.0 TH/MM3 (1.0-4.8) (1.0-4.8) Monocytes # (Auto) 0.6 TH/MM3 0.9 TH/MM3 (0-0.9) (0-0.9) Eosinophils # (Auto) 0.2 TH/MM3 0.1 TH/MM3 (0-0.4) (0-0.4) Basophils # (Auto) 0.1 TH/MM3 0.1 TH/MM3 (0-0.2) (0-0.2) CBC Comment AUTO DIFF AUTO DIFF Differential Total Cells 100 Counted Neutrophils % (Manual) 78 % (16-70) Band Neutrophils % 5 % (0-6) Lymphocytes % 7 % (9-44) Monocytes % 4 % (0-8) Eosinophils % 3 % (0-4) Neutrophils # (Manual) 12.6 TH/MM3 (1.8-7.7) Metamyelocytes 3 % (0-1) Differential Comment FINAL DIFF AUTO DIFF MANUAL CONFIRMED Toxic Granulation 1+ (NORMAL) Platelet Estimate LOW (NORMAL) LOW (NORMAL) Platelet Morphology Comment NORMAL NORMAL (NORMAL) (NORMAL) Sodium Level 142 MEQ/L 148 MEQ/L (136-145) (136-145) Potassium Level 3.5 MEQ/L 3.3 MEQ/L (3.5-5.1) (3.5-5.1) Chloride Level 105 MEQ/L 110 MEQ/L (98-107) (98-107) Carbon Dioxide Level 27.0 MEQ/L 29.8 MEQ/L (21.0-32.0) (21.0-32.0) Anion Gap 10 MEQ/L (5-15) 8 MEQ/L (5-15) Blood Urea Nitrogen 100 MG/DL 105 MG/DL (7-18) (7-18) Creatinine 2.41 MG/DL 2.35 MG/DL (0.60-1.30) (0.60-1.30) Estimat Glomerular Filtration 29 ML/MIN (>89) 30 ML/MIN (>89) Rate Random Glucose 139 MG/DL 160 MG/DL (74-106) (74-106) Calcium Level 8.2 MG/DL 8.0 MG/DL (8.5-10.1) (8.5-10.1) Total Bilirubin 8.9 MG/DL 10.5 MG/DL (0.2-1.0) (0.2-1.0) Aspartate Amino Transf 68 U/L (15-37) 58 U/L (15-37) (AST/SGOT) Alanine Aminotransferase 29 U/L (12-78) 30 U/L (12-78) (ALT/SGPT) Alkaline Phosphatase 55 U/L (45-117) 58 U/L (45-117) Total Protein 6.9 GM/DL 7.3 GM/DL (6.4-8.2) (6.4-8.2) Albumin 2.6 GM/DL 2.7 GM/DL (3.4-5.0) (3.4-5.0) Blood Bank Comment Result Diagram: 10/31/16 0435 10/31/16 0435 Microbiology Microbiology Date/Time Procedure Status Source Growth 10/28/16 15:30 Stool Occult Blood (LUISA) - Final Complete Stool Stool HEMOCCULT POSITIVE Imaging Last Impressions Chest X-Ray 10/31/16 0600 Signed Impressions: Service Date/Time: October 04:04 - CONCLUSION: No significant change. Reginald Ng MD Abdomen X-Ray 10/30/16 0000 Signed Impressions: Service Date/Time: Sunday, October 30, 2016 17:30 - CONCLUSION: No gross abnormality seen. See Woodruff MD Abdomen Ultrasound 10/30/16 0000 Signed Impressions: Service Date/Time: Sunday, October 30, 2016 22:22 - CONCLUSION: 1. Cirrhotic prominent liver with abnormal hepatopedal fugal blood flow in the portal vein. 2. Mild to moderate splenomegaly. 3. A moderate ascitic fluid. Reginald Ng MD Procedures 10/24orotracheal intubation, arterial line, central venous line (right subclavian) Assessment and Plan Disease Oriented Problem List: (1) Cirrhosis Comment: End-stage liver disease . 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 Lives with a roommate locally per mother. , though remains in communication with his ex-. No children. Originally from [place] though has lived in [place] for many years. Of note patient friend of 30 years shared that patient lost a brother about 20 years ago, and that the mother is still very sensitive regarding this Spiritual Raised Christian as a child, however not known if he had any particular affiliation or preferences recently. Legal Patient due to condition is not able to participate in decision-making. Apparently he did report previously completing healthcare surrogate documentation here, no document is present in the chart. In absence of this document, Per [place] statutes legal decision maker would be mother and father who are in [place]. Mother is not aware of healthcare surrogate document, nor is ex-. Important Contacts mother, Sinduh Feng at , ([facility]) Father Albert Melchor [phone] ([facility]) Prognosis This pt was admitted for SOB. +Findings of pulmonary edema, acute kidney injury , cirrhosis, apparently recently newly diagnosed with liver cirrhosis. Now with multiorgan failurerespiratory, hepatic, renal, new GI bleeding. Plan for EGD. Coagulopathy. High risk for further complications/setbacks. . Code Status: Alternative Code Plan * ALTERNATE CODE, per request of parents 10/31/16 * DECISION-MAKING: Patient due to condition is not able to participate in decision-making. Mother and father are the proxy decision makers. * GOALS: Updated parents 10/31/16, and Dr. Royal also participated in the discussion in the room. Mother and father requests no resuscitation now, and they are thinking and discussing now how long they would "want to prolong this" dying process. They are aware of the process of withdrawal of life support. * SYMPTOMS: --Encephalopathyhepatic, renal failure. On lactulose. rifaximin --Dyspnea-intubated urgently for hypoxemic respiratory failure. 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 Currently with no signs or symptoms of pain. Cautious use of opiates due to renal, hepatic failure. Monitor for signs and symptoms of pain. * Palliative care will continue to follow during hospital course as condition evolves, to assist patient/decision-maker with understanding of medical conditions, weighing benefits/burdens of treatment options, for clarification of goals of treatment. Additionally will assist with any symptoms of palliative concern . Time Spent Total Floor Time (mins): 46 Face to Face Time (mins): 25 >50% Counseling/Coord of Care: Yes (d/w Dr. Edmondson and with Dr. Royal) Attestation To help prompt me to consider important information that might be impacting today's encounter and assessment, information from prior notes written by myself or my colleagues may have been "brought forward" into today's note. My signature on this note, however, is an attestation that I personally performed the exam, history, and/or decision-making noted today, and, unless otherwise indicated, the interactions with patient, family, and staff as well as the review of records all occurred today. I also attest that the listed assessment and stated plan reflect my best clinical judgment today based on the combination of historical information, prior notes, and today's exam/ interactions. When time spent is documented, it refers only to time spent today by the signer, or if indicated, combined time spent today by collaborating physician/nurse practitioner. Khushboo Chi MD Oct 31, 2016 12:43
--- NOTE | 2016-10-31 13:01 | HHI.NPPN ---
Subjective History of Present Illness 50-year-old male with a past medical history of hypertension, history of cirrhosis of the liver, history of ascites in the past, hyperlipidemia, ischemic heart disease, cerebrovascular accident who came to the hospital with a complaint of shortness of breath and increased swelling of the legs. I was called to see the patient because of elevated BUN and creatinine. His BUN was 62 and creatinine was 2.5, about a month ago his creatinine was 0.7. Additional Remarks Patient remain intubated and sedated, on Bumex, off pressors. BP is stable. Objective Data Data 10/30/16 10/31/16 19:00 07:00 Intake Total 1061 ml 1338 ml Output Total 2075 ml 2025 ml Balance -1014 ml -687 ml Intake Oral 0 ml IV Total 821 ml 1198 ml Other 240 ml 140 ml Output Urine Total 2025 ml 1900 ml Gastric Drainage Total 50 ml 125 ml # Bowel Movements 0 0 Vital Signs Date Time Temp Pulse Resp B/P Pulse Ox O2 Delivery O2 Flow Rate FiO2 10/31/16 08:50 94 55 10/31/16 07:00 55 10/31/16 07:00 97 Mechanical Ventilator 55 10/31/16 07:00 92 10/31/16 07:00 98.2 107 16 124/64 97 142/71 10/31/16 04:40 95 55 10/31/16 04:00 98.6 98 18 117/57 97 141/62 10/31/16 03:49 97 Mechanical Ventilator 55 10/31/16 03:49 55 10/31/16 03:30 98 10/31/16 01:10 97 55 10/31/16 00:00 97.6 92 18 128/65 97 144/62 10/30/16 23:40 94 10/30/16 23:26 55 10/30/16 23:26 97 Mechanical Ventilator 55 10/30/16 22:35 96 55 10/30/16 20:35 96 55 10/30/16 20:00 97.9 92 22 120/62 96 146/62 10/30/16 20:00 55 10/30/16 20:00 96 Mechanical Ventilator 55 10/30/16 18:55 91 10/30/16 16:45 97 55 10/30/16 15:00 100 10/30/16 15:00 55 10/30/16 15:00 97.8 100 18 137/68 93 146/69 10/30/16 15:00 93 Mechanical Ventilator 55 10/30/16 13:59 92 55 -: 10/31/16 0435 10/31/16 0435 Physical Exam General Appearance Remarks Intubated and sedated. Eyes Eye Exam: Pupils Equal Throat Throat Exam: Oral Mucosa [place] & Moist Pulmonary Resp Exam: Breath Sounds Equal, Rhonchi, Decreased Bases, Diminished Breath Sounds Cardiology CV Exam: Regular, Normal Sinus Rhythm Gastrointestinal/Abdomen GI Exam: Soft, Distended Extremeties Extremities Exam: Moderate Edema, Pitting Edema, Dependent Edema Neurologic Neuro Exam: Sedated Assessment/Plan Assessment Summary: DAREK/Acute Renal Failure, Fluid/Volume Overload Problem List: (1) HTN (hypertension) (2) Alcoholic liver disease (3) Anasarca (4) Pulmonary edema (5) Acute kidney injury Plan hx of cirrhosis /HRS Patient responded to treatment and UOP improved with Bumex infusion.1MG/HR on Albumin 25 gm IV Q 12 on Midodrine/Octreotide On Bumex, Creatinine is slightly better. K is better. GI following, for EGD. Continue Bumex, follow the urine out put and BMP. Creatinine continue to improve. D/W the parents at bed side. Palliative care also following. Problem Qualifiers (1) Pulmonary edema: Qualified Code: J81.0 - Acute pulmonary edema John Gibbons MD Oct 31, 2016 13:01
--- NOTE | 2016-10-31 13:53 | HHI.GIFU ---
Subjective Remarks Pt off sedation. No BM still. (Claudia Hopson) Objective Vitals I&O Vital Signs Date Time Temp Pulse Resp B/P Pulse Ox O2 Delivery O2 Flow Rate FiO2 10/31/16 08:50 94 55 10/31/16 07:00 55 10/31/16 07:00 97 Mechanical Ventilator 55 10/31/16 07:00 92 10/31/16 07:00 98.2 107 16 124/64 97 142/71 10/31/16 04:40 95 55 10/31/16 04:00 98.6 98 18 117/57 97 141/62 10/31/16 03:49 97 Mechanical Ventilator 55 10/31/16 03:49 55 10/31/16 03:30 98 10/31/16 01:10 97 55 10/31/16 00:00 97.6 92 18 128/65 97 144/62 10/30/16 23:40 94 10/30/16 23:26 55 10/30/16 23:26 97 Mechanical Ventilator 55 10/30/16 22:35 96 55 10/30/16 20:35 96 55 10/30/16 20:00 97.9 92 22 120/62 96 146/62 10/30/16 20:00 55 10/30/16 20:00 96 Mechanical Ventilator 55 10/30/16 18:55 91 10/30/16 16:45 97 55 10/30/16 15:00 100 10/30/16 15:00 55 10/30/16 15:00 97.8 100 18 137/68 93 146/69 10/30/16 15:00 93 Mechanical Ventilator 55 10/30/16 13:59 92 55 I/O 10/30/16 10/30/16 10/30/16 10/31/16 10/31/16 10/31/16 07:00 15:00 23:00 07:00 15:00 23:00 Intake Total 1894 ml 1061 ml 1338 ml Output Total 1965 ml 2075 ml 2025 ml Balance -71 ml -1014 ml -687 ml Intake Oral 0 ml IV Total 1794 ml 821 ml 1198 ml Albumin 100 ml Other 240 ml 140 ml Output Urine Total 1865 ml 2025 ml 1900 ml Gastric Drainage Total 100 ml 50 ml 125 ml # Bowel Movements 0 0 0 Laboratory Laboratory Tests Test 10/31/16 10/31/16 04:35 09:43 White Blood Count 14.7 Red Blood Count 2.67 Hemoglobin 9.4 Hematocrit 26.6 Mean Corpuscular Volume 99.6 Mean Corpuscular Hemoglobin 35.2 Mean Corpuscular Hemoglobin 35.4 Concent Red Cell Distribution Width 22.1 Platelet Count 45 Mean Platelet Volume 8.6 Neutrophils (%) (Auto) 86.6 Lymphocytes (%) (Auto) 6.5 Monocytes (%) (Auto) 6.0 Eosinophils (%) (Auto) 0.5 Basophils (%) (Auto) 0.4 Neutrophils # (Auto) 12.7 Lymphocytes # (Auto) 1.0 Monocytes # (Auto) 0.9 Eosinophils # (Auto) 0.1 Basophils # (Auto) 0.1 CBC Comment AUTO DIFF Differential Comment AUTO DIFF CONFIRMED Platelet Estimate LOW Platelet Morphology Comment NORMAL Sodium Level 148 Potassium Level 3.3 Chloride Level 110 Carbon Dioxide Level 29.8 Anion Gap 8 Blood Urea Nitrogen 105 Creatinine 2.35 Estimat Glomerular Filtration 30 Rate Random Glucose 160 Calcium Level 8.0 Total Bilirubin 10.5 Aspartate Amino Transf 58 (AST/SGOT) Alanine Aminotransferase 30 (ALT/SGPT) Alkaline Phosphatase 58 Total Protein 7.3 Albumin 2.7 Blood Bank Comment Date/Time Procedure Status Source Growth 10/28/16 15:30 Stool Occult Blood (LUISA) - Final Complete Stool Stool HEMOCCULT POSITIVE Imaging Last Impressions Chest X-Ray 10/31/16 0600 Signed Impressions: Service Date/Time: October 04:04 - CONCLUSION: No significant change. Reginald Ng MD Abdomen X-Ray 10/30/16 0000 Signed Impressions: Service Date/Time: Sunday, October 30, 2016 17:30 - CONCLUSION: No gross abnormality seen. See Woodruff MD Abdomen Ultrasound 10/30/16 0000 Signed Impressions: Service Date/Time: Sunday, October 30, 2016 22:22 - CONCLUSION: 1. Cirrhotic prominent liver with abnormal hepatopedal fugal blood flow in the portal vein. 2. Mild to moderate splenomegaly. 3. A moderate ascitic fluid. Reginald Ng MD Physical Exam HEENT: normocephalic; atraumatic; + icterus. intubated CHEST: CTA CARDIAC: RRR ABDOMEN: firm, distended, nontender; bowel sounds are present in all four quadrants. EXTREMITIES: No clubbing, cyanosis, + generalized edema SKIN: jaundiced BSS SOLUTION ARCHITECT: sedated on vent (Claudia Hopson) Assessment and Plan Plan ASSESSMENT: - Upper GI Bleeding, red blood from OGT. initially red blood now Dark bloody drainage from NGT decreasing, only 50cc today s/p 1 units FFP, 1 unit Platelets, 1 unit cryoprecipitate ordered, 3x PRBC, vit k HH stable s/p EGD 10-28-16--> GIB, portal gastropathy, duodenitis, hiatal hernia . - increased NGT output - ?ileus KUB 10-31-16 no abnormalities on reglan - Anemia secondary to acute blood loss. S/P 3 units PRBC. HH stable - Severe thrombocytopenia/coagulopathy, worsening. s/p PLT, rck pending - Liver cirrhosis. According to EMR, quit drinking several months ago. elevated LFTs, jaundice. coagulopathy Tbil increasing - Hepatic encephalopathy. Ammonia 112. Lactulose, rifaximin - Acute kidney injury with electrolyte abnormalities. Creatinine 2.35 - Acute respiratory failure secondary to probable basilar pneumonia, pulmonary edema, pulmonary hypertension. OETT to vent per CCM/Pulm. Bumex, Cefepime, Flagyl, Azithromycin, nebs. PLAN: - continue reglan - paracentesis when platelets improved - continue lactulose - continue rifaximin - OGT to LIWS - cont Octreotide gtt - cont Protonix gtt - Transfuse as necessary - Monitor labs - Supportive care - Further recommendations to follow based on results of above - Pt seen and examined by Dr. Royal and myself and this note is written on her behalf (Claudia Hopson) Physician Comments seen, examined agree with above (Darshana Royal MD) Claudia Hopson Oct 31, 2016 13:53 Darshana Royal MD Oct 31, 2016 19:52
--- NOTE | 2016-10-31 16:49 | HHI.PR ---
Subjective Remarks Sedated and on the vent at FIo2 55 %. Critical .ON PRVC /AC rate 16 and on PEEP +10. DNR now per Family. Objective Vital Signs Date Time Temp Pulse Resp B/P Pulse Ox O2 Delivery O2 Flow Rate FiO2 10/31/16 14:59 100 55 10/31/16 14:00 94 10/31/16 12:00 98.0 92 16 138/64 99 156/60 10/31/16 12:00 55 10/31/16 11:00 97 10/31/16 08:50 94 55 10/31/16 07:00 55 10/31/16 07:00 97 Mechanical Ventilator 55 10/31/16 07:00 92 10/31/16 07:00 98.2 107 16 124/64 97 142/71 10/31/16 04:40 95 55 10/31/16 04:00 98.6 98 18 117/57 97 141/62 10/31/16 03:49 97 Mechanical Ventilator 55 10/31/16 03:49 55 10/31/16 03:30 98 10/31/16 01:10 97 55 10/31/16 00:00 97.6 92 18 128/65 97 144/62 10/30/16 23:40 94 10/30/16 23:26 55 10/30/16 23:26 97 Mechanical Ventilator 55 10/30/16 22:35 96 55 10/30/16 20:35 96 55 10/30/16 20:00 97.9 92 22 120/62 96 146/62 10/30/16 20:00 55 10/30/16 20:00 96 Mechanical Ventilator 55 10/30/16 18:55 91 I/O 10/30/16 10/30/16 10/30/16 10/31/16 10/31/16 10/31/16 06:59 14:59 22:59 06:59 14:59 22:59 Intake Total 1894 ml 1061 ml 1338 ml Output Total 1965 ml 2075 ml 2025 ml Balance -71 ml -1014 ml -687 ml Intake Oral 0 ml IV Total 1794 ml 821 ml 1198 ml Albumin 100 ml Other 240 ml 140 ml Output Urine Total 1865 ml 2025 ml 1900 ml Gastric Drainage Total 100 ml 50 ml 125 ml # Bowel Movements 0 0 0 Result Diagram: 10/31/16 1330 10/31/16 0435 Objective Remarks HEENT: Head is normocephalic. Pupils are reactive. Icterus +. NECK: Supple. No lymphadenopathy. No bruits. CHEST: Equal movements with wheezes over both lung giang and Occ Crackles. HEART: The heart sounds are irregular, S1 and S2 with no murmur. No S3. ABDOMEN: Obese, protuberant without masses or organomegaly. No tenderness. Bowel sounds are active. EXTREMITIES: Amputated left leg below the knee. The right leg has 2 + edema with diminished pulses. The patient is sedated. NEUROLOGIC: sedated. RECTAL: Exam is deferred. SKIN: No lesions. Assessment and Plan Assessment and Plan IMPRESSION 1. Acute respiratory failure. 2. Pulmonary edema with pleural effusions. 3. Probable basilar pneumonia. 4. Anemia and coagulopathy. 5. History of cirrhosis of the liver with ascites. Plan ; 1. Wean FIo2 to keep sat >92. 2. PEEP to 10 cm 3. Continue diuresis per renal. 4. CBC,,BMP in am 5. Nebs q6h ,PRN duoneb 6. D/W family here. 7. Guarded Prognosis Kat Muhammad MD Oct 31, 2016 16:49
[2016-10-31 17:20] LABS: INTERNATIONAL NORMALIZED RATIO 2.2 RATIO; PROTHROMBIN TIME - PATIENT 25.2 SEC (9.8-11.6)
[2016-10-31] MEDS: AZITHROMYCIN INJ 500 MG in SODIUM CHLOR 0.9% 250 ML INJ 250 ML IV SCH (21:27)
[2016-11-01] VITALS (18 sets, daily range): BP systolic 116–156; BP diastolic 43–68; PULSE 75–98; RESP 16–17; TEMP 99–99.4; O2SAT 93–98
[2016-11-01] MEDS: BUMETANIDE INJ 100 ML IV SCH (01:20)
[2016-11-01] MEDS: ALBUMIN HUMAN 25% 25 GM/100 ML BAGP IV SCH ×2 (03:27→15:28)
[2016-11-01] MEDS: CHLORHEXIDINE GLUCONATE 2 % 1 PACK (2 CLOTHS) TOP SCH (03:27)
[2016-11-01 04:43] LABS: HEMATOCRIT 23.7 % (39.0-51.0); MEAN CORPUSCULAR HEMOGLOBIN 36.3 PG (27.0-34.0); MEAN CORPUSCULAR HGB CONC 35.5 % (32.0-36.0); PLATELET COUNT 47 TH/MM3 (150-450); RED BLOOD COUNT 2.32 MIL/MM3 (4.50-5.90); RED CELL DISTRIBUTION WIDTH 23.3 % (11.6-17.2); WHITE BLOOD COUNT 9.8 TH/MM3 (4.0-11.0)
[2016-11-01] MEDS: PANTOPRAZOLE INJ 80 MG in SODIUM CHLORIDE 0.9% INJ 100 ML IV SCH ×2 (04:44→16:41)
[2016-11-01 04:54] LABS: INTERNATIONAL NORMALIZED RATIO 2.5 RATIO; PROTHROMBIN TIME - PATIENT 28.4 SEC (9.8-11.6)
[2016-11-01 04:55] LABS: REVIEW FLAG FINAL
[2016-11-01 05:02] LABS: ALT (GPT) 25 U/L (12-78)
[2016-11-01 05:03] LABS: ALKALINE PHOSPHATASE 49 U/L (45-117)
[2016-11-01 05:15] LABS: ANION GAP 5 MEQ/L (5-15); AST (GOT) 44 U/L (15-37); BICARBONATE 34.6 MEQ/L (21.0-32.0); BLOOD UREA NITROGEN 101 MG/DL (7-18); CHLORIDE 113 MEQ/L (98-107); GLOMERULAR FILTRATION RATE 33 ML/MIN (>89); MAGNESIUM 2.3 MG/DL (1.5-2.5); SODIUM (NA) 153 MEQ/L (136-145)
[2016-11-01] MEDS: METOCLOPRAMIDE HCL 10 MG/2 ML VIAL IV PUSH SCH ×3 (06:10→22:39)
[2016-11-01] MEDS: metroNIDAZOLE 500 MG INJ 100 ML IV SCH ×3 (06:10→22:39)
[2016-11-01] MEDS: MIDODRINE 5 MG TAB PO SCH ×3 (06:10→15:29)
[2016-11-01] MEDS: MORPHINE SULFATE 8 MG/ML INJ IV PUSH PRN (07:53)
[2016-11-01] MEDS: prednisoLONE ALCOHOL/DYE FREE 15 MG/5 ML ORAL SYR PO SCH (07:54)
[2016-11-01] MEDS: SODIUM CHLORIDE 0.9% FLUSH 10 ML FLUSH IVF PRN (07:54)
[2016-11-01] MEDS: POTASSIUM CHLORIDE 25 MEQ EFFERVESCENT TAB PO SCH (07:54)
--- NOTE | 2016-11-01 09:04 | RADRPT ---
EXAM DATE/TIME: 11/01/2016 08:52 [place] COMPARISON: US ABDOMEN - COMPLETE, October 30, 2016, 22:22. INDICATIONS : Evaluate for paracentesis. PLAN: The most recent ultrasound imaging study was reviewed. There is a [id number] volume of free fl uid in the abdomen with most around the liver. There is enough fluid present to obtain for diagnostic purposes, if needed. However, the volume of fluid present is felt very unlikely to be causing respir atory compromise. CONCLUSION: There is a small volume of free fluid in the abdomen. There is enough fluid present for diagnostic pu rposes, if needed. However, a large volume is not present that would compromise respiratory effort. I discussed the findings with Dr. Edmondson. Since the patient is coagulopathic and cannot be transported at this time, followup imaging study will be obtained on Friday to assess for change. Dipesh Swain MD on November 01, 2016 at 9:00 Board Certified Radiologist. This report was verified electronically.
[2016-11-01] MEDS ORDERED: POTASSIUM CHLOR 40 MEQ PREMIX 100 ML IV ONE (09:15)
[2016-11-01] MEDS: CEFEPIME INJ 2,000 MG in SODIUM CHLORIDE 0.9% INJ 100 ML IV SCH ×2 (09:27→22:39)
[2016-11-01] MEDS: DOCUSATE SODIUM 50 MG/SENNA 8.6 MG TAB PO SCH ×2 (09:28→19:48)
[2016-11-01] MEDS: RIFAXIMIN 550 MG TAB PO SCH ×2 (09:28→19:48)
[2016-11-01] MEDS: LACTULOSE SYRUP 20 GM/30 ML CUP PO SCH ×2 (09:29→19:48)
--- NOTE | 2016-11-01 10:07 | HHI.CCPN ---
Subjective Remarks/Hospital Course Oxygen diffusion improved overnight - could not get sats over 85% last evening until converted to APRV mode. Abdominal distention will hamper efforts to eventually extubate; hopefully diuretics will manage ascites. Sputum culture obtained last night - pending. Will review therapy with Dr. Sosa. 10/26: Oxygen diffusion improving but CXR remains wet - ? underlying pneumonia. 10/27: CXR today looks like fluid overload with persistent pulmonary venous congestion. I'm not sure we are getting enough fluid off of him. Converted back to conventional ventilation today and maintaining sats > 95%. Platelets decreasing, check HIPA - no heparin/lovenox for 4 days. Hold supplemental whey protein pending ammonia level (no encephalopathy prior to extubation). 10/28: Remains sedated, orally intubated on mechanical ventilation. Coffee- ground NG aspirate noted by RN. [facility]. 10/29: Remains sedated, orally intubated on mechanical ventilation. Underwent EGD on 10/28 by GI, awaiting official report however was informed by [employer] that she was told patient had gastritis on EGD and no active bleeding. Received 2 units PRBCs, 2 units FFP, 1 unit cryoprecipitate and 1 unit pheresed platelets on 10/28. Remains on Bumex drip to mobilize fluid. 10/30: Remains encephalopathic, unresponsive off sedation, orally intubated on mechanical ventilation. 10/31: Abdominal ultrasound noted moderate ascites, tentative plan for paracentesis however platelet count 45, scheduled transfusion of 1 unit of platelets this a.m. Patient continues to be encephalopathic, ammonia level CXII on 10/29, lactulose increased consider rifaximin. NG tube output decreased overnight with institution of Reglan. Urine output noted to be increased with slight decrease in creatinine in the last 24 hours, as the patient continues on Bumex 1 mg/hour. 11/01: The patient continues to be encephalopathic. The patient continues on rifaximin, and lactulose was increased to twice a day yesterday. The patient continues to be coagulopathic, receiving 1 unit of platelets yesterday for possible abdominal paracentesis. Unable to perform secondary to INR still 2.5. The patient will be transfused 2 units FFP, 1 unit of platelets today. Discussed with radiology ultrasound-guided abdominal paracentesis, tentative plan but may not be performed due to coagulopathy. The patient was made DNR yesterday after extensive discussion with palliative medicine. He continues on Bumex, octreotide and Protonix infusions. Objective Vital Signs Date Time Temp Pulse Resp B/P Pulse Ox O2 Delivery O2 Flow Rate FiO2 11/01/16 08:03 97 35 11/01/16 06:00 84 11/01/16 04:00 99.0 130/63 155/50 11/01/16 00:00 16 10/31/16 07:00 Mechanical Ventilator Intake and Output 10/31/16 10/31/16 10/31/16 07:59 15:59 23:59 Intake Total 1338 ml 734 ml 838 ml Output Total 2025 ml 2825 ml 1650 ml Balance -687 ml -2091 ml -812 ml Result Diagram: 11/01/16 0420 11/01/16 0420 Imaging Last Impressions Chest X-Ray 10/31/16 0600 Signed Impressions: Service Date/Time: October 04:04 - CONCLUSION: No significant change. Reginald Ng MD Abdomen X-Ray 10/30/16 0000 Signed Impressions: Service Date/Time: Sunday, October 30, 2016 17:30 - CONCLUSION: No gross abnormality seen. See Woodruff MD Abdomen Ultrasound 10/30/16 0000 Signed Impressions: Service Date/Time: Sunday, October 30, 2016 22:22 - CONCLUSION: 1. Cirrhotic prominent liver with abnormal hepatopedal fugal blood flow in the portal vein. 2. Mild to moderate splenomegaly. 3. A moderate ascitic fluid. Reginald Ng MD Last Impressions Chest X-Ray 10/28/16 0400 Signed Impressions: Service Date/Time: Friday, October 28, 2016 04:52 - CONCLUSION: 1. No significant change in the hazy opacity in both lungs. 2. Mild cardiomegaly remains. Reginald Ng MD Objective Remarks Gen: Critically ill-appearing male jaundice ,generalized anasarca, intubated, sedation off 24 hours Head: Pallor present. Icterus noted. Neck: Supple, orally intubated Lungs: On mechanical ventilation, air entry decreased bilaterally at bases, scattered rhonchi, bibasilar crackles, no wheezes. Heart: NL S1S2, regular rate. + JVD. Abdomen: distended , firm, no guarding. BS present. No tenderness noted. Extremities: Well perfused, generalized anasarca noted BKA dressing on noted small opening distal site secondary to prosthesis Neuro: GCS 3T. Remains unresponsive/encephalopathic since turning off sedation > 48 hours, orally intubated on mechanical ventilation A/P Assessment and Plan Assessment: 1. Hypoxemic Respiratory Failure. 2. Cirrhosis. 3. Thrombocytopenia. 4. Moderate Ascites 5. UTI, Klebsiella 6. Pulmonary hypertension. 7. Pneumonia, bilateral, diffuse. 8. Coagulopathy secondary to liver disease 9. Upper GI bleed 10. Fluid overload 11. Cardiomegaly 12. MELD score 33 13. Hepatorenal syndrome 14. Hepatopulmonary syndrome 15. Toxic Encephalopathy Plan: Plan by systems: Neurologic: -GCS 3T, sedation off since 10/30 -Monitor ammonia level 112->93 today -Continue rifaximin , and lactulose BID -Morphine, and Ativan PRN dosing discontinued, 05/02 to morphine 6 glucoronide active metabolite and propylene glycol excess substrate in the setting of renal insufficiency -Fent 50 mcgs q 3 hr PRN for pain -Ammonia level 112->93 Respiratory: -Ventilator bundle -Maintain O2 sat greater than 92%, PRBC -Pneumonia follow-up sputum cultures -Bronchodilators, scheduled and when necessary -Pulmonology following-Dr. Roque Cardiovascular: -Maintain arterial line -Maintain central venous line -Maintain MAP greater than 65 mmHg, Midodrine currently on hold Renal: -Nephrology following-Dr. Gibbons, currently Bumex 1 mg/an hour and albumin twice a day -Urine output last 24 hours increased 6000cc, creatinine slightly lower 2.35-> 2.14 today -- Strict I/Os FEN/GI: -Tube feeds currently on hold -Creatinine improving -Protonix and octreotide infusions per GI -Bumex infusion per nephrology - Hold Nepro TFs in view of upper GI bleed. GI following for liver cirrhosis, upper GI bleed. Continue Protonix and octreotide drips. Follow CBC and coags. s/p EGD 10-28-16--> GIB, portal gastropathy, duodenitis, hiatal hernia Heme/ID: -10/31 transfuse 1 unit of platelets. 11/01 transfuse 2 FFP, 1 u Plts INR 2.5, PLT 49 -Sputum culture- NGTD Broaden coverage for pneumonia, de-escalate if sputum NG. 11. Transfused 1 unit pheresed platelets, cryoprecipitate, 2 units FFP as well as give vitamin K 10 mg IV, 2 units PRBCs on 10/28. Follow CBC and coags, transfuse to keep hemoglobin above 7gm/dl Endocrine: Glucose monitoring per ICU protocol -- SSI Prophylaxis: GI Prophylaxis Protonix infusion MSK: -Reddened area left below-knee amputation in stump area from prosthetic, Follow wound care consult- recommendations DVT Prophylaxis -- SCDs No pharmacological prophylaxis in the setting of GI bleed Lines: Art line, central line, peripheral IVs Dispo: This patient remains critically ill with one or more organ systems which are or may become a threat to life. I have spent in excess of 30 minutes discontinuously in the care and management of this patient. This time is exclusive of procedures, and includes, but is not limited to, evaluation of the patient, review of the medical record, discussions with family, consultants, nursing staff, or respiratory therapy, and documentation in the medical record. Overall impression: Critically ill with life-threatening hypoxemia initially refractory to conventional mechanical ventilation. Liver, kidneys, marrow failing as well. Ascites and fluid overload persists. Recent diagnosis of cirrhosis after many years of alcohol abuse. Neurologically intact prior to intubation. We may need to tap abdomen to get off ventilator. Now with upper GI bleeding. Prognosis appears poor. Palliative care consulted to assist with deciding goals of therapy. The patient was made DNR yesterday 11/01: Extensive of discussion with parents yesterday regarding the poor prognosis , including patient not a candidate for liver transplant in the setting of acute alcoholism, last drink reported 3 months ago on admission, MELD score 33 with a statistically noted 52.6% 3 month mortality rate. All questions answered with family. Palliative medicine discussions ongoing. Physician Katelyn Hess MD Nov 01, 2016 10:07
[2016-11-01 10:10] LABS: BLOOD GAS BASE EXCESS 4.9 mmol/L (-2-2); BLOOD GAS HCO3 29 mmol/L (22-26); BLOOD GAS METHEMOGLOBIN 1.3 % (0-2); BLOOD GAS O2 HGB SATURATION 92 % (90-100); BLOOD GAS OXYGEN CONTENT 10.9 Vol % (12.0-20.0); BLOOD GAS PCO2 48 mmHg (38-42); BLOOD GAS PO2 85 mmHg (61-120); BLOOD GAS TOTAL HGB 8.3 G/DL (12.0-16.0); TEMP CORR TO 98.6
[2016-11-01 10:14] LABS: CRITICAL VALUE NO; DRAW SITE ART LINE; FIO2 35 %; OXYGEN DEVICE VENTILATOR; STAT NO
--- NOTE | 2016-11-01 11:18 | HHI.NPPN ---
Subjective History of Present Illness 50-year-old male with a past medical history of hypertension, history of cirrhosis of the liver, history of ascites in the past, hyperlipidemia, ischemic heart disease, cerebrovascular accident who came to the hospital with a complaint of shortness of breath and increased swelling of the legs. I was called to see the patient because of elevated BUN and creatinine. His BUN was 62 and creatinine was 2.5, about a month ago his creatinine was 0.7. Additional Remarks Patient remain intubated and sedated, clinically same. Objective Data Data 10/31/16 11/01/16 19:00 07:00 Intake Total 734 ml 1963 ml Output Total 2825 ml 3200 ml Balance -2091 ml -1237 ml IV Total 319 ml 1643 ml Albumin 100 ml 100 ml Platelets 195 ml Other 120 ml 220 ml Output Urine Total 2825 ml 3150 ml Gastric Drainage Total 50 ml # Bowel Movements 0 1 Vital Signs Date Time Temp Pulse Resp B/P Pulse Ox O2 Delivery O2 Flow Rate FiO2 11/01/16 08:03 97 35 11/01/16 06:00 84 11/01/16 04:39 97 35 11/01/16 04:00 99.0 85 130/63 98 155/50 11/01/16 04:00 85 11/01/16 04:00 35 11/01/16 02:00 87 11/01/16 01:55 95 35 11/01/16 00:00 79 11/01/16 00:00 99.1 79 16 116/59 95 118/43 11/01/16 00:00 35 10/31/16 22:00 111 10/31/16 21:19 96 35 10/31/16 20:00 99.4 97 16 132/60 94 136/53 10/31/16 20:00 35 10/31/16 20:00 97 10/31/16 18:00 92 10/31/16 18:00 91 16 124/58 94 143/65 10/31/16 17:00 92 10/31/16 17:00 92 16 129/60 95 147/68 10/31/16 16:00 98 10/31/16 16:00 55 10/31/16 16:00 99.6 98 16 140/66 95 159/74 10/31/16 15:00 94 16 144/69 99 169/77 10/31/16 15:00 94 8/3/17 14:59 100 55 10/31/16 14:00 94 16 136/65 99 163/74 10/31/16 14:00 94 10/31/16 13:00 94 16 140/66 99 155/64 10/31/16 12:00 98.0 92 16 138/64 99 156/60 10/31/16 12:00 55 -: 11/01/16 0420 11/01/16 0420 Physical Exam General Appearance Remarks Intubated and sedated. Eyes Eye Exam: Pupils Equal Throat Throat Exam: Oral Mucosa [place] & Moist Pulmonary Resp Exam: Breath Sounds Equal, Rhonchi, Decreased Bases, Diminished Breath Sounds Cardiology CV Exam: Regular, Normal Sinus Rhythm Gastrointestinal/Abdomen GI Exam: Soft, Distended Extremeties Extremities Exam: Moderate Edema, Pitting Edema, Dependent Edema Neurologic Neuro Exam: Sedated Assessment/Plan Assessment Summary: DAREK/Acute Renal Failure, Fluid/Volume Overload Problem List: (1) HTN (hypertension) (2) Alcoholic liver disease (3) Anasarca (4) Pulmonary edema (5) Acute kidney injury Plan hx of cirrhosis /HRS Patient responded to treatment and UOP improved with Bumex infusion.1MG/HR on Albumin 25 gm IV Q 12 on Midodrine/Octreotide On Bumex, Creatinine is slightly better. K is better. GI following, for EGD. Continue Bumex, follow the urine out put and BMP. Creatinine continue to improve. Palliative care also following. Has increasing Bilirubin and not much improvement clinically. He is no Code. Problem Qualifiers (1) Pulmonary edema: Qualified Code: J81.0 - Acute pulmonary edema John Gibbons MD Nov 01, 2016 11:18
--- NOTE | 2016-11-01 11:24 | HHI.HCPN ---
Reason for visit a. To assist with evaluation and management of symptoms including: Encephalopathy, dyspnea, pain b. To assist medical decision maker(s) with: better understanding of current medical conditions; weighing benefits/burdens of medical treatment options; making medical treatment decisions. Subjective/Interval History Pt remains critically ill in ICU. Total bilirubin cont to trend up 11. hgb 8.4 /hct 23.7. Plts 47. Ordered for unit FFP, Plt , this am. S/p tranfusion 1 u plt yesterday, radiology consulted for poss paracentesis, unable to complete 2/2 coagulopathy. Diprivan remains off and patient remains nearly unresponsive. + bumex, protonix drips. Mother, father met w ALEENA cline yesterday, they discussed possible withdrawal of life support yesterday. Pt seen in room, no family present. Nonresponsive to my exam. No apparent distress. Following exam, call to mother, she will be in shortly , plan to follow up with her shortly. D/w primary RN.. Family/friend interactions Mother arrives, met w her at bedside, RN also present. Review of current conditions, recent diagnostics, overall poor prognosis. review paracentesis could not be completed 2/2 coagulopathy. She appears to have a good understanding of condition, prognosis, informs she spoke w ALEENA yesterday. She expresses she and pt father are probably going to want to transition to comfort in the coming days, as to not prolong patient's suffering , as consistent with the patient's wishes. Additional friends/family are arriving from out of the area to visit with the patient before they proceed with withdrawal of life support though likely they will proceed over the weekend. Review of the process, exhibits etc. Exhibit to be signed by palliative consulting to be in place and ready for possible withdrawal this weekend. . Advance Directives Health Care Surrogate: Completed, but not made available Objective Vital Signs Date Time Temp Pulse Resp B/P Pulse Ox O2 Delivery O2 Flow Rate FiO2 11/01/16 08:03 97 35 11/01/16 06:00 84 11/01/16 04:39 97 35 11/01/16 04:00 99.0 85 130/63 98 155/50 11/01/16 04:00 85 11/01/16 04:00 35 11/01/16 02:00 87 11/01/16 01:55 95 35 11/01/16 00:00 79 11/01/16 00:00 99.1 79 16 116/59 95 118/43 11/01/16 00:00 35 10/31/16 22:00 111 10/31/16 21:19 96 35 10/31/16 20:00 99.4 97 16 132/60 94 136/53 10/31/16 20:00 35 10/31/16 20:00 97 10/31/16 18:00 92 10/31/16 18:00 91 16 124/58 94 143/65 10/31/16 17:00 92 10/31/16 17:00 92 16 129/60 95 147/68 10/31/16 16:00 98 10/31/16 16:00 55 10/31/16 16:00 99.6 98 16 140/66 95 159/74 10/31/16 15:00 94 16 144/69 99 169/77 10/31/16 15:00 94 10/31/16 14:59 100 55 10/31/16 14:00 94 16 136/65 99 163/74 10/31/16 14:00 94 10/31/16 13:00 94 16 140/66 99 155/64 10/31/16 12:00 98.0 92 16 138/64 99 156/60 10/31/16 12:00 55 Intake & Output 11/01/16 11/01/16 07:00 19:00 Intake Total 1963 ml Output Total 3200 ml Balance -1237 ml IV Total 1643 ml Albumin 100 ml Other 220 ml Output Urine Total 3150 ml Gastric Drainage Total 50 ml # Bowel Movements 1 Physical Exam CONSTITUTIONAL/GENERAL: This is an ill-appearing patient. TUBES/LINES/DRAINS: Central line, arterial line, ET tube, OG tube, Yap catheter SKIN: jaundiced. No wounds seen anteriorly. Skin temperature appropriate. Not diaphoretic. CARDIOVASCULAR: Regular rate and rhythm without murmurs.significant generalized pitting edema. Pedal pulses faint. RESPIRATORY/CHEST: Symmetric, unlabored respirations via mechanical vent. Respiratory rate + over vent rate. Coarse air movement throughout. Breath sounds equal bilaterally. GASTROINTESTINAL: Abdomen distended, firm, + ascites. OG tube to suction, maroon drainage output. No bowel sounds to my exam. limited palp due to distention/firmness GENITOURINARY: Without palpable bladder distension. Yap catheter in place dark tea urine NEUROLOGICAL: No sedation, Diprivan off for days. no eye opening. No response to pain stimuli on extremities. PSYCHIATRIC: Unable to evaluate due to clinical condition . Diagnostic Tests Laboratory Laboratory Tests Test 10/29/16 10/30/16 10/31/16 10/31/16 12:00 04:55 04:35 09:43 Hemoglobin 9.4 GM/DL 9.0 GM/DL 9.4 GM/DL (13.0-17.0) (13.0-17.0) (13.0-17.0) Hematocrit 26.7 % 25.9 % 26.6 % (39.0-51.0) (39.0-51.0) (39.0-51.0) White Blood Count 14.7 TH/MM3 14.7 TH/MM3 (4.0-11.0) (4.0-11.0) Red Blood Count 2.61 MIL/MM3 2.67 MIL/MM3 (4.50-5.90) (4.50-5.90) Mean Corpuscular Volume 99.3 FL 99.6 FL (80.0-100.0) (80.0-100.0) Mean Corpuscular Hemoglobin 34.5 PG 35.2 PG (27.0-34.0) (27.0-34.0) Mean Corpuscular Hemoglobin 34.7 % 35.4 % Concent (32.0-36.0) (32.0-36.0) Red Cell Distribution Width 22.4 % 22.1 % (11.6-17.2) (11.6-17.2) Platelet Count 36 TH/MM3 45 TH/MM3 (150-450) (150-450) Mean Platelet Volume 8.6 FL 8.6 FL (7.0-11.0) (7.0-11.0) Neutrophils (%) (Auto) 89.2 % 86.6 % (16.0-70.0) (16.0-70.0) Lymphocytes (%) (Auto) 5.0 % 6.5 % (9.0-44.0) (9.0-44.0) Monocytes (%) (Auto) 4.1 % (0.0-8.0) 6.0 % (0.0-8.0) Eosinophils (%) (Auto) 1.3 % (0.0-4.0) 0.5 % (0.0-4.0) Basophils (%) (Auto) 0.4 % (0.0-2.0) 0.4 % (0.0-2.0) Neutrophils # (Auto) 13.1 TH/MM3 12.7 TH/MM3 (1.8-7.7) (1.8-7.7) Lymphocytes # (Auto) 0.7 TH/MM3 1.0 TH/MM3 (1.0-4.8) (1.0-4.8) Monocytes # (Auto) 0.6 TH/MM3 0.9 TH/MM3 (0-0.9) (0-0.9) Eosinophils # (Auto) 0.2 TH/MM3 0.1 TH/MM3 (0-0.4) (0-0.4) Basophils # (Auto) 0.1 TH/MM3 0.1 TH/MM3 (0-0.2) (0-0.2) CBC Comment AUTO DIFF AUTO DIFF Differential Total Cells 100 Counted Neutrophils % (Manual) 78 % (16-70) Band Neutrophils % 5 % (0-6) Lymphocytes % 7 % (9-44) Monocytes % 4 % (0-8) Eosinophils % 3 % (0-4) Neutrophils # (Manual) 12.6 TH/MM3 (1.8-7.7) Metamyelocytes 3 % (0-1) Differential Comment FINAL DIFF AUTO DIFF MANUAL CONFIRMED Toxic Granulation 1+ (NORMAL) Platelet Estimate LOW (NORMAL) LOW (NORMAL) Platelet Morphology Comment NORMAL NORMAL (NORMAL) (NORMAL) Sodium Level 142 MEQ/L 148 MEQ/L (136-145) (136-145) Potassium Level 3.5 MEQ/L 3.3 MEQ/L (3.5-5.1) (3.5-5.1) Chloride Level 105 MEQ/L 110 MEQ/L (98-107) (98-107) Carbon Dioxide Level 27.0 MEQ/L 29.8 MEQ/L (21.0-32.0) (21.0-32.0) Anion Gap 10 MEQ/L (5-15) 8 MEQ/L (5-15) Blood Urea Nitrogen 100 MG/DL 105 MG/DL (7-18) (7-18) Creatinine 2.41 MG/DL 2.35 MG/DL (0.60-1.30) (0.60-1.30) Estimat Glomerular Filtration 29 ML/MIN (>89) 30 ML/MIN (>89) Rate Random Glucose 139 MG/DL 160 MG/DL (74-106) (74-106) Calcium Level 8.2 MG/DL 8.0 MG/DL (8.5-10.1) (8.5-10.1) Total Bilirubin 8.9 MG/DL 10.5 MG/DL (0.2-1.0) (0.2-1.0) Aspartate Amino Transf 68 U/L (15-37) 58 U/L (15-37) (AST/SGOT) Alanine Aminotransferase 29 U/L (12-78) 30 U/L (12-78) (ALT/SGPT) Alkaline Phosphatase 55 U/L (45-117) 58 U/L (45-117) Total Protein 6.9 GM/DL 7.3 GM/DL (6.4-8.2) (6.4-8.2) Albumin 2.6 GM/DL 2.7 GM/DL (3.4-5.0) (3.4-5.0) Blood Bank Comment Test 10/31/16 10/31/16 11/01/16 11/01/16 13:30 15:37 04:20 09:11 Platelet Count 53 TH/MM3 47 TH/MM3 (150-450) (150-450) Prothrombin Time 25.2 SEC 28.4 SEC (9.8-11.6) (9.8-11.6) Prothromb Time International 2.2 RATIO 2.5 RATIO Ratio White Blood Count 9.8 TH/MM3 (4.0-11.0) Red Blood Count 2.32 MIL/MM3 (4.50-5.90) Hemoglobin 8.4 GM/DL (13.0-17.0) Hematocrit 23.7 % (39.0-51.0) Mean Corpuscular Volume 102.0 FL (80.0-100.0) Mean Corpuscular Hemoglobin 36.3 PG (27.0-34.0) Mean Corpuscular Hemoglobin 35.5 % Concent (32.0-36.0) Red Cell Distribution Width 23.3 % (11.6-17.2) Mean Platelet Volume 8.5 FL (7.0-11.0) Sodium Level 153 MEQ/L (136-145) Potassium Level 3.0 MEQ/L (3.5-5.1) Chloride Level 113 MEQ/L (98-107) Carbon Dioxide Level 34.6 MEQ/L (21.0-32.0) Anion Gap 5 MEQ/L (5-15) Blood Urea Nitrogen 101 MG/DL (7-18) Creatinine 2.14 MG/DL (0.60-1.30) Estimat Glomerular Filtration 33 ML/MIN (>89) Rate Random Glucose 164 MG/DL (74-106) Calcium Level 8.0 MG/DL (8.5-10.1) Phosphorus Level 3.5 MG/DL (2.5-4.9) Magnesium Level 2.3 MG/DL (1.5-2.5) Total Bilirubin 11.0 MG/DL (0.2-1.0) Aspartate Amino Transf 44 U/L (15-37) (AST/SGOT) Alanine Aminotransferase 25 U/L (12-78) (ALT/SGPT) Alkaline Phosphatase 49 U/L (45-117) Ammonia 93 MCMOL/L (11-32) Total Protein 7.1 GM/DL (6.4-8.2) Albumin 3.1 GM/DL (3.4-5.0) Blood Bank Comment Test 11/01/16 10:00 Blood Gas Puncture Site ART LINE Blood Gas Patient Temperature 98.6 Blood Gas HCO3 29 mmol/L (22-26) Blood Gas Base Excess 4.9 mmol/L (-2-2) Blood Gas Oxygen Saturation 92 % (90-100) Arterial Blood pH 7.40 (7.380-7.420) Arterial Blood Partial 48 mmHg (38-42) Pressure CO2 Arterial Blood Partial 85 mmHg Pressure O2 (61-120) Arterial Blood Oxygen Content 10.9 Vol % (12.0-20.0) Arterial Blood 3.0 % (0-4) Carboxyhemoglobin Arterial Blood Methemoglobin 1.3 % (0-2) Blood Gas Hemoglobin 8.3 G/DL (12.0-16.0) Oxygen Delivery Device VENTILATOR Blood Gas Inspired Oxygen 35 % Result Diagram: 11/01/1641911/01/16419 Imaging Last Impressions Consultation 11/01/16 0852 Signed Impressions: Service Date/Time: Tuesday, November 01, 2016 08:52 - CONCLUSION: There is a small volume of free fluid in the abdomen. There is enough fluid present for diagnostic purposes, if needed. However, a large volume is not present that would compromise respiratory effort. I discussed the findings with Dr. Edmondson. Since the patient is coagulopathic and cannot be transported at this time, followup imaging study will be obtained on Friday to assess for change. Dipesh Swain MD Chest X-Ray 10/31/16 0600 Signed Impressions: Service Date/Time: October 04:04 - CONCLUSION: No significant change. Reginald Ng MD Abdomen X-Ray 10/30/16 0000 Signed Impressions: Service Date/Time: Sunday, October 30, 2016 17:30 - CONCLUSION: No gross abnormality seen. See Woodruff MD Abdomen Ultrasound 10/30/16 0000 Signed Impressions: Service Date/Time: Friday, October 30, 2016 22:22 - CONCLUSION: 1. Cirrhotic prominent liver with abnormal hepatopedal fugal blood flow in the portal vein. 2. Mild to moderate splenomegaly. 3. A moderate ascitic fluid. Reginald Ng MD Procedures 10/24orotracheal intubation, arterial line, central venous line (right subclavian) Assessment and Plan Disease Oriented Problem List: (1) Cirrhosis Comment: End-stage liver disease . 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 Lives with a roommate locally per mother. , though remains in communication with his ex-. No children. Originally from [place] though has lived in [place] for many years. Of note patient friend of 30 years shared that patient lost a brother about 20 years ago, and that the mother is still very sensitive regarding this Spiritual Raised [place] as a child, however not known if he had any particular affiliation or preferences recently. Legal Patient due to condition is not able to participate in decision-making. Apparently he did report previously completing healthcare surrogate documentation here, no document is present in the chart. In absence of this document, Per [place] statutes legal decision maker would be mother and father who are in [place]. Mother is not aware of healthcare surrogate document, nor is ex-. Important Contacts mother, Sindhu Feng at , ([facility]) Father Albert Feng [phone] ([facility] [address]) Prognosis This pt was admitted for SOB. +Findings of pulmonary edema, acute kidney injury , cirrhosis, apparently recently newly diagnosed with liver cirrhosis. Now with multiorgan failurerespiratory, hepatic, renal, new GI bleeding. Plan for EGD. Coagulopathy. High risk for further complications/setbacks. . Code Status: Alternative Code Plan * ALTERNATE CODE, intubation only per request of parents 10/31/16 * DECISION-MAKING: Patient due to condition is not able to participate in decision-making. Mother and father are the proxy decision makers. * GOALS: Met with patient mother at bedside.She appears to have a good understanding of condition, prognosis, informs she spoke w GI yesterday. She expresses she and pt father are probably going to want to transition to comfort in the coming days, as to not prolong patient's suffering, as consistent with the patient's wishes. Additional friends/family are arriving from out of the area to visit with the patient before they proceed with withdrawal of life support though likely they will proceed over the weekend.Review of the process, exhibits etc. Exhibit to be signed by palliative consulting, to be in place and ready for possible withdrawal this weekend. * SYMPTOMS: --Encephalopathyhepatic, renal failure. On lactulose. rifaximin. nonresponsive --Dyspnea-intubated urgently for hypoxemic respiratory failure. Remains on the ventilator. 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 Currently with no signs or symptoms of pain. Cautious use of opiates due to renal, hepatic failure. Monitor for signs and symptoms of pain. * Palliative care will continue to follow during hospital course as condition evolves, to assist patient/decision-maker with understanding of medical conditions, weighing benefits/burdens of treatment options, for clarification of goals of treatment. Additionally will assist with any symptoms of palliative concern . Attestation To help prompt me to consider important information that might be impacting today's encounter and assessment, information from prior notes written by myself or my colleagues may have been "brought forward" into today's note. My signature on this note, however, is an attestation that I personally performed the exam, history, and/or decision-making noted today, and, unless otherwise indicated, the interactions with patient, family, and staff as well as the review of records all occurred today. I also attest that the listed assessment and stated plan reflect my best clinical judgment today based on the combination of historical information, prior notes, and today's exam/ interactions. When time spent is documented, it refers only to time spent today by the signer, or if indicated, combined time spent today by collaborating physician/nurse practitioner. Suly Sorenson Nov 01, 2016 11:24
--- NOTE | 2016-11-01 12:11 | PD.WCN.NOT ---
Wound Consult Description: L anterior stump wound and R buttock stage 2 wound pressure and friction Communicated with: TASHI SINGER and Doctor Edmondson Recommendation: 1.Please cleanse Wound to L anterior stump with normal saline and pat dry apply Xeroform single layer gauze dressing just over wound bed.Apply skin prep to periwound before applying bordered gauze dressing. Please change dressing every 2 days or PRN if saturated or dislodged. 2. Cleanse wound to R buttock with normal saline and apply skin prep to periwound before applying adhesive foam dressing.Change every 3 days or PRN if saturated or dislodged. If periwound skin becomes denuded from moisture. Please remove adhesive foam dressing and apply Calazime barrier cream and leave open to air. Please turn patient every 2 hours Additional Information: Patient seen for follow up of wound to L anterior stump. Wound assessment completed with TASHI SINGER and [facility] underwriter.Removed bordered gauze and alginate dressing in place to reveal dry wound to anterior L stump. Wound is 100% pink with out active drainage or odor. Periwound noted with hyperkeratotic skin circumferentially. Wound measures 0.5 cm x 1 cm x ~0.1 cm. Cleansed wound with normal saline and applied Xeroform single layer gauze just over wound bed and applied skin prep to periwound before securing dressing with small bordered gauze. Patient turned to L side with the assistance of Ermelinda AKINS Marcy , [facility] underwriter and other [facility] nurse. Patient noted with wound to R buttock that is partial thickness with scant sanguinous drainage without odor.Wound appears to be the result of friction and pressure. No other open area noted to buttocks, gluteal cleft or sacral area. Wound measures ~3cm x ~3cm x ~<0.1cm. Cleansed wound with normal saline and applied skin prep to periwound. Covered wound with Gentle adhesive foam dressing. Patient is laying on standard ICU Iva bed and is being turned every [address] Doctor Edmondson wants specialty bed for patient. Verbal order received. Destiny Crook [facility] Nov 01, 2016 12:11 Wound Location: L anterior stump wound. Destiny Crook [facility] Nov 01, 2016 12:11
[2016-11-01] MEDS: RESP: ALBUTEROL 2.5 MG/IPRATROPIUM 0.5 MG NEB (SCH) INH ×3 (12:22→20:03)
--- NOTE | 2016-11-01 12:48 | HHI.PR ---
Subjective Remarks Sedated and on the vent at FIo2 35 %. Objective Vital Signs Date Time Temp Pulse Resp B/P Pulse Ox O2 Delivery O2 Flow Rate FiO2 11/01/16 12:14 94 35 11/01/16 08:03 97 35 11/01/16 06:00 84 11/01/16 04:39 97 35 11/01/16 04:00 99.0 85 130/63 98 155/50 11/01/16 04:00 85 11/01/16 04:00 35 11/01/16 02:00 87 11/01/16 01:55 95 35 11/01/16 00:00 79 11/01/16 00:00 99.1 79 16 116/59 95 118/43 11/01/16 00:00 35 10/31/16 22:00 111 10/31/16 21:19 96 35 10/31/16 20:00 99.4 97 16 132/60 94 136/53 10/31/16 20:00 35 10/31/16 20:00 97 10/31/16 18:00 92 10/31/16 18:00 91 16 124/58 94 143/65 10/31/16 17:00 92 10/31/16 17:00 92 16 129/60 95 147/68 10/31/16 16:00 98 10/31/16 16:00 55 10/31/16 16:00 99.6 98 16 140/66 95 159/74 10/31/16 15:00 94 16 144/69 99 169/77 10/31/16 15:00 94 10/31/16 14:59 100 55 10/31/16 14:00 94 16 136/65 99 163/74 10/31/16 14:00 94 10/31/16 13:00 94 16 140/66 99 155/64 I/O 10/31/16 10/31/16 10/31/16 11/01/16 11/01/16 11/01/16 06:59 14:59 22:59 06:59 14:59 22:59 Intake Total 1338 ml 734 ml 838 ml 1125 ml Output Total 2025 ml 2825 ml 1650 ml 1550 ml Balance -687 ml -2091 ml -812 ml -425 ml Intake Oral 0 ml IV Total 1198 ml 319 ml 718 ml 925 ml Albumin 100 ml 100 ml Platelets 195 ml Other 140 ml 120 ml 120 ml 100 ml Output Urine Total 1900 ml 2825 ml 1650 ml 1500 ml Gastric Drainage Total 125 ml 50 ml # Bowel Movements 0 0 0 1 Result Diagram: 11/01/1641911/01/16419 Objective Remarks HEENT: Head is normocephalic. Pupils are reactive. Icterus +. NECK: Supple. No lymphadenopathy. No bruits. CHEST: Equal movements with wheezes over both lung giang. HEART: The heart sounds are irregular, S1 and S2 with no murmur. No S3. ABDOMEN: Obese, protuberant without masses or organomegaly. No tenderness. Bowel sounds are active. EXTREMITIES: Amputated left leg below the knee. The right leg has 2 + edema with diminished pulses. The patient is sedated. NEUROLOGIC: sedated. RECTAL: Exam is deferred. SKIN: No lesions. Assessment and Plan Assessment and Plan IMPRESSION 1. Acute respiratory failure. 2. Pulmonary edema with pleural effusions. 3. Probable basilar pneumonia. 4. Anemia and coagulopathy. 5. History of cirrhosis of the liver with ascites. Plan ; 1. Wean FIo2 to keep sat >92. 2. PEEP to 10 cm 3. Continue diuresis per renal. 4. CBC,BMP in am 5. Nebs q6h ,PRN duoneb 6. D/W family here. 7. CBC,BMP,CXR in am 8. DNR per family Kat Muhammad MD Nov 01, 2016 12:48
[2016-11-01] MEDS: OCTREOTIDE INJ 500 MCG in SODIUM CHLORID 0.9% 500 ML INJ 499.5 ML IV SCH (16:41)
[2016-11-01] MEDS: AZITHROMYCIN INJ 500 MG in SODIUM CHLOR 0.9% 250 ML INJ 250 ML IV SCH (19:48)
[2016-11-02] VITALS (19 sets, daily range): BP systolic 131–173; BP diastolic 62–74; PULSE 97–117; RESP 16–23; TEMP 98–103.7; O2SAT 94–97
[2016-11-02] MEDS: PANTOPRAZOLE INJ 80 MG in SODIUM CHLORIDE 0.9% INJ 100 ML IV SCH ×3 (02:15→23:38)
[2016-11-02] MEDS: ALBUMIN HUMAN 25% 25 GM/100 ML BAGP IV SCH ×2 (02:16→15:00)
[2016-11-02] MEDS: CHLORHEXIDINE GLUCONATE 2 % 1 PACK (2 CLOTHS) TOP SCH (02:59)
[2016-11-02] MEDS: BUMETANIDE INJ 100 ML IV SCH (03:24)
[2016-11-02] MEDS: RESP: ALBUTEROL 2.5 MG/IPRATROPIUM 0.5 MG NEB (SCH) INH ×4 (04:06→19:47)
[2016-11-02 05:26] LABS: MEAN CELL VOLUME 103.6 FL (80.0-100.0); MEAN CORPUSCULAR HEMOGLOBIN 36.2 PG (27.0-34.0); MEAN CORPUSCULAR HGB CONC 34.9 % (32.0-36.0); PLATELET COUNT 49 TH/MM3 (150-450); RED BLOOD COUNT 2.22 MIL/MM3 (4.50-5.90); WHITE BLOOD COUNT 9.9 TH/MM3 (4.0-11.0)
[2016-11-02 05:29] LABS: BLOOD GAS BASE EXCESS 7.5 mmol/L (-2-2); BLOOD GAS CARBOXYHEMOGLOBIN 2.9 % (0-4); BLOOD GAS HCO3 32 mmol/L (22-26); BLOOD GAS METHEMOGLOBIN 1.3 % (0-2); BLOOD GAS O2 HGB SATURATION 91 % (90-100); BLOOD GAS OXYGEN CONTENT 10.4 Vol % (12.0-20.0); BLOOD GAS PCO2 51 mmHg (38-42); BLOOD GAS PO2 75 mmHg (61-120); BLOOD GAS TOTAL HGB 8.1 G/DL (12.0-16.0); TEMP CORR TO 98.6
[2016-11-02 05:30] LABS: CRITICAL VALUE YES; DRAW SITE ART LINE; FIO2 45 %; OXYGEN DEVICE VENTILATOR; STAT NO; VENT SETTINGS PRVC/AC
[2016-11-02 05:37] LABS: REVIEW FLAG FINAL
[2016-11-02] MEDS: METOCLOPRAMIDE HCL 10 MG/2 ML VIAL IV PUSH SCH ×3 (06:12→20:26)
[2016-11-02] MEDS: metroNIDAZOLE 500 MG INJ 100 ML IV SCH ×3 (06:12→23:38)
[2016-11-02] MEDS: MIDODRINE 5 MG TAB PO SCH ×3 (06:12→17:00)
--- NOTE | 2016-11-02 06:51 | HHI.CCPN ---
Subjective Remarks/Hospital Course Oxygen diffusion improved overnight - could not get sats over 85% last evening until converted to APRV mode. Abdominal distention will hamper efforts to eventually extubate; hopefully diuretics will manage ascites. Sputum culture obtained last night - pending. Will review therapy with Dr. Sosa. 10/26: Oxygen diffusion improving but CXR remains wet - ? underlying pneumonia. 10/27: CXR today looks like fluid overload with persistent pulmonary venous congestion. I'm not sure we are getting enough fluid off of him. Converted back to conventional ventilation today and maintaining sats > 95%. Platelets decreasing, check HIPA - no heparin/lovenox for 4 days. Hold supplemental whey protein pending ammonia level (no encephalopathy prior to extubation). 10/28: Remains sedated, orally intubated on mechanical ventilation. Coffee- ground NG aspirate noted by RN. Remains on [facility] mechanical ventilation. 10/29: Remains sedated, orally intubated on mechanical ventilation. Underwent EGD on 10/28 by GI, awaiting official report however was informed by [employer] that she was told patient had gastritis on EGD and no active bleeding. Received 2 units PRBCs, 2 units FFP, 1 unit cryoprecipitate and 1 unit pheresed platelets on 10/28. Remains on Bumex drip to mobilize fluid. 10/30: Remains encephalopathic, unresponsive off sedation, orally intubated on mechanical ventilation. 10/31: Abdominal ultrasound noted moderate ascites, tentative plan for paracentesis however platelet count 45, scheduled transfusion of 1 unit of platelets this a.m. Patient continues to be encephalopathic, ammonia level CXII on 10/29, lactulose increased consider rifaximin. NG tube output decreased overnight with institution of Reglan. Urine output noted to be increased with slight decrease in creatinine in the last 24 hours, as the patient continues on Bumex 1 mg/hour. 11/01: The patient continues to be encephalopathic. The patient continues on rifaximin, and lactulose was increased to twice a day yesterday. The patient continues to be coagulopathic, receiving 1 unit of platelets yesterday for possible abdominal paracentesis. Unable to perform secondary to INR still 2.5. The patient will be transfused 2 units FFP, 1 unit of platelets today. Discussed with radiology ultrasound-guided abdominal paracentesis, tentative plan but may not be performed due to coagulopathy. The patient was made DNR yesterday after extensive discussion with palliative medicine. He continues on Bumex, octreotide and Protonix infusions. 11/02: No acute changes overnight. The patient remains encephalopathic, opens eyes spontaneously. No current plans for abdominal paracentesis the family to thorough discussion with palliative care medicine plans on comfort care measures with ventilator withdrawal either today or tomorrow, upon arrival of family members from [place]. Objective Vital Signs Date Time Temp Pulse Resp B/P Pulse Ox O2 Delivery O2 Flow Rate FiO2 11/02/16 06:00 102 11/02/16 04:06 95 45 11/02/16 04:00 99.0 131/62 149/66 11/02/16 00:00 16 10/31/16 07:00 Mechanical Ventilator Intake and Output 11/01/16 11/01/16 11/02/16 08:00 16:00 00:00 Intake Total 1125 ml 1041 ml 1133 ml Output Total 1550 ml 2000 ml 2300 ml Balance -425 ml -959 ml -1167 ml Result Diagram: 11/02/16 0400 11/01/16 0420 Other Results Laboratory Tests Test 11/01/16 11/02/16 10:00 05:20 Blood Gas Puncture Site ART LINE ART LINE Blood Gas Patient Temperature 98.6 98.6 Blood Gas HCO3 29 mmol/L 32 mmol/L (22-26) (22-26) Blood Gas Base Excess 4.9 mmol/L 7.5 mmol/L (-2-2) (-2-2) Blood Gas Oxygen Saturation 92 % (90-100) 91 % (90-100) Arterial Blood pH 7.40 7.42 (7.380-7.420) (7.380-7.420) Arterial Blood Partial 48 mmHg (38-42) 51 mmHg (38-42) Pressure CO2 Arterial Blood Partial 85 mmHg 75 mmHg Pressure O2 (61-120) (61-120) Arterial Blood Oxygen Content 10.9 Vol % 10.4 Vol % (12.0-20.0) (12.0-20.0) Arterial Blood 3.0 % (0-4) 2.9 % (0-4) Carboxyhemoglobin Arterial Blood Methemoglobin 1.3 % (0-2) 1.3 % (0-2) Blood Gas Hemoglobin 8.3 G/DL 8.1 G/DL (12.0-16.0) (12.0-16.0) Oxygen Delivery Device VENTILATOR VENTILATOR Blood Gas Inspired Oxygen 35 % 45 % Blood Gas Ventilator Setting PRVC/AC Imaging Last Impressions Chest X-Ray 10/31/16 0600 Signed Impressions: Service Date/Time: October 04:04 - CONCLUSION: No significant change. Reginald Ng MD Abdomen X-Ray 10/30/16 0000 Signed Impressions: Service Date/Time: Sunday, October 30, 2016 17:30 - CONCLUSION: No gross abnormality seen. See Woodruff MD Abdomen Ultrasound 10/30/16 0000 Signed Impressions: Service Date/Time: Sunday, October 30, 2016 22:22 - CONCLUSION: 1. Cirrhotic prominent liver with abnormal hepatopedal fugal blood flow in the portal vein. 2. Mild to moderate splenomegaly. 3. A moderate ascitic fluid. Reginald Ng MD Last Impressions Chest X-Ray 10/28/16 0400 Signed Impressions: Service Date/Time: Friday, October 28, 2016 04:52 - CONCLUSION: 1. No significant change in the hazy opacity in both lungs. 2. Mild cardiomegaly remains. Reginald Ng MD Objective Remarks Gen: Critically ill-appearing male jaundice ,generalized anasarca, intubated, sedation off for several days Head: Pallor present. Icterus noted. Neck: Supple, orally intubated Lungs: On mechanical ventilation, air entry decreased bilaterally at bases, scattered rhonchi, bibasilar crackles, no wheezes. Heart: NL S1S2, regular rate. + JVD. Abdomen: distended , firm, no guarding. BS present. No tenderness noted. Extremities: Well perfused, generalized anasarca noted BKA dressing on noted small opening distal site secondary to prosthesis, stage II wound on buttocks Neuro: GCS 3T. Remains unresponsive/encephalopathic since turning off sedation > 48 hours, orally intubated on mechanical ventilation. Spontaneous eye opening A/P Assessment and Plan Assessment: 1. Hypoxemic Respiratory Failure. 2. Cirrhosis. 3. Thrombocytopenia. 4. Moderate Ascites 5. UTI, Klebsiella 6. Pulmonary hypertension. 7. Pneumonia, bilateral, diffuse. 8. Coagulopathy secondary to liver disease 9. Upper GI bleed 10. Fluid overload 11. Cardiomegaly 12. MELD score 33 13. Hepatorenal syndrome 14. Hepatopulmonary syndrome 15. Toxic Encephalopathy Plan: Plan by systems: Neurologic: -GCS 3T, sedation off since 10/30 -Monitor ammonia level 112->93 today -Continue rifaximin , and lactulose BID -Morphine, and Ativan PRN dosing discontinued, 2 to morphine 6 glucoronide active metabolite and propylene glycol excess substrate in the setting of renal insufficiency -Fent 50 mcgs q 3 hr PRN for pain -Monitor Ammonia level Respiratory: -Ventilator bundle -Maintain O2 sat greater than 92%, PRBC -Pneumonia follow-up sputum cultures -Bronchodilators, scheduled and when necessary -Pulmonology following-Dr. Roque , PEEP 9 -Respiratory alkalosis, increase ventilator rate to 18 Cardiovascular: -Maintain arterial line -Maintain central venous line -Maintain MAP greater than 65 mmHg, Midodrine currently on hold Renal: -Nephrology following-Dr. Gibbons, currently Bumex 1 mg/an hour and albumin twice a day -Urine output last 24 hours increased 6000cc, creatinine slightly lower 2.35-> 2.14 today -- Strict I/Os FEN/GI: -Tube feeds currently on hold -Creatinine improving -Protonix and octreotide infusions per GI -Bumex infusion per nephrology - Hold Nepro TFs in view of upper GI bleed. GI following for liver cirrhosis, upper GI bleed. Continue Protonix and octreotide drips. Follow CBC and coags. s/p EGD 10-28-16--> GIB, portal gastropathy, duodenitis, hiatal hernia Heme/ID: -10/31 transfuse 1 unit of platelets. 11/01 transfuse 2 FFP, 1 u Plts INR 2.5, PLT 49 -Sputum culture- NGTD Broaden coverage for pneumonia, de-escalate if sputum NG. 11. Transfused 1 unit pheresed platelets, cryoprecipitate, 2 units FFP as well as give vitamin K 10 mg IV, 2 units PRBCs on 10/28. Follow CBC and coags, transfuse to keep hemoglobin above 7gm/dl Endocrine: Glucose monitoring per ICU protocol -- SSI Prophylaxis: GI Prophylaxis Protonix infusion MSK: -Reddened area left below-knee amputation in stump area from prosthetic, Follow wound care orders/ recommendations regarding dressing changes. Patient remains on Nathaly specialty bed (Air mattress) DVT Prophylaxis -- SCDs No pharmacological prophylaxis in the setting of GI bleed Lines: Art line, central line, peripheral IVs Dispo: Level 3 Overall impression: Critically ill with life-threatening hypoxemia initially refractory to conventional mechanical ventilation. Liver, kidneys, marrow failing as well. Ascites and fluid overload persists. Recent diagnosis of cirrhosis after many years of alcohol abuse. Neurologically intact prior to intubation. We may need to tap abdomen to get off ventilator. Now with upper GI bleeding. Prognosis appears poor. Palliative care consulted to assist with deciding goals of therapy. The patient was made DNR yesterday 11/01: Extensive of discussion with parents yesterday regarding the poor prognosis , including patient not a candidate for liver transplant in the setting of acute alcoholism, last drink reported 3 months ago on admission, MELD score 33 with a statistically noted 52.6% 3 month mortality rate. All questions answered with family. Palliative medicine discussions ongoing. 11/02: After discussion with palliative medicine yesterday, the parents and family have decided comfort care measures to be instituted today or tomorrow. Physician Katelyn Hess MD Nov 02, 2016 06:51
[2016-11-02 07:15] LABS: ALKALINE PHOSPHATASE 45 U/L (45-117); ALT (GPT) 24 U/L (12-78); ANION GAP 8 MEQ/L (5-15); AST (GOT) 43 U/L (15-37); BICARBONATE 35.2 MEQ/L (21.0-32.0); BLOOD UREA NITROGEN 89 MG/DL (7-18); CHLORIDE 118 MEQ/L (98-107); GLOMERULAR FILTRATION RATE 38 ML/MIN (>89); MAGNESIUM 2.2 MG/DL (1.5-2.5); TOTAL BILIRUBIN ADULT 11.4 MG/DL (0.2-1.0)
[2016-11-02 07:34] LABS: POTASSIUM 2.8 MEQ/L (3.5-5.1); SODIUM (NA) 161 MEQ/L (136-145)
[2016-11-02] MEDS: DOCUSATE SODIUM 50 MG/SENNA 8.6 MG TAB PO SCH ×2 (09:00→20:26)
[2016-11-02] MEDS: POTASSIUM CHLORIDE 25 MEQ EFFERVESCENT TAB PO SCH (09:00)
[2016-11-02] MEDS: RIFAXIMIN 550 MG TAB PO SCH ×2 (09:00→20:25)
[2016-11-02] MEDS: prednisoLONE ALCOHOL/DYE FREE 15 MG/5 ML ORAL SYR PO SCH (09:00)
[2016-11-02] MEDS: LACTULOSE SYRUP 20 GM/30 ML CUP PO SCH ×2 (09:00→20:26)
[2016-11-02] MEDS ORDERED: POTASSIUM CHLOR 40 MEQ PREMIX 100 ML IV ONE (09:00)
[2016-11-02] MEDS: CEFEPIME INJ 2,000 MG in SODIUM CHLORIDE 0.9% INJ 100 ML IV SCH ×2 (10:38→20:25)
[2016-11-02] MEDS: OCTREOTIDE INJ 500 MCG in SODIUM CHLORID 0.9% 500 ML INJ 499.5 ML IV SCH (13:02)
--- NOTE | 2016-11-02 13:39 | HHI.PR ---
Subjective Remarks Remains on the vent at FIo2 45 %. family here, and Pt remains encephalopathic. Objective Vital Signs Date Time Temp Pulse Resp B/P Pulse Ox O2 Delivery O2 Flow Rate FiO2 11/02/16 11:31 94 45 11/02/16 10:00 106 11/02/16 08:15 97 45 11/02/16 08:00 99.0 105 150/70 96 11/02/16 08:00 45 11/02/16 08:00 105 11/02/16 06:00 102 11/02/16 04:06 95 45 11/02/16 04:00 45 11/02/16 04:00 99.0 97 131/62 95 149/66 11/02/16 04:00 97 11/02/16 02:00 101 11/02/16 00:02 94 45 11/02/16 00:00 98 11/02/16 00:00 99.1 98 16 140/64 94 147/63 11/02/16 00:00 45 11/01/16 22:00 97 11/01/16 20:00 98 11/01/16 20:00 35 11/01/16 20:00 99.0 98 16 138/68 94 141/62 11/01/16 19:31 93 35 11/01/16 18:00 82 11/01/16 16:37 93 35 11/01/16 16:00 88 11/01/16 16:00 99.2 88 16 139/65 93 152/66 11/01/16 16:00 35 11/01/16 14:00 91 I/O 11/01/16 11/01/16 11/01/16 11/02/16 11/02/16 11/02/16 07:00 15:00 23:00 07:00 15:00 23:00 Intake Total 1125 ml 1041 ml 1133 ml 681 ml Output Total 1550 ml 2000 ml 2300 ml 2150.0 ml Balance -425 ml -959 ml -1167 ml -1469.0 ml IV Total 925 ml 505 ml 1013 ml 581 ml Tube Feeding 100 ml Albumin 100 ml FFP 436 ml Other 100 ml 120 ml 100 ml Output Urine Total 1500 ml 2000 ml 2300 ml 2150 ml Gastric Drainage Total 50 ml Tube Feeding Residual Discard 0 ml # Bowel Movements 1 0 1 Result Diagram: 11/02/1639911/02/16399 Objective Remarks HEENT: Head is normocephalic. Pupils are reactive. Icterus +. NECK: No lymphadenopathy. No bruits. CHEST: Equal movements with wheezes over both lung giang. HEART: The heart sounds are irregular, S1 and S2 with no murmur. No S3. ABDOMEN: Obese, protuberant without masses or organomegaly. No tenderness. Bowel sounds are active. EXTREMITIES: Amputated left leg below the knee. The right leg has 2 + edema with diminished pulses. NEUROLOGIC: Not responsive. RECTAL: Exam is deferred. SKIN: No lesions. Assessment and Plan Assessment and Plan IMPRESSION 1. Acute respiratory failure. 2. Pulmonary edema with pleural effusions. 3. Probable basilar pneumonia. 4. Anemia and coagulopathy. 5. History of cirrhosis of the liver with ascites. Plan ; 1. Wean FIo2 to keep sat >92. 2. Family requests vent withdrawal 3. Continue diuresis per renal. 4. CBC,BMP in am 5. Nebs q6h ,PRN duoneb 6. D/W family here. 7. CBC,BMP, in am Kat Muhammad MD Nov 02, 2016 13:39
[2016-11-02] MEDS: AZITHROMYCIN INJ 500 MG in SODIUM CHLOR 0.9% 250 ML INJ 250 ML IV SCH (20:25)
[2016-11-02] MEDS ORDERED: ACETAMINOPHEN 325 MG TAB OG-TUBE PRN (21:15)
[2016-11-02] MEDS: ACETAMINOPHEN 650 MG/20.3 ML UDC OG-TUBE PRN (21:28)
[2016-11-03] VITALS (11 sets, daily range): BP systolic 106–137; BP diastolic 44–81; PULSE 87–128; TEMP 98–101.2; O2SAT 50–95
[2016-11-03] MEDS: ACETAMINOPHEN 650 MG/20.3 ML UDC OG-TUBE PRN (00:49)
[2016-11-03] MEDS: RESP: ALBUTEROL 2.5 MG/IPRATROPIUM 0.5 MG NEB (SCH) INH ×2 (03:41→07:52)
[2016-11-03] MEDS: CHLORHEXIDINE GLUCONATE 2 % 1 PACK (2 CLOTHS) TOP SCH (04:00)
[2016-11-03] MEDS: METOCLOPRAMIDE HCL 10 MG/2 ML VIAL IV PUSH SCH ×2 (05:27→14:00)
[2016-11-03] MEDS: MIDODRINE 5 MG TAB PO SCH ×3 (05:28→17:00)
[2016-11-03] MEDS: BUMETANIDE INJ 100 ML IV SCH (05:28)
[2016-11-03] MEDS: metroNIDAZOLE 500 MG INJ 100 ML IV SCH ×2 (05:28→15:00)
[2016-11-03] MEDS: ALBUMIN HUMAN 25% 25 GM/100 ML BAGP IV SCH ×2 (05:29→15:00)
[2016-11-03] MEDS: POTASSIUM CHLORIDE 25 MEQ EFFERVESCENT TAB PO SCH (09:00)
[2016-11-03] MEDS: DOCUSATE SODIUM 50 MG/SENNA 8.6 MG TAB PO SCH (09:00)
[2016-11-03] MEDS: prednisoLONE ALCOHOL/DYE FREE 15 MG/5 ML ORAL SYR PO SCH (09:00)
[2016-11-03] MEDS: RIFAXIMIN 550 MG TAB PO SCH (09:00)
[2016-11-03] MEDS: LACTULOSE SYRUP 20 GM/30 ML CUP PO SCH (09:00)
[2016-11-03] MEDS ORDERED: HYOSCYAMINE 0.5 MG/ML AMP IV ONE (09:15)
[2016-11-03] MEDS ORDERED: MORPHINE SULFATE 8 MG/ML INJ IV PUSH ONE (09:15)
[2016-11-03] MEDS ORDERED: LORazepam 2 MG/ML VIAL IV ONE ×2 (09:15→09:45)
--- NOTE | 2016-11-03 09:19 | HHI.CCPN ---
Subjective Remarks/Hospital Course Oxygen diffusion improved overnight - could not get sats over 85% last evening until converted to APRV mode. Abdominal distention will hamper efforts to eventually extubate; hopefully diuretics will manage ascites. Sputum culture obtained last night - pending. Will review therapy with Dr. Sosa. 10/26: Oxygen diffusion improving but CXR remains wet - ? underlying pneumonia. 10/27: CXR today looks like fluid overload with persistent pulmonary venous congestion. I'm not sure we are getting enough fluid off of him. Converted back to conventional ventilation today and maintaining sats > 95%. Platelets decreasing, check HIPA - no heparin/lovenox for 4 days. Hold supplemental whey protein pending ammonia level (no encephalopathy prior to extubation). 10/28: Remains sedated, orally intubated on mechanical ventilation. Coffee- ground NG aspirate noted by RN. [facility]. 10/29: Remains sedated, orally intubated on mechanical ventilation. Underwent EGD on 10/28 by GI, awaiting official report however was informed by [employer]OR [employer] that she was told patient had gastritis on EGD and no active bleeding. Received 2 units PRBCs, 2 units FFP, 1 unit cryoprecipitate and 1 unit pheresed platelets on 10/28. Remains on Bumex drip to mobilize fluid. 10/30: Remains encephalopathic, unresponsive off sedation, orally intubated on mechanical ventilation. 10/31: Abdominal ultrasound noted moderate ascites, tentative plan for paracentesis however platelet count 45, scheduled transfusion of 1 unit of platelets this a.m. Patient continues to be encephalopathic, ammonia level CXII on 10/29, lactulose increased consider rifaximin. NG tube output decreased overnight with institution of Reglan. Urine output noted to be increased with slight decrease in creatinine in the last 24 hours, as the patient continues on Bumex 1 mg/hour. 11/01: The patient continues to be encephalopathic. The patient continues on rifaximin, and lactulose was increased to twice a day yesterday. The patient continues to be coagulopathic, receiving 1 unit of platelets yesterday for possible abdominal paracentesis. Unable to perform secondary to INR still 2.5. The patient will be transfused 2 units FFP, 1 unit of platelets today. Discussed with radiology ultrasound-guided abdominal paracentesis, tentative plan but may not be performed due to coagulopathy. The patient was made DNR yesterday after extensive discussion with palliative medicine. He continues on Bumex, octreotide and Protonix infusions. 11/02: No acute changes overnight. The patient remains encephalopathic, opens eyes spontaneously. No current plans for abdominal paracentesis the family to thorough discussion with palliative care medicine plans on comfort care measures with ventilator withdrawal either today or tomorrow, upon arrival of family members from [place]. 11/03: Remains encephalopathic. Spontaneous eye opening, does not track does not follow. Plan for comfort care measures this a.m. with family members and clergy at bedside. Objective Vital Signs Date Time Temp Pulse Resp B/P Pulse Ox O2 Delivery O2 Flow Rate FiO2 11/03/16 07:53 93 45 11/03/16 06:00 87 11/03/16 04:00 100.2 123/59 124/48 11/02/16 16:00 23 10/31/16 07:00 Mechanical Ventilator Intake and Output 11/02/16 11/02/16 11/03/16 08:00 16:00 00:00 Intake Total 681 ml 562 ml 1795 ml Output Total 2150.0 ml 3500 ml 2550 ml Balance -1469.0 ml -2938 ml -755 ml Result Diagram: 11/02/16 0400 11/02/16 0400 Imaging Last Impressions Chest X-Ray 10/31/16 0600 Signed Impressions: Service Date/Time: October 04:04 - CONCLUSION: No significant change. Reginald Ng MD Abdomen X-Ray 10/30/16 0000 Signed Impressions: Service Date/Time: Sunday, October 30, 2016 17:30 - CONCLUSION: No gross abnormality seen. See Woodruff MD Abdomen Ultrasound 10/30/16 0000 Signed Impressions: Service Date/Time: Sunday, October 30, 2016 22:22 - CONCLUSION: 1. Cirrhotic prominent liver with abnormal hepatopedal fugal blood flow in the portal vein. 2. Mild to moderate splenomegaly. 3. A moderate ascitic fluid. Reginald Ng MD Last Impressions Chest X-Ray 10/28/16 0400 Signed Impressions: Service Date/Time: Keith, October 28, 2016 04:52 - CONCLUSION: 1. No significant change in the hazy opacity in both lungs. 2. Mild cardiomegaly remains. Reginald Ng MD Objective Remarks Gen: Critically ill-appearing male jaundice ,generalized anasarca, intubated, sedation off for several days Head: Pallor present. Icterus noted. Neck: Supple, orally intubated Lungs: On mechanical ventilation, air entry decreased bilaterally at bases, scattered rhonchi, bibasilar crackles, no wheezes. Heart: NL S1S2, regular rate. + JVD. Abdomen: distended , firm, no guarding. BS present. No tenderness noted. Extremities: Well perfused, generalized anasarca noted BKA dressing on noted small opening distal site secondary to prosthesis, stage II wound on buttocks Neuro: GCS 3T. Remains unresponsive/encephalopathic ,orally intubated on mechanical ventilation. Spontaneous eye opening, does not track or follow. No movement of extremities A/P Assessment and Plan Assessment: 1. Hypoxemic Respiratory Failure. 2. Cirrhosis. 3. Thrombocytopenia. 4. Moderate Ascites 5. UTI, Klebsiella 6. Pulmonary hypertension. 7. Pneumonia, bilateral, diffuse. 8. Coagulopathy secondary to liver disease 9. Upper GI bleed 10. Fluid overload 11. Cardiomegaly 12. MELD score 33 13. Hepatorenal syndrome 14. Hepatopulmonary syndrome 15. Toxic Encephalopathy Plan: Plan by systems: Neurologic: -GCS 3T, sedation off since 10/30 -Monitor ammonia level 112->93 today -Continue rifaximin , and lactulose BID -Morphine, and Ativan PRN dosing discontinued, 2/2 to morphine 6 glucoronide active metabolite and propylene glycol excess substrate in the setting of renal insufficiency -Fent 50 mcgs q 3 hr PRN for pain -Monitor Ammonia level Respiratory: -Ventilator bundle -Maintain O2 sat greater than 92%, PRBC -Pneumonia follow-up sputum cultures -Bronchodilators, scheduled and when necessary -Pulmonology following-Dr. Roque , PEEP 9 -Respiratory alkalosis, increase ventilator rate to 18 Cardiovascular: -Maintain arterial line -Maintain central venous line -Maintain MAP greater than 65 mmHg, Midodrine currently on hold Renal: -Nephrology following-Dr. Gibbons, currently Bumex 1 mg/an hour and albumin twice a day -Urine output last 24 hours increased 6000cc, creatinine slightly lower 2.35-> 2.14 today -- Strict I/Os FEN/GI: -Tube feeds currently on hold -Creatinine improving -Protonix and octreotide infusions per GI -Bumex infusion per nephrology - Hold Nepro TFs in view of upper GI bleed. GI following for liver cirrhosis, upper GI bleed. Continue Protonix and octreotide drips. Follow CBC and coags. s/p EGD 10-28-16--> GIB, portal gastropathy, duodenitis, hiatal hernia Heme/ID: -10/31 transfuse 1 unit of platelets. 11/01 transfuse 2 FFP, 1 u Plts INR 2.5, PLT 49 -Sputum culture- NGTD Broaden coverage for pneumonia, de-escalate if sputum NG. 11. Transfused 1 unit pheresed platelets, cryoprecipitate, 2 units FFP as well as give vitamin K 10 mg IV, 2 units PRBCs on 10/28. Follow CBC and coags, transfuse to keep hemoglobin above 7gm/dl Endocrine: Glucose monitoring per ICU protocol -- SSI Prophylaxis: GI Prophylaxis Protonix infusion MSK: -Reddened area left below-knee amputation in stump area from prosthetic, Follow wound care orders/ recommendations regarding dressing changes. Patient remains on Nathaly specialty bed (Air mattress) DVT Prophylaxis -- SCDs No pharmacological prophylaxis in the setting of GI bleed Lines: Art line, central line, peripheral IVs Dispo: Level 2 Overall impression: Critically ill with life-threatening hypoxemia initially refractory to conventional mechanical ventilation. Liver, kidneys, marrow failing as well. Ascites and fluid overload persists. Recent diagnosis of cirrhosis after many years of alcohol abuse. Neurologically intact prior to intubation. We may need to tap abdomen to get off ventilator. Now with upper GI bleeding. Prognosis appears poor. Palliative care consulted to assist with deciding goals of therapy. The patient was made DNR yesterday 11/01: Extensive of discussion with parents yesterday regarding the poor prognosis , including patient not a candidate for liver transplant in the setting of acute alcoholism, last drink reported 3 months ago on admission, MELD score 33 with a statistically noted 52.6% 3 month mortality rate. All questions answered with family. Palliative medicine discussions ongoing. 11/02: After discussion with palliative medicine yesterday, the parents and family have decided comfort care measures to be instituted today or tomorrow. 11/03: Plan for comfort care measures and ventilator withdrawal this a.m. upon arrival of family and clergy. Physician Katelyn Hess MD Nov 03, 2016 09:19
[2016-11-03] MEDS: PANTOPRAZOLE INJ 80 MG in SODIUM CHLORIDE 0.9% INJ 100 ML IV SCH (09:30)
[2016-11-03] MEDS ORDERED: ACETAMINOPHEN 650 MG SUPP RECTAL PRN (09:45)
[2016-11-03] MEDS ORDERED: LORazepam 2 MG/ML VIAL IV PRN (09:45)
[2016-11-03] MEDS ORDERED: MORPHINE SULFATE 4 MG/ML INJ IV PRN (09:45)
[2016-11-03] MEDS ORDERED: MORPHINE SULFATE 4 MG/ML INJ IV ONE (09:45)
[2016-11-03] MEDS ORDERED: MORPHINE SULFATE 8 MG/ML INJ IV PUSH PRN (09:45)
[2016-11-03] MEDS ORDERED: FUROSEMIDE 20 MG/2 ML VIAL IV PRN (09:45)
[2016-11-03] MEDS ORDERED: BISACODYL 10 MG SUPP RECTAL PRN (09:45)
[2016-11-03] MEDS ORDERED: HYOSCYAMINE 0.5 MG/ML AMP IV PRN (09:45)
[2016-11-03] MEDS ORDERED: LORazepam 2 MG/ML VIAL IVS PRN (09:45)
[2016-11-03] MEDS: CEFEPIME INJ 2,000 MG in SODIUM CHLORIDE 0.9% INJ 100 ML IV SCH (10:00)
[2016-11-03] MEDS: OCTREOTIDE INJ 500 MCG in SODIUM CHLORID 0.9% 500 ML INJ 499.5 ML IV SCH (10:30)
[2016-11-03] MEDS: LORazepam 2 MG/ML VIAL IV SCH ×3 (12:00→20:00)
[2016-11-03] MEDS: MORPHINE SULFATE 4 MG/ML INJ IV SCH ×3 (12:00→20:00)
[2016-11-04] MEDS: MORPHINE SULFATE 4 MG/ML INJ IV SCH
[2016-11-04] MEDS: LORazepam 2 MG/ML VIAL IV SCH (00:45)
--- NOTE | 2016-11-06 06:21 | HHI.DS ---
Summary Note Date of : Nov 04, 2016 Time Of : 0115 Admission Date Oct 23, 2016 at 12:44 Admitting Diagnosis ACUTE PULMONARY EDEMA ON BIPAP, NONSTEMI Diagnosis at Time of : (1) Pulmonary edema ICD Code: J81.1 Diagnosis: Principal Brief History patient is a 50 y/o male with history of cirrhosis who presented to ER with worsening sob. he says that he started to have difficult breathing yesterday. this has been getting worse since then. he denies any chest pain, productive cough, fever or chills. he was found to have a pulse-ox of 70's by ambulance and received IV lasix prior to his presentation to ER. at the time of my evaluation he was on Bipap, stating that his sob has improved to some extent. he says that he's noticed that his legs are more swollen. CBC/BMP: 11/02/16 0400 11/02/16 0400 Imaging Last Impressions Chest X-Ray 10/31/16 0600 Signed Impressions: Service Date/Time: October 04:04 - CONCLUSION: No significant change. Reginald Ng MD Abdomen X-Ray 10/30/16 0000 Signed Impressions: Service Date/Time: Sunday, October 30, 2016 17:30 - CONCLUSION: No gross abnormality seen. See Woodruff MD Abdomen Ultrasound 10/30/16 0000 Signed Impressions: Service Date/Time: Sunday, October 30, 2016 22:22 - CONCLUSION: 1. Cirrhotic prominent liver with abnormal hepatopedal fugal blood flow in the portal vein. 2. Mild to moderate splenomegaly. 3. A moderate ascitic fluid. Reginald Ng MD Last Impressions Chest X-Ray 10/28/16 0400 Signed Impressions: Service Date/Time: Friday, October 28, 2016 04:52 - CONCLUSION: 1. No significant change in the hazy opacity in both lungs. 2. Mild cardiomegaly remains. Reginald Ng MD Hospital Course Oxygen diffusion improved overnight - could not get sats over 85% last evening until converted to APRV mode. Abdominal distention will hamper efforts to eventually extubate; hopefully diuretics will manage ascites. Sputum culture obtained last night - pending. Will review therapy with Dr. Sosa. 10/26: Oxygen diffusion improving but CXR remains wet - ? underlying pneumonia. 10/27: CXR today looks like fluid overload with persistent pulmonary venous congestion. I'm not sure we are getting enough fluid off of him. Converted back to conventional ventilation today and maintaining sats > 95%. Platelets decreasing, check HIPA - no heparin/lovenox for 4 days. Hold supplemental whey protein pending ammonia level (no encephalopathy prior to extubation). 10/28: Remains sedated, orally intubated on mechanical ventilation. Coffee- ground NG aspirate noted by RN. Remains on PRVC mechanical ventilation. 10/29: Remains sedated, orally intubated on mechanical ventilation. Underwent EGD on 10/28 by GI, awaiting official report however was informed by FLORAL DESIGNER that she was told patient had gastritis on EGD and no active bleeding. Received 2 units PRBCs, 2 units FFP, 1 unit cryoprecipitate and 1 unit pheresed platelets on 10/28. Remains on Bumex drip to mobilize fluid. 10/30: Remains encephalopathic, unresponsive off sedation, orally intubated on mechanical ventilation. 10/31: Abdominal ultrasound noted moderate ascites, tentative plan for paracentesis however platelet count 45, scheduled transfusion of 1 unit of platelets this a.m. Patient continues to be encephalopathic, ammonia level CXII on 10/29, lactulose increased consider rifaximin. NG tube output decreased overnight with institution of Reglan. Urine output noted to be increased with slight decrease in creatinine in the last 24 hours, as the patient continues on Bumex 1 mg/hour. 11/01: The patient continues to be encephalopathic. The patient continues on rifaximin, and lactulose was increased to twice a day yesterday. The patient continues to be coagulopathic, receiving 1 unit of platelets yesterday for possible abdominal paracentesis. Unable to perform secondary to INR still 2.5. The patient will be transfused 2 units FFP, 1 unit of platelets today. Discussed with radiology ultrasound-guided abdominal paracentesis, tentative plan but may not be performed due to coagulopathy. The patient was made DNR yesterday after extensive discussion with palliative medicine. He continues on Bumex, octreotide and Protonix infusions. 11/02: No acute changes overnight. The patient remains encephalopathic, opens eyes spontaneously. No current plans for abdominal paracentesis the family to thorough discussion with palliative care medicine plans on comfort care measures with ventilator withdrawal either today or tomorrow, upon arrival of family members from [place]. 11/03: Remains encephalopathic. Spontaneous eye opening, does not track does not follow. Plan for comfort care measures this a.m. with family members and clergy at bedside. With clergy and family at bedside, the patient at 0115 am on 11/04/16. Katelyn Edmondson MD Nov 06, 2016 06:20
== END 2016-11-04 04:30 | disposition expired | DRG 207 ==
LOC: NEPC 09:55 → NEDA 12:44 → HCIN 14:39 → HCIS 10-24 09:31 → HCIN 10-24 09:33 → HCVR 10-24 16:55 → HIMN 10-31 10:20 → HOCB 11-04 00:55
PROVIDERS: ADMIT Surgery Surgical Critical Care; ATTEND Surgery Surgical Critical Care
PROC: 5A1955Z Respiratory Ventilation, Greater than 96 Consecutive Hours (ICD-10-PCS; principal; 2016-10-24)
PROC: 03HY32Z Insertion of Monitoring Device into Upper Artery, Percutaneous Approach (ICD-10-PCS; 2016-10-24)
PROC: 30233N1 Transfusion of Nonautologous Red Blood Cells into Peripheral Vein, Percutaneous Approach (ICD-10-PCS; 2016-10-24)
PROC: 05H533Z Insertion of Infusion Device into Right Subclavian Vein, Percutaneous Approach (ICD-10-PCS; 2016-10-24)
PROC: 0BH17EZ Insertion of Endotracheal Airway into Trachea, Via Natural or Artificial Opening (ICD-10-PCS; 2016-10-24)
PROC: 30233K1 Transfusion of Nonautologous Frozen Plasma into Peripheral Vein, Percutaneous Approach (ICD-10-PCS; 2016-10-28)
PROC: 30233R1 Transfusion of Nonautologous Platelets into Peripheral Vein, Percutaneous Approach (ICD-10-PCS; 2016-10-28)
PROC: 30233M1 Transfusion of Nonautologous Plasma Cryoprecipitate into Peripheral Vein, Percutaneous Approach (ICD-10-PCS; 2016-10-28)
PROC: 0DJ08ZZ Inspection of Upper Intestinal Tract, Via Natural or Artificial Opening Endoscopic (ICD-10-PCS; 2016-10-28)
DX: J81.0 Acute pulmonary edema (principal); J96.01 Acute respiratory failure with hypoxia; K76.7 Hepatorenal syndrome; J18.9 Pneumonia, unspecified organism; Z51.5 Encounter for palliative care; J90 Pleural effusion, not elsewhere classified; N17.9 Acute kidney failure, unspecified; E87.3 Alkalosis; K29.81 Duodenitis with bleeding; K76.81 Hepatopulmonary syndrome; D68.4 Acquired coagulation factor deficiency; D62 Acute posthemorrhagic anemia; Z68.41 Body mass index [BMI] 40.0-44.9, adult; N39.0 Urinary tract infection, site not specified; K76.6 Portal hypertension; K70.31 Alcoholic cirrhosis of liver with ascites; D69.59 Other secondary thrombocytopenia; K70.40 Alcoholic hepatic failure without coma; I27.2 Other secondary pulmonary hypertension; E88.09 Other disorders of plasma-protein metabolism, not elsewhere classified; E87.70 Fluid overload, unspecified; I10 Essential (primary) hypertension; D64.89 Other specified anemias; E78.5 Hyperlipidemia, unspecified; I25.9 Chronic ischemic heart disease, unspecified; E66.9 Obesity, unspecified; I07.1 Rheumatic tricuspid insufficiency; K44.9 Diaphragmatic hernia without obstruction or gangrene; K31.89 Other diseases of stomach and duodenum; R16.1 Splenomegaly, not elsewhere classified; R40.2434 Glasgow coma scale score 3-8, 24 hours or more after hospital admission; M15.9 Polyosteoarthritis, unspecified; M54.30 Sciatica, unspecified side; F10.10 Alcohol abuse, uncomplicated; F41.8 Other specified anxiety disorders; B96.1 Klebsiella pneumoniae [K. pneumoniae] as the cause of diseases classified elsewhere; Y90.9 Presence of alcohol in blood, level not specified; Z66 Do not resuscitate; Z86.73 Personal history of transient ischemic attack (TIA), and cerebral infarction without residual deficits; Z87.891 Personal history of nicotine dependence; Z89.512 Acquired absence of left leg below knee
CPT/HCPCS: 31500; 36430; 36600; 71010; 74000; 76700; 80048; 80053; 81001; 82140; 82272; 82550; 82552; 82805; 83605; 83735; 83880; 84100; 84155; 84484; 85007; 85014; 85018; 85025; 85027; 85049; 85384; 85610; 85730; 86021; 86022; 86160; 86850; 86900; 86901; 86920; 86921; 86922; 86927; 86965; 87070; 87077; 87086; 87186; 87205; 93005; 93306; 94002; 94003; 94640; 96374; C9113; C9248; J0456; J0610; J0692; J0696; J1265; J1940; J1980; J2060; J2250; J2270; J2354; J2405; J2765; J3430; J3480; J7040; J7050; J7510; P9016; P9017; P9035; P9047